=== PATIENT | male | born 1950 | race Caucasian/White ===

== ENCOUNTER → 2022-01-04 11:15 | Outpatient (BNVA) | payer MEDICARE, MEDICAID, SELFPAY | PROVIDERS: Visit Provider Specialist | DX: S82.831A Other fracture of upper and lower end of right fibula, initial encounter for closed fracture (principal); W01.0XXA Fall on same level from slipping, tripping and stumbling without subsequent striking against object, initial encounter | CPT/HCPCS: 27786; 73610; 99204 ==

== ENCOUNTER 2022-01-04 15:13 | Outpatient (CLI) | payer MEDICARE, MEDICAID, SELFPAY | END 2022-01-04 15:14 | disposition home or self-care (01) | LOC: SPT 15:15 | PROVIDERS: Visit Provider Specialist | DX: Z46.89 Encounter for fitting and adjustment of other specified devices (principal); S82.831D Other fracture of upper and lower end of right fibula, subsequent encounter for closed fracture with routine healing; X58.XXXD Exposure to other specified factors, subsequent encounter | CPT/HCPCS: 27786; 97760; 99204; L1902; L4361 ==

== ENCOUNTER → 2022-01-18 14:28 | Outpatient (BNVA) | payer MEDICARE, MEDICAID, SELFPAY | PROVIDERS: Visit Provider Nurse Practitioner Family | DX: S82.831D Other fracture of upper and lower end of right fibula, subsequent encounter for closed fracture with routine healing (principal); X58.XXXD Exposure to other specified factors, subsequent encounter | CPT/HCPCS: 73610; 99024; 99214 ==

== ENCOUNTER → 2022-02-23 14:10 | Outpatient (BNVA) | payer MEDICARE, MEDICAID, SELFPAY | PROVIDERS: Visit Provider Nurse Practitioner Family | DX: S82.831A Other fracture of upper and lower end of right fibula, initial encounter for closed fracture (principal) | CPT/HCPCS: 73610; 99213 ==

== ENCOUNTER 2023-09-09 21:45 | Inpatient (IN) | payer MEDICARE, MEDICAID, SELFPAY ==
[2023-09-09 21:48] VITALS: BP 150/93; PULSE 84; RESP 16; TEMP 37.2; O2SAT 92; BMI 33.3
[2023-09-09 22:00] VITALS: BP 163/105; PULSE 82; RESP 18; O2SAT 91
--- NOTE | 2023-09-09 22:07 | XRR_ITS ---
PROCEDURE INFORMATION: Exam: XR Right Tibia and Fibula Exam date and time: 09/09/2023 10:13 PM Age: 73 years old Clinical indication: Injury or trauma; Fall; Other: Pain; Additional info: Fall and L leg pain TECHNIQUE: Imaging protocol: Radiologic exam of the right tibia and fibula. Views: 2 views. COMPARISON: CR XR ankle RT min 3V* [id number] 02/23/2022 2:18 PM FINDINGS: Bones/joints: Osseous demineralization. Cpuj-hx-guvlqkuvzt displaced proximal right fibular fracture. Tqjr-fv-dqzvwjngnk displaced spiral fracture of the distal tibia without definitive intra-articular extension. Status post medial knee joint replacement. Soft tissues: Mild diffuse soft tissue swelling. Vasculature: Peripheral atherosclerotic calcifications. XR/XR tibia fibula RT 2V [id number] IMPRESSION: 1. Rkqy-et-rubnrapbnv displaced proximal right fibular fracture. 2. Iddg-ug-rkqephlcze displaced spiral fracture of the distal tibia without definitive intra-articular extension. .
[2023-09-09 22:30] VITALS: BP 153/97; PULSE 84; RESP 16; O2SAT 93
[2023-09-09 23:00] VITALS: BP 128/74; PULSE 92; O2SAT 93
--- NOTE | 2023-09-09 23:03 | W.ED.FALL ---
HPI - Fall General: Chief Complaint: Fall Stated Complaint: Fall/ Tib/Fib fx Time Seen by Provider: 09/09/23 22:00 History of Present Illness: The patient presents to the ER with a chief complaint of right leg pain after a fall at home. He reports getting tangled up in his walker and linens, leading to a fall. The patient experiences significant pain in the right leg, particularly from an inch or two below the knee down to the ankle. He denies any pain in the hip or foot. The patient has a history of scoliosis and underwent surgery three years ago, after which he was unconscious for approximately a week to ten days. He has been living in a correction since then. His currently resides with their daughter in [place], [place]. During the examination, the patient briefly experienced an episode of discomfort, but denied feeling nauseous. He has already received pain medication and reports that his pain is currently tolerable. Review of Systems General: Reports: 10 or more systems reviewed and unremarkable except in HPI and below PFSH ED PFSH: Social History Smoking and tobacco/nicotine status: never used tobacco/nicotine Physical Exam Const: COMMON NORMALS: no acute distress, patient oriented x3, healthy appearing, alert and well nourished HENMT: COMMON NORMALS: normocephalic HEAD & SCALP: normocephalic Eye: COMMON NORMALS: EOMs intact bilaterally Neck/C-Spine: COMMON NORMALS: full ROM and supple Resp: COMMON NORMALS: normal respiratory effort, No retractions and clear to auscultation bilaterally AUSCULTATION: clear to auscultation bilaterally Cardio: COMMON NORMALS: regular rate, regular rhythm, No gallops present (Cardio) and No murmurs present (Cardio) RATE: regular rate RHYTHM: regular rhythm GI: COMMON NORMALS: Soft to palpation and non-tender PALPATION: Yes Soft to palpation Extremity: GENERAL: Yes normal exam except as noted RIGHT LOWER EXTREMITY: Yes lower leg Right lower leg: Yes inspection (No significant ecchymosis or swelling), Yes palpation (Tender to palpation over the tibia) and Yes neurovascular exam (Normal dorsalis pedis and posterior tibial pulses, normal cap refill) Neuro: COMMON NORMALS: patient oriented x3 SENSORIUM/ORIENTATION: Yes alert Skin: COMMON NORMALS: no rashes or lesions noted GENERAL SKIN EXAM: no rashes or lesions noted Course Vital Signs: Vital signs: Vital Signs Temperature 98.9 F 09/09/23 21:48 Pulse Rate 84 09/09/23 21:48 Respiratory Rate 16 09/09/23 21:48 Blood Pressure 150/93 09/09/23 21:48 Pulse Oximetry 92 09/09/23 21:48 Oxygen Delivery Me thod Room Air 09/09/23 21:48 MDM - Fall Medical Decision Making 73-year-old male presents to the ER from his correction for evaluation of right leg pain. Patient has a proximal fibula distal tibia closed fracture to the right leg. He has normal pulses and sensation is intact. There is no evidence at this time that he is developing compartment syndrome. There is no significant swelling or ecchymosis in the leg. Case discussed with Dr. Encarnacion the orthopedic surgeon who recommended a CT scan, n.p.o. after midnight, and admission for discussion about surgical options in the morning. Case was then discussed with Dr. Slade who agreed to admit the patient. All radiology interpretation(s) finalized by discharge Discharge Plan Discharge Patient Disposition: Placed in Observation Clinical Impression: Closed fracture of tibia and fibula Qualifiers: Encounter type: initial encounter Laterality: right Qualified Code(s): S82.201A - Unspecified fracture of shaft of right tibia, initial encounter for closed fracture Coding Level of Care Code ED It [employer] for [employer]
--- NOTE | 2023-09-09 23:20 | CTR_ITS ---
PROCEDURE INFORMATION: Exam: CT Right Lower Extremity Without Contrast; Lower Leg Exam date and time: 09/09/2023 11:32 PM Age: 73 years old Clinical indication: Injury or trauma; Fall; Blunt trauma; Right; Prior surgery; Surgery date: 6+ months; Surgery type: Partial knee arhtroplasty; Patient HX: Patient fell at home while using walker. C/O severe RT lower leg pain. ; Additional info: Fracture by XR CT to evaluate for communication to ankle TECHNIQUE: Imaging protocol: CT of the right lower extremity without contrast was performed. Exam focused on the lower leg. Radiation optimization: All CT scans at this facility use at least one of these dose optimization techniques: automated exposure control; mA and/or kV adjustment per patient size (includes targeted exams where dose is matched to clinical indication); or iterative reconstruction. COMPARISON: CR (LOW EXM, ) 09/09/2023 10:13 PM RADIATION DOSE METRICS: Total DLP (mGy-cm): 1346.61 FINDINGS: Bones/joints: Mildly displaced proximal fibular fracture. Xide-az-vfbcfhatvq displaced spiral fracture of the distal tibia. No evidence of intra-articular extension of either fracture. Mild degenerative changes of the ankle joint. Status post medial right knee arthroplasty, partially visualized. Thickening of the tibiotalar and tibiocalcaneal ligaments with calcification consistent with sequela of prior trauma. Similar appearance of the fibula calcaneal and fibulotalar ligaments. Soft tissues: Mild diffuse soft tissue swelling and subcutaneous edema. Vasculature: Peripheral atherosclerotic calcifications. CT/CT lower leg RT wo con* [id number] IMPRESSION: 1. Mildly displaced proximal fibular fracture. 2. Weal-rj-ercvsvmsyh displaced spiral fracture of the distal tibia.
[2023-09-09 23:30] VITALS: BP 153/109; PULSE 84; O2SAT 91
--- NOTE | 2023-09-09 23:48 | P.HP_ITS ---
Providers/Chief Complaint 2 Chief Complaint: Fall/ Tib/Fib fx History of Present Illness Tom Espinosa is a 73 year old man who presents for further evaluation of right leg pain after a fall at home. He reports getting tangled up in his walker and beddings, leading to a fall. He started to have right leg pain after the fall. He denies hitting his head, loss of consciousness, seizure like movements, cough,shortness of breath, nausea, vomiting or abdominal pain. Imaging in the ER showed mildly displaced proximal fibular fracture , mild to moderate displaced spiral fracture of the distal tibia. Review of Systems 2 General: Reports: 10 or more systems reviewed and unremarkable except in HPI and below Const: Denies: fever(s) or chills Eyes: Denies: change in vision or blurry vision ENMT: Denies: throat pain or uvular edema Card: Denies: chest pain, palpitations or dyspnea on exertion Resp: Denies: dyspnea or productive cough GI: Denies: abdominal pain, nausea or vomiting : Denies: flank pain or difficulty urinating Neuro: Denies: headache(s) or numbness in extremities Endo: Denies: polyuria or polydipsia Medications/Allergies Home Medications Medication Instructions Recorded Confirmed Last Taken Type acetaminophen 325 mg capsule 325 mg PO QID PRN 01/04/22 02/23/22 Unknown History albuterol sulfate 90 mcg/actuation 2 puff inhalation Q6H PRN 01/04/22 02/23/22 Unknown History aerosol inhaler aspirin 81 mg tablet,delayed 81 mg PO DAILY 01/04/22 02/23/22 Unknown History release (Adult Low Dose Aspirin) bisacodyl 10 mg/30 mL enema 10 mg [place] DAILY PRN 01/04/22 02/23/22 Unknown History calcium carbonate (Antacid 200 mg PO BID 01/04/22 02/23/22 Unknown History (calcium carbonate)) cam walking boot #1 ea 01/04/22 02/23/22 Unknown Rx donepezil 5 mg tablet 5 mg PO DAILY 01/04/22 02/23/22 Unknown History ibuprofen 400 mg tablet 400 mg PO Q8H 01/04/22 02/23/22 Unknown History lace up ankle brace #1 ea 01/04/22 02/23/22 Unknown Rx magnesium hydroxide 400 mg/5 mL 30 ml PO BID PRN constipation 01/04/22 02/23/22 Unknown History oral suspension (Milk of Magnesia) menthol 2.7 mg lozenges (Cough 5.4 mg mucous membrane Q4H PRN 01/04/22 02/23/22 Unknown History Drops) menthol 4 % topical gel (Biofreeze 1 applic topical TID PRN 01/04/22 02/23/22 Unknown History (menthol)) mirabegron 50 mg tablet,extended 50 mg PO DAILY 01/04/22 02/23/22 Unknown History release 24 hr (Myrbetriq) omeprazole 20 mg tablet,delayed 20 mg PO DAILY 01/04/22 02/23/22 Unknown History release polyethylene glycol ea miscellaneous 01/04/22 02/23/22 Unknown History tamsulosin 0.4 mg capsule 0.4 mg PO DAILY 01/04/22 02/23/22 Unknown History tramadol 50 mg tablet 50 mg PO Q6H PRN pain #30 tabs 01/18/22 02/23/22 Unknown Rx Allergies Allergy/AdvReac Type Severity Reaction Status Date / Time No Known Allergies Allergy Verified 02/23/22 14:26 PFSH Acute 2 PFSH: Medical History (Updated 09/10/23 @ 06:30 by Lam Slade MD) BPH (benign prostatic hyperplasia) Surgical History (Updated 09/10/23 @ 06:30 by Lam Slade MD) Previous back surgery Social History Smoking and tobacco/nicotine status: never used tobacco/nicotine Vitals/I&O/Wt Last Vital Signs Temp 98.9 F 09/09/23 21:48 Pulse 84 09/09/23 21:48 Resp 16 09/09/23 21:48 BP 150/93 09/09/23 21:48 Pulse Ox 92 09/09/23 21:48 O2 Del Method Room Air 09/09/23 21:48 Weight last 48 hrs Weight 111.584 kg Physical Exam 2 Const: COMMON NORMALS: no acute distress, patient oriented x3 and alert HENMT: COMMON NORMALS: normocephalic, atraumatic, external ears normal, Normal external nose present, moist oral mucous membranes and oropharynx normal HEAD & SCALP: normocephalic and atraumatic NOSE: Normal external nose present E XTERNAL EAR: Yes external ears normal Eye: COMMON NORMALS: Equal, round and reactive pupils present, EOMs intact bilaterally, conjunctivae normal and no scleral icterus CONJUNCTIVA: Yes conjunctivae normal PUPIL: Yes Equal, round and reactive pupils present Neck/C-Spine: COMMON NORMALS: full ROM, no lymphadenopathy and no JVD Chest: COMMONS NORMALS: normal inspection of the chest Resp: COMMON NORMALS: normal respiratory effort and clear to auscultation bilaterally AUSCULTATION: clear to auscultation bilaterally OTHER: No wheezes or crcakles Cardio: COMMON NORMALS: no JVD, regular rate, regular rhythm, S1 normal heart sound present and S2 normal heart sound present RATE: regular rate RHYTHM: regular rhythm HEART SOUNDS: S1 normal heart sound present and S2 normal heart sound present GI: COMMON NORMALS: Normal to inspection, nondistended, normoactive bowel sounds present, Soft to palpation and non-tender PALPATION: Yes Soft to palpation Extremity: NARRATIVE EXTREMITY EXAM: Right LE wrapped Neuro: COMMON NORMALS: patient oriented x3 SENSORIUM/ORIENTATION: Yes alert OTHER: No gross focal deficits Data 09/10/23 01:55 09/10/23 01:[address]: Radiologist's impression: mildly displaced proximal fibular fracture , mild to moderate displaced spiral fracture of the distal tibi A&P Assessment and plan (1) Closed fracture of tibia and fibula: Qualifiers: Encounter type: initial encounter Laterality: right Qualified Code(s): S82.201A - Unspecified fracture of shaft of right tibia, initial encounter for closed fracture; S82.401A - Unspecified fracture of shaft of right fibula, initial encounter for closed fracture (2) Fracture of fibula, distal, right, closed: Qualifiers: Encounter type: subsequent encounter Fracture morphology: other fracture Plan #Mechanical Fall #Mildly displaced Right proximal fibular fracture , mild to moderate displaced spiral fracture of the right distal tibia. -Patient sustained the above after a fall -Orthopedic surgery consulted in the ER, patient will have surgical evaluation tomorrow -NPO from midnight -Check UA #Thrombocytopenia -Unclear etiology, unclear if chronic -Check peripheral smear -Hold heparin -Hematology consult as appropriate #BPH -Ct tamsulosin Attestations 2 Medical Necessity Statement*: Patient's care will cross 2 midnights Coding Level of Care Code Acute Code for [facility] Diagnoses Closed fracture of tibia and fibula S82.201A; S82.401A Encounter type: initial encounter Laterality: right Fracture of fibula, distal, right, closed S82.831A Encounter type: subsequent encounter Fracture morphology: other fracture
[2023-09-10] VITALS (15 sets, daily range): BP systolic 117–159; BP diastolic 58–119; PULSE 59–100; RESP 12–20; TEMP 36.4–37.2; O2SAT 90–94; BMI 38.1
[2023-09-10] MEDS: TRAMadol 50 mg Tablet PO ×3 (01:56→20:20)
[2023-09-10 02:14] LABS: Basophils % 0.5 %; Eosinophils # 0.1 10^3/uL (0.0-0.8); Hematocrit 41.8 % (37-53); Lymphocytes # 1.2 10^3/uL (0.8-4.8); Lymphocytes % 13.9 %; Mean Corpuscular HGB Conc 31.3 g/dL (30-55); Mean Corpuscular Hemoglobin 29.8 pg (27-33); Mean Platelet Volume 14.1 fL (7.4-10.4); Monocytes # 0.6 10^3/uL (0.2-0.9); Monocytes % 7.1 %; Neutrophils # 6.45 10^3/uL (1.8-7.7); Neutrophils % 77.1 %; Nucleated Red Blood Cells % 0 %; Platelet Count 45 10^3/cmm (157-399); Red Cell Distribution Width 14.1 % (12.1-15.1); White Blood Count 8.35 10^3/uL (3.29-11.43)
[2023-09-10 02:27] LABS: Alanine Aminotransferase 18 U/L (0-41); Albumin Level 3.6 g/dL (3.5-5.2); Alkaline Phosphatase 107 U/L (40-130); Anion Gap 15.2 (5-19); Aspartate Amino Transferase 18 U/L (0-40); Blood Urea Nitrogen 18 mg/dL (8-23); Calcium 8.8 mg/dL (8.5-10.5); Carbon Dioxide 24 mmol/L (22-29); Chloride 103 mmol/L (98-107); Creatinine Clr Calc Pharmacy 113.7367; Glucose 172 mg/dL (65-115); Osmolality Calculated 292 mOsm/kg (285-295); Potassium 4.2 mmol/L (3.5-5.1); Sodium 138 mmol/L (136-145); Total Bilirubin 0.6 mg/dL (0.15-1.2); Total Protein 6.6 g/dL (6.6-8.7)
[2023-09-10] MEDS: morphine 4 mg/mL SDV 1 mL 2 MG IVP ×4 (04:28→22:18)
--- NOTE | 2023-09-10 07:38 | P.CONIM_ITS ---
Providers/Reason For Consult 2 Consulting Physician/Specialty*: Miguel Encarnacion DO/orthopedic surgery Reason for Consult*: Right lower leg distal tibia fracture with associated proximal fibula fracture Requesting Physician: Dr. Tavarez-emergency department Attending Physician: Lam Slade MD History of Present Illness History of Present Illness HPI obtained from patient as well as medical record of hospitalist: Tom Espinosa is a 73 year old man who presents for further evaluation of right leg pain after a fall at home. He reports getting tangled up in his walker and beddings, leading to a fall. He started to have right leg pain after the fall. He denies hitting his head, loss of consciousness, seizure like movements, cough,shortness of breath, nausea, vomiting or abdominal pain. Imaging in the ER showed mildly displaced proximal fibular fracture , mild to moderate displaced spiral fracture of the distal tibia.Patient's is POA and lives in [place] he currently is at a [facility] facility.Discussed case with over the phone today.. Patient's platelets are 45 today. Review of Systems 2 General: Reports: 10 or more systems reviewed and unremarkable except in HPI and below Medications/Allergies Home Medications Medication Instructions Recorded Confirmed Last Taken Type acetaminophen 325 mg capsule 325 mg PO QID PRN 01/04/22 02/23/22 Unknown History albuterol sulfate 90 mcg/actuation 2 puff inhalation Q6H PRN 01/04/22 02/23/22 Unknown History aerosol inhaler aspirin 81 mg tablet,delayed 81 mg PO DAILY 01/04/22 02/23/22 Unknown History release (Adult Low Dose Aspirin) bisacodyl 10 mg/30 mL enema 10 mg [place] DAILY PRN 01/04/22 02/23/22 Unknown History calcium carbonate (Antacid 200 mg PO BID 01/04/22 02/23/22 Unknown History (calcium carbonate)) cam walking boot #1 ea 01/04/22 02/23/22 Unknown Rx donepezil 5 mg tablet 5 mg PO DAILY 01/04/22 02/23/22 Unknown History ibuprofen 400 mg tablet 400 mg PO Q8H 01/04/22 02/23/22 Unknown History lace up ankle brace #1 ea 01/04/22 02/23/22 Unknown Rx magnesium hydroxide 400 mg/5 mL 30 ml PO BID PRN constipation 01/04/22 02/23/22 Unknown History oral suspension (Milk of Magnesia) menthol 2.7 mg lozenges (Cough 5.4 mg mucous membrane Q4H PRN 01/04/22 02/23/22 Unknown History Drops) menthol 4 % topical gel (Biofreeze 1 applic topical TID PRN 01/04/22 02/23/22 Unknown History (menthol)) mirabegron 50 mg tablet,extended 50 mg PO DAILY 01/04/22 02/23/22 Unknown History release 24 hr (Myrbetriq) omeprazole 20 mg tablet,delayed 20 mg PO DAILY 01/04/22 02/23/22 Unknown History release polyethylene glycol ea miscellaneous 01/04/22 02/23/22 Unknown History tamsulosin 0.4 mg capsule 0.4 mg PO DAILY 01/04/22 02/23/22 Unknown History tramadol 50 mg tablet 50 mg PO Q6H PRN pain #30 tabs 01/18/22 02/23/22 Unknown Rx Allergies Allergy/AdvReac Type Severity Reaction Status Date / Time No Known Allergies Allergy Verified 02/23/22 14:26 Current Medications Generic Name Dose Route Start Last Admin Trade Name Freq PRN Reason Stop Dose Admin Morphine Sulfate 2 mg 09/10/23 01:38 09/10/23 04:28 Morphine 4 Mg/Ml Sdv 1 Ml IVP 2 mg Q4H PRN Administration SEVERE PAIN Tramadol HCl 50 mg 09/10/23 01:38 09/10/23 01:56 Tramadol 50 Mg Tablet PO 50 mg Q6H PRN Administration pain PFSH Acute 2 PFSH: Medical History (Updated 09/10/23 @ 06:30 by Lam Slade MD) BPH (benign prostatic hyperplasia) Surgical History (Updated 09/10/23 @ 06:30 by Lam Slade MD) Previous back surgery Social History Smoking and tobacco/nicotine status: never used tobacco/nicotine Vitals/I&O/Wt Last Vital Signs Temp 97.5 F L 09/10/23 04:00 Pulse 66 09/10/23 04:00 Resp 18 09/10/23 04:28 BP 145/88 09/10/23 04:00 Pulse Ox 93 09/10/23 04:00 O2 Del Method Room Air 09/10/23 04:00 Weight last 48 hrs Weight 281 lb 7 oz Weight 282 lb 4.8 oz Weight 246 lb Physical Exam 2 Narrative: Orthopedic examination: Examination of the patient's right lower extremity demonstrates splint sewn in place is subsequently left in place not taken down he has tenderness palpation at the fracture site at the distal tibia as well as at the proximal fibula. He is able to wiggle toes as well as great toe extension is appreciated does endorse sensations intact light touch to the toes. Toes are warm well-perfused with brisk capillary refill less than 2 seconds unable to palpate pulse secondary to splint. Patient has negative logroll to the left or right hip. Compartments are soft and compressible the right lower extremity. Secondary survey examination is unremarkable for any tenderness to palpation of the bilateral upper extremity joints with normal use of use and motion of the joints as well as no tenderness palpation of the lower extremity joints on the left side. Data 09/10/23 08:10 09/10/23 01:55 Xray Ortho: Radiologist's impression: Ordering Provider/Ordering MD: Rigoberto Tavarez DO Date of Service: 09/09/23 Procedure(s): XR tibia fibula RT 2V [id number] Accession Number(s): [id number] Report Number: [id number] PROCEDURE INFORMATION: Exam: XR Right Tibia and Fibula Exam date and time: 09/09/2023 10:13 PM Age: 73 years old Clinical indication: Injury or trauma; Fall; Other: Pain; Additional info: Fall and L leg pain TECHNIQUE: Imaging protocol: Radiologic exam of the right tibia and fibula. Views: 2 views. COMPARISON: CR XR ankle RT min 3V* [id number] 02/23/2022 2:18 PM FINDINGS: Bones/joints: Osseous demineralization. Iwre-pj-wricpiwftu displaced proximal right fibular fracture. Mawf-md-elmuvdotvq displaced spiral fracture of the distal tibia without definitive intra-articular extension. Status post medial knee joint replacement. Soft tissues: Mild diffuse soft tissue swelling. Vasculature: Peripheral atherosclerotic calcifications. XR/XR tibia fibula RT 2V [id number] IMPRESSION: 1. Ioyd-cz-dfkavxkzvy displaced proximal right fibular fracture. 2. Gyuu-ex-qmqycbkgby displaced spiral fracture of the distal tibia without definitive intra-articular extension. Ordering Provider/Ordering MD: Rigoberto Tavarez DO Date of Service: 09/09/23 Procedure(s): CT lower leg RT wo con* [id number] Accession Number(s): [id number] Report Number: [id number] PROCEDURE INFORMATION: Exam: CT Right Lower Extremity Without Contrast; Lower Leg Exam date and time: 09/09/2023 11:32 PM Age: 73 years old Clinical indication: Injury or trauma; Fall; Blunt trauma; Right; Prior surgery; Surgery date: 6+ months; Surgery type: Partial knee arhtroplasty; Patient HX: Patient fell at home while using walker. C/O severe RT lower leg pain. ; Additional info: Fracture by XR CT to evaluate for communication to ankle TECHNIQUE: Imaging protocol: CT of the right lower extremity without contrast was performed. Exam focused on the lower leg. Radiation optimization: All CT scans at this facility use at least one of these dose optimization techniques: automated exposure control; mA and/or kV adjustment per patient size (includes targeted exams where dose is matched to clinical indication); or iterative reconstruction. COMPARISON: CR (LOW EXM, ) 09/09/2023 10:13 PM RADIATION DOSE METRICS: Total DLP (mGy-cm): 1346.61 FINDINGS: Bones/joints: Mildly displaced proximal fibular fracture. Hrlx-yx-dgvgxpabvx displaced spiral fracture of the distal tibia. No evidence of intra-articular extension of either fracture. Mild degenerative changes of the ankle joint. Status post medial right knee arthroplasty, partially visualized. Thickening of the tibiotalar and tibiocalcaneal ligaments with calcification consistent with sequela of prior trauma. Similar appearance of the fibula calcaneal and fibulotalar ligaments. Soft tissues: Mild diffuse soft tissue swelling and subcutaneous edema. Vasculature: Peripheral atherosclerotic calcifications. CT/CT lower leg RT wo con* [id number] IMPRESSION: 1. Mildly displaced proximal fibular fracture. 2. Tyzv-zo-ktqvckqnpa displaced spiral fracture of the distal tibia. A&P Assessment and plan (1) Closed fracture of tibia and fibula: Qualifiers: Encounter type: initial encounter Laterality: right Qualified Code(s): S82.201A - Unspecified fracture of shaft of right tibia, initial encounter for closed fracture; S82.401A - Unspecified fracture of shaft of right fibula, initial encounter for closed fracture (2) Fracture of fibula, distal, right, closed: Qualifiers: Encounter type: subsequent encounter Fracture morphology: other fracture Plan #Mechanical Fall #Mildly displaced Right proximal fibular fracture , mild to moderate displaced spiral fracture of the right Nonweightbearing right lower extremity CT scan reviewed no intra-articular involvement enough distal footprint for nail fixation Discussed case with Pain control Patient has low platelets and currently has order for 2 units with 2 units on hold today. Given his platelets is 45 we will try and get him above 50 prior to surgical intervention Patient may have diet today with plan for n.p.o. at midnight tonight we will get appropriately worked up and medically optimized today spoke with Dr. Rodriguez Plan for surgery tomorrow for right tibia intramedullary nail through infrapatellar approach as patient does have a medial partial knee replacement Patient is a 73-year-old male who has some baseline dementia according to patient's POA who I talked with on the phone. Patient is aware and able to answer all questions today. We talked about his treatment options as far as nonoperative and operative invention I discussed this with the as well. Talked about the risk benefits complication alternatives with the each. Given its along his alignment I feel this could be treated nonoperatively but this would require long-leg cast nonoperative treatment for roughly 6 to 8 weeks prior to putting any weightbearing on versus surgical intervention which my hands would be nonweightbearing with a splint on and encourage knee range of motion right away for 2 weeks subsequently followed by goals of progressing weightbearing after 2 weeks and incisions of healed. Through shared decision making patient and elect to proceed with surgical intervention of the right tibial nail he does have a partial knee replacement on the medial side of the right knee and at this point time would recommend an infrapatellar approach. Plan will be to get his body optimized with receiving units of platelets today and then plan for surgical intervention tomorrow morning. He can have a diet with n.p.o. at midnight tonight. Patient and understand agree with current plan. Questions answered. Consult Attestations 2 Medical Necessity Statement: Ongoing care Patient sustained right proximal fibula fracture with associated spiral distal tibia fracture Coding Level of Care Code Acute Code for [facility] Fwd Diagnoses Closed fracture of tibia and fibula S82.201A; S82.401A Encounter type: initial encounter Laterality: right Fracture of fibula, distal, right, closed S82.831A Encounter type: subsequent encounter Fracture morphology: other fracture Time Spent (min) 45
[2023-09-10 09:01] LABS: Hematocrit 41.2 % (37-53); Mean Corpuscular Hemoglobin 30.5 pg (27-33); Mean Corpuscular Volume 92.4 fl (82-101); Mean Platelet Volume 14.3 fL (7.4-10.4); Platelet Count 42 10^3/cmm (157-399); Red Blood Count 4.46 10^6/uL (3.85-5.65); Red Cell Distribution Width 14.1 % (12.1-15.1); White Blood Count 7.42 10^3/uL (3.29-11.43)
[2023-09-10 09:04] LABS: Absolute Eosinophils 0.1 10^3/cmm (0.0-0.7); Absolute Segmented Neutrophil 5.9 10/cmm (1.6-7.1); Eosinophils 1 %; Lymphocytes 17 %; Lymphocytes Absolute 1.3 10^3/cmm (1.2-3.4); Monocytes Absolute 0.2 10^3/cmm (0.1-0.6); Platelet Estimate Decreased (Normal); Segmented Neutrophils 79 %; Total Cells Counted 100 (0-100)
[2023-09-10 09:08] LABS: Absolute Neutrophil 5.9 10^3/cmm (1.4-6.5); LAB Peripheral Smear Sent for Review
[2023-09-10] MEDS: donepezil 5 MG Tablet PO (10:00)
[2023-09-10] MEDS: tamsulosin 0.4 mg Capsule 0.400000000000000022 MG PO (10:00)
[2023-09-10] MEDS: pantoprazole DR 40 mg Tablet PO (10:00)
[2023-09-10 12:36] LABS: Platelet Count 42 10^3/cmm (157-399)
--- NOTE | 2023-09-10 14:44 | P.PN_ITS ---
Vitals/I&O/Wt Last Vital Signs Temp 99.0 F 09/10/23 14:34 Pulse 76 09/10/23 14:34 Resp 16 09/10/23 14:34 BP 128/80 09/10/23 14:34 Pulse Ox 92 09/10/23 14:34 O2 Del Method Room Air 09/10/23 04:00 09/09/23 09/10/23 09/10/23 22:59 06:59 14:59 Intake Total 240 / 240 Balance 240 / 240 Weight last 48 hrs Weight 127.658 kg Weight 128.049 kg Weight 111.584 kg Physical Exam 2 Const: COMMON NORMALS: no acute distress, patient oriented x3 and alert HENMT: COMMON NORMALS: normocephalic, atraumatic, external ears normal, Normal external nose present, moist oral mucous membranes and oropharynx normal HEAD & SCALP: normocephalic and atraumatic NOSE: Normal external nose present E XTERNAL EAR: Yes external ears normal Eye: COMMON NORMALS: Equal, round and reactive pupils present, EOMs intact bilaterally, conjunctivae normal and no scleral icterus CONJUNCTIVA: Yes conjunctivae normal PUPIL: Yes Equal, round and reactive pupils present Neck/C-Spine: COMMON NORMALS: full ROM, no lymphadenopathy and no JVD Chest: COMMONS NORMALS: normal inspection of the chest Resp: COMMON NORMALS: normal respiratory effort and clear to auscultation bilaterally AUSCULTATION: clear to auscultation bilaterally OTHER: No wheezes or crcakles Cardio: COMMON NORMALS: no JVD, regular rate, regular rhythm, S1 normal heart sound present and S2 normal heart sound present RATE: regular rate RHYTHM: regular rhythm HEART SOUNDS: S1 normal heart sound present and S2 normal heart sound present GI: COMMON NORMALS: Normal to inspection, nondistended, normoactive bowel sounds present, Soft to palpation and non-tender PALPATION: Yes Soft to palpation Extremity: NARRATIVE EXTREMITY EXAM: Right LE wrapped Neuro: COMMON NORMALS: patient oriented x3 SENSORIUM/ORIENTATION: Yes alert OTHER: No gross focal deficits Urinary Catheter Management: Lopez: Cath Placed During This Visit: yes Urinary Catheter Date of Insertion: 09/10/23 Urinary Catheter Time of Insertion: 12:00 Data 09/10/23 12:28 09/10/23 01:55 A&P Assessment and plan (1) Closed fracture of tibia and fibula: Qualifiers: Encounter type: initial encounter Laterality: right Qualified Code(s): S82.201A - Unspecified fracture of shaft of right tibia, initial encounter for closed fracture; S82.401A - Unspecified fracture of shaft of right fibula, initial encounter for closed fracture (2) Fracture of fibula, distal, right, closed: Qualifiers: Encounter type: subsequent encounter Fracture morphology: other fracture Plan #Mechanical Fall #Mildly displaced Right proximal fibular fracture , mild to moderate displaced spiral fracture of the right distal tibia. -Patient sustained the above after a fall -Orthopedic surgery consulted in the ER, patient will have surgical evaluation tomorrow -NPO from midnight -Check UA #Thrombocytopenia -Unclear etiology, unclear if chronic -Check peripheral smear? -Hold heparin -Hematology consult as appropriate -platelet 45 on admission differentials include ITP, vs infection? pt denies alcohol use, liver disease, cancers in the family no recent hospital stay, low suspicion of HIT. liver enzymes are normal hold aspirin. this could be isolated drug induced thrombocytopenia low probability but check for HIV and Hepatitis Check PT/INR CHeck TSH #BPH -Ct tamsulosin Attestations 2 Medical Necessity Statement*: Patient's care will cross 2 midnights Diagnoses Closed fracture of tibia and fibula S82.201A; S82.401A Encounter type: initial encounter Laterality: right Fracture of fibula, distal, right, closed S82.831A Encounter type: subsequent encounter Fracture morphology: other fracture
[2023-09-10] MEDS: sodium chloride 0.9% (100 ml) 100 ML 999 ML (15:13)
[2023-09-10 16:05] LABS: Lactate Dehydrogenase 148 U/L (135-225); Thyroid Stimulating Hormone 1.92 uIU/mL (0.27-4.20)
[2023-09-10] MEDS: dexamethasone 10 mg/mL INJ 40 MG IVP (17:04)
[2023-09-10 19:01] LABS: Basophils % 0.3 %; Eosinophils # 0.1 10^3/uL (0.0-0.8); Eosinophils % 1.4 %; Hematocrit 40.8 % (37-53); Lymphocytes # 0.7 10^3/uL (0.8-4.8); Lymphocytes % 10.2 %; Mean Corpuscular HGB Conc 32.1 g/dL (30-55); Mean Corpuscular Hemoglobin 30.3 pg (27-33); Mean Corpuscular Volume 94.2 fl (82-101); Mean Platelet Volume 12.6 fL (7.4-10.4); Monocytes # 0.3 10^3/uL (0.2-0.9); Neutrophils # 5.45 10^3/uL (1.8-7.7); Nucleated Red Blood Cells % 0 %; Platelet Count 62 10^3/cmm (157-399); Red Blood Count 4.33 10^6/uL (3.85-5.65); Red Cell Distribution Width 14.2 % (12.1-15.1); White Blood Count 6.56 10^3/uL (3.29-11.43)
[2023-09-10 19:13] LABS: INR 1.07 (0.8-1.2)
[2023-09-10 19:28] LABS: HIV 1 & 2 Antibody Non-Reactive (Non-Reactiv); HIV 1 & 2 Antigen Non-Reactive (Non-Reactiv)
[2023-09-10 21:52] LABS: Hepatitis A Antibody IgM Non-Reactive (Nonreactive); Hepatitis B Core AB, Total Non-Reactive (Nonreactive); Hepatitis B Surface AB 11.6 (11.5-1000); Hepatitis B Surface Antigen Non-Reactive (Nonreactive); Hepatitis C Virus Antibody Non-Reactive (Nonreactive)
[2023-09-11] VITALS (23 sets, daily range): BP systolic 122–173; BP diastolic 73–99; PULSE 62–82; RESP 12–20; TEMP 36.4–37; O2SAT 90–98
[2023-09-11 06:04] LABS: Basophils % 0.2 %; Lymphocytes # 0.5 10^3/uL (0.8-4.8); Mean Corpuscular HGB Conc 31.8 g/dL (30-55); Mean Corpuscular Hemoglobin 29.4 pg (27-33); Mean Corpuscular Volume 92.4 fl (82-101); Mean Platelet Volume 13.2 fL (7.4-10.4); Monocytes # 0.1 10^3/uL (0.2-0.9); Neutrophils # 4.35 10^3/uL (1.8-7.7); Neutrophils % 86.6 %; Nucleated Red Blood Cells % 0 %; Platelet Count 74 10^3/cmm (157-399); Red Blood Count 4.76 10^6/uL (3.85-5.65); Red Cell Distribution Width 13.6 % (12.1-15.1); White Blood Count 5.02 10^3/uL (3.29-11.43)
[2023-09-11 06:11] LABS: Add Urine Microscopic? YES; Bilirubin Urine Neg (Negative); Blood Urine 2+ (Negative); Glucose Urine UA 1+ (Normal); Ketones Urine 2+ (Negative); Leukocyte Esterase Urine 2+ (Negative); Nitrate Urine Positive (Negative); Protein Urine Trace (Negative); Urine Appearance Cloudy (CLEAR); Urine Color Yellow (Yellow); Urobilinogen Urine 4 mg/dL (Negative); pH Urine 5 (5-7)
[2023-09-11 06:12] LABS: Add Urine Culture? Yes; Amorphous Sediment Urine TRACE /hpf; Bacteria Urine 4+ /hpf; Mucus Urine TRACE /hpf; Squamous Epithelial Cell Urine 0-4 /hpf (0-5); WBC Urine 25-40 /hpf (0-5)
[2023-09-11 06:22] LABS: Anion Gap 16.4 (5-19); Blood Urea Nitrogen 16 mg/dL (8-23); Carbon Dioxide 26 mmol/L (22-29); Chloride 102 mmol/L (98-107); Creatinine Clr Calc Pharmacy 112.1962; Glucose 236 mg/dL (65-115); Magnesium 1.8 mg/dL (1.7-2.3); Osmolality Calculated 299 mOsm/kg (285-295); Potassium 4.4 mmol/L (3.5-5.1); Sodium 140 mmol/L (136-145)
--- NOTE | 2023-09-11 06:58 | ANES.PREANE2 ---
Pre-Anesthetic Assessment Height/Weight: Height 1.83 m Weight 124.738 kg Temp Pulse Resp BP Pulse Ox O2 Del Method O2 Flow Rate 98.2 F 62 19 H 148/80 93 Room Air 2 09/11/23 04:00 09/11/23 04:00 09/11/23 04:00 09/11/23 04:00 09/11/23 04:00 09/11/23 04:00 09/10/23 19:10 Was Beta Julio taken within 24 hours: N/A Was Clonidine taken within 24 hours: N/A Last intake: Intake Last Liquid Date 09/11/23 Last Liquid Time 23:59 Last Solid Date 09/10/23 Last Solid Time 12:00 Social No alcohol and No tobacco Exam alert, oriented x 3, clear to auscultation bilaterally and regular rate & rhythm Airway Submandibular: within normal limits Cervical ROM: within normal limits Mallampati: Class II History/ROS No significant history except as noted Metabolic Thrombocytopenia Musc/skel Lower Back Pain s/p lumbar procedure Anesthetic Plan ASA status: 3 Anesthesia: General Medications/Allergies Home Medications Medication Instructions Recorded Confirmed Last Taken Type acetaminophen 325 mg capsule 325 mg PO QID PRN 01/04/22 02/23/22 Unknown History albuterol sulfate 90 mcg/actuation 2 puff inhalation Q6H PRN 01/04/22 02/23/22 Unknown History aerosol inhaler aspirin 81 mg tablet,delayed 81 mg PO DAILY 01/04/22 02/23/22 Unknown History release (Adult Low Dose Aspirin) bisacodyl 10 mg/30 mL enema 10 mg [place] DAILY PRN 01/04/22 02/23/22 Unknown History calcium carbonate (Antacid 200 mg PO BID 01/04/22 02/23/22 Unknown History (calcium carbonate)) cam walking boot #1 ea 01/04/22 02/23/22 Unknown Rx donepezil 5 mg tablet 5 mg PO DAILY 01/04/22 02/23/22 Unknown History ibuprofen 400 mg tablet 400 mg PO Q8H 01/04/22 02/23/22 Unknown History lace up ankle brace #1 ea 01/04/22 02/23/22 Unknown Rx magnesium hydroxide 400 mg/5 mL 30 ml PO BID PRN constipation 01/04/22 02/23/22 Unknown History oral suspension (Milk of Magnesia) menthol 2.7 mg lozenges (Cough 5.4 mg mucous membrane Q4H PRN 01/04/22 02/23/22 Unknown History Drops) menthol 4 % topical gel (Biofreeze 1 applic topical TID PRN 01/04/22 02/23/22 Unknown History (menthol)) mirabegron 50 mg tablet,extended 50 mg PO DAILY 01/04/22 02/23/22 Unknown History release 24 hr (Myrbetriq) omeprazole 20 mg tablet,delayed 20 mg PO DAILY 01/04/22 02/23/22 Unknown History release polyethylene glycol ea miscellaneous 01/04/22 02/23/22 Unknown History tamsulosin 0.4 mg capsule 0.4 mg PO DAILY 01/04/22 02/23/22 Unknown History tramadol 50 mg tablet 50 mg PO Q6H PRN pain #30 tabs 01/18/22 02/23/22 Unknown Rx Allergies Allergy/AdvReac Type Severity Reaction Status Date / Time No Known Allergies Allergy Verified 02/23/22 14:26 Current Medications Generic Name Dose Route Start Last Admin Trade Name Freq PRN Reason Stop Dose Admin Donepezil HCl 5 mg 09/10/23 09:00 09/10/23 10:00 Donepezil 5 Mg Tablet PO 5 mg DAILY STONE Administration Morphine Sulfate 2 mg 09/10/23 01:38 09/10/23 22:18 Morphine 4 Mg/Ml Sdv 1 Ml IVP 2 mg Q4H PRN Administration SEVERE PAIN Pantoprazole Sodium 40 mg 09/10/23 09:00 09/10/23 10:[address] 40 Mg Tablet PO 40 mg DAILY STONE Administration Tamsulosin HCl 0.4 mg 09/10/23 09:00 09/10/23 10:00 Tamsulosin 0.4 Mg Capsule PO 0.4 mg DAILY STONE Administration Tramadol HCl 50 mg 09/10/23 01:38 09/10/23 20:20 Tramadol 50 Mg Tablet PO 50 mg Q6H PRN Administration pain PFSH Anesthesia Medical History (Updated 09/10/23 @ 06:30 by Lam Slade MD) BPH (benign prostatic hyperplasia) Surgical History (Updated 09/10/23 @ 06:30 by Lam Slade MD) Previous back surgery Social History Smoking and tobacco/nicotine status: never used tobacco/nicotine Data Anesthesia 09/11/23 05:43 09/11/23 05:43 Short CBC 09/10/23 09/10/23 09/10/23 Range/Units 01:55 08:10 08:10 WBC 8.35 7.42 Cancelled (3.29-11.43) 10^3/uL Hgb 13.10 13.60 (11.27-16.99) g/dL Hct 41.8 (37-53) % MCV 95.0 (82-101) fl Plt Count 45 L (157-399) 10^3/cmm Neut % (Auto) 77.1 % Neut # (Auto) 6.45 (1.8-7.7) 10^3/uL 09/10/23 09/10/23 09/10/23 Range/Units 08:10 08:10 08:10 WBC (3.29-11.43) 10^3/uL Hgb Cancelled (11.27-16.99) g/dL Hct 41.2 Cancelled (37-53) % MCV 92.4 Cancelled (82-101) fl Plt Count 42 L (157-399) 10^3/cmm Neut % (Auto) % Neut # (Auto) (1.8-7.7) 10^3/uL 09/10/23 09/10/23 09/10/23 Range/Units 08:10 12:28 18:41 WBC 6.56 (3.29-11.43) 10^3/uL Hgb 13.10 (11.27-16.99) g/dL Hct 40.8 (37-53) % MCV 94.2 (82-101) fl Plt Count Cancelled 42 L 62 L D (157-399) 10^3/cmm Neut % (Auto) Cancelled 83.0 % Neut # (Auto) Cancelled 5.45 (1.8-7.7) 10^3/uL 09/11/23 Range/Units 05:43 WBC 5.02 (3.29-11.43) 10^3/uL Hgb 14.00 (11.27-16.99) g/dL Hct 44.0 (37-53) % MCV 92.4 (82-101) fl Plt Count 74 L (157-399) 10^3/cmm Neut % (Auto) 86.6 % Neut # (Auto) 4.35 (1.8-7.7) 10^3/uL BMP 09/10/23 09/11/23 01:55 05:43 Sodium 138 140 Potassium 4.2 4.4 Chloride 103 102 Carbon Dioxide 24 26 BUN 18 16 Creatinine 0.7 0.7 Glucose 172 H 236 H Calcium 8.8 9.0 Liver Function 09/10/23 Range/Units 01:55 Total Bilirubin 0.6 (0.15-1.2) mg/dL AST 18 (0-40) U/L ALT 18 (0-41) U/L Alkaline Phosphatase 107 (40-130) U/L Albumin 3.6 (3.5-5.2) g/dL Urine 09/11/23 Range/Units 05:18 Urine Color Yellow (Yellow) Urine Appearance Cloudy A (CLEAR) Urine pH 5 (5-7) Ur Specific [place] 1.020 (1.005-1.030) Urine Protein Trace (Negative) Urine Glucose (UA) 1+ H (Normal) Urine Ketones 2+ H (Negative) Urine Nitrate Positive H (Negative) Urine Bilirubin Neg (Negative) Ur Leukocyte Esterase 2+ H (Negative) Urine RBC 5-10 H (0-2) /hpf Urine WBC 25-40 H (0-5) /hpf Blood Bank 09/10/23 12:28 Blood Type A Positive Rho(D) Type Rh positive Coags 09/10/23 18:41 PT 14.20 INR 1.07 Cardiac Studies: No Data to Display
[2023-09-11] MEDS: ondansetron 2 mg/ML SDV 2 mL 4 MG IVP (07:48)
[2023-09-11] MEDS: sodium chloride 0.9% 1,000 ML 30 ML IV (07:48)
--- NOTE | 2023-09-11 07:52 | ECG_ITS ---
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 Measurements Intervals [place] Rate: 81 P: 15 [place]: 213 QRS: 61 QRSD: 89 T: 18 QT: 387 QTc: 452 Interpretive Statements SINUS RHYTHM WITH FIRST DEGREE AV BLOCK WITH FREQUENT SUPRAVENTRICULAR PREMATURE COMPLEXES NONSPECIFIC ST & T-WAVE ABNORMALITY No previous ECG available for comparison Electronically Signed On 09-11-2023 10:01:30 CDT by Glenn Winters M.D. [email or web address]
--- NOTE | 2023-09-11 07:52 | W.PM.OPSUD ---
Surgery/Procedure H&P Update DATE OF PROCEDURE: September 11, 2023 DATE H&P PERFORMED: 09/10/23 H&P UPDATE INFORMATION: I have reviewed H&P completed within last 30 days, I have examined patient prior to procedure and No changes to prior documentation CHANGES TO PREVIOUS DOCUMENTATION: Patient has been worked up by internal medicine received couple units of platelets he is up to 74 platelets today. At this point in time talked about with hospitalist. Patient's been medically optimized at this point in time and ultimately through shared decision-making discussion with patient elects proceed with surgical intervention of a right tibia intramedullary nail. He understands the ins and outs procedure risk benefits complication alternatives of surgery and through shared decision make elects proceed with surgical intervention. All questions answered at this time. PREOP DIAGNOSIS: Right distal tibia fracture, right proximal fibula fracture PRIMARY INDICATION FOR PROCEDURE: Right distal tibia fracture, right proximal fibula fracture PLANNED PROCEDURE: Operation Date: 09/11/23 08:20 Proposed Procedures p IM Tibial Nail Insertion(Right) - Miguel Encarnacion DO
--- NOTE | 2023-09-11 08:00 | XR_ITS ---
WS: [id number] Exam: XR tibia fibula RT 2V [id number] Date/Time of Exam: 09/11/2023 8:00 AM Reason For Exam: RT TIBIAL NAILING; OR PICS Intraoperative C-arm images of the RIGHT tibia are submitted. An intramedullary henry has been placed e xtending through the long axis of the tibia and bridging a comminuted spiral fracture of the lower ti ameya. Alignment appears satisfactory. Again noted is a spiral fracture of the upper fibula appearing t o be in satisfactory alignment. Hemijoint replacement of the medial compartment of the knee noted.
[2023-09-11] MEDS: ceFAZolin 2,000 MG in sodium chloride 0.9% (plus) 50 ML 100 MG IV (08:08)
[2023-09-11] MEDS: tranexamic acid 1,000 mg/10mL SDV 1000 MG IV (08:43)
[2023-09-11] MEDS: ceFAZolin 1,000 mg SDV 1000 MG IVP (08:44)
--- NOTE | 2023-09-11 10:02 | P.BOP_ITS ---
Date of Procedure: [09/11/2023] Surgeon: Miguel Encarnacion DO [employer]her And Crusher Tender(s): Barrie Encarnacion PA-C Procedure(s) performed: Right tibia intramedullary nail Closed treatment right proximal fibula fracture with splint application Findings of the procedure(s): Patient was found to have a right distal third tibial shaft fracture as well as associated proximal fibula fracture underwent procedure as planned without issues or complications ankle joint was stable. Estimated blood loss: [50 mL] Specimen(s) removed: None Post-operative diagnosis: Right distal third tibia shaft fracture, right proximal fibula fracture
--- NOTE | 2023-09-11 10:07 | XRR_ITS ---
PROCEDURE INFORMATION: Exam: XR Right Tibia and Fibula Exam date and time: 09/11/2023 3:23 PM Age: 73 years old Clinical indication: Screening exam; Patient HX: Post op RT tibial nailing TECHNIQUE: Imaging protocol: Radiologic exam of the right tibia and fibula. Views: 2 views. COMPARISON: OT XR tibia fibula RT 2V [id number] 09/11/2023 8:39 AM FINDINGS: Tubes, catheters and devices: Hardware appears intact. Alignment is anatomic. Proximal fibular fracture again noted. Bones/joints: Status post open reduction and internal fixation of tibial fracture. Soft tissues: Postoperative changes including soft tissue swelling, subcutaneous gas, and skin shana. XR/XR tibia fibula RT 2V [id number] IMPRESSION: Status post open reduction and internal fixation of tibial fracture. Grossly anatomic alignment.
--- NOTE | 2023-09-11 10:20 | PM.OP ---
Operative Report Date of procedure: September 11, 2023 Surgeon: Miguel Encarnacion DO Remotely Piloted Vehicle Controller: Barrie Encarnacion PA-C: PA was necessary for assistance in this case with leg positioning retraction and protection of neurovascular structures assistance with reduction and maintaining reduction during implantation/fixation wound closure and dressing application. Procedure: Pre-op diagnosis: Right distal third tibia shaft fracture Right proximal fibula fracture Post-op diagnosis: Same Procedure done: Right tibia infrapatellar intramedullary nail Closed treatment right proximal fibula fracture with splint application Implants: 11 mm x 330 mm tibial T2 alpha nail [place] Jose 5 mm advanced locking screws 35mm,50mm,42.5mm Jose 5 mm standard locking screws 40 mm , 45 mm Jose +15 mm tibia end cap Surgeon: Miguel Encarnacion DO Remotely Piloted Vehicle Controller: Barrie Encarnacion PA-C PA-C was necessary for assistance in this case with leg positioning retraction and protection of neurovascular structures as well as assistance in holding reduction as well as assist with implant/fixation wound closure and dressing application. Anesthesia: General Estimated blood loss (mL): 50mL Tourniquet: None IV fluids: 1000 mL Complications: None Findings: See operative report narrative Condition: stable Disposition: floor Brief History: Patient seen and fall and found to have a right distal third tibia fracture with a concomitant proximal fibula fracture. Patient was seen and evaluated was admitted by hospitalist medically optimized. He had low platelets and these were subsequently transfused yesterday and medically optimized with increasing to 74 today. We talked about his treatment options as far as nonoperative and operative invention. Ultimately overall feel as though his alignment is in good position we talked about just leaving this alone and treating nonoperatively think the benefit from surgery would be his pain control as well as equate to earlier mobilization which 1 week discussed this versus nonoperative treatment and elected to proceed nonoperative treatment I did discuss this with general his and POA and she understands and agrees with this as well. All questions answered. We reviewed his radiographic findings and at this point time he has a distal third tibia fracture and a proximal fibula fracture he has previous hardware at the knee of the medial partial knee replacement which appears to be stable and could be amenable to a infrapatellar tibial nail and his distal fibula CT scan preoperatively demonstrates he has no posterior malleolus involvement or intra-articular extension.. At this point time would be amenable for a right tibia infrapatellar intramedullary nail we talked about treatment options in detail and through shared decision-making elects proceed with surgical intervention. He understands his risks with surgery and elects proceed all questions answered at this time. Procedure: Patient seen eval in the preoperative holding area. Consent was reviewed and signed with patient correct extremity was then marked. Patient was then seen evaluated anesthesia once cleared by anesthesia was taken back to the operative suite. Patient was then transported on the flattop Viktor table underwent anesthesia per the anesthesia part was properly anesthetized all bony prominences well-padded patient appropriate secured to the bed a ipsilateral hip bump was placed on the right lower extremity. The right lower extremity had a nonsterile tourniquet applied to the right thigh. We then subsequently prepped and draped the right lower extremity in standard orthopedic fashion. Final timeout performed. Patient received appropriate preoperative antibiotics. No tourniquet was insufflated during this case Started off by bring in fluoroscopic imaging. Given patient had previous partial knee replacement we brought in the C arm and utilized a radiolucent triangles to obtain imaging. Utilize C arm or and subsequently evaluated the fracture pattern. At this point in time this was found to have a spiral distal third tibia fracture. This is in good alignment and reduction was maintained manually by my child welfare assistant throughout the case. Next I then subsequently used patient's previous midline incision and extended this distally over the tibial tubercle to obtain my infrapatellar starting point sharp scalpel incision through skin subcutaneous tissues dissection scissors to dissect out the peritenon and then subsequently made an arthrotomy medial to the extensor mechanism to perform an arthrotomy. I maintain exact hemostasis throughout this dissection and then subsequently I identified the step off the articular margin and utilized a guidewire and placed this in the standard starting point I used fluoroscopic imaging to make sure this was medial to the lateral tibial spine I did have to cheat the slightly a little more lateral given patient's hardware as well as a little more anteriorly to avoid any type of involvement of the partial knee replacement medially. This was in center center position on AP and lateral once satisfied with this this was advanced to appropriate depth utilize opening reamer and then subsequently placed ball-tipped guidewire down to the tibial physis. I then took appropriate measurement my fracture is maintained throughout this entire time. This was measured to be 330 mm. While maintaining reduction I then subsequently reamed starting at a 9.5 mm and reamed all the way up to a 12.5 mm which had excellent chatter with left plan for selection of a 11 mm x 330 mm tibial nail. While reading the ball-tipped guidewire was staying slightly anterior with subtle translation at the fracture site anteriorly at this point time I elected for a polar blocking screw technique utilizing Mohawk's 3.5 mm K wire I did place this anteriorly to translate the nail posteriorly for my final implantation as well as during my reading in order to aid in reduction. This was advanced under fluoroscopic imaging from medial to lateral placed on the anterior portion of the fracture site just distal. This was then subsequently loaded and then impacted into appropriate position. This was kept in excellent alignment and reduction was maintained. It was confirmed with fluoroscopic imaging. I then subsequently placed 2 of my proximal locking screws utilizing my targeting guide. This was then subsequently triple sleeve was then placed first in the static position sharp incision was made and blunt dissection down to bone placed guide subsequently drilled measured and placed appropriate length screw in the static locking then subsequently drilled in the dynamic position for possible later dynamization if necessary this is subsequently drilled measured appropriate length screw placed here these both had excellent fixation and appropriate length and this completed my proximal fixation Next I then utilized fluoroscopic imaging distally. Once again maintain fracture reduction I obtained perfect circles with plan to start with my medial to lateral screw fixation. Perfect circles were then subsequently obtained I used scalpel incision made through skin and blunt dissection with hemostats down to bone I utilized perfect eklutna technique drilled measured and placed appropriate length screws x 2 in the distal locking position this obtained excellent fixation of the distal fracture fragment in order to add increased fixation here given this and the smaller fracture fragment as the distal segment I subsequently did a perfect eklutna technique and placed 1 anterior to posterior screw I made a small incision once I obtained a perfect eklutna technique and then used blunt dissection to spread directly over the anterior surface of the tibia this was then drilled measured and appropriate length screw was then placed to complete 3 distal locking screws. At this point time clamps and everything was subsequently removed as well as the guides and took final x-rays this was confirmed to being in satisfactory reduction as well as fixation of the tibial nail. The proximal fibula fragment was maintained in good alignment. Ankle was stressed and there is no evidence of issues with the syndesmosis given patient's already osseous fusion. This completed the procedure. I then subsequently thoroughly irrigated all incision sites. We then did place a +15 mm endcap proximally. This was confirmed on x-ray to have excellent fixation as well as seated flush proximally. Thorough irrigation was then subsequently performed of all the incision sites. Closed the medial retinaculum and medial arthrotomy to the patellar tendon to close this area. Once again exact hemostasis was maintained throughout the case the incisions were then closed in layered fashion of 0 Vicryl 2-0 Vicryl and shana and 2 -0 and shana for all small stab incisions. Incisions were then covered with Xeroform 4 x 4's ABD Curlex soft roll and a standard AO splint was then subsequently applied. Patient tolerated procedure without issues or complications. Patient then subsequently awake from anesthesia and taken to PACU in stable condition Disposition: Patient taken back in stable condition will return to floor postoperatively we will keep nonweightbearing maintain splint to Right lower extremity. Patient will received appropriate discharge instructions well as pain medication DVT prophylaxis.
--- NOTE | 2023-09-11 10:26 | PM.PACU ---
PACU note Narrative: Patient is a 73-year-old male just underwent a right tibia fracture with ORIF tib nail. Pt transferred to PACU in stable condition. Dressing is dry. pt is awake and alert. Distal pulses are palpable toes are warm and well-perfused. Cap refill is normal and under 2 seconds. Unable to perform any further assessment of motor function or extremity due to residual anesthetic. sensation to foot is intact. Pain is controlled. Exam: somnolent, arousable Disposition: back to floor
[2023-09-11] MEDS: fentaNYL 50 mcg/mL INJ 2mL IVP ×2 (10:38→10:43)
[2023-09-11] MEDS: HYDROmorphone 1 mg/mL INJ 1 mL 0.5 MG IVP (10:49)
--- NOTE | 2023-09-11 11:37 | ANE.PACU2 ---
Inpatient post-anesthesia follow up: Airway intact: Yes Vital signs: Temperature 98.0 F Pulse Rate 65 Respiratory Rate 12 Blood Pressure 141/81 Pulse Oximetry 96 Oxygen Delivery Me thod Nasal Cannula Oxygen Flow Rate 3 Fraction of Inspir ed Oxygen Hydration adequate: Yes Nausea and vomiting: No Pain level: 3 Mental status: Baseline
[2023-09-11] MEDS: acetaminophen 500 mg Tablet 1000 MG PO ×2 (11:39→19:46)
[2023-09-11] MEDS: chlorhexidine gluconate 0.12% Btl 473 mL 30 ML MUCOUS MEM ×2 (11:39→16:43)
[2023-09-11] MEDS: morphine 4 mg/mL SDV 1 mL 2 MG IVP (11:40)
[2023-09-11] MEDS: lactated ringers 1,000 ML 75 ML IV ×2 (11:40→23:58)
--- NOTE | 2023-09-11 12:09 | P.PN_ITS ---
Subjective 2 Subjective: seen this morning platelet count 74K this am no evidence of bleeding underwent surgery this am seen in PACU says he feels ok and will get through this . Vitals/I&O/Wt Last Vital Signs Temp 98.0 F 09/11/23 11:00 Pulse 65 09/11/23 11:00 Resp 12 09/11/23 11:40 BP 141/81 09/11/23 11:00 Pulse Ox 96 09/11/23 11:40 O2 Del Method Nasal Cannula 09/11/23 11:00 O2 Flow Rate 3 09/11/23 11:00 09/10/23 09/11/23 09/11/23 22:59 06:59 14:59 Intake Total 958 / 1682 2049 / 2049 Output Total 600 / 600 400 / 1000 350 / 350 Balance 358 / 1082 -400 / 682 1700 / 1700 Weight last 48 hrs Weight 124.738 kg Weight 127.658 kg Weight 128.049 kg Weight 111.584 kg Physical Exam 2 Const: COMMON NORMALS: no acute distress, patient oriented x3 and alert HENMT: COMMON NORMALS: normocephalic, atraumatic, moist oral mucous membranes and oropharynx normal HEAD & SCALP: normocephalic and atraumatic Eye: COMMON NORMALS: Equal, round and reactive pupils present, EOMs intact bilaterally, conjunctivae normal and no scleral icterus CONJUNCTIVA: Yes conjunctivae normal PUPIL: Yes Equal, round and reactive pupils present Chest: COMMONS NORMALS: normal inspection of the chest Resp: COMMON NORMALS: normal respiratory effort and clear to auscultation bilaterally AUSCULTATION: clear to auscultation bilaterally OTHER: No wheezes or crcakles Cardio: COMMON NORMALS: regular rate, regular rhythm, S1 normal heart sound present and S2 normal heart sound present RATE: regular rate RHYTHM: r egular rhythm HEART SOUNDS: S1 normal heart sound present and S2 normal heart sound present GI: COMMON NORMALS: Soft to palpation and non-tender PALPATION: Yes Soft to palpation Extremity: NARRATIVE EXTREMITY EXAM: Right LE wrapped Neuro: COMMON NORMALS: patient oriented x3 SENSORIUM/ORIENTATION: Yes alert OTHER: No gross focal deficits Urinary Catheter Management: Lopez: Cath Placed During This Visit: yes Reason for Continuing Indwelling Catheter: Perioperative Use in Selected Surgeries Urinary Catheter Date of Insertion: 09/10/23 Urinary Catheter Time of Insertion: 12:00 Data 09/11/23 05:43 09/11/23 05:43 A&P Assessment and plan (1) Closed fracture of tibia and fibula: Qualifiers: Encounter type: initial encounter Laterality: right Qualified Code(s): S82.201A - Unspecified fracture of shaft of right tibia, initial encounter for closed fracture; S82.401A - Unspecified fracture of shaft of right fibula, initial encounter for closed fracture (2) Fracture of fibula, distal, right, closed: Qualifiers: Encounter type: subsequent encounter Fracture morphology: other fracture Plan #Mechanical Fall #Mildly displaced Right proximal fibular fracture , mild to moderate displaced spiral fracture of the right distal tibia. -Patient sustained the above after a fall -Orthopedic surgery consulted in the ER, patient will have surgical evaluation tomorrow -Underwent tibia nail this AM -UA abnormal UTI - place on ceftraxone 1 g daily #ITP -Check peripheral smear? probable ITP. Talked with Dr. Kamara -Hold heparin hold aspirin. this could be isolated drug induced thrombocytopenia low probability but check for HIV and Hepatitis - negative Dexamethasone 40 IV daily x 3 days. last dose 09/11 - if active bleed, give IVIG - No need to transfuse platelets #BPH -Ct tamsulosin Disposition: Back to NH once clear by gen surgery. Non weightbearing x2 weeks. Attestations 2 Medical Necessity Statement*: Patient's care will cross 2 midnights Diagnoses Closed fracture of tibia and fibula S82.201A; S82.401A Encounter type: initial encounter Laterality: right Fracture of fibula, distal, right, closed S82.831A Encounter type: subsequent encounter Fracture morphology: other fracture
[2023-09-11] MEDS: oxyCODONE 5 mg IR Tab/Cap PO ×2 (13:13→21:12)
[2023-09-11] MEDS: ketorolac 30 mg/mL INJ 15 MG IVP (13:14)
[2023-09-11] MEDS: dexamethasone 10 mg/mL INJ 40 MG IVP (15:17)
[2023-09-11] MEDS: ceFAZolin 3,000 MG in sodium chloride 0.9% (plus) 50 ML 100 MG IV ×2 (15:18→23:58)
[2023-09-11] MEDS: HYDROmorphone 1 mg/mL INJ 1 mL IVP (15:18)
[2023-09-11] MEDS: calcium carb-vit d 600mg/400unit 1 Tablet 1 EACH PO (16:42)
[2023-09-11] MEDS: docusate sodium 100 mg Capsule PO (16:42)
[2023-09-11] MEDS: iron polysaccharide complex 150 mg Capsule PO (16:42)
[2023-09-11] MEDS: TRAMadol 50 mg Tablet PO (16:42)
[2023-09-11] MEDS: tranexamic acid 1,000 MG/100 ML PREMIX 600 MG IV (16:43)
[2023-09-11] MEDS: enoxaparin 30 mg/0.3 mL Syringe SUBCUT (21:15)
[2023-09-12] VITALS (9 sets, daily range): BP systolic 122–183; BP diastolic 68–96; PULSE 57–98; RESP 16–18; TEMP 36.2–37; O2SAT 92–95
[2023-09-12] MEDS: acetaminophen 500 mg Tablet 1000 MG PO ×3 (03:14→20:50)
[2023-09-12 07:09] LABS: Basophils % 0.1 %; Lymphocytes # 0.8 10^3/uL (0.8-4.8); Mean Corpuscular HGB Conc 32.8 g/dL (30-55); Mean Corpuscular Hemoglobin 30.3 pg (27-33); Mean Corpuscular Volume 92.2 fl (82-101); Mean Platelet Volume 13.4 fL (7.4-10.4); Monocytes # 0.6 10^3/uL (0.2-0.9); Neutrophils # 8.98 10^3/uL (1.8-7.7); Neutrophils % 85.1 %; Nucleated Red Blood Cells % 0 %; Platelet Count 74 10^3/cmm (157-399); Red Blood Count 4.23 10^6/uL (3.85-5.65); Red Cell Distribution Width 13.6 % (12.1-15.1); White Blood Count 10.54 10^3/uL (3.29-11.43)
[2023-09-12 07:25] LABS: Anion Gap 16.5 (5-19); Blood Urea Nitrogen 25 mg/dL (8-23); Calcium 8.6 mg/dL (8.5-10.5); Carbon Dioxide 24 mmol/L (22-29); Chloride 101 mmol/L (98-107); Creatinine Clr Calc Pharmacy 102.2271; Glucose 222 mg/dL (65-115); Osmolality Calculated 295 mOsm/kg (285-295); Potassium 4.5 mmol/L (3.5-5.1); Sodium 137 mmol/L (136-145)
--- NOTE | 2023-09-12 08:47 | ECG_ITS ---
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 Measurements Intervals [place] Rate: 95 P: 48 CO: 217 QRS: -8 QRSD: 89 T: 77 QT: 331 QTc: 418 Interpretive Statements POSSIBLE ANTERIOR MYOCARDIAL INFARCTION , PROBABLY OLD [30 ms Q WAVE IN V3/V4, OR R < 0.2 mV IN V4] Sinus rhythm with first-degree AV block ST DEPRESSION, CONSIDER SUBENDOCARDIAL INJURY [0.1+ mV ST DEPRESSION] INTERPRETATION BASED ON A DEFAULT AGE OF 40 YEARS Compared to ECG 09/11/2023 07:52:08 Myocardial infarct finding now present ST (T wave) deviation now present Electronically Signed On 09-12-2023 14:48:03 CDT by Glenn Winters M.D. [id number]
[2023-09-12] MEDS: tamsulosin 0.4 mg Capsule 0.400000000000000022 MG PO (08:51)
[2023-09-12] MEDS: pantoprazole DR 40 mg Tablet PO (08:51)
[2023-09-12] MEDS: iron polysaccharide complex 150 mg Capsule PO ×2 (08:51→17:54)
[2023-09-12] MEDS: multivitamin therapeutic Tablet 1 TAB PO (08:51)
[2023-09-12] MEDS: docusate sodium 100 mg Capsule PO ×2 (08:51→17:54)
[2023-09-12] MEDS: calcium carb-vit d 600mg/400unit 1 Tablet 1 EACH PO ×2 (08:51→17:54)
[2023-09-12] MEDS: donepezil 5 MG Tablet PO (08:51)
[2023-09-12] MEDS: chlorhexidine gluconate 0.12% Btl 473 mL 30 ML MUCOUS MEM ×4 (08:52→20:50)
--- NOTE | 2023-09-12 09:02 | PC.SOCIAL ---
IMM Update pg 2 of IMM updated and reviewed w/ patients via phone. Copy provided and copy dated, initialed and placed in chart.
--- NOTE | 2023-09-12 09:23 | PC.CHAP ---
Pastoral Care Encounter/Spiritual Assessment Type of Contact [] Declined spring assembler visit [] Patient/Family/Request visit [] Outpatient visit [] Follow-up visit [] Physician referral [] Code/Alert [x] Routine visit [] Staff referral [] Actively dying [] Patient sleeping [] Family support [] [] Out of room [] Palliative care [] [] Receiving care in room [] Pre-surgical visit [] Trauma [] Long length of stay [] ICU visit [] Other: Relational/Emotional Strength [] Patient feels connected with others/family/visitors/staff [] Distress [] Loneliness/isolation [] Abandonment Spirituality of Patient [x] Person of Amanda [] Attends Sabianist of their Amanda [x] Believes in Prayer [] Reads Bible or Adventist materials [] There are Spiritual issues to be addressed Battery Starter Interventions [x] Prayer [x] Active listening [] Non-anxious presence [] Spiritual/emotional support [] Crisis/trauma care [] Spiritual counseling [] Bereavement support [] Provided bereavement packet [x] Provided Bible/devotional materials [] Provided toy/stuffed animal, coloring book to patient or family member [] Provided Communion [] Anointing/[place] [] Salvation [x] Completed spiritual assessment [] Other: Impact on Illness or Injury [] Angry [] Fearful [] Anxious [] Often cries [] Exhaustion [] Unable to work [] Unable to attend mormon [] Unable to walk/stand [] Unable to read [] Unable to drive [] Unable to eat/drink [] Unable to sleep [] Unable to be with family [] Patient intubated [] Other: Summary Time spent with patient 10 min
[2023-09-12] MEDS: ceFAZolin 3,000 MG in sodium chloride 0.9% (plus) 100 ML 200 MG IV (09:56)
--- NOTE | 2023-09-12 11:01 | PM.DCS ---
Discharge Providers Date of Admission: 09/10/23 06:31 Date of Discharge: September 12, 2023 Attending Provider at Admission: Lam Slade MD Attending Provider at Discharge: Syed Sarkar MD Diagnoses at Discharge Discharge Diagnosis (1) Closed fracture of tibia and fibula: Status: Acute Qualifiers: Encounter type: initial encounter Laterality: right Qualified Code(s): S82.201A - Unspecified fracture of shaft of right tibia, initial encounter for closed fracture; S82.401A - Unspecified fracture of shaft of right fibula, initial encounter for closed fracture (2) Fracture of fibula, distal, right, closed: Status: Acute Qualifiers: Encounter type: subsequent encounter Fracture morphology: other fracture Reason for Visit Reason for Visit: Fall/ Tib/Fib fx Physical Exam Urinary Catheter Management: Lopez: Cath Placed During This Visit: yes Reason for Continuing Indwelling Catheter: Other Urinary Catheter Date of Insertion: 09/10/23 Urinary Catheter Time of Insertion: 12:00 Discharge Data Studies Completed and Pending Completed Studies During Hospitalization Category Date Time Status CT lower leg RT wo con* [id number] Stat Cat Scan 09/09/23 23:20 Completed XR tibia fibula RT 2V [id number] Routine Exams 09/11/23 08:00 Completed XR tibia fibula RT 2V [id number] Routine Exams 09/11/23 10:07 Completed XR tibia fibula RT 2V [id number] Stat Exams 09/09/23 22:07 Completed Pending at discharge Category Date Time Status A1C [Hemoglobin A1C] Routine Lab 09/12/23 06:24 Received B12 [Vitamin B12] Routine Lab 09/12/23 06:24 Received Basic Metabolic Panel AM LABS Lab 09/13/23 04:00 Ordered Basic Metabolic Panel AM LABS Lab 09/14/23 04:00 Ordered Complete Blood Count w/Auto AM LABS Lab 09/13/23 04:00 Ordered Complete Blood Count w/Auto AM LABS Lab 09/14/23 04:00 Ordered Comprehensive Metabolic Panel AM LABS Lab 09/13/23 04:00 Ordered Folate Level AM LABS Lab 09/13/23 04:00 Ordered Lipid Profile w/VLDL Routine Lab 09/12/23 06:24 Received TIBC [Total Iron Binding Capacity] Routine Lab 09/12/23 06:24 Received Troponin(5th) 2 Hour. Timed Lab 09/12/23 12:30 Ordered Troponin(5th) 6 hour. Timed Lab 09/12/23 16:30 Ordered Troponin(5th) Baseline Stat Lab 09/12/23 10:30 Received Urine Culture Routine Lab 09/11/23 05:18 Results Radiology Impressions Lower Extremity CT 09/09/23 23:20 IMPRESSION: 1. Mildly displaced proximal fibular fracture. 2. [id number]-ysqrdlfrcc displaced spiral fracture of the distal tibia. Tibia/Fibula X-Ray 09/11/23 10:07 IMPRESSION: Status post open reduction and internal fixation of tibial fracture. Grossly anatomic alignment. Laboratory Results WBC 10.54 10^3/uL (3.29-11.43) 09/12/23 06:54 Corrected WBC Cancelled 09/10/23 08:10 RBC 4.23 10^6/uL (3.85-5.65) 09/12/23 06:54 Hgb 12.80 g/dL (11.27-16.99) 09/12/23 06:54 Hct 39.0 % (37-53) 09/12/23 06:54 MCV 92.2 fl (82-101) 09/12/23 06:54 MCH 30.3 pg (27-33) 09/12/23 06:54 MCHC 32.8 g/dL (30-55) 09/12/23 06:54 RDW 13.6 % (12.1-15.1) 09/12/23 06:54 Plt Count 74 10^3/cmm (157-399) L 09/12/23 06:54 MPV 13.4 fL (7.4-10.4) H 09/12/23 06:54 Gran % Cancelled 09/10/23 08:10 Neut % (Auto) 85.1 % 09/12/23 06:54 Lymph % (Auto) 8.0 % 09/12/23 06:54 Will % (Auto) 6.0 % 09/12/23 06:54 Eos % (Auto) 0.0 % 09/12/23 06:54 Baso % (Auto) 0.1 % 09/12/23 06:54 Neut # (Auto) 8.98 10^3/uL (1.8-7.7) H 09/12/23 06:54 Lymph # (Auto) 0.8 10^3/uL (0.8-4.8) 09/12/23 06:54 Will # (Auto) 0.6 10^3/uL (0.2-0.9) 09/12/23 06:54 Eos # (Auto) 0.0 10^3/uL (0.0-0.8) 09/12/23 06:54 Baso # (Auto) 0.0 10^3/uL (0.0-0.1) 09/12/23 06:54 Absolute Gran (auto) Cancelled 09/10/23 08:10 Nucleated RBC % (auto) 0 % 09/12/23 06:54 Total Counted 100 (0-100) 09/10/23 08:10 Atypical Lymphs % 0.0 % (0-5) 09/10/23 08:10 Absolute Neutrophils 5.9 10^3/cmm (1.4-6.5) 09/10/23 08:10 Segmented Neutrophils 79 % 09/10/23 08:10 Abs Segm Neuts (Man) 5.9 10/cmm (1.6-7.1) 09/10/23 08:10 Band Neutrophils 0.0 % 09/10/23 08:10 Abs Band Neuts (Man) 0.0 10^3/cmm (0.0-1.2) 09/10/23 08:10 Absolute Lymphocytes 1.3 10^3/cmm (1.2-3.4) 09/10/23 08:10 Lymphocytes (Manual) 17 % 09/10/23 08:10 Monocytes (Manual) 3.0 % 09/10/23 08:10 Absolute Monocytes 0.2 10^3/cmm (0.1-0.6) 09/10/23 08:10 Eosinophils (Manual) 1 % 09/10/23 08:10 Absolute Eosinophils 0.1 10^3/cmm (0.0-0.7) 09/10/23 08:10 Basophils (Manual) 0.0 % 09/10/23 08:10 Absolute Basophils 0.0 10^3/cmm (0.0-0.2) 09/10/23 08:10 Nucleated RBCs # 0.0 /100WBC 09/12/23 06:54 Platelet Estimate Decreased (Normal) 09/10/23 08:10 Peripher Smr Path Cons Sent for review 09/10/23 08:10 PT 14.20 SECONDS (12.1-14.9) 09/10/23 18:41 INR 1.07 (0.8-1.2) 09/10/23 18:41 Sodium 137 mmol/L (136-145) 09/12/23 06:54 Potassium 4.5 mmol/L (3.5-5.1) 09/12/23 06:54 Chloride 101 mmol/L (98-107) 09/12/23 06:54 Carbon Dioxide 24 mmol/L (22-29) 09/12/23 06:54 Anion Gap 16.5 (5-19) 09/12/23 06:54 BUN 25 mg/dL (8-23) H 09/12/23 06:54 Creatinine 0.9 mg/dL (0.7-1.2) 09/12/23 06:54 GFR Calculation Not Reportable 09/12/23 06:54 Glucose 222 mg/dL (65-115) H 09/12/23 06:54 Calculated Osmolality 295 mOsm/kg (285-295) 09/12/23 06:54 Calcium 8.6 mg/dL (8.5-10.5) 09/12/23 06:54 Magnesium 1.8 mg/dL (1.7-2.3) 09/11/23 05:43 Total Bilirubin 0.6 mg/dL (0.15-1.2) 09/10/23 01:55 AST 18 U/L (0-40) 09/10/23 01:55 ALT 18 U/L (0-41) 09/10/23 01:55 Alkaline Phosphatase 107 U/L (40-130) 09/10/23 01:55 Lactate Dehydrogenase 148 U/L (135-225) 09/10/23 01:55 Total Protein 6.6 g/dL (6.6-8.7) 09/10/23 01:55 Albumin 3.6 g/dL (3.5-5.2) 09/10/23 01:55 Globulin 3.0 g/dL (1.3-4.6) 09/10/23 01:55 TSH 1.92 uIU/mL (0.27-4.20) 09/10/23 01:55 Urine Color Yellow (Yellow) 09/11/23 05:18 Urine Appearance Cloudy (CLEAR) A 09/11/23 05:18 Urine pH 5 (5-7) 09/11/23 05:18 Ur Specific [place] 1.020 (1.005-1.030) 09/11/23 05:18 Urine Protein Trace (Negative) 09/11/23 05:18 Urine Glucose (UA) 1+ (Normal) H 09/11/23 05:18 Urine Ketones 2+ (Negative) H 09/11/23 05:18 Urine Blood 2+ (Negative) H 09/11/23 05:18 Urine Nitrate Positive (Negative) H 09/11/23 05:18 Urine Bilirubin Neg (Negative) 09/11/23 05:18 Urine Urobilinogen 4 mg/dL (Negative) H 09/11/23 05:18 Ur Leukocyte Esterase 2+ (Negative) H 09/11/23 05:18 Urine RBC 5-10 /hpf (0-2) H 09/11/23 05:18 Urine WBC 25-40 /hpf (0-5) H 09/11/23 05:18 Ur Squamous Epith Cells 0-4 /hpf (0-5) H 09/11/23 05:18 Amorphous Sediment Trace /hpf 09/11/23 05:18 Urine Bacteria 4+ /hpf (NONE) H 09/11/23 05:18 Urine Mucus Trace /hpf 09/11/23 05:18 Hepatitis A IgM Ab Non-reactive (Nonreactive) 09/10/23 18:41 Hep Bs Antigen Non-reactive (Nonreactive) 09/10/23 18:41 Hep Bs Antibody 11.6 (11.5-1000) 09/10/23 18:41 Hep B Core Total Ab Non-reactive (Nonreactive) 09/10/23 18:41 Hepatitis C Antibody Non-reactive (Nonreactive) 09/10/23 18:41 HIV 1&2 Ab & HIV 1 Ag Non-reactive (Non-Reactiv) 09/10/23 18:41 HIV 1&2 Antibody Non-reactive (Non-Reactiv) 09/10/23 18:41 Blood Type A Positive 09/10/23 12:28 Rho(D) Type Rh positive 09/10/23 12:28 Vitals Last Vital Signs Temp 97.5 F L 09/12/23 08:00 Pulse 59 L 09/12/23 08:00 Resp 18 09/12/23 08:00 BP 154/87 09/12/23 08:00 Pulse Ox 94 09/12/23 08:00 O2 Del Method Room Air 09/11/23 17:56 O2 Flow Rate 1 09/11/23 17:00 Discharge Plan Discharge Patient Disposition: Xfer SNF Condition: Stable Prescriptions: New tamsulosin 0.4 mg Capsule 0.4 mg PO DAILY Qty: 30 0RF calcium carbonate-vitamin D3 600 mg-10 mcg (400 unit) Tablet 1 tab PO BID Qty: 30 0RF enoxaparin 30 mg/0.3 mL syringe 30 mg SUBCUT DAILY 30 Days Qty: 9 0RF ondansetron 4 mg tablet,disintegrating 4 mg PO Q8H PRN (Reason: nausea and vomiting) 3 Days Qty: 9 0RF Continued Myrbetriq 50 mg tablet extended release 24 hr 50 mg PO DAILY omeprazole 20 mg tablet,delayed release (DR/EC) 20 mg PO 0600 Cough Drops 2.7 mg lozenge 5.4 mg mucous membrane Q4H PRN (Reason: Cough) acetaminophen 325 mg capsule 325 mg PO QID PRN (Reason: pain or fever ) albuterol sulfate 90 mcg/actuation HFA aerosol inhaler 2 puff inhalation Q6H PRN (Reason: wheezing/ shortness of breath) calcium carbonate [Antacid (calcium carbonate)] 200 mg calcium (500 mg) tablet,chewable 200 mg PO TID PRN (Reason: Heartburn) aspirin [Adult Low Dose Aspirin] 81 mg tablet,delayed release (DR/EC) 81 mg PO DAILY bisacodyl 10 mg/30 mL enema 10 mg OR DAILY PRN (Reason: Constipation) donepezil 5 mg tablet 10 mg PO BEDTIME (DME) cam walking boot See Rx Instructions .Route .MEDSUPPLY Qty: 1 0RF Rx Instructions: As directed (DME) lace up ankle brace See Rx Instructions .Route .MEDSUPPLY Qty: 1 0RF Rx Instructions: As directed tramadol 50 mg tablet 50 mg PO Q6H PRN (Reason: pain) Qty: 30 0RF albuterol sulfate 0.63 mg/3 mL Solution For Nebulization 0.63 mg INHALATION QID PRN (Reason: Cough) polyethylene glycol 3350 17 gram Powder In Packet 17 g PO DAILY PRN (Reason: Constipation) cetirizine 5 mg Tablet 5 mg PO DAILY PRN (Reason: seasonal allergies) citalopram 10 mg tablet 10 mg PO DAILY meloxicam 7.5 mg tablet 7.5 mg PO DAILY Milk of Magnesia 400 mg/5 mL Suspension 400 mg PO DAILY PRN (Reason: Constipation) Tessalon Perles 100 mg Capsule 100 mg PO TID PRN (Reason: Cough) bisacodyl 10 mg Suppository 10 mg OR DAILY PRN (Reason: Constipation) finasteride 5 mg tablet 5 mg PO BEDTIME Clear Eyes Natural Tears 0.5-0.6 % Drops 1 drp OPHTHALMIC (EYE) TID PRN (Reason: Dry Eye(S)) Discharge Orders: Discharge Order (Routine); Ordered 09/12/23 Ordered By: Syed Sarkar Referrals: [facility] [Outside] Adelfo Kamara MD [Hospitalist] - (Thrombocytopenia, Concern for ITP) Discharge Diet: Advance as tolerated Discharge Activity: Limit activity as instructed and Use walker/crutches as instructed Patient Instructions: Acute Wound Care (DC), Opioid Safety, Post Anesthesia Care Activity Restrictions/Additional Instructions: Repeat CBC in 1 week. Follow-up with a primary care provider within next 1 week. He should also follow-up with hematology as an outpatient within next 2 weeks for concern for ITP. Orthopedic discharge instructions: Keep dressing clean dry and intact Leave splint on and in place until follow-up visit Do not get splint wet, if it does contact the office for a office visit to have it changed No baths or soaks Nonweightbearing to operative extremity Utilize crutches/walker/knee scooter as tolerated to continue with ambulation while maintaining restrictions Encourage knee range of motion as tolerated Ice and elevate as needed for pain and swelling Take pain medication as prescribed Take antinausea medication as needed Take Lovenox as prescribed Supplement with Citracal/vitamin D for bone health and healing Take wmhm-rru-rabaoyl Colace as needed for constipation postoperatively Follow-up with Dr. Encarnacion in the office in 2 weeks Contact the office for any questions or concerns(i.e. fevers, increased drainage or redness around the incision site etc.)? Coding Level of Care Code Acute Code for [facility] Fwd Diagnoses Closed fracture of tibia and fibula S82.201A; S82.401A Encounter type: initial encounter Laterality: right Fracture of fibula, distal, right, closed S82.831A Encounter type: subsequent encounter Fracture morphology: other fracture
[2023-09-12 11:09] LABS: Chol HDL Ratio 4.36 mg/dL (1.0-5.00); Cholesterol 157 mg/dL (0-200); HDL Cholesterol 36 mg/dL (60-100); Iron 57 ug/dL (59-158); LDL Cholesterol Calculated 101 mg/dL (50-129); Percent Saturation 20.9 % (20-50); Total Iron Binding Capacity 272 mcg/dl; Triglycerides 99 mg/dL (0-150); Unsaturated Iron Binding 215 ug/dL (112-347); VLDL Cholestrol Calculation 20 mg/dL (0-30); Vitamin B12 517 pg/mL (232-1245)
[2023-09-12 11:16] LABS: Troponin(5th) Baseline 35 ng/L (0-15)
[2023-09-12 11:19] LABS: Estmated Average Glucose 160; Hemoglobin A1C 7.2 % (4.0-6.0)
--- NOTE | 2023-09-12 11:35 | ECG_ITS ---
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 Measurements Intervals [place] Rate: 69 P: 41 MD: 200 QRS: -6 QRSD: 92 T: 29 QT: 370 QTc: 398 Interpretive Statements SINUS RHYTHM WITH OCCASIONAL SUPRAVENTRICULAR PREMATURE COMPLEXES NONSPECIFIC T-WAVE ABNORMALITY Compared to ECG 09/12/2023 08:47:21 T-wave abnormality now present Myocardial infarct finding no longer present ST (T wave) deviation no longer present Electronically Signed On 09-12-2023 14:50:59 CDT by Glenn Winters M.D. [id number]
[2023-09-12 13:55] LABS: Troponin 5 2HR 39.83 ng/L (0-15); Troponin 5 2HR Delta 4.83 ABS# (0-10)
--- NOTE | 2023-09-12 14:17 | P.PN_ITS ---
Vitals/I&O/Wt Last Vital Signs Temp 97.2 F L 09/12/23 11:54 Pulse 68 09/12/23 11:54 Resp 18 09/12/23 11:54 BP 138/68 09/12/23 11:54 Pulse Ox 95 09/12/23 11:54 O2 Del Method Room Air 09/12/23 11:54 O2 Flow Rate 1 09/11/23 17:00 09/11/23 09/12/23 09/12/23 22:59 06:59 14:59 Intake Total 1110 / 3160 1452.5 / 4612.5 360 / 360 Output Total 200 / 550 600 / 1150 Balance 910 / 2610 852.5 / 3462.5 360 / 360 Weight last 48 hrs Weight 288 lb 5 oz Weight 275 lb Physical Exam 2 Urinary Catheter Management: Lopez: Cath Placed During This Visit: yes Reason for Continuing Indwelling Catheter: Other Urinary Catheter Date of Insertion: 09/10/23 Urinary Catheter Time of Insertion: 12:00 Data 09/12/23 06:54 09/12/23 06:54 Micro: Microbiology 09/11/23 05:18 Urine Culture - Preliminary Urine,Clean Catch Gram Negative Rods Coding Level of Care Code Acute Code for Chg Fwd
--- NOTE | 2023-09-12 14:47 | P.PN_ITS ---
Subjective 2 Subjective: Hospital course, labs appreciated. Patient laying comfortably in bed. Denies any nausea, vomiting, headache. Did have episode of retrosternal heaviness and pain today after having his meals associated with nausea. Symptoms are alleviated for now. States feeling a lot better. Vitals/I&O/Wt Last Vital Signs Temp 97.2 F L 09/12/23 11:54 Pulse 68 09/12/23 11:54 Resp 18 09/12/23 11:54 BP 138/68 09/12/23 11:54 Pulse Ox 95 09/12/23 11:54 O2 Del Method Room Air 09/12/23 11:54 O2 Flow Rate 1 09/11/23 17:00 09/11/23 09/12/23 09/12/23 22:59 06:59 14:59 Intake Total 1110 / 3160 1452.5 / 4612.5 360 / 360 Output Total 200 / 550 600 / 1150 Balance 910 / 2610 852.5 / 3462.5 360 / 360 Weight last 48 hrs Weight 130.776 kg Weight 124.738 kg Physical Exam 2 Const: COMMON NORMALS: no acute distress, patient oriented x3 and alert HENMT: COMMON NORMALS: normocephalic, atraumatic, external ears normal, Normal external nose present, moist oral mucous membranes and oropharynx normal HEAD & SCALP: normocephalic and atraumatic NOSE: Normal external nose present E XTERNAL EAR: Yes external ears normal THROAT: no uvular edema Eye: COMMON NORMALS: Equal, round and reactive pupils present, EOMs intact bilaterally, conjunctivae normal and no scleral icterus CONJUNCTIVA: Yes conjunctivae normal PUPIL: Yes Equal, round and reactive pupils present Neck/C-Spine: COMMON NORMALS: full ROM, no lymphadenopathy and no JVD Chest: COMMONS NORMALS: normal inspection of the chest Resp: COMMON NORMALS: normal respiratory effort and clear to auscultation bilaterally AUSCULTATION: clear to auscultation bilaterally OTHER: No wheezes or crcakles Cardio: COMMON NORMALS: no JVD, regular rate, regular rhythm, S1 normal heart sound present and S2 normal heart sound present RATE: regular rate RHYTHM: regular rhythm HEART SOUNDS: S1 normal heart sound present and S2 normal heart sound present GI: COMMON NORMALS: Normal to inspection, nondistended, normoactive bowel sounds present, Soft to palpation and non-tender PALPATION: Yes Soft to palpation Extremity: COMMON NORMALS: normal to inspection and no pedal edema N ARRATIVE EXTREMITY EXAM: Right LE wrapped Neuro: COMMON NORMALS: patient oriented x3 SENSORIUM/ORIENTATION: Yes alert OTHER: No gross focal deficits Urinary Catheter Management: Lopez: Cath Placed During This Visit: yes Reason for Continuing Indwelling Catheter: Other Urinary Catheter Date of Insertion: 09/10/23 Urinary Catheter Time of Insertion: 12:00 Data 09/12/23 06:54 09/12/23 06:54 Micro: Microbiology 09/11/23 05:18 Urine Culture - Preliminary Urine,Clean Catch Gram Negative Rods A&P Assessment and plan (1) Closed fracture of tibia and fibula: Qualifiers: Encounter type: initial encounter Laterality: right Qualified Code(s): S82.201A - Unspecified fracture of shaft of right tibia, initial encounter for closed fracture; S82.401A - Unspecified fracture of shaft of right fibula, initial encounter for closed fracture (2) Fracture of fibula, distal, right, closed: Qualifiers: Encounter type: subsequent encounter Fracture morphology: other fracture (3) Thrombocytopenia: (4) UTI (urinary tract infection): Plan #Mechanical Fall #Mildly displaced Right proximal fibular fracture , mild to moderate displaced spiral fracture of the right distal tibia. Post ORIF. Hemoglobin has remained stable. Continue with Lovenox 30 mg subcu daily. Hemoglobin has remained stable. Continue with physical therapy. Pain well-controlled for now. UTI: Urine culture growing gram-negative rods. Sensitivities pending. For now continue with IV ceftriaxone 1 g daily. Lopez catheter has been removed. Thrombocytopenia: Concerns for possible ITP. Platelets stable for now. Around 74,000. Patient is on pulse dexamethasone currently. Day 3 of 4 today. HIV, hepatitis panel negative. Liver function stable. INR normal. Continue to monitor. Peripheral smear sent and pending. Chest heaviness: It seems patient does have history of CAD in the past. EKG done shows ST depression in 1 aVL V4 to V6. Check A1c, lipid panel. Cycle troponins. Check echocardiogram. Restart home dose of aspirin 81 mg daily. Discharge planning: Back to [place] once deemed medically stable. Full code Lovenox 30 mg subcu daily. Cardiac diet. Protonix for PUD prophylaxis. Attestations 2 Medical Necessity Statement*: Requires further hospitalization in a patient who was admitted post mechanical fall leading to right proximal fibular fracture requiring ORIF, thrombocytopenia, UTI while safe discharge planning is sought. Diagnoses Closed fracture of tibia and fibula S82.201A; S82.401A Encounter type: initial encounter Laterality: right Fracture of fibula, distal, right, closed S82.831A Encounter type: subsequent encounter Fracture morphology: other fracture Thrombocytopenia D69.6 UTI (urinary tract infection) N39.0
--- NOTE | 2023-09-12 14:55 | USCV_ITS ---
Tom Espinosa Age: 73 Gender: M : 1950 Exam Date: 09/12/2023 16:39 Ordering Phys: Syed Sarkar MD Technologist: CT Exam Location: [facility] – [place] Indication: cad BP: 140 / 80 HR: 63 Rhythm: Sinus Technical Quality: Adequate MEASUREMENTS (Male / Female) Normal Values 2D ECHO LVOT Diameter 2.3 cm LV Ejection Fraction MOD 2C 57.3 % LV Ejection Fraction 2C AL 57.7 % LA Diameter 4.8 cm RA Systolic Volume 4C AL 62.3 ml RA Systolic Volume 4C MOD 61.1 ml LA Sys Volume AL 67.8 cm cubed LA Sys Volume Index AL 25.7 cm cubed/m squared Aorta at Sinotubular Diameter 3.1 cm M-MODE LA Ao Ratio MM 1.3 AV Cusp Separation MM 2.5 cm DOPPLER AV Peak Velocity 155.7 cm/s LVOT Peak Velocity 125.0 cm/s AV Area Cont Eq vti 3.4 cm squared AV Area Cont Eq pk 3.5 cm squared MV Peak Velocity 101.0 cm/s MV Area PHT 4.1 cm squared Mitral E to A Ratio 1.5 TV Peak E Velocity 63.0 cm/s Right Atrial Pressure 3.0 mmHg PV Peak Velocity 96.5 cm/s FINDINGS Left Ventricle Normal left ventricular size and systolic function, EF 58%.no regional wall motion abnormalities. Grade I/IV diastolic dysfunction (abnormal relaxation filling pattern), normal to mildly elevated filling pressures. Right Ventricle The right ventricle is normal in size and function. Right Atrium The right atrium is normal in size. Left Atrium The left atrium is normal in size. Mitral Valve Mild mitral annular calcification. Aortic Valve Trace aortic valve regurgitation. Tricuspid Valve Structurally normal tricuspid valve. Pulmonic Valve Pulmonic valve not well visualized. Pericardium No pericardial effusion. Aorta Normal aortic annulus size. IVC Inferior vena cava not visualized. CONCLUSIONS Normal left ventricular size and systolic function, EF 58%.no regional wall motion abnormalities. Grade I/IV diastolic dysfunction (abnormal relaxation filling pattern), normal to mildly elevated filling pressures. Mild mitral annular calcification. Trace aortic valve regurgitation. There is no pericardial effusion. There are no intracardiac masses. No similar previous studies are available for comparison Dr Rylie Melchor MD [facility] (Electronically Signed) Final Date: 12 September 2023 23:00 S
--- NOTE | 2023-09-12 15:38 | ECG_ITS ---
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 Measurements Intervals [place] Rate: 58 P: 42 IN: 213 QRS: -9 QRSD: 94 T: 30 QT: 408 QTc: 401 Interpretive Statements SINUS BRADYCARDIA WITH FIRST DEGREE AV BLOCK INFERIOR MYOCARDIAL INFARCTION , PROBABLY OLD [40+ ms Q WAVE AND/OR ST/T ABNORMALITY IN II/aVF] Compared to ECG 09/12/2023 11:35:48 First degree AV block now present Myocardial infarct finding now present Sinus rhythm no longer present T-wave abnormality no longer present Electronically Signed On 09-13-2023 23:50:44 CDT by Rylie Melchor M.D. [id number]
[2023-09-12] MEDS: lactated ringers 1,000 ML 75 ML IV (15:59)
[2023-09-12] MEDS: oxyCODONE 5 mg IR Tab/Cap PO ×2 (16:01→23:59)
[2023-09-12] MEDS: dexamethasone 10 mg/mL INJ 40 MG IVP (16:01)
[2023-09-12 17:13] LABS: Troponin 5 6HR 39.27 ng/L (0-15); Troponin 5 6HR Delta 4.27 ng/L (0-12)
[2023-09-12] MEDS: finasteride 5 mg Tablet PO (20:50)
--- NOTE | 2023-09-12 21:55 | PC.NURSE ---
Pt's evening dose of Lovenox was not given per Doctor's order. Pt platelet count reading 74 as of labs this morning.
[2023-09-13] VITALS: BP 145/69; PULSE 52; RESP 16; TEMP 36.3; O2SAT 95
[2023-09-13] MEDS: acetaminophen 500 mg Tablet 1000 MG PO ×2 (03:46→11:39)
[2023-09-13] MEDS: lactated ringers 1,000 ML 75 ML IV (03:49)
[2023-09-13 05:14] VITALS: BP 122/71; PULSE 50; RESP 16; TEMP 36.4; O2SAT 96
[2023-09-13 06:21] LABS: Hematocrit 37.3 % (37-53); Lymphocytes # 1.1 10^3/uL (0.8-4.8); Lymphocytes % 19.8 %; Mean Corpuscular HGB Conc 32.7 g/dL (30-55); Mean Corpuscular Hemoglobin 30.3 pg (27-33); Mean Corpuscular Volume 92.8 fl (82-101); Mean Platelet Volume 13.6 fL (7.4-10.4); Monocytes # 0.5 10^3/uL (0.2-0.9); Monocytes % 9.9 %; Neutrophils # 3.73 10^3/uL (1.8-7.7); Neutrophils % 69.6 %; Nucleated Red Blood Cells % 0 %; Platelet Count 50 10^3/cmm (157-399); Red Blood Count 4.02 10^6/uL (3.85-5.65); White Blood Count 5.36 10^3/uL (3.29-11.43)
[2023-09-13 06:41] LABS: Alanine Aminotransferase 8 U/L (0-41); Albumin Level 3.4 g/dL (3.5-5.2); Alkaline Phosphatase 81 U/L (40-130); Anion Gap 12.1 (5-19); Aspartate Amino Transferase 14 U/L (0-40); Blood Urea Nitrogen 22 mg/dL (8-23); Calcium 8.2 mg/dL (8.5-10.5); Carbon Dioxide 26 mmol/L (22-29); Chloride 102 mmol/L (98-107); Creatinine Clr Calc Pharmacy 115.3619; Globulin 2.8 g/dL (1.3-4.6); Glucose 125 mg/dL (65-115); Osmolality Calculated 287 mOsm/kg (285-295); Potassium 4.1 mmol/L (3.5-5.1); Sodium 136 mmol/L (136-145); Total Bilirubin 0.5 mg/dL (0.15-1.2); Total Protein 6.2 g/dL (6.6-8.7)
[2023-09-13 07:00] LABS: Folate Level 6.9 ng/mL (4.5-32.2)
[2023-09-13] MEDS: tamsulosin 0.4 mg Capsule 0.400000000000000022 MG PO (09:01)
[2023-09-13] MEDS: aspirin 81 mg EC Tablet PO (09:01)
[2023-09-13] MEDS: multivitamin therapeutic Tablet 1 TAB PO (09:01)
[2023-09-13] MEDS: pantoprazole DR 40 mg Tablet PO (09:01)
[2023-09-13] MEDS: citalopram 20 mg Tablet 10 MG PO (09:01)
[2023-09-13] MEDS: donepezil 5 MG Tablet PO (09:01)
[2023-09-13] MEDS: calcium carb-vit d 600mg/400unit 1 Tablet 1 EACH PO (09:01)
[2023-09-13] MEDS: docusate sodium 100 mg Capsule PO (09:02)
[2023-09-13] MEDS: chlorhexidine gluconate 0.12% Btl 473 mL 30 ML MUCOUS MEM (09:02)
[2023-09-13] MEDS: iron polysaccharide complex 150 mg Capsule PO (09:02)
[2023-09-13 09:27] VITALS: BP 154/77; PULSE 66; RESP 19; TEMP 36.1; O2SAT 96
[2023-09-13 11:34] LABS: SARS Covid-2 Antigen negative (Negative)
[2023-09-13] MEDS: dexamethasone 10 mg/mL INJ 40 MG IVP (11:39)
[2023-09-13 11:43] VITALS: BP 154/91; PULSE 53; RESP 19; TEMP 36.3; O2SAT 96
--- NOTE | 2023-09-13 11:43 | P.DS_ITS ---
Discharge Providers Date of Admission: 09/10/23 06:31 Date of Discharge: September 13, 2023 Attending Provider at Admission: Lam Slade MD Attending Provider at Discharge: Syed Sarkar MD Consults: Ortho: Dr. Encarnacion Diagnoses at Discharge Discharge Diagnosis (1) Closed fracture of tibia and fibula: Status: Acute Qualifiers: Encounter type: initial encounter Laterality: right Qualified Code(s): S82.201A - Unspecified fracture of shaft of right tibia, initial encounter for closed fracture; S82.401A - Unspecified fracture of shaft of right fibula, initial encounter for closed fracture (2) Fracture of fibula, distal, right, closed: Status: Acute Qualifiers: Encounter type: subsequent encounter Fracture morphology: other fracture (3) Thrombocytopenia: Status: Acute (4) UTI (urinary tract infection): Status: Acute Reason for Visit Reason for Visit: Fall/ Tib/Fib fx Brief History: History as per HPI: Tom Espinosa is a 73 year old man who presents for further evaluation of right leg pain after a fall at home. He reports getting tangled up in his walker and beddings, leading to a fall. He started to have right leg pain after the fall. He denies hitting his head, loss of consciousness, seizure like movements, cough,shortness of breath, nausea, vomiting or abdominal pain. Imaging in the ER showed mildly displaced proximal fibular fracture , mild to moderate displaced spiral fracture of the distal tibia. Hospital Course Hospital Course Patient was admitted to the hospital further evaluation and management of close fracture of right tibia and fibula in setting of mechanical fall. Orthopedic surgery was consulted. During hospitalization he was found to have worsening thrombocytopenia. P.o. discussed monitoring with hematology on-call. 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 Patient underwent ORIF on 09/10. His hospitalization and procedure was otherwise unremarkable. His platelet count remained stable while being on IV steroids. During hospitalization he was also found to have UTI. Blood culture remain negative and urine culture came back positive for E. coli. [facility] been [facility] therapy with advised to follow-up with hematology within next 2 weeks as an outpatient for further evaluation and management of thrombocytopenia. He is to have a repeat CBC drawn in 1 week. Physical Exam Const: COMMON NORMALS: no acute distress, patient oriented x3 and alert HENMT: COMMON NORMALS: normocephalic, atraumatic, external ears normal, Normal external nose present, moist oral mucous membranes and oropharynx normal HEAD & SCALP: normocephalic and atraumatic NOSE: Normal external nose present EXTERNAL EAR: Yes external ears normal THROAT: no uvular edema Eye: COMMON NORMALS: Equal, round and reactive pupils present, EOMs intact bilaterally, conjunctivae normal and no scleral icterus CONJUNCTIVA: Yes conjunctivae normal PUPIL: Yes Equal, round and reactive pupils present Neck/C-Spine: COMMON NORMALS: full ROM, no lymphadenopathy and no JVD Chest: COMMONS NORMALS: normal inspection of the chest Resp: COMMON NORMALS: normal respiratory effort and clear to auscultation bilaterally AUSCULTATION: clear to auscultation bilaterally OTHER: No wheezes or crcakles Cardio: COMMON NORMALS: no JVD, regular rate, regular rhythm, S1 normal heart sound present and S2 normal heart sound present RATE: regular rate RHYTHM: regular rhythm HEART SOUNDS: S1 normal heart sound present and S2 normal heart sound present GI: COMMON NORMALS: Normal to inspection, nondistended, normoactive bowel sounds present, Soft to palpation and non-tender PALPATION: Yes Soft to palpation Extremity: COMMON NORMALS: normal to inspection and no pedal edema NARRATIVE EXTREMITY EXAM: Right LE wrapped Neuro: COMMON NORMALS: patient oriented x3 SENSORIUM/ORIENTATION: Yes alert OTHER: No gross focal deficits Urinary Catheter Management: Lopez: Cath Placed During This Visit: yes Reason for Continuing Indwelling Catheter: Other Urinary Catheter Date of Insertion: 09/10/23 Urinary Catheter Time of Insertion: 12:00 Discharge Data Studies Completed and Pending Completed Studies During Hospitalization Category Date Time Status CT lower leg RT wo con* [id number] Stat Cat Scan 09/09/23 23:20 Completed XR tibia fibula RT 2V [id number] Routine Exams 09/11/23 08:00 Completed XR tibia fibula RT 2V [id number] Routine Exams 09/11/23 10:07 Completed XR tibia fibula RT 2V [id number] Stat Exams 09/09/23 22:07 Completed CV. echo complete* [id number] Routine Ultrasound 09/12/23 14:55 Completed Pending at discharge Category Date Time Status Basic Metabolic Panel AM LABS Lab 09/14/23 04:00 Ordered Complete Blood Count w/Auto AM LABS Lab 09/14/23 04:00 Ordered Urine Culture Routine Lab 09/11/23 05:18 Results Radiology Impressions Lower Extremity CT 09/09/23 23:20 IMPRESSION: 1. Mildly displaced proximal fibular fracture. 2. [id number] displaced spiral fracture of the distal tibia. Tibia/Fibula X-Ray 09/11/23 10:07 IMPRESSION: Status post open reduction and internal fixation of tibial fracture. Grossly anatomic alignment. Echocardiogram: CONCLUSIONS Normal left ventricular size and systolic function, EF 58%.no regional wall motion abnormalities. Grade I/IV diastolic dysfunction (abnormal relaxation filling pattern), normal to mildly elevated filling pressures. Mild mitral annular calcification. Trace aortic valve regurgitation. There is no pericardial effusion. There are no intracardiac masses. No similar previous studies are available for comparison Dr Rylie Melchor MD [facility] (Electronically Signed) Final Date: 12 September 2023 Microbiology 09/11/23 05:18 Urine,Clean Catch Urine Culture - Final Escherichia coli Laboratory Results WBC 5.36 10^3/uL (3.29-11.43) 09/13/23 05:58 Corrected WBC Cancelled 09/10/23 08:10 RBC 4.02 10^6/uL (3.85-5.65) 09/13/23 05:58 Hgb 12.20 g/dL (11.27-16.99) 09/13/23 05:58 Hct 37.3 % (37-53) 09/13/23 05:58 MCV 92.8 fl (82-101) 09/13/23 05:58 MCH 30.3 pg (27-33) 09/13/23 05:58 MCHC 32.7 g/dL (30-55) 09/13/23 05:58 RDW 14.0 % (12.1-15.1) 09/13/23 05:58 Plt Count 50 10^3/cmm (157-399) L D 09/13/23 05:58 MPV 13.6 fL (7.4-10.4) H 09/13/23 05:58 Gran % Cancelled 09/10/23 08:10 Neut % (Auto) 69.6 % 09/13/23 05:58 Lymph % (Auto) 19.8 % 09/13/23 05:58 [place] % (Auto) 9.9 % 09/13/23 05:58 Eos % (Auto) 0.0 % 09/13/23 05:58 Baso % (Auto) 0.0 % 09/13/23 05:58 Neut # (Auto) 3.73 10^3/uL (1.8-7.7) 09/13/23 05:58 Lymph # (Auto) 1.1 10^3/uL (0.8-4.8) 09/13/23 05:58 [place] # (Auto) 0.5 10^3/uL (0.2-0.9) 09/13/23 05:58 Eos # (Auto) 0.0 10^3/uL (0.0-0.8) 09/13/23 05:58 Baso # (Auto) 0.0 10^3/uL (0.0-0.1) 09/13/23 05:58 Absolute Gran (auto) Cancelled 09/10/23 08:10 Nucleated RBC % (auto) 0 % 09/13/23 05:58 Total Counted 100 (0-100) 09/10/23 08:10 Atypical Lymphs % 0.0 % (0-5) 09/10/23 08:10 Absolute Neutrophils 5.9 10^3/cmm (1.4-6.5) 09/10/23 08:10 Segmented Neutrophils 79 % 09/10/23 08:10 Abs Segm Neuts (Man) 5.9 10/cmm (1.6-7.1) 09/10/23 08:10 Band Neutrophils 0.0 % 09/10/23 08:10 Abs Band Neuts (Man) 0.0 10^3/cmm (0.0-1.2) 09/10/23 08:10 Absolute Lymphocytes 1.3 10^3/cmm (1.2-3.4) 09/10/23 08:10 Lymphocytes (Manual) 17 % 09/10/23 08:10 Monocytes (Manual) 3.0 % 09/10/23 08:10 Absolute Monocytes 0.2 10^3/cmm (0.1-0.6) 09/10/23 08:10 Eosinophils (Manual) 1 % 09/10/23 08:10 Absolute Eosinophils 0.1 10^3/cmm (0.0-0.7) 09/10/23 08:10 Basophils (Manual) 0.0 % 09/10/23 08:10 Absolute Basophils 0.0 10^3/cmm (0.0-0.2) 09/10/23 08:10 Nucleated RBCs # 0.0 /100WBC 09/13/23 05:58 Platelet Estimate Decreased (Normal) 09/10/23 08:10 Peripher Smr Path Cons Sent for review 09/10/23 08:10 PT 14.20 SECONDS (12.1-14.9) 09/10/23 18:41 INR 1.07 (0.8-1.2) 09/10/23 18:41 Sodium 136 mmol/L (136-145) 09/13/23 05:58 Potassium 4.1 mmol/L (3.5-5.1) 09/13/23 05:58 Chloride 102 mmol/L (98-107) 09/13/23 05:58 Carbon Dioxide 26 mmol/L (22-29) 09/13/23 05:58 Anion Gap 12.1 (5-19) 09/13/23 05:58 BUN 22 mg/dL (8-23) 09/13/23 05:58 Creatinine 0.7 mg/dL (0.7-1.2) 09/13/23 05:58 GFR Calculation Not Reportable 09/13/23 05:58 Glucose 125 mg/dL (65-115) H 09/13/23 05:58 Estimat Average Glucose 160 09/12/23 06:24 Hemoglobin A1c 7.2 % (4.0-6.0) H 09/12/23 06:24 Calculated Osmolality 287 mOsm/kg (285-295) 09/13/23 05:58 Calcium 8.2 mg/dL (8.5-10.5) L 09/13/23 05:58 Magnesium 1.8 mg/dL (1.7-2.3) 09/11/23 05:43 Iron 57 ug/dL (59-158) L 09/12/23 06:24 TIBC 272 mcg/dl 09/12/23 06:24 % Saturation 20.9 % (20-50) 09/12/23 06:24 Unsat Iron Binding 215 ug/dL (112-347) 09/12/23 06:24 Total Bilirubin 0.5 mg/dL (0.15-1.2) 09/13/23 05:58 AST 14 U/L (0-40) 09/13/23 05:58 ALT 8 U/L (0-41) 09/13/23 05:58 Alkaline Phosphatase 81 U/L (40-130) 09/13/23 05:58 Lactate Dehydrogenase 148 U/L (135-225) 09/10/23 01:55 Troponin T Baseline 35 ng/L (0-15) H 09/12/23 10:30 Troponin T 120 Minute 39.83 ng/L (0-15) H 09/12/23 13:28 Delta Troponin T 4.83 ABS# (0-10) 09/12/23 13:28 Troponin T Hi Sens 6Hr 39.27 ng/L (0-15) H 09/12/23 16:30 Troponin T Hi Sens 6Hr Delta 4.27 ng/L (0-12) 09/12/23 16:30 Total Protein 6.2 g/dL (6.6-8.7) L 09/13/23 05:58 Albumin 3.4 g/dL (3.5-5.2) L 09/13/23 05:58 Globulin 2.8 g/dL (1.3-4.6) 09/13/23 05:58 Triglycerides 99 mg/dL (0-150) 09/12/23 06:24 Cholesterol 157 mg/dL (0-200) 09/12/23 06:24 LDL Cholesterol, Calc 101 mg/dL (50-129) 09/12/23 06:24 Total VLDL Cholesterol 20 mg/dL (0-30) 09/12/23 06:24 HDL Cholesterol 36 mg/dL (60-100) L 09/12/23 06:24 Cholesterol/HDL Ratio 4.36 mg/dL (1.0-5.00) 09/12/23 06:24 Vitamin B12 517 pg/mL (232-1245) 09/12/23 06:24 Folate 6.9 ng/mL (4.5-32.2) 09/13/23 05:58 TSH 1.92 uIU/mL (0.27-4.20) 09/10/23 01:55 Urine Color Yellow (Yellow) 09/11/23 05:18 Urine Appearance Cloudy (CLEAR) A 09/11/23 05:18 Urine pH 5 (5-7) 09/11/23 05:18 Ur Specific [place] 1.020 (1.005-1.030) 09/11/23 05:18 Urine Protein Trace (Negative) 09/11/23 05:18 Urine Glucose (UA) 1+ (Normal) H 09/11/23 05:18 Urine Ketones 2+ (Negative) H 09/11/23 05:18 Urine Blood 2+ (Negative) H 09/11/23 05:18 Urine Nitrate Positive (Negative) H 09/11/23 05:18 Urine Bilirubin Neg (Negative) 09/11/23 05:18 Urine Urobilinogen 4 mg/dL (Negative) H 09/11/23 05:18 Ur Leukocyte Esterase 2+ (Negative) H 09/11/23 05:18 Urine RBC 5-10 /hpf (0-2) H 09/11/23 05:18 Urine WBC 25-40 /hpf (0-5) H 09/11/23 05:18 Ur Squamous Epith Cells 0-4 /hpf (0-5) H 09/11/23 05:18 Amorphous Sediment Trace /hpf 09/11/23 05:18 Urine Bacteria 4+ /hpf (NONE) H 09/11/23 05:18 Urine Mucus Trace /hpf 09/11/23 05:18 Hepatitis A IgM Ab Non-reactive (Nonreactive) 09/10/23 18:41 Hep Bs Antigen Non-reactive (Nonreactive) 09/10/23 18:41 Hep Bs Antibody 11.6 (11.5-1000) 09/10/23 18:41 Hep B Core Total Ab Non-reactive (Nonreactive) 09/10/23 18:41 Hepatitis C Antibody Non-reactive (Nonreactive) 09/10/23 18:41 HIV 1&2 Ab & HIV 1 Ag Non-reactive (Non-Reactiv) 09/10/23 18:41 HIV 1&2 Antibody Non-reactive (Non-Reactiv) 09/10/23 18:41 SARS-CoV-2 Ag (Rapid) negative (Negative) 09/13/23 10:51 Blood Type A Positive 09/10/23 12:28 Rho(D) Type Rh positive 09/10/23 12:28 Vitals Last Vital Signs Temp 97.0 F L 09/13/23 09:27 Pulse 66 09/13/23 09:27 Resp 19 H 09/13/23 09:27 BP 154/77 09/13/23 09:27 Pulse Ox 96 09/13/23 09:27 O2 Del Method Room Air 09/13/23 09:27 O2 Flow Rate 1 09/11/23 17:00 Discharge Plan Discharge Patient Disposition: Xfer SNF Condition: Stable Prescriptions: New enoxaparin 30 mg/0.3 mL syringe 30 mg SUBCUT DAILY 30 Days Qty: 9 0RF ondansetron 4 mg tablet,disintegrating 4 mg PO Q8H PRN (Reason: nausea and vomiting) 3 Days Qty: 9 0RF tamsulosin 0.4 mg Capsule 0.4 mg PO DAILY Qty: 30 0RF calcium carbonate-vitamin D3 600 mg-10 mcg (400 unit) Tablet 1 tab PO BID Qty: 30 0RF oxycodone 5 mg tablet 5 mg PO Q6H PRN (Reason: pain postop) 7 Days Qty: 28 0RF Continued Myrbetriq 50 mg tablet extended release 24 hr 50 mg PO DAILY omeprazole 20 mg tablet,delayed release (DR/EC) 20 mg PO 0600 Cough Drops 2.7 mg lozenge 5.4 mg mucous membrane Q4H PRN (Reason: Cough) acetaminophen 325 mg capsule 325 mg PO QID PRN (Reason: pain or fever ) albuterol sulfate 90 mcg/actuation HFA aerosol inhaler 2 puff inhalation Q6H PRN (Reason: wheezing/ shortness of breath) calcium carbonate [Antacid (calcium carbonate)] 200 mg calcium (500 mg) tablet,chewable 200 mg PO TID PRN (Reason: Heartburn) aspirin [Adult Low Dose Aspirin] 81 mg tablet,delayed release (DR/EC) 81 mg PO DAILY bisacodyl 10 mg/30 mL enema 10 mg TN DAILY PRN (Reason: Constipation) donepezil 5 mg tablet 10 mg PO BEDTIME (DME) cam walking boot See Rx Instructions .Route .MEDSUPPLY Qty: 1 0RF Rx Instructions: As directed (DME) lace up ankle brace See Rx Instructions .Route .MEDSUPPLY Qty: 1 0RF Rx Instructions: As directed tramadol 50 mg tablet 50 mg PO Q6H PRN (Reason: pain) Qty: 30 0RF albuterol sulfate 0.63 mg/3 mL Solution For Nebulization 0.63 mg INHALATION QID PRN (Reason: Cough) polyethylene glycol 3350 17 gram Powder In Packet 17 g PO DAILY PRN (Reason: Constipation) cetirizine 5 mg Tablet 5 mg PO DAILY PRN (Reason: seasonal allergies) citalopram 10 mg tablet 10 mg PO DAILY meloxicam 7.5 mg tablet 7.5 mg PO DAILY Milk of Magnesia 400 mg/5 mL Suspension 400 mg PO DAILY PRN (Reason: Constipation) benzonatate 100 mg Capsule 100 mg PO TID PRN (Reason: Cough) bisacodyl 10 mg Suppository 10 mg TN DAILY PRN (Reason: Constipation) finasteride 5 mg tablet 5 mg PO BEDTIME Clear Eyes Natural Tears 0.5-0.6 % Drops 1 drp OPHTHALMIC (EYE) TID PRN (Reason: Dry Eye(S)) Discharge Orders: Discharge Order (Routine); Ordered 09/13/23 Ordered By: Syed Sarkar Referrals: [facility] [Outside] Adelfo Whitehead MD [Hospitalist] - 2 weeks (We have notified your physician's clinic of the need for a follow-up appointment to be scheduled. If you have not heard from them within the next 2 business days, please call them directly.office will call for with appointment needs appointment in one week with dr whitehead) Miguel Encarnacion DO [Physician] - 09/27/23 2:30 pm Discharge Diet: Advance as tolerated Discharge Activity: Limit activity as instructed and Use walker/crutches as instructed Patient Instructions: Ondansetron (By mouth), Enoxaparin (By injection), Tamsulosin (By mouth), Acute Wound Care (DC), Opioid Safety, Post Anesthesia Care Activity Restrictions/Additional Instructions: Repeat CBC in 1 week. Follow-up with a primary care provider within next 1 week. He should also follow-up with hematology as an outpatient within next 2 weeks for concern for ITP. Orthopedic discharge instructions: Keep dressing clean dry and intact Leave splint on and in place until follow-up visit Do not get splint wet, if it does contact the office for a office visit to have it changed No baths or soaks Nonweightbearing to operative extremity Utilize crutches/walker/knee scooter as tolerated to continue with ambulation while maintaining restrictions Encourage knee range of motion as tolerated Ice and elevate as needed for pain and swelling Take pain medication as prescribed Take antinausea medication as needed Take Lovenox as prescribed Supplement with Citracal/vitamin D for bone health and healing Take [id number] Colace as needed for constipation postoperatively Follow-up with Dr. Encarnacion in the office in 2 weeks Contact the office for any questions or concerns(i.e. fevers, increased drainage or redness around the incision site etc.)? Discharge Attestations Time Spent in Discharge Care*: greater than 30 min Quality Metrics Clinical Quality Measures [ No reported AMI, CVA or VTE this stay] Coding Level of Care Code 59936 Total time (in minutes) for Discharge: 60 Diagnoses Closed fracture of tibia and fibula S82.201A; S82.401A Encounter type: initial encounter Laterality: right Fracture of fibula, distal, right, closed S82.831A Encounter type: subsequent encounter Fracture morphology: other fracture Thrombocytopenia D69.6 UTI (urinary tract infection) N39.0
[2023-09-13 12:26] VITALS: BP 154/91; PULSE 53; RESP 19; TEMP 36.4; O2SAT 96
== END 2023-09-13 12:45 | disposition skilled nursing facility (03) | DRG 493 ==
LOC: ER 23:47 → MEDSURG 09-10 00:18
PROVIDERS: Internal Medicine; Student in an Organized Health Care Education/Training Program; Admitting Provider Student in an Organized Health Care Education/Training Program; Emergency Provider General Practice; Visit Provider Student in an Organized Health Care Education/Training Program
DX: S82.301A Unspecified fracture of lower end of right tibia, initial encounter for closed fracture (principal); D69.3 Immune thrombocytopenic purpura; N39.0 Urinary tract infection, site not specified; S82.831A Other fracture of upper and lower end of right fibula, initial encounter for closed fracture; W01.0XXA Fall on same level from slipping, tripping and stumbling without subsequent striking against object, initial encounter; B96.20 Unspecified Escherichia coli [E. coli] as the cause of diseases classified elsewhere; N40.0 Benign prostatic hyperplasia without lower urinary tract symptoms
CPT/HCPCS: 12345; 36415; 36430; 51702; 73590; 73700; 76000; 80048; 80053; 80061; 80503; 81001; 82607; 82746; 83036; 83540; 83550; 83615; 83735; 84443; 84484; 85007; 85025; 85027; 85049; 85610; 86705; 86706; 86709; 86803; 86900; 87077; 87086; 87186; 87340; 87426; 87806; 93005; 93306; 96372; 96374; 97162; 97167; 97530; 99285; C1713; G0378; J0690; J1100; J1170; J1650; J1885; J2001; J2270; J2371; J2405; J2704; J3010; J7030; J7120; P9016; P9035

== ENCOUNTER → 2023-10-04 11:01 | Outpatient (BNVA) | payer MEDICARE, MEDICAID, SELFPAY | PROVIDERS: Visit Provider Physician Assistant | DX: S82.201D Unspecified fracture of shaft of right tibia, subsequent encounter for closed fracture with routine healing; S82.401D Unspecified fracture of shaft of right fibula, subsequent encounter for closed fracture with routine healing; S82.831D Other fracture of upper and lower end of right fibula, subsequent encounter for closed fracture with routine healing; X58.XXXD Exposure to other specified factors, subsequent encounter | CPT/HCPCS: 73590 ==

== ENCOUNTER 2023-10-04 14:37 | Outpatient (CLI) | payer MEDICARE, MEDICAID, SELFPAY | END 2023-10-04 14:38 | disposition home or self-care (01) | LOC: SPT 14:38 | PROVIDERS: Visit Provider Physician Assistant | DX: Z47.89 Encounter for other orthopedic aftercare (principal); S82.392D Other fracture of lower end of left tibia, subsequent encounter for closed fracture with routine healing; X58.XXXD Exposure to other specified factors, subsequent encounter | CPT/HCPCS: 97760; 99024; L4361 ==

== ENCOUNTER 2023-10-07 09:19 | Oncology outpatient (recurring) (ONCR) | payer MEDICARE, MEDICAID, SELFPAY ==
[2023-10-07 10:15] LABS: Basophils % 0.6 %; Eosinophils # 0.1 10^3/uL (0.0-0.8); Eosinophils % 2.1 %; Lymphocytes # 0.9 10^3/uL (0.8-4.8); Lymphocytes % 17.9 %; Mean Corpuscular HGB Conc 32.4 g/dL (30-55); Mean Corpuscular Hemoglobin 29.8 pg (27-33); Mean Corpuscular Volume 92.1 fl (82-101); Monocytes # 0.4 10^3/uL (0.2-0.9); Monocytes % 8.2 %; Neutrophils # 3.45 10^3/uL (1.8-7.7); Neutrophils % 70.8 %; Nucleated Red Blood Cells % 0 %; Platelet Count 71 10^3/cmm (157-399); Red Blood Count 4.56 10^6/uL (3.85-5.65); Red Cell Distribution Width 14.2 % (12.1-15.1); White Blood Count 4.87 10^3/uL (3.29-11.43)
[2023-10-07 10:25] LABS: Erythrocyte Sedimentation Rate 19 mm/hr (0-10)
[2023-10-07 10:45] LABS: Alanine Aminotransferase 22 U/L (0-41); Albumin Level 3.8 g/dL (3.5-5.2); Alkaline Phosphatase 157 U/L (40-130); Anion Gap 18.3 (5-19); Aspartate Amino Transferase 22 U/L (0-40); Blood Urea Nitrogen 17 mg/dL (8-23); C Reactive Protein 5.7 mg/L (0.0-4.9); Calcium 8.8 mg/dL (8.5-10.5); Carbon Dioxide 23 mmol/L (22-29); Chloride 100 mmol/L (98-107); Creatinine Clr Calc Pharmacy 110.0857; Globulin 3.1 g/dL (1.3-4.6); Glucose 259 mg/dL (65-115); Lactate Dehydrogenase 153 U/L (135-225); Osmolality Calculated 294 mOsm/kg (285-295); Potassium 4.3 mmol/L (3.5-5.1); Sodium 137 mmol/L (136-145); Thyroid Stimulating Hormone 1.42 uIU/mL (0.27-4.20); Total Bilirubin 0.5 mg/dL (0.15-1.2); Total Protein 6.9 g/dL (6.6-8.7)
[2023-10-07 11:19] LABS: LAB Peripheral Smear Sent for Review
[2023-10-07 11:54] LABS: Vitamin B12 592 pg/mL (232-1245)
[2023-10-11 08:19] LABS: Anti-Nuclear Antibody Pattern Nuclear, Speckled; Anti-Nuclear Antibody Screen POSITIVE (NEGATIVE)
--- NOTE | 2023-10-18 13:00 | CTR_ITS ---
PROCEDURE INFORMATION: Exam: CT Chest With Contrast; Diagnostic Exam date and time: 10/18/2023 3:16 PM Age: 73 years old Clinical indication: Condition or disease; Other: Thrombocytopenia; Prior surgery; Surgery date: 6+ months; Surgery type: Heart TECHNIQUE: Imaging protocol: Diagnostic computed tomography of the chest with contrast. Radiation optimization: All CT scans at this facility use at least one of these dose optimization techniques: automated exposure control; mA and/or kV adjustment per patient size (includes targeted exams where dose is matched to clinical indication); or iterative reconstruction. Contrast material: OMNI 350; Contrast volume: 100 ml; Contrast route: INTRAVENOUS (IV); COMPARISON: No relevant prior studies available. RADIATION DOSE METRICS: Total DLP (mGy-cm): 1510.96 FINDINGS: Lungs: Unremarkable. No consolidation. No masses. Pleural spaces: Unremarkable. No pneumothorax. No pleural effusion. Heart: Unremarkable. No cardiomegaly. No pericardial effusion. Coronary arteries: Coronary artery calcification. Lymph nodes: Unremarkable. No enlarged lymph nodes. Vasculature: Unremarkable. No aortic aneurysm. Bones/joints: Posterior fusion thoracolumbar spine. Soft tissues: Unremarkable. PROCEDURE INFORMATION: Exam: CT Abdomen And Pelvis With Contrast Exam date and time: 10/18/2023 3:16 PM Age: 73 years old Clinical indication: Condition or disease; Other: Thrombocytopenia; Prior surgery; Surgery date: 6+ months; Surgery type: Heart TECHNIQUE: Imaging protocol: Computed tomography of the abdomen and pelvis with contrast. Radiation optimization: All CT scans at this facility use at least one of these dose optimization techniques: automated exposure control; mA and/or kV adjustment per patient size (includes targeted exams where dose is matched to clinical indication); or iterative reconstruction. Contrast material: OMNI 350; Contrast volume: 100 ml; Contrast route: INTRAVENOUS (IV); COMPARISON: No relevant prior studies available. RADIATION DOSE METRICS: Total DLP (mGy-cm): 1510.96 FINDINGS: Liver: Normal. No mass. Gallbladder and biliary ducts: Cholelithiasis. Pancreas: Normal. No ductal dilation. Spleen: 15 cm splenomegaly. Adrenal glands: Normal. No mass. Kidneys and ureters: Bilateral renal cysts. Stomach and bowel: Diverticulosis without evidence of diverticulitis. Appendix: No evidence of appendicitis. Intraperitoneal space: Unremarkable. No free air. No significant fluid collection. Vasculature: Unremarkable. No abdominal aortic aneurysm. Lymph nodes: Unremarkable. No enlarged lymph nodes. Urinary bladder: Unremarkable as visualized. Reproductive: Unremarkable as visualized. Bones/joints: Anterior and posterior fusion of the lumbar spine. Soft tissues: Unremarkable. CT/CT chest abdpel w/*[id number] IMPRESSION: No acute findings. IMPRESSION: No acute findings. COMMENTS: Consistent with the [employer]'s Incidental Findings Committee white paper (J Am Devin Radiol 2018): Any incidental renal lesion less than 1 cm or classified as too small to characterize, or any incidental cystic renal lesion characterized as simple-appearing, is likely benign. No follow-up imaging is recommended for these lesions per consensus recommendations based on imaging criteria.
[2023-10-18] MEDS: iohexol 350 mg/mL 500 mL Btl (per mL) PO (13:53)
[2023-10-18] MEDS: iohexol 350 mg/mL 500 mL Btl (per mL) IV (15:48)
== END 2023-10-19 23:59 | disposition home or self-care (01) ==
LOC: RAD 10-18 12:47 → ONCMED 10-18 12:47
PROVIDERS: Visit Provider Internal Medicine Medical Oncology
DX: D69.6 Thrombocytopenia, unspecified (principal); I25.10 Atherosclerotic heart disease of native coronary artery without angina pectoris; K80.20 Calculus of gallbladder without cholecystitis without obstruction; R16.1 Splenomegaly, not elsewhere classified; Q61.02 Congenital multiple renal cysts; K57.90 Diverticulosis of intestine, part unspecified, without perforation or abscess without bleeding
CPT/HCPCS: 36415; 71260; 74177; 80053; 82607; 83615; 84443; 85025; 85651; 86038; 86140; 99205; Q9967

== ENCOUNTER → 2023-10-27 08:57 | Outpatient (BNVA) | payer MEDICARE, MEDICAID, SELFPAY | PROVIDERS: Visit Provider Physician Assistant | DX: S82.831A Other fracture of upper and lower end of right fibula, initial encounter for closed fracture (principal); S82.201A Unspecified fracture of shaft of right tibia, initial encounter for closed fracture; S82.401A Unspecified fracture of shaft of right fibula, initial encounter for closed fracture; X58.XXXA Exposure to other specified factors, initial encounter | CPT/HCPCS: 73590; 99024 ==

== ENCOUNTER 2023-10-31 16:24 | Oncology outpatient (recurring) (ONCR) | payer MEDICARE, MEDICAID, SELFPAY | END 2023-11-19 23:55 | disposition home or self-care (01) | PROVIDERS: Visit Provider Internal Medicine Medical Oncology | DX: D69.6 Thrombocytopenia, unspecified (principal); R16.1 Splenomegaly, not elsewhere classified | CPT/HCPCS: 99214 ==

== ENCOUNTER → 2023-11-24 09:02 | Outpatient (BNVA) | payer MEDICARE, MEDICAID, SELFPAY | PROVIDERS: Visit Provider Physician Assistant | DX: S82.201D Unspecified fracture of shaft of right tibia, subsequent encounter for closed fracture with routine healing; S82.401D Unspecified fracture of shaft of right fibula, subsequent encounter for closed fracture with routine healing; S82.831D Other fracture of upper and lower end of right fibula, subsequent encounter for closed fracture with routine healing; X58.XXXD Exposure to other specified factors, subsequent encounter | CPT/HCPCS: 73590; 99024 ==

== ENCOUNTER 2023-12-12 18:08 | Inpatient (IN) | payer MEDICARE, MEDICAID, SELFPAY ==
[2023-12-12] VITALS (7 sets, daily range): BP systolic 112–127; BP diastolic 53–64; PULSE 55–78; RESP 14–20; TEMP 36.5; O2SAT 91–94; BMI 33.3; BMI 37.8
--- NOTE | 2023-12-12 18:16 | XRR_ITS ---
PROCEDURE INFORMATION: Exam: XR Chest Exam date and time: 12/12/2023 7:11 PM Age: 73 years old Clinical indication: Pain; Chest pressure; Prior surgery; Surgery date: 6+ months; Surgery type: Heart spine; Patient HX: PT over 300 pounds would not move got best i could; Additional info: Chest pain TECHNIQUE: Imaging protocol: Radiologic exam of the chest. Views: 1 view. COMPARISON: CT chest abdpel w/*[id number] 10/18/2023 3:16 PM FINDINGS: Lungs: No focal consolidation. Pleural spaces: No evidence of pneumothorax. No evidence of pleural effusion. Heart/Mediastinum: Cardiomediastinal silhouette is within normal limits. Bones/joints: No evidence of acute osseous abnormality. Thoracolumbar fusion hardware partially visualized. XR/XR chest 1V portable [id number] IMPRESSION: 1. No acute cardiopulmonary abnormality.
--- NOTE | 2023-12-12 18:17 | ECG_ITS ---
[facility] Test Date: 2023-12-12 Pat Name: Tom Espinosa Department: Room: Gender: Male Care Coordination Manager: : 1950 Requested By: Liss Escobar Order Number: [id number] Alberto Rodrigez MD: Rylie Melchor M.D. Measurements Intervals [place] Rate: 58 P: 79 MD: 218 QRS: -25 QRSD: 88 T: 111 QT: 435 QTc: 431 Interpretive Statements SINUS BRADYCARDIA WITH FIRST DEGREE AV BLOCK WITH OCCASIONAL SUPRAVENTRICULAR PREMATURE COMPLEXES LOW QRS VOLTAGE IN PRECORDIAL LEADS [QRS DEFLECTION < 1.0 mV IN CHEST LEADS] ANTEROSEPTAL MYOCARDIAL INFARCTION , OF INDETERMINATE AGE [40+ ms Q WAVE IN V1-V4] Compared to ECG 09/12/2023 15:59:33 Low QRS voltage now present Myocardial infarct finding still present Electronically Signed On 12-12-2023 23:18:55 CDT by Rylie Melchor M.D. [id number]
--- NOTE | 2023-12-12 19:13 | ED_ITS ---
HPI - Chest Pain 2 General: Chief Complaint: Chest Pain Stated Complaint: cp Time Seen by Provider: 12/12/23 18:09 History of Present Illness: 73-year-old man with a history of obesit y, coronary artery disease, obstructive sleep apnea, depression, type 2 diabetes, hypertension and hyperlipidemia and some dementia who presents the emergency room with chest pain. This started about 6 hours ago. Is improved now. He symptoms of pain in his central chest. An ache. No cough. No altered mental status. He has had some diaphoresis he says. No new lower extremity swelling. Related Data Home Medications Medication Instructions Recorded Confirmed acetaminophen 325 mg capsule 650 mg PO QID PRN pain or fever 01/04/22 12/13/23 albuterol sulfate 90 mcg/actuation 2 puff inhalation Q6H PRN 01/04/22 12/13/23 aerosol inhaler wheezing/ shortness of breath aspirin 81 mg tablet,delayed 81 mg PO DAILY 01/04/22 12/13/23 release (Adult Low Dose Aspirin) calcium carbonate (Antacid 1,000 mg PO Q8H PRN Heartburn or 01/04/22 12/13/23 (calcium carbonate)) indigestion donepezil 5 mg tablet 10 mg PO BEDTIME 01/04/22 12/13/23 menthol 2.7 mg lozenges (Cough 5.4 mg mucous membrane PRN PRN 01/04/22 12/13/23 Drops) Cough mirabegron 50 mg tablet,extended 50 mg PO DAILY 01/04/22 12/13/23 release 24 hr (Myrbetriq) omeprazole 20 mg tablet,delayed 20 mg PO DAILY 01/04/22 12/13/23 release albuterol sulfate 0.63 mg/3 mL 0.63 mg inhalation Q6H PRN Cough 09/11/23 12/13/23 solution for nebulization benzonatate 100 mg capsule 100 mg PO Q8H PRN Cough 09/11/23 12/13/23 bisacodyl 10 mg rectal suppository 10 mg SC DAILY PRN Constipation 09/11/23 12/13/23 cetirizine 5 mg tablet 5 mg PO DAILY PRN seasonal 09/11/23 12/13/23 allergies citalopram 10 mg tablet 10 mg PO DAILY 09/11/23 12/13/23 finasteride 5 mg tablet 5 mg PO BEDTIME 09/11/23 12/13/23 magnesium hydroxide 400 mg/5 mL 2,400 mg PO DAILY PRN Constipation 09/11/23 12/13/23 oral suspension (Milk of Magnesia) meloxicam 7.5 mg tablet 7.5 mg PO DAILY 09/11/23 12/13/23 polyethylene glycol 3350 17 gram 17 g PO DAILY PRN Constipation 09/11/23 12/13/23 oral powder packet polyvinyl alcohol-povidone 0.5 1 drp ophthalmic (eye) TID PRN Dry 09/11/23 12/13/23 %-0.6 % eye drops (Clear Eyes Eye(S) Natural Tears) menthol 4 % topical gel (Biofreeze 1 applic topical Q6H PRN Pain 12/13/23 12/13/23 (menthol)) nystatin 100,000 unit/gram topical 1 applic topical Q8H PRN Rash 12/13/23 12/13/23 powder sodium phosphates 19 gram-7 118 ml SC DAILY PRN Constipation 12/13/23 12/13/23 gram/118 mL enema (Fleet Enema) Previous Rx's Medication Instructions Recorded cam walking boot #1 ea 01/04/22 lace up ankle brace #1 ea 01/04/22 tramadol 50 mg tablet 50 mg PO Q6H PRN pain #30 tabs 01/18/22 calcium carbonate 600 mg-vitamin 1 tab PO BID #30 tabs 09/12/23 D3 10 mcg (400 unit) tablet tamsulosin 0.4 mg capsule 0.4 mg PO DAILY #30 caps 09/12/23 cam boot #1 ea 10/04/23 Allergies Allergy/AdvReac Type Severity Reaction Status Date / Time No Known Allergies Allergy Verified 11/24/23 09:09 Review of Systems 2 Narrative: Constitutional symptoms: Negative except as documented in HPI. Skin symptoms: Negative except as documented in HPI. Eye symptoms: Negative except as documented in HPI. ENMT symptoms: Negative except as documented in HPI. Respiratory symptoms: Negative except as documented in HPI. Cardiovascular symptoms: Negative except as documented in HPI. Gastrointestinal symptoms: Negative except as documented in HPI. Genitourinary symptoms: Negative except as documented in HPI. Musculoskeletal symptoms: Negative except as documented in HPI. Neurologic symptoms: Negative except as documented in HPI. Psychiatric symptoms: Negative except as documented in HPI. Endocrine symptoms: Negative except as documented in HPI. PFSH ED 2 PFSH: Medical History Anxiety and depression Elevated liver enzymes Obstructive sleep apnea GERD (gastroesophageal reflux disease) Dementia Hyperlipidemia Hypertension Type 2 diabetes mellitus Past heart attack BPH (benign prostatic hyperplasia) Surgical History S/P ORIF (open reduction internal fixation) fracture (09/11/23) right tibia infrapatellar intramedullary nail History of coronary angioplasty H/O total knee replacement Previous back surgery (2020) for scoliosis Social History Smoking and tobacco/nicotine status: never used tobacco/nicotine Physical Exam 2 Narrative: EXAM NARRATIVE: General: Alert, no acute distress. Skin: Warm, dry. Head: Normocephalic, atraumatic. Neck: Supple, trachea midline. Eye: Extraocular movements are intact. Ears, nose, mouth and throat: mucosa moist. Cardiovascular: Regular, Normal peripheral perfusion. Respiratory: Lungs are clear to auscultation, respirations are non-labored, breath sounds are equal, Symmetrical chest wall expansion. Gastrointestinal: Soft, Nontender, Non distended Musculoskeletal: Normal ROM, no deformity. Neurological: Alert and oriented, No focal neurological deficit observed. Psychiatric: Cooperative, appropriate mood & affect. Course 2 Vital Signs: Vital signs: Vital Signs Temperature 100.8 F H 12/13/23 19:00 Pulse Rate 91 12/13/23 16:00 Respiratory Rate 18 12/13/23 16:00 Blood Pressure 139/78 12/13/23 16:00 Pulse Oximetry 92 12/13/23 16:00 Oxygen Delivery Me thod Nasal Cannula 12/13/23 16:00 Oxygen Flow Rate 2 12/13/23 16:00 MDM - Chest Pain Medical Decision Making Differential diagnosis for patient with chest pain includes but is not limited to and based on the above HPI, review of systems and physical exam: Pneumonia. unstable angina. angina. Acute coronary syndrome / OK. Pulmonary embolism. Costochondritis / musculoskeletal. Pleurisy. Pericarditis. Esophageal spasm. Pancreatis. Cholecystitis. Orders placed to evaluate differential diagnosis based on the above differential, HPI and physical exam EKG: Time 1818. Rate 58. Sinus bradycardia, No ST-T changes, no ectopy, first- degree AV block, This was reviewed and interpreted by myself the ER physician at 1821. Repeat EKG: Time 2030. Rate 64. Normal sinus rhythm, No ST-T changes, This was reviewed and interpreted by myself the ER physician at 2034. Rate has increased by about 6 bpm. Otherwise relatively unchanged. Still with a first-degree AV block. Chest x-ray: No acute process. No infiltrate. No pneumothorax. This was reviewed and interpreted by myself the ER physician. Lab Review: Laboratory results were reviewed and interpreted by myself the emergency room physician. Lab work is fairly unremarkable. White count of 10,000. Hemoglobin is 13. Platelets are low but stable at 55. BUN and creatinine are normal at 15 and 0.8. Glucose is elevated at 247. Initial troponin is very mildly elevated at 28. I reviewed the patient's medical record. Reexamination: Patient remained stable. No increased work of breathing. No altered mental status. No focal motor deficits. Patient says chest pain has improved. Consultation: I spoke with Dr. Lucio who is on-call for the hospitalist service. He agrees to admission. To observation. Assessment and plan: Chest pain Coronary artery disease Thrombocytopenia -I discussed the patient with the hospitalist on-call who is admitting the patient. - Discussed findings and plan with patient. Answered any questions. - All laboratory values were reviewed and interpreted personally by myself, the ER physician - All imaging was reviewed and interpreted personally by myself, the ER physician. - Evaluation and treatment of this problem were appropriate in the emergency setting Lab Data 12/13/23 01:30 12/13/23 01:30 Radiology Impressions Chest X-Ray 12/12/23 18:16 IMPRESSION: 1. No acute cardiopulmonary abnormality. Chest CTA 12/13/23 08:07 IMPRESSION: 1. No evidence of pulmonary embolus. 2. Slight bibasilar atelectasis. 3. Hepatomegaly and splenomegaly. 4. Cholelithiasis. Mild gallbladder wall thickening may be on the basis of hepatic congestion. This could be further evaluated with ultrasound. Laboratory Results WBC 10.23 10^3/uL (3.29-11.43) 12/12/23 19:36 RBC 4.52 10^6/uL (3.85-5.65) 12/12/23 19:36 Hgb 13.40 g/dL (11.27-16.99) 12/12/23 19:36 Hct 41.6 % (37-53) 12/12/23 19:36 MCV 92.0 fl (82-101) 12/12/23 19:36 MCH 29.6 pg (27-33) 12/12/23 19:36 MCHC 32.2 g/dL (30-55) 12/12/23 19:36 RDW 14.2 % (12.1-15.1) 12/12/23 19:36 Plt Count 55 10^3/cmm (157-399) L 12/12/23 19:36 MPV 13.0 fL (7.4-10.4) H 12/12/23 19:36 Neut % (Auto) 88.7 % 12/12/23 19:36 Lymph % (Auto) 5.5 % 12/12/23 19:36 [place] % (Auto) 4.6 % 12/12/23 19:36 Eos % (Auto) 0.2 % 12/12/23 19:36 Baso % (Auto) 0.4 % 12/12/23 19:36 Neut # (Auto) 9.08 10^3/uL (1.8-7.7) H 12/12/23 19:36 Lymph # (Auto) 0.6 10^3/uL (0.8-4.8) L 12/12/23 19:36 [place] # (Auto) 0.5 10^3/uL (0.2-0.9) 12/12/23 19:36 Eos # (Auto) 0.0 10^3/uL (0.0-0.8) 12/12/23 19:36 Baso # (Auto) 0.0 10^3/uL (0.0-0.1) 12/12/23 19:36 Nucleated RBC % (auto) 0 % 12/12/23 19:36 Nucleated RBCs # 0.0 /100WBC 12/12/23 19:36 Sodium 137 mmol/L (136-145) 12/12/23 19:36 Potassium 4.1 mmol/L (3.5-5.1) 12/12/23 19:36 Chloride 99 mmol/L (98-107) 12/12/23 19:36 Carbon Dioxide 26 mmol/L (22-29) 12/12/23 19:36 Anion Gap 16.1 (5-19) 12/12/23 19:36 BUN 15 mg/dL (8-23) 12/12/23 19:36 Creatinine 0.8 mg/dL (0.7-1.2) 12/12/23 19:36 GFR Calculation Not Reportable 12/12/23 19:36 Glucose 247 mg/dL (65-115) H 12/12/23 19:36 Calculated Osmolality 293 mOsm/kg (285-295) 12/12/23 19:36 Lactic Acid 3.1 mmol/L (0.5-2.2) H 12/12/23 19:36 Calcium 8.7 mg/dL (8.5-10.5) 12/12/23 19:36 Total Bilirubin 0.7 mg/dL (0.15-1.2) 12/12/23 19:36 AST 20 U/L (0-40) 12/12/23 19:36 ALT 19 U/L (0-41) 12/12/23 19:36 Alkaline Phosphatase 125 U/L (40-130) 12/12/23 19:36 Troponin T Baseline 28 ng/L (0-15) H 12/12/23 19:36 Troponin T 120 Minute 23.90 ng/L (0-15) H 12/12/23 21:44 Delta Troponin T -4.10 ABS# (0-10) L 12/12/23 21:44 C-Reactive Protein 7.5 mg/L (0.0-4.9) H 12/12/23 19:36 Total Protein 6.8 g/dL (6.6-8.7) 12/12/23 19:36 Albumin 4.1 g/dL (3.5-5.2) 12/12/23 19:36 Globulin 2.7 g/dL (1.3-4.6) 12/12/23 19:36 Lipase 25 U/L (13-60) 12/12/23 19:36 All radiology interpretation(s) finalized by discharge Discharge Plan Discharge Patient Disposition: Placed in Observation Admit Provider: Halytskyy,Robin Clinical Impression: Chest pain, Thrombocytopenia, Coronary artery disease Coding Level of Care Code ED 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
[2023-12-12 19:43] LABS: Basophils % 0.4 %; Eosinophils % 0.2 %; Hematocrit 41.6 % (37-53); Lymphocytes # 0.6 10^3/uL (0.8-4.8); Lymphocytes % 5.5 %; Mean Corpuscular HGB Conc 32.2 g/dL (30-55); Mean Corpuscular Hemoglobin 29.6 pg (27-33); Monocytes # 0.5 10^3/uL (0.2-0.9); Monocytes % 4.6 %; Neutrophils # 9.08 10^3/uL (1.8-7.7); Neutrophils % 88.7 %; Nucleated Red Blood Cells % 0 %; Platelet Count 55 10^3/cmm (157-399); Red Blood Count 4.52 10^6/uL (3.85-5.65); Red Cell Distribution Width 14.2 % (12.1-15.1); White Blood Count 10.23 10^3/uL (3.29-11.43)
[2023-12-12 20:04] LABS: Lactic Sepsis W/Reflex 3.1 mmol/L (0.5-2.2); Troponin(5th) Baseline 28 ng/L (0-15)
[2023-12-12 20:05] LABS: Alanine Aminotransferase 19 U/L (0-41); Albumin Level 4.1 g/dL (3.5-5.2); Alkaline Phosphatase 125 U/L (40-130); Anion Gap 16.1 (5-19); Aspartate Amino Transferase 20 U/L (0-40); Blood Urea Nitrogen 15 mg/dL (8-23); C Reactive Protein 7.5 mg/L (0.0-4.9); Calcium 8.7 mg/dL (8.5-10.5); Carbon Dioxide 26 mmol/L (22-29); Chloride 99 mmol/L (98-107); Creatinine Clr Calc Pharmacy 106.0759; Globulin 2.7 g/dL (1.3-4.6); Glucose 247 mg/dL (65-115); Lipase 25 U/L (13-60); Osmolality Calculated 293 mOsm/kg (285-295); Potassium 4.1 mmol/L (3.5-5.1); Sodium 137 mmol/L (136-145); Total Bilirubin 0.7 mg/dL (0.15-1.2); Total Protein 6.8 g/dL (6.6-8.7)
[2023-12-12] MEDS: morphine 4 mg/mL SDV 1 mL IVP (20:05)
[2023-12-12] MEDS: ondansetron 2 mg/ML SDV 2 mL 4 MG IVP (20:05)
--- NOTE | 2023-12-12 20:31 | ECG_ITS ---
"[facility] Test Date: 2023-12-12 Pat Name: Tom Espinosa Department: Room: Gender: Male Landing Man: : 1950 Requested By: Liss Escobar Order Number: [id number] MD: Rylie Melchor M.D. Measurements Intervals [place] Rate: 64 P: 49 MO: 226 QRS: -12 QRSD: 92 T: 105 QT: 433 QTc: 447 Interpretive Statements SINUS RHYTHM WITH FIRST DEGREE AV BLOCK WITH OCCASIONAL SUPRAVENTRICULAR PREMATURE COMPLEXES LOW QRS VOLTAGE IN PRECORDIAL LEADS [QRS DEFLECTION < 1.0 mV IN CHEST LEADS] SEPTAL MYOCARDIAL INFARCTION , OF INDETERMINATE AGE [40+ ms Q WAVE IN V1/V2] Compared to ECG 12/12/2023 18:19:49 Possible left atrial engagement Sinus bradycardia no longer present Myocardial infarct finding still present Electronically Signed On 12-12-2023 23:31:03 CDT by Rylie Melchor M.D. [id number]"
[2023-12-12 21:26] LABS: Reflex Lactate Order REFLEX LACTIC ORDERD
--- NOTE | 2023-12-12 22:00 | ECG_ITS ---
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 Measurements Intervals [place] Rate: 71 P: 49 MD: 221 QRS: -7 QRSD: 90 T: 72 QT: 382 QTc: 417 Interpretive Statements SINUS RHYTHM WITH FIRST DEGREE AV BLOCK WITH FREQUENT SUPRAVENTRICULAR PREMATURE COMPLEXES SEPTAL MYOCARDIAL INFARCTION , PROBABLY OLD [40+ ms Q WAVE IN V1/V2] Compared to ECG 12/12/2023 20:31:39 No significant changes Electronically Signed On 12-13-2023 16:57:04 CDT by Rock Dee M.D. [id number]
[2023-12-12 22:12] LABS: Lactic Acid level (Lactate) 3.7 mmol/L (0.5-2.2)
--- NOTE | 2023-12-12 23:50 | P.HP_ITS ---
Providers/Chief Complaint 2 Admitting Physician: Robin Lucio Chief Complaint: cp History of Present Illness 73-year-old gentleman group home resident with history of obesity, CAD, prior stenting in 1980s, LUZ, depression, DM2, HTN, HLD, came to ER for evaluation due to chest pain starting around noon and lasting up until his visit in ER, relieved with nitroglycerin. He described it as pressure, central, without radiation. Without specific trigger. He denies cough, shortness of breath. In ER he is afebrile without tachycardia, no leukocytosis. Chronic thrombocytopenia noted. He reports he takes aspirin. Baseline troponin 28, 2- hour troponin 23.9. EKG without ST elevation. Currently symptoms are better. Chest x-ray without acute abnormality. Review of Systems 2 Const: Denies: fever(s), chills, body aches or malaise ENMT: Denies: throat pain, oral sores or ear or mastoid pain Card: Reports: chest pain; Denies: edema, pre-syncope or dyspnea on exertion Resp: Denies: dyspnea, productive cough, change in phlegm color or hemoptysis GI: Denies: abdominal pain, nausea, vomiting, diarrhea, constipation, hematochezia or melena : Denies: flank pain, difficulty urinating, urinary frequency or hematuria Musc: Denies: back pain, joint swelling or joint redness Skin/Breast: Denies: rash or new lesions Neuro: Denies: headache(s) or confusion Medications/Allergies Home Medications Medication Instructions Recorded Confirmed Last Taken Type acetaminophen 325 mg capsule 325 mg PO QID PRN pain or fever 01/04/22 11/24/23 Unknown History albuterol sulfate 90 mcg/actuation 2 puff inhalation Q6H PRN 01/04/22 11/24/23 Unknown History aerosol inhaler wheezing/ shortness of breath aspirin 81 mg tablet,delayed 81 mg PO DAILY 01/04/22 11/24/23 09/09/23 History release (Adult Low Dose Aspirin) bisacodyl 10 mg/30 mL enema 10 mg MA DAILY PRN Constipation 01/04/22 11/24/23 Unknown History calcium carbonate (Antacid 200 mg PO TID PRN Heartburn 01/04/22 11/24/23 Unknown History (calcium carbonate)) cam walking boot #1 ea 01/04/22 11/24/23 Unknown Rx donepezil 5 mg tablet 10 mg PO BEDTIME 01/04/22 11/24/23 09/09/23 History lace up ankle brace #1 ea 01/04/22 11/24/23 Unknown Rx menthol 2.7 mg lozenges (Cough 5.4 mg mucous membrane Q4H PRN 01/04/22 11/24/23 Unknown History Drops) Cough mirabegron 50 mg tablet,extended 50 mg PO DAILY 01/04/22 11/24/23 09/09/23 History release 24 hr (Myrbetriq) omeprazole 20 mg tablet,delayed 20 mg PO 0600 01/04/22 11/24/23 09/09/23 History release tramadol 50 mg tablet 50 mg PO Q6H PRN pain #30 tabs 01/18/22 11/24/23 09/09/23 19:41 Rx albuterol sulfate 0.63 mg/3 mL 0.63 mg inhalation QID PRN Cough 09/11/23 11/24/23 Unknown History solution for nebulization benzonatate 100 mg capsule 100 mg PO TID PRN Cough 09/11/23 11/24/23 Unknown History bisacodyl 10 mg rectal suppository 10 mg MA DAILY PRN Constipation 09/11/23 11/24/23 Unknown History cetirizine 5 mg tablet 5 mg PO DAILY PRN seasonal 09/11/23 11/24/23 Unknown History allergies citalopram 10 mg tablet 10 mg PO DAILY 09/11/23 11/24/23 09/09/23 History finasteride 5 mg tablet 5 mg PO BEDTIME 09/11/23 11/24/23 09/09/23 History magnesium hydroxide 400 mg/5 mL 400 mg PO DAILY PRN Constipation 09/11/23 11/24/23 Unknown History oral suspension (Milk of Magnesia) meloxicam 7.5 mg tablet 7.5 mg PO DAILY 09/11/23 11/24/23 09/09/23 History polyethylene glycol 3350 17 gram 17 g PO DAILY PRN Constipation 09/11/23 11/24/23 Unknown History oral powder packet polyvinyl alcohol-povidone 0.5 1 drp ophthalmic (eye) TID PRN Dry 09/11/23 11/24/23 Unknown History %-0.6 % eye drops (Clear Eyes Eye(S) Natural Tears) calcium carbonate 600 mg-vitamin 1 tab PO BID #30 tabs 09/12/23 11/24/23 Unknown Rx D3 10 mcg (400 unit) tablet tamsulosin 0.4 mg capsule 0.4 mg PO DAILY #30 caps 09/12/23 11/24/23 Unknown Rx cam boot #1 ea 10/04/23 11/24/23 Unknown Rx Allergies Allergy/AdvReac Type Severity Reaction Status Date / Time No Known Allergies Allergy Verified 11/24/23 09:09 PFSH Acute 2 PFSH: Medical History Anxiety and depression Elevated liver enzymes Obstructive sleep apnea GERD (gastroesophageal reflux disease) Dementia Hyperlipidemia Hypertension Type 2 diabetes mellitus Past heart attack BPH (benign prostatic hyperplasia) Surgical History S/P ORIF (open reduction internal fixation) fracture (09/11/23) right tibia infrapatellar intramedullary nail History of coronary angioplasty H/O total knee replacement Previous back surgery (2020) for scoliosis Social History Smoking and tobacco/nicotine status: never used tobacco/nicotine Vitals/I&O/Wt Last Vital Signs Temp 97.7 F 12/12/23 18:13 Pulse 68 12/12/23 23:35 Resp 14 12/12/23 22:00 BP 127/63 12/12/23 23:35 Pulse Ox 93 12/12/23 23:35 O2 Del Method Room Air 12/12/23 23:27 Weight last 48 hrs Weight 126.6 kg Weight 111.584 kg Physical Exam 2 Const: COMMON NORMALS: patient oriented x3 and alert GENERAL APPEARANCE: c ooperative NUTRITIONAL APPEARANCE: obese ORIENTATION/CONSCIOUSNESS: Yes awake HENMT: COMMON NORMALS: oropharynx normal Neck/C-Spine: COMMON NORMALS: no JVD Resp: COMMON NORMALS: normal respiratory effort and clear to auscultation bilaterally AUSCULTATION: clear to auscultation bilaterally Cardio: COMMON NORMALS: no JVD, regular rhythm, S1 normal heart sound present, S2 normal heart sound present and No murmurs present (Cardio) RHYTHM: regular rhythm HEART SOUNDS: S1 normal heart sound present and S2 normal heart sound present GI: COMMON NORMALS: Normal to inspection, nondistended, normoactive bowel sounds present, Soft to palpation and non-tender PALPATION: Yes Soft to palpation Extremity: COMMON NORMALS: no joint enlargement and no pedal edema Neuro: COMMON NORMALS: patient oriented x3 and moves all extremities S ENSORIUM/ORIENTATION: Yes alert Skin: COMMON NORMALS: no rashes or lesions noted GENERAL SKIN EXAM: no rashes or lesions noted Data 12/12/23 19:36 12/12/23 19:36 Micro: Microbiology 12/12/23 20:09 Blood Culture - Preliminary Blood SPECIMEN COLLECTED 12/12/23 19:36 Blood Culture - Preliminary Blood SPECIMEN COLLECTED A&P Assessment and plan (1) Chest pain: (2) Coronary artery disease: Reviewed vitals, CBC, CMP, troponin, EKG, with low voltage in precordial leads, T wave inversion in aVL, laterally on my interpretation, pending official read. Reviewed chest x-ray. ER note, discussed with ER provider. Assess for possible unstable angina, so far with improvement in pain after about 6 hours after nitroglycerin. Complete troponin EKG series. Monitor on telemetry with risk of arrhythmia. Obtain TTE. He received aspirin en route to the hospital, continue aspirin 325 mg daily. No beta-fletcher at current time due to bradycardia, heart rates 50s-60s. Statin. Would also avoid and discontinue meloxicam if he is still taking it. Discussed with him additional assessment with stress testing in the morning unless develops further pain, rising troponin, in which case will need cardiology assessment, consideration of coronary angiography. N.p.o. for stress test. Plan Obesity, follow-up with primary care provider regarding weight loss options CAD, prior stenting in , continue aspirin, statin. No beta-fletcher due to bradycardia. LUZ, does not appear to be using CPAP, will confirm Depression, resume home medication once available DM2, monitor blood glucose, mild sliding scale insulin. HTN, blood pressures currently within normal range. Monitor blood pressures. HLD statin Requested to confirm home medications, please review and resume as appropriate. Attestations 2 Medical Necessity Statement*: Place in observation for additional assessment management of chest pain, assess for possible unstable angina, indeterminate with underlying CAD, prior stenting, CAD risks with additional comorbidities as above. and High MDM includes amount and/or complexity of data reviewed/ordered [ previous or external records, resulted lab(s)/test(s), ordered lab(s)/test(s), independent test interpretation and other healthcare professional discussion] as documented Diagnoses Chest pain R07.9 Coronary artery disease I25.10
--- NOTE | 2023-12-12 23:50 | ECG_ITS ---
[facility] Test Date: 2023-12-13 Pat Name: Tom Espinosa Department: Room: 106 Gender: Male Dobie Man: : 1950 Requested By: Robin Lucio Order Number: [id number] MD: Rylie Melchor M.D. Interpretive Statements Lexiscan/sestamibi/sestamibi stress test PROCEDURE: At the baseline, the EKG revealed normal sinus rhythm with poor R wave progression. Possible old anteroseptal FL. Some nonspecific T wave changes. Minimal left axis deviation.. The baseline heart was 73 bpm with a blood pressue of 104/71 mm of Hg Lexiscan was infused over a period of 20 seconds. A total of 0.4 milligrams of Lexiscan was infused. The stress phase was continued for a total of 5 minutes. Heart rate at the end of the stress phase was 93 bpm with a blood pressure 137/81 mm of Hg. The EKG at the peak infusion revealed no significant changes. Sestamibi was injected 20 seconds after the Lexiscan infusion. Lung unchanged pre/post procedure; Intra procedure shortness of breath; Symptoms resoled by discharge Heart rate at the end of the recovery phase was 88 bpm with a blood pressure of 159/97 mm of Hg. CONCLUSION: 1. No significant EKG changes with the LexiScan infusion 2. No LexiScan induced chest pain or cardiac arrhythmia 3. Normal blood pressure and heart rate response 4. Sestamibi/sestamibi perfusion scan pending; see separate report. Electronically Signed On 12-18-2023 21:13:18 CDT by Rylie Melchor M.D. [id number]
[2023-12-13] VITALS (11 sets, daily range): BP systolic 101–145; BP diastolic 64–86; PULSE 60–102; RESP 16–28; TEMP 37–38.2; O2SAT 92–95
--- NOTE | 2023-12-13 00:17 | ECG_ITS ---
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 Measurements Intervals [place] Rate: 58 P: 43 ND: 205 QRS: -20 QRSD: 94 T: 109 QT: 421 QTc: 417 Interpretive Statements SINUS BRADYCARDIA LOW QRS VOLTAGE IN PRECORDIAL LEADS [QRS DEFLECTION < 1.0 mV IN CHEST LEADS] MINIMAL VOLTAGE CRITERIA FOR LVH, CONSIDER NORMAL VARIANT [MEETS CRITERIA IN ONE OF: R(aVL), S(V1), R(V5), R(V5/V6)+S(V1)] ANTEROSEPTAL MYOCARDIAL INFARCTION , PROBABLY OLD [40+ ms Q WAVE IN V1-V4] Compared to ECG 12/12/2023 20:31:39 Sinus rhythm no longer present First degree AV block no longer present Myocardial infarct finding still present Electronically Signed On 12-13-2023 16:56:59 CDT by Rock Dee M.D. [id number]
[2023-12-13] MEDS: enoxaparin 30 mg/0.3 mL Syringe SUBCUT (00:53)
[2023-12-13 01:13] LABS: Glucose Point of Care 145 mg/dL (70-110)
[2023-12-13 02:07] LABS: Basophils % 0.4 %; Eosinophils % 0.4 %; Hematocrit 42.9 % (37-53); Lymphocytes # 0.7 10^3/uL (0.8-4.8); Lymphocytes % 6.8 %; Mean Corpuscular HGB Conc 31.2 g/dL (30-55); Mean Corpuscular Hemoglobin 29.6 pg (27-33); Mean Corpuscular Volume 94.7 fl (82-101); Mean Platelet Volume 14.1 fL (7.4-10.4); Monocytes % 9.3 %; Neutrophils # 8.82 10^3/uL (1.8-7.7); Neutrophils % 82.6 %; Nucleated Red Blood Cells % 0 %; Platelet Count 55 10^3/cmm (157-399); Red Blood Count 4.53 10^6/uL (3.85-5.65); Red Cell Distribution Width 14.1 % (12.1-15.1); White Blood Count 10.67 10^3/uL (3.29-11.43)
[2023-12-13 02:30] LABS: D Dimer 1.07 ug/mLFEU (0-0.59); Troponin 5 6HR 30.89 ng/L (0-15); Troponin 5 6HR Delta 2.89 ng/L (0-12)
[2023-12-13 02:48] LABS: Alanine Aminotransferase 19 U/L (0-41); Alkaline Phosphatase 118 U/L (40-130); Anion Gap 19.5 (5-19); Aspartate Amino Transferase 21 U/L (0-40); Blood Urea Nitrogen 16 mg/dL (8-23); Calcium 8.9 mg/dL (8.5-10.5); Carbon Dioxide 23 mmol/L (22-29); Chloride 98 mmol/L (98-107); Creatinine Clr Calc Pharmacy 113.0625; Globulin 3.1 g/dL (1.3-4.6); Glucose 167 mg/dL (65-115); Osmolality Calculated 287 mOsm/kg (285-295); Potassium 4.5 mmol/L (3.5-5.1); Sodium 136 mmol/L (136-145); Total Bilirubin 0.8 mg/dL (0.15-1.2); Total Protein 7.1 g/dL (6.6-8.7)
[2023-12-13] MEDS: perflutren protein-a microsphr 0.22 mg/mL SDV 3 mL IV (06:39)
[2023-12-13] MEDS: regadenoson 0.4 Mg/5 ml Syringe IVP (07:42)
[2023-12-13] MEDS: aminophylline 25 mg/mL SDV 10 mL IVP (07:57)
[2023-12-13] MEDS: ondansetron 2 mg/ML SDV 2 mL 4 MG IVP ×2 (08:00→09:19)
--- NOTE | 2023-12-13 08:07 | CT_ITS ---
WS: [id number] CTA OF THE CHEST WITH PULMONARY EMBOLISM PROTOCOL TECHNIQUE: High-resolution contrast enhanced CTA of the chest with coronal and sagittal reformatted i mages with pulmonary embolism protocol. MIP images are also reviewed. CLINICAL INFORMATION: chest pain and elevated d dimer COMPARISON: None. DLP: 485.[address] scans at [facility] use at least one of these dose optimization techniques: automated e xposure control; mA and/or kV adjustment per patient size (includes targeted exams where dose is matc hed to clinical indication); or iterative reconstruction. FINDINGS: Proximal main pulmonary arteries are patent. Normal segmental and subsegmental pulmonary arteries. No rmal caliber thoracic aorta. Coronary calcification. Lungs are well aerated. Slight bibasilar atelectasis. Partially visualized hepatomegaly and splenomeg minor. Small esophageal hernia. Fatty atrophy of the pancreas. Small esophageal hiatal hernia. Moderate thoracic kyphosis. Chronic anterior wedging in the midthoracic spine. Cholelithiasis. CT/CT angio chest PE protcl [id number] IMPRESSION: 1. No evidence of pulmonary embolus. 2. Slight bibasilar atelectasis. 3. Hepatomegaly and splenomegaly. 4. Cholelithiasis. Mild gallbladder wall thickening may be on the basis of hep atic congestion. This could be further evaluated with ultrasound.
[2023-12-13 08:46] LABS: Glucose Point of Care 181 mg/dL (70-110)
--- NOTE | 2023-12-13 08:53 | PC.NURSE ---
return from nuc.med.via bed.tolerated procedure well.to ct scan via bed.
[2023-12-13] MEDS: iohexol 350 mg/mL 500 mL Btl (per mL) IV (09:17)
[2023-12-13] MEDS: insulin lispro 100 unit/1 mL SUBCUT ×3 (09:19→22:25)
--- NOTE | 2023-12-13 09:21 | PC.CHAP ---
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 glass installer visit [] Patient/Family/Request visit [] Outpatient visit [] Follow-up visit [] Physician referral [] Code/Alert [] Routine visit [] Staff referral [] Actively dying [] Patient sleeping [] Family support [] [x] Out of room [] Palliative care [] [] Receiving care in room [] Pre-surgical visit [] Trauma [] Long length of stay [] ICU visit [] Other: Relational/Emotional Strength [] Patient feels connected with others/family/visitors/staff [] Distress [] Loneliness/isolation [] Abandonment Spirituality of Patient [] Person of Amanda [] Attends Evangelical of their Amanda [] Believes in Prayer [] Reads Bible or Judaism materials [] There are Spiritual issues to be addressed Screen Tender Interventions [] Prayer [] Active listening [] Non-anxious presence [] Spiritual/emotional support [] Crisis/trauma care [] Spiritual counseling [] Bereavement support [] Provided bereavement packet [] Provided Bible/devotional materials [] Provided toy/stuffed animal, coloring book to patient or family member [] Provided Communion [] Anointing/[place] [] Salvation [] Completed spiritual assessment [] Other: Impact on Illness or Injury [] Angry [] Fearful [] Anxious [] Often cries [] Exhaustion [] Unable to work [] Unable to attend church [] Unable to walk/stand [] Unable to read [] Unable to drive [] Unable to eat/drink [] Unable to sleep [] Unable to be with family [] Patient intubated [] Other: Summary Time spent with patient
[2023-12-13] MEDS: aspirin 325 mg Tablet PO (10:01)
[2023-12-13] MEDS: acetaminophen 325 mg Tablet 650 MG PO (11:05)
[2023-12-13 11:48] LABS: Glucose Point of Care 129 mg/dL (70-110)
--- NOTE | 2023-12-13 12:11 | P.PN_ITS ---
Subjective 2 Subjective: No acute overnight events noted. Seen him at bedside this morning, denies any complaint of chest pain or shortness of breath. Medications: Reviewed: Yes Vitals/I&O/Wt Last Vital Signs Temp 98.7 F 12/13/23 11:28 Pulse 81 12/13/23 11:28 Resp 25 H 12/13/23 11:28 BP 110/64 12/13/23 11:28 Pulse Ox 95 12/13/23 11:28 O2 Del Method Nasal Cannula 12/13/23 11:28 12/12/23 12/13/23 12/13/23 22:59 06:59 14:59 Intake Total 980 / 980 120 / 120 Balance 980 / 980 120 / 120 Weight last 48 hrs Weight 126.9 kg Weight 126.6 kg Weight 111.584 kg Physical Exam 2 Narrative: He is alert awake oriented x 3 Chest clear to auscultation bilaterally Cardiovascular normal heart sounds Abdomen soft nontender nondistended normal bowel sounds Extremities no edema noted bilateral lower extremity Data 12/13/23 01:30 12/13/23 01:30 Micro: Microbiology 12/12/23 20:09 Blood Culture - Preliminary Blood SPECIMEN COLLECTED 12/12/23 19:36 Blood Culture - Preliminary Blood SPECIMEN COLLECTED A&P Assessment and plan (1) Chest pain: (2) Coronary artery disease: Plan Status poststress test this morning. Will follow-up official results. 2D echo normal In view of chest pain and elevated D-dimer, CT chest angio PE protocol negative for PE. Will continue to monitor Obesity, follow-up with primary care provider regarding weight loss options CAD, prior stenting in 1980s, continue aspirin, statin. No beta-fletcher due to bradycardia. LUZ, does not appear to be using CPAP, will confirm Depression, resume home medication once available DM2, monitor blood glucose, mild sliding scale insulin. HTN, blood pressures currently within normal range. Monitor blood pressures. HLD statin Attestations 2 Medical Necessity Statement*: He needs continued hospitalization from further workup for chest pain. Awaiting official results for stress test . Anticipating discharge in a.m. Time Spent in Patient Care: 20 minutes Coding Level of Care Code Acute Code for Chg Fwd Diagnoses Chest pain R07.9 Coronary artery disease I25.10 Time Spent (min) 20
[2023-12-13 17:22] LABS: Glucose Point of Care 167 mg/dL (70-110)
[2023-12-13 21:07] LABS: Covid PCR NEGATIVE (Negative); Influenza A NEGATIVE (Negative); Influenza B NEGATIVE (Negative); Respiratory Syncytial Virus Ce NEGATIVE (Negative)
[2023-12-13 21:31] LABS: Glucose Point of Care 163 mg/dL (70-110)
[2023-12-13] MEDS: atorvastatin 40 mg Tablet PO (22:25)
[2023-12-13 23:10] LABS: Bacteria Urine 3+ /hpf; Bilirubin Urine 1+ (Negative); Blood Urine Trace (Negative); Glucose Urine UA Negative (Normal); Hyaline Casts Urine 0.81 /lpf; Ketones Urine Negative (Negative); Leukocyte Esterase Urine 1+ (Negative); Nitrate Urine Positive (Negative); Protein Urine 1+ (Negative); Specific Gravity, Urine 1.038 (1.005-1.030); Squamous Epithelial Cell Urine 0-5 /hpf (0-5); Urine Appearance Cloudy (CLEAR); WBC Urine 51-100 /hpf (0-5)
[2023-12-13 23:11] LABS: Add Urine Culture? Yes; Urine Color Dark Yellow (Yellow)
--- NOTE | 2023-12-13 23:50 | USCV_ITS ---
Tom Espinosa Age: 73 Gender: M : 1950 Exam Date: 12/13/2023 01:21 Ordering Phys: Robin Lucio MD Technologist: UZAIR [place] [facility] [place]: chest pain, CAD, obesity, LUZ, DM2, HTN, HL BP: 127 / 63 HR: 66 Rhythm: Sinus Technical Quality: Adequate with [employer] MEASUREMENTS (Male / Female) Normal Values 2D ECHO LV Diastolic Diameter PLAX 5.1 cm 4.2 - 5.9 / 3.9 - 5.3 cm IVS Diastolic Thickness 1.3 cm 0.6 - 1.0 / 0.6 - 0.9 cm IVS Systolic Thickness 2.2 cm LVPW Diastolic Thickness 1.7 cm 0.6 - 1.0 / 0.6 - 0.9 cm LVPW Systolic Thickness 2.4 cm LVOT Diameter 2.2 cm LV Ejection Fraction 2D Teich 60.3 % LV Ejection Fraction MOD 4C 48.1 % LV Ejection Fraction MOD 2C 62.6 % LV Ejection Fraction 2C AL 62.7 % LA Diameter 3.2 cm Aorta at Sinotubular Diameter 3.6 cm IVC Diameter 2.4 cm M-MODE LA Ao Ratio MM 1.0 AV Cusp Separation MM 1.8 cm DOPPLER AV Peak Velocity 193.0 cm/s LVOT Peak Velocity 100.0 cm/s AV Area Cont Eq vti 2.7 cm squared AV Area Cont Eq pk 2.0 cm squared MV Peak Velocity 100.0 cm/s MV Area PHT 2.7 cm squared Mitral E to A Ratio 0.9 TR Peak Velocity 217.0 cm/s TR Peak Gradient 18.8 mmHg Right Atrial Pressure 3.0 mmHg Pulmonary Artery Systolic Pressu 21.8 mmHg PV Peak Velocity 92.0 cm/s FINDINGS Left Ventricle Left ventricle is normal size. LV systolic function is normal with EF of 55 to 60%. No regional wall motion abnormalities are seen. Right Ventricle Normal in size and function Right Atrium Normal in size Left Atrium Normal in size Mitral Valve Structurally normal mitral valve. Trace mitral regurgitation. Aortic Valve Aortic valve is thickened. Mild aortic regurgitation. Tricuspid Valve Inadequate TR jet to calculate RVSP Pulmonic Valve Not well visualized Pericardium Normal Aorta Normal in size IVC Not well visualized CONCLUSIONS LV systolic function is normal with EF of 55-60% Trace mitral regurgitation Mild aortic regurgitation. Compared to prior echocardiogram from 09/12/2023, no significant changes are seen. Rock Dee MD (Electronically Signed) Final Date: 13 December 2023 11:49 S
--- NOTE | 2023-12-13 23:51 | NMCV_ITS ---
NM hoa perf SPECT r/s* [id number] Tom Espinosa Age: 73 Gender: M : 1950 Exam Date: 12/13/2023 06:38 Ordering Phys: Robin Lucio MD Technologist: SAVANAH Cowart Exam Location: [facility] Indications: CP. SOB STRESS TEST Please see separate stress test report in [facility] for full findings IMAGE PROTOCOL Rest/Stress 1 Lexiscan Day Radiopharmaceutical Dose (mCi) Administration Site Administered by Rest: Tc-99m 10.9 IV SAVANAH Cowart Sestamibi Stress:Tc-99m 32.3 IV SAVANAH Sloan Sestamibi Rest: 13-Dec-2023 60 Discovery 630 Stress: 13-Dec-2023 30 Discovery 630 0.4mg Lexiscan. Supine position only as patient was unable to lay prone. Rest image partially blocked by arm. Pt refused to rescan SPECT RESULTS Technical Quality: Poor Raw Data Analysis: Adequate Image Corrections: No attenuation or motion correction applied Summed Stress Score: 12 Summed Rest Score: 1 Summed Difference Score: 11 PERFUSION FINDINGS Moderate area of moderately decreased tracer uptake involving the basal, mid and apical inferior, basal and mid inferolateral and apical lateral segments. Significant reversibility was noted in these regions. Small area of slightly decreased tracer uptake also was noted in the basal anteroseptal region, with some reversibility. FUNCTIONAL RESULTS (calculated via Gated SPECT) Stress Image LV EF (%): 67 Stress EDV (mL):131 TID: 1.26 Stress ESV (mL):43 FUNCTIONAL FINDINGS: Segmental wall motion analysis revealing no gross wall motion abnormalities IMPRESSIONS 1. Myocardial perfusion imaging revealing a moderate area of reversible defect involving the inferior, inferolateral and apical lateral regions suggesting myocardial ischemia in the distribution of the right coronary artery/circumflex artery. A small area of slight reversibility was noted in the basal anteroseptal region, may suggest ischemia in the distribution of the left anterior descending artery. 2. Normal LV ejection fraction of 67%. 3. LV wall motion analysis revealing no gross wall motion abnormalities. 4. Near normal LV volume. 5. Elevated transient ischemic dilatation ratio 1.26 may also suggest endocardial ischemia. No similar previous studies are available for comparison Dr Rylie Melchor MD FACC (Electronically Signed) Final Date: 13 December 2023 13:17 S
[2023-12-14] VITALS (9 sets, daily range): BP systolic 114–151; BP diastolic 58–93; PULSE 75–99; RESP 14–22; TEMP 36.5–37; O2SAT 89–97
[2023-12-14] MEDS: cefTRIAXone 1,000 mg SDV 1000 MG IVP (01:13)
[2023-12-14] MEDS: enoxaparin 30 mg/0.3 mL Syringe SUBCUT (01:14)
--- NOTE | 2023-12-14 02:16 | PC.NURSE ---
pt continuously removes his oxygen after replacement by nurse. pt educated on use of oxygen. pt agrees and leaves it alone. later to be discovered he has removed it again
[2023-12-14 04:18] LABS: Basophils # 0.1 10^3/uL (0.0-0.1); Basophils % 0.4 %; Eosinophils % 0.2 %; Hematocrit 41.5 % (37-53); Lymphocytes # 0.7 10^3/uL (0.8-4.8); Lymphocytes % 5.5 %; Mean Corpuscular HGB Conc 31.6 g/dL (30-55); Mean Corpuscular Hemoglobin 29.7 pg (27-33); Mean Corpuscular Volume 94.1 fl (82-101); Mean Platelet Volume 12.9 fL (7.4-10.4); Monocytes % 7.6 %; Neutrophils # 11.11 10^3/uL (1.8-7.7); Neutrophils % 85.5 %; Nucleated Red Blood Cells % 0 %; Platelet Count 55 10^3/cmm (157-399); Red Blood Count 4.41 10^6/uL (3.85-5.65); Red Cell Distribution Width 14.7 % (12.1-15.1); White Blood Count 12.97 10^3/uL (3.29-11.43)
[2023-12-14 04:36] LABS: Alanine Aminotransferase 23 U/L (0-41); Albumin Level 3.5 g/dL (3.5-5.2); Alkaline Phosphatase 116 U/L (40-130); Anion Gap 15.1 (5-19); Aspartate Amino Transferase 25 U/L (0-40); Blood Urea Nitrogen 13 mg/dL (8-23); Calcium 8.6 mg/dL (8.5-10.5); Carbon Dioxide 27 mmol/L (22-29); Chloride 103 mmol/L (98-107); Creatinine Clr Calc Pharmacy 90.5617; Globulin 3.1 g/dL (1.3-4.6); Glucose 154 mg/dL (65-115); Osmolality Calculated 295 mOsm/kg (285-295); Potassium 4.1 mmol/L (3.5-5.1); Sodium 141 mmol/L (136-145); Total Bilirubin 1.9 mg/dL (0.15-1.2); Total Protein 6.6 g/dL (6.6-8.7)
[2023-12-14 06:54] LABS: Glucose Point of Care 147 mg/dL (70-110)
[2023-12-14] MEDS: aspirin 325 mg Tablet PO (08:37)
[2023-12-14] MEDS: insulin lispro 100 unit/1 mL SUBCUT ×3 (08:37→18:17)
--- NOTE | 2023-12-14 09:20 | P.CONIM_ITS ---
Providers/Reason For Consult 2 Consulting Physician/Specialty*: Rock Dee MD/ Cardiology Reason for Consult*: Chest pain/abnormal stress test Requesting Physician: Dr Alejandro Attending Physician: Renetta Alejandro MD History of Present Illness History of Present Illness Tom Espinosa is a 73 year old male with past medical history of hypertension, diabetes, CAD with prior ballooning several years ago to unknown vessel came to hospital with substernal chest pain. [place] like pressure. Lasted for several hours. Mild increase in troponin. He is also found to have a UTI. EKG showing sinus bradycardia with PACs. He had a stress test that is abnormal showing ischemia in left circumflex artery/RCA territory with elevated TID ratio. ECHO showed normal LV systolic function Review of Systems 2 Const: Denies: fever(s), chills, body aches or malaise ENMT: Denies: throat pain, oral sores or ear or mastoid pain Card: Reports: chest pain; Denies: edema, pre-syncope or dyspnea on exertion Resp: Denies: dyspnea, productive cough, change in phlegm color or hemoptysis GI: Denies: abdominal pain, nausea, vomiting, diarrhea, constipation, hematochezia or melena : Denies: flank pain, difficulty urinating, urinary frequency or hematuria Musc: Denies: back pain, joint swelling or joint redness Skin/Breast: Denies: rash or new lesions Neuro: Denies: headache(s) or confusion Medications/Allergies Home Medications Medication Instructions Recorded Confirmed Last Taken Type acetaminophen 325 mg capsule 650 mg PO QID PRN pain or fever 01/04/22 12/13/23 Unknown History albuterol sulfate 90 mcg/actuation 2 puff inhalation Q6H PRN 01/04/22 12/13/23 Unknown History aerosol inhaler wheezing/ shortness of breath aspirin 81 mg tablet,delayed 81 mg PO DAILY 01/04/22 12/13/23 09/09/23 History release (Adult Low Dose Aspirin) calcium carbonate (Antacid 1,000 mg PO Q8H PRN Heartburn or 01/04/22 12/13/23 Unknown History (calcium carbonate)) indigestion cam walking boot #1 ea 01/04/22 12/13/23 Unknown Rx donepezil 5 mg tablet 10 mg PO BEDTIME 01/04/22 12/13/23 09/09/23 History lace up ankle brace #1 ea 01/04/22 12/13/23 Unknown Rx menthol 2.7 mg lozenges (Cough 5.4 mg mucous membrane PRN PRN 01/04/22 12/13/23 Unknown History Drops) Cough mirabegron 50 mg tablet,extended 50 mg PO DAILY 01/04/22 12/13/23 09/09/23 History release 24 hr (Myrbetriq) omeprazole 20 mg tablet,delayed 20 mg PO DAILY 01/04/22 12/13/23 09/09/23 History release tramadol 50 mg tablet 50 mg PO Q6H PRN pain #30 tabs 01/18/22 12/13/23 09/09/23 19:41 Rx albuterol sulfate 0.63 mg/3 mL 0.63 mg inhalation Q6H PRN Cough 09/11/23 12/13/23 Unknown History solution for nebulization benzonatate 100 mg capsule 100 mg PO Q8H PRN Cough 09/11/23 12/13/23 Unknown History bisacodyl 10 mg rectal suppository 10 mg SC DAILY PRN Constipation 09/11/23 12/13/23 Unknown History cetirizine 5 mg tablet 5 mg PO DAILY PRN seasonal 09/11/23 12/13/23 Unknown History allergies citalopram 10 mg tablet 10 mg PO DAILY 09/11/23 12/13/23 09/09/23 History finasteride 5 mg tablet 5 mg PO BEDTIME 09/11/23 12/13/23 09/09/23 History magnesium hydroxide 400 mg/5 mL 2,400 mg PO DAILY PRN Constipation 09/11/23 12/13/23 Unknown History oral suspension (Milk of Magnesia) meloxicam 7.5 mg tablet 7.5 mg PO DAILY 09/11/23 12/13/23 09/09/23 History polyethylene glycol 3350 17 gram 17 g PO DAILY PRN Constipation 09/11/23 12/13/23 Unknown History oral powder packet polyvinyl alcohol-povidone 0.5 1 drp ophthalmic (eye) TID PRN Dry 09/11/23 12/13/23 Unknown History %-0.6 % eye drops (Clear Eyes Eye(S) Natural Tears) calcium carbonate 600 mg-vitamin 1 tab PO BID #30 tabs 09/12/23 12/13/23 Unknown Rx D3 10 mcg (400 unit) tablet tamsulosin 0.4 mg capsule 0.4 mg PO DAILY #30 caps 09/12/23 12/13/23 Unknown Rx cam boot #1 ea 10/04/23 12/13/23 Unknown Rx menthol 4 % topical gel (Biofreeze 1 applic topical Q6H PRN Pain 12/13/23 12/13/23 Unknown History (menthol)) nystatin 100,000 unit/gram topical 1 applic topical Q8H PRN Rash 12/13/23 12/13/23 Unknown History powder sodium phosphates 19 gram-7 118 ml SC DAILY PRN Constipation 12/13/23 12/13/23 Unknown History gram/118 mL enema (Fleet Enema) Allergies Allergy/AdvReac Type Severity Reaction Status Date / Time No Known Allergies Allergy Verified 11/24/23 09:09 Current Medications Generic Name Dose Route Start Last Admin Trade Name Freq PRN Reason Stop Dose Admin Acetaminophen 650 mg 12/12/23 23:54 12/13/23 11:05 Acetaminophen 325 Mg Tablet PO 650 mg Q6H PRN Administration Mild/Mod Pain Or Temp >/= 101 Aspirin 325 mg 12/13/23 09:00 12/14/23 08:37 Aspirin 325 Mg Tablet PO 325 mg DAILY STONE Administration Atorvastatin Calcium 40 mg 12/13/23 21:00 12/13/23 22:25 Atorvastatin 40 Mg Tablet PO 40 mg BEDTIME STONE Administration Ceftriaxone Sodium 1,000 mg 12/14/23 01:00 12/14/23 01:13 Ceftriaxone 1,000 Mg Sdv IVP 1,000 mg Q24H STONE Administration Protocol Enoxaparin Sodium 30 mg 12/13/23 00:45 12/14/23 01:14 Enoxaparin 30 Mg/0.3 Ml Syringe SUBCUT 30 mg Q24H STONE Administration Insulin Human Lispro 0 unit 12/13/23 08:00 12/14/23 08:37 Insulin Lispro 100 Unit/1 Ml SUBCUT 2 unit WM&BEDTIME STONE Administration Protocol Ondansetron HCl 4 mg 12/12/23 23:54 12/13/23 09:19 Ondansetron 2 Mg/Ml Sdv 2 Ml IVP 4 mg Q8H PRN Administration vomiting, or N/V if npo PFSH Acute 2 PFSH: Medical History Anxiety and depression Elevated liver enzymes Obstructive sleep apnea GERD (gastroesophageal reflux disease) Dementia Hyperlipidemia Hypertension Type 2 diabetes mellitus Past heart attack BPH (benign prostatic hyperplasia) Surgical History S/P ORIF (open reduction internal fixation) fracture (09/11/23) right tibia infrapatellar intramedullary nail History of coronary angioplasty H/O total knee replacement Previous back surgery (2020) for scoliosis Social History Smoking and tobacco/nicotine status: never used tobacco/nicotine Vitals/I&O/Wt Last Vital Signs Temp 98.2 F 12/14/23 07:33 Pulse 92 12/14/23 07:33 Resp 20 H 12/14/23 07:33 BP 120/69 12/14/23 07:33 Pulse Ox 92 12/14/23 07:33 O2 Del Method Nasal Cannula 12/14/23 07:33 O2 Flow Rate 2 12/14/23 07:33 Weight last 48 hrs Weight 278 lb 14.156 oz Weight 279 lb 12.266 oz Weight 279 lb 1.683 oz Weight 246 lb Physical Exam 2 Narrative: GENERAL: Patient is alert NECK: No jugular vein distension. [] HEENT: No cyanosis. No icterus. No pallor. [] HEART: Regular S1 and S2. No murmur, rub or gallop. [] LUNGS: Clear to auscultate bilaterally. [] CENTRAL NERVOUS SYSTEM: Grossly nonfocal. [] EXTREMITIES: Lower extremities with 1+ edema bilaterally. Data 12/15/23 04:32 12/15/23 04:32 Micro: Microbiology 12/12/23 20:09 Blood Culture - Preliminary Blood NEGATIVE TO DATE 12/12/23 19:36 Blood Culture - Preliminary Blood NEGATIVE TO DATE A&P Assessment and plan (1) Chest pain: (2) Coronary artery disease: (3) Thrombocytopenia: Plan Patient has presented with typical chest pain symptoms. Has prior CAD history. Multiple risk factors for CAD. He had a stress test that is abnormal. We will proceed with coronary angiogram with possible PCI. Patient does have thrombocytopenia which is chronic. Aspirin and plavix given NPO past midnight UTI treatment per primary team. Thank you for involving us with care of this patient. We will continue to follow. Please call with questions Consult Attestations 2 Medical Necessity Statement: Care expected to cross 2 midnights. Coding Level of Care Code Acute Code for [facility] Fwd Diagnoses Chest pain R07.9 Coronary artery disease I25.10 Thrombocytopenia D69.6
[2023-12-14] MEDS: clopidogrel 300 mg Tablet 600 MG PO (11:28)
[2023-12-14 11:47] LABS: Glucose Point of Care 164 mg/dL (70-110)
--- NOTE | 2023-12-14 12:38 | P.PN_ITS ---
Subjective 2 Subjective: Overnight he was found to be urinary incontinent. UA sent which was positive for UTI and he was started on IV ceftriaxone overnight. He denies any complaint of chest pain, nausea, vomiting, abdominal pain, or urinary complaints. Medications: Reviewed: Yes Vitals/I&O/Wt Last Vital Signs Temp 98.0 F 12/14/23 11:56 Pulse 75 12/14/23 11:56 Resp 20 H 12/14/23 11:56 BP 151/84 12/14/23 11:56 Pulse Ox 97 12/14/23 11:56 O2 Del Method Nasal Cannula 12/14/23 11:56 O2 Flow Rate 2 12/14/23 11:56 12/13/23 12/14/23 12/14/23 22:59 06:59 14:59 Intake Total 240 / 240 Balance 240 / 240 Weight last 48 hrs Weight 126.5 kg Weight 126.9 kg Weight 126.6 kg Weight 111.584 kg Physical Exam 2 Narrative: He is alert awake oriented x 3 Chest clear to auscultation bilaterally Cardiovascular normal heart sounds Abdomen soft nontender nondistended normal bowel sounds Extremities no edema noted bilateral lower extremity Data 12/14/23 03:35 12/14/23 03:35 Micro: Microbiology 12/12/23 20:09 Blood Culture - Preliminary Blood NEGATIVE TO DATE 12/12/23 19:36 Blood Culture - Preliminary Blood NEGATIVE TO DATE A&P Assessment and plan (1) Chest pain: (2) Coronary artery disease: (3) UTI (urinary tract infection): (4) Thrombocytopenia: Plan He is found to have positive stress test, cardiology consulted. P.o. Plavix 600 mg once followed by p.o. Plavix 75 mg daily 2D echo normal CTA PE protocol was negative for acute PE Chest pain resolved. UTI-will continue IV ceftriaxone daily Follow-up urine culture Was febrile overnight, once afebrile might possibly need intervention with cardiac cath. Will follow-up cardiology for further recommendations. Obesity, follow-up with primary care provider regarding weight loss options CAD, prior stenting in 1980s, continue aspirin, statin. No beta-fletcher due to bradycardia. LUZ, does not appear to be using CPAP, will confirm Depression, resume home medication once available DM2, monitor blood glucose, mild sliding scale insulin. HTN, blood pressures currently within normal range. Monitor blood pressures. HLD statin Attestations 2 Medical Necessity Statement*: He needs continued hospitalization for management of UTI with IV antibiotics and fluids and further intervention with cardiac cath in view of positive stress test and chest pain on admission Time Spent in Patient Care: 20-minute Coding Level of Care Code Acute Code for [facility] Fwd Diagnoses Chest pain R07.9 Coronary artery disease I25.10 UTI (urinary tract infection) N39.0 Thrombocytopenia D69.6 Time Spent (min) 20
[2023-12-14] MEDS: acetaminophen 325 mg Tablet 650 MG PO (14:10)
[2023-12-14] MEDS: atorvastatin 40 mg Tablet PO (21:23)
[2023-12-15] VITALS (11 sets, daily range): BP systolic 91–146; BP diastolic 50–89; PULSE 65–108; RESP 14–24; TEMP 36.8; O2SAT 91–95
[2023-12-15] MEDS: cefTRIAXone 1,000 mg SDV 1000 MG IVP
[2023-12-15] MEDS: enoxaparin 30 mg/0.3 mL Syringe SUBCUT (00:01)
[2023-12-15 05:04] LABS: Basophils % 0.2 %; Eosinophils % 0.1 %; Hematocrit 40.7 % (37-53); Lymphocytes # 0.8 10^3/uL (0.8-4.8); Lymphocytes % 7.8 %; Mean Corpuscular HGB Conc 32.2 g/dL (30-55); Mean Corpuscular Hemoglobin 29.7 pg (27-33); Mean Corpuscular Volume 92.3 fl (82-101); Monocytes # 0.9 10^3/uL (0.2-0.9); Monocytes % 8.8 %; Neutrophils # 8.43 10^3/uL (1.8-7.7); Neutrophils % 82.2 %; Nucleated Red Blood Cells % 0 %; Platelet Count 66 10^3/cmm (157-399); Red Blood Count 4.41 10^6/uL (3.85-5.65); Red Cell Distribution Width 14.6 % (12.1-15.1); White Blood Count 10.25 10^3/uL (3.29-11.43)
[2023-12-15 05:38] LABS: Alanine Aminotransferase 22 U/L (0-41); Albumin Level 3.4 g/dL (3.5-5.2); Alkaline Phosphatase 128 U/L (40-130); Anion Gap 14.6 (5-19); Aspartate Amino Transferase 26 U/L (0-40); Blood Urea Nitrogen 16 mg/dL (8-23); Calcium 8.4 mg/dL (8.5-10.5); Carbon Dioxide 26 mmol/L (22-29); Chloride 102 mmol/L (98-107); Creatinine Clr Calc Pharmacy 113.2021; Globulin 2.5 g/dL (1.3-4.6); Glucose 160 mg/dL (65-115); Osmolality Calculated 293 mOsm/kg (285-295); Potassium 3.6 mmol/L (3.5-5.1); Sodium 139 mmol/L (136-145); Total Bilirubin 1.2 mg/dL (0.15-1.2); Total Protein 5.9 g/dL (6.6-8.7)
[2023-12-15] MEDS: aspirin 325 mg Tablet PO (05:58)
[2023-12-15] MEDS: diphenhydrAMINE 50 mg Capsule PO (05:58)
[2023-12-15] MEDS: sodium chloride 0.9% 1,000 ML 50 ML IV (05:59)
--- NOTE | 2023-12-15 07:00 | XACV_ITS ---
Exam Room: [facility] Ht: 183 cm Wt: 126 kg BSA: 2.58 m2 Gender: Male : 1950 Any Known Allergies: No known allergies Exam Priority: Routine Procedure(s): Procedure Description: Diagnostic procedure Procedure Description: Coronary Angiography Diagnostic Cath Status: Urgent Diagnostic Findings * INDICATION: Chest pain/abnormal stress test. * Left Main has no significant disease. * Circumflex has severe distal diffuse disease. OM branch is medium sized and has severe diffuse disease. * Right Coronary Artery is small, non-dominant vessel. Has severe diffuse disease. In the proximal part, gives rise to a large collateral supplying LAD/ left system. * Proximal Left Anterior Descending: subtotal occlusion, JUAN PABLO: 1 flow. Diffuse disease. Collateral blood supply from RCA. * Coronary angiography shows left dominance. Conclusions 1. Severe, diffuse, multivessel coronary artery disease not amenable to intervention. Recommendations * Aggressive medical therapy for coronary artery disease. * Will start Imdur for symptom control. * Outpatient cardiology follow up in 2 weeks. Interventional RX Recommendation: medical therapy and/or counseling Diagnostic RX Recommendation: medical therapy and/or counseling Anticoagulation: Heparin Pressures Phase:Rest AO : 114 / 61 ( 78 ) @ 8:41:00 AM 135 / 87 ( 104 ) @ 8:49:00 AM 158 / 96 ( 117 ) @ 9:03:00 AM Clinical Evaluation EBL: 5mL-10mL Procedural Details Pre-Procedure Time Out. Identified patient by full name and date of as verbalized by the patient/guarantor. Does the consent match the physician's order: Yes. Accurate & Complete Informed Consent: Yes. Inpatient/Outpatient History & Physical on Chart: Yes. If H&P is completed, is and addenduem needed: No; If yes, is the addendum complete: N/A. Visualize and Verify Site with Patient/Guarantor: N/A. Relevant Radiology Images available: Yes. Pre-op teaching completed and patient verbalized understanding. The risks, benefits, and alternatives of sedation and/or procedure were discussed by physician. The patient agrees to continue. Procedure started. Current Diagnosis : Chest Pain. [facility] Clinical Fraility Score: 5: Mildly Frail. Certified Surgical Technologist Indications: Worsening Angina. Chest Pain Symptom Assessment: Typical Angina Symptoms. Correct patient, site and procedure confirmed by cath team. Current diagnosis: Chest Pain. PERRLA. Strong, equal hand content designer bilaterally. Lungs clear x 5 lobes. IV Site on Arrival: 20 gauge in the right anticubital. IV Fluids: 0.9% NaCl at KVO. 50 mL infused prior to supervisor labor gang. Pre Procedural Pulses: bilateral radial was 3+. Oxygen started at 2liters/min via nasal canula. right radial was prepped with chloroprep then draped in the usual sterile fashion. right groin was prepped with chloroprep then draped in the usual sterile fashion. Physician notified. Baseline sample Acquired. HR: 62 BPM. Physician arrived. Admit Source: In Patient. Physician scrubbed in. Immediate Pre-Procedure Time Out. Correct Patient: Yes; Correct Procedure: Yes; Correct Site: Yes; Correct Patient Position: Yes; Correct Supplies: No; Dried Flammable Prep: No; Blood Products Available: N/A;. Lidocaine 1% infiltrated to the right radial. Arterial access obtained. A 5 bolivian TIG catheter in over wire. Multiple views taken of right coronary artery. Catheter removed over the exchange wire. A 5 bolivian JL3.5 catheter in over wire. Wire out. Multiple views taken of left coronary artery. Catheter removed over the exchange wire. 6 bolivian XB 3.5 guide catheter was inserted over the wire. Multiple views taken of left coronary artery. Add inventory: Co-towboat pilot , endoflator. Guide catheter removed over the exchange wire. 6 bolivian JR 4 SH guide catheter was inserted over the wire. Runthrough guidewire was advanced through the guide catheter to lesion in the prox RCA. Runthrough wire out. Guide catheter out over wire. A TR Band was successful obtaining hemostatsis at the Right Radial artery insertion site. PERRLA. Strong, equal hand content designer bilaterally. No VTE prophylaxis required. Medication's Wasted: Lidocaine 1% = 18 mL. Medication's Wasted: Nitro = 49.6 mg. Medication's Wasted: Heparin = 1000 units. Medication's Wasted: Other = Fetanyl 50mcg. Total IV fluids: 60 mL. Post-op diagnosis: Severe multi-vessel CAD, medical management. Complications: None. Estimated blood loss: 5mL-10mL. Responsiveness - Normal response to verbal stimuli; alert and oriented, PERRLA. Airway - Unaffected, no intervention required; spontaneous ventilation. Circulation: W/N/L, pulses unchanged. Nausea/Vomiting: No. ACT drawn. Results 272 seconds. Therapeutic limits - pre-heparin administration 90-150 seconds and monitoring heparin during a vascular procedure >250 seconds. Procedure completed. Patient transferred by bed to CPRU. Vital chart was stopped. Access Site Site: Right Radial artery Sheath Size: 6 Fr Hemostasis Method: TR Band Hemostasis Success: Successful Procedure Medications Start: 7:28 AM Stop: 7:28 AM Medication: Versed Amount: 1 mg Route: I.V. Start: 7:28 AM Stop: 7:28 AM Medication: Fentanyl Amount: 50 mcg Route: I.V. Start: 7:37 AM Stop: 7:37 AM Medication: Versed Amount: 1 mg Route: I.V. Start: 7:38 AM Stop: 7:38 AM Medication: Nitrogylcerin Amount: 200 mcg Route: I.A. Start: 7:41 AM Stop: 7:41 AM Medication: Heparin Amount: 5000 units Route: I.V. Start: 8:02 AM Stop: 8:02 AM Medication: Heparin Amount: 6000 units Route: I.V. Start: 8:04 AM Stop: 8:04 AM Medication: Nitrogylcerin Amount: 200 mcg Route: I.C. I, the attending physician, have reviewed and verified all procedure medications. Yes, all medications given per verbal order History/Risk Factors Hypertension: Yes Dyslipidemia: Yes Peripheral Arterial Disease (PAD): No Myocardial Infarction (NC): Yes Obesity: Yes Renal Disease: No Tobacco Use: Never Prior Interventions PCI: Yes CABG: No Valve Surgery: No Report Signatures Finalized by Rock Dee MD on 12/23/2023 01:08 PM
--- NOTE | 2023-12-15 07:21 | PC.NURSE ---
[facility]
--- NOTE | 2023-12-15 07:32 | W.PM.OPSUD ---
Surgery/Procedure H&P Update DATE OF PROCEDURE: December 15, 2023 DATE H&P PERFORMED: 12/14/23 H&P UPDATE INFORMATION: I have reviewed H&P completed within last 30 days, I have examined patient prior to procedure and No changes to prior documentation PREOP DIAGNOSIS: Chest pain/abnormal stress test PRIMARY INDICATION FOR PROCEDURE: Chest pain/abnormal stress test PLANNED PROCEDURE: Operation Date: 12/15/23 07:00 Proposed Procedures p Cardiac Catheterization(Left) - Rock Dee M.D Possible percutaneous coronary intervention PATIENT REASSESSED PRIOR TO SEDATION, WITH NO CHANGE NOTED: Yes PHYSICAL EXAM: alert, clear to auscultation bilaterally and regular rate & rhythm AIRWAY EVAL/ANESTHESIA PLAN: normal airway, ASA III, Local Anesthesia, Risks, benefits & alternatives of sedation and/or procedure discussed and Patient agrees to continue as planned ADDITIONAL INFORMATION: Moderate sedation
[2023-12-15 07:47] LABS: Glucose Point of Care 161 mg/dL (70-110)
[2023-12-15 07:47] LABS: Glucose Point of Care 137 mg/dL (70-110)
[2023-12-15 07:47] LABS: Glucose Point of Care 152 mg/dL (70-110)
--- NOTE | 2023-12-15 08:15 | PM.PN ---
Subjective Subjective: Patient had coronary angiogram done that shows severe multvessel CAD. Has MATCHER LEATHER PARTS of LAD with collaterals from proximal RCA, Left circumflex artery has severe diffuse disease in distal vessel and an OM. RCA is a nondominant small sized vessel with severe diffuse disease. Anatomy not amenable to intervention. Vitals/I&O/Wt Last Vital Signs Temp 98.3 F 12/15/23 03:29 Pulse 99 12/15/23 05:43 Resp 19 H 12/15/23 03:29 BP 137/81 12/15/23 03:29 Pulse Ox 92 12/15/23 03:29 O2 Del Method Nasal Cannula 12/15/23 03:29 O2 Flow Rate 2 12/14/23 19:54 12/14/23 12/15/23 12/15/23 22:59 06:59 14:59 Intake Total 360 / 840 Balance 360 / 840 Weight last 48 hrs Weight 279 lb 12.266 oz Weight 278 lb 14.156 oz Physical Exam Narrative: GENERAL: Patient is alert NECK: No jugular vein distension. [] HEENT: No cyanosis. No icterus. No pallor. [] HEART: Regular S1 and S2. No murmur, rub or gallop. [] LUNGS: Clear to auscultate bilaterally. [] CENTRAL NERVOUS SYSTEM: Grossly nonfocal. [] EXTREMITIES: Lower extremities with 1+ edema bilaterally. Data 12/15/23 04:32 12/15/23 04:32 A&P Assessment and plan (1) Chest pain: (2) Coronary artery disease: (3) Thrombocytopenia: Plan Patient has above-mentioned coronary artery anatomy with triple-vessel CAD not amenable to intervention. His EF is normal. We can uptitrate medical therapy at this time. Will start Imdur 30mg bid. If has more episodes of chest pain can consider adding ranexa. Continue aspirin. Will stop plavix as has thrombocytopenia. UTI treatment per primary team. Thank you for involving us with care of this patient. Please call with questions Attestations Medical Necessity Statement*: Care expected to cross 2 midnights. Coding Level of Care Code Acute Code for [facility] Diagnoses Chest pain R07.9 Coronary artery disease I25.10 Thrombocytopenia D69.6
--- NOTE | 2023-12-15 09:14 | PC.PHAR ---
Patient returned from clinical lab scientist with a right radial TR-band.
[2023-12-15] MEDS: clopidogrel 75 mg Tablet PO (09:19)
--- NOTE | 2023-12-15 11:19 | PM.PN ---
Subjective Subjective: No acute overnight events noted. Patient seen at [facility] this morning was drowsy post coronary angiogram but was able to tell has little soreness from cardiac cath. Medications: Reviewed: Yes Vitals/I&O/Wt Last Vital Signs Temp 98.3 F 12/15/23 03:29 Pulse 65 12/15/23 09:18 Resp 22 H 12/15/23 09:18 BP 121/89 12/15/23 09:18 Pulse Ox 94 12/15/23 09:18 O2 Del Method Room Air 12/15/23 09:18 O2 Flow Rate 2 12/15/23 08:00 12/14/23 12/15/23 12/15/23 22:59 06:59 14:59 Intake Total 360 / 840 Balance 360 / 840 Weight last 48 hrs Weight 126.9 kg Weight 126.5 kg Physical Exam Narrative: He is alert awake oriented x 3 Chest clear to auscultation bilaterally Cardiovascular normal heart sounds Abdomen soft nontender nondistended normal bowel sounds Extremities no edema noted bilateral lower extremity Data 12/15/23 04:32 12/15/23 04:32 Micro: Microbiology 12/13/23 22:55 Urine Culture - Preliminary Urine,Clean Catch Gram Negative Rods A&P Assessment and plan (1) Chest pain: (2) Coronary artery disease: (3) UTI (urinary tract infection): (4) Thrombocytopenia: Plan 12/12- Stress done which was positive. ECHO was normal. 12/13 He is found to have positive stress test, cardiology consulted. P.o. Plavix 600 mg once followed by p.o. Plavix 75 mg daily 2D echo normal CTA PE protocol was negative for acute PE Chest pain resolved. UTI-will continue IV ceftriaxone daily Follow-up urine culture Was febrile overnight, once afebrile might possibly need intervention with cardiac cath. Will follow-up cardiology for further recommendations. 12/14-S/p cath which shows severe multvessel CAD. Has METAL ORGAN PIPE MAKER of LAD with collaterals from proximal RCA, Left circumflex artery has severe diffuse disease in distal vessel and an OM. RCA is a nondominant small sized vessel with severe diffuse disease. Anatomy not amenable to intervention. As per cardiology recommendations, Will start Imdur 30mg bid. If has more episodes of chest pain can consider adding ranexa. Continue aspirin. Will stop plavix as has thrombocytopenia. Continue IV ceftriaxone since urine culture positive for E Coli. Obesity, follow-up with primary care provider regarding weight loss options CAD, prior stenting in , continue aspirin, statin. No beta-fletcher due to bradycardia. LUZ, does not appear to be using CPAP, will confirm Depression, resume home medication once available DM2, monitor blood glucose, mild sliding scale insulin. HTN, blood pressures currently within normal range. Monitor blood pressures. HLD statin Attestations Medical Necessity Statement*: He needs continued hospitalization for management of UTI with IV antibiotics and fluids and s/p angiogram for monitoring of chest pain since has diffuse disease. Anticipating Discharge in am. Time Spent in Patient Care: 20-minute Coding Level of Care Code Acute Code for [facility] Fwd Diagnoses Chest pain R07.9 Coronary artery disease I25.10 UTI (urinary tract infection) N39.0 Thrombocytopenia D69.6 Time Spent (min) 20
[2023-12-15 11:58] LABS: Glucose Point of Care 112 mg/dL (70-110)
[2023-12-15] MEDS: isosorbide mononitrate ER 30 mg Tablet PO ×2 (12:01→17:09)
--- NOTE | 2023-12-15 15:47 | PC.NURSE ---
Patient's right radial TR-band is removed at 1548. Air is removed 2 ml's at a time slowly. Patient had to be reminded not to use his right hand multiple times. He did develop a bruise around the site, the area is soft to the touch. A dressing is applied of 2x2 and tegaderm. Patient tolerated well. Patient is reminded again that he needs to not use his right hand/arm for the next 24 hours.
[2023-12-15 16:25] LABS: Glucose Point of Care 166 mg/dL (70-110)
[2023-12-15] MEDS: insulin lispro 100 unit/1 mL SUBCUT ×2 (17:09→21:02)
[2023-12-15] MEDS: ondansetron 2 mg/ML SDV 2 mL 4 MG IVP (18:02)
[2023-12-15 20:52] LABS: Glucose Point of Care 156 mg/dL (70-110)
[2023-12-15] MEDS: atorvastatin 40 mg Tablet PO (21:15)
[2023-12-15] MEDS: TRAMadol 50 mg Tablet PO (21:17)
[2023-12-16] VITALS (7 sets, daily range): BP systolic 107–139; BP diastolic 66–85; PULSE 71–90; RESP 19–25; TEMP 36.7–37; O2SAT 90–95
[2023-12-16] MEDS: enoxaparin 30 mg/0.3 mL Syringe SUBCUT (01:23)
[2023-12-16] MEDS: cefTRIAXone 1,000 mg SDV 1000 MG IVP (01:23)
[2023-12-16] MEDS: TRAMadol 50 mg Tablet PO ×2 (03:15→10:09)
[2023-12-16 06:25] LABS: Glucose Point of Care 160 mg/dL (70-110)
--- NOTE | 2023-12-16 08:15 | PM.PN ---
Subjective Subjective: Patient is chest pain free. Vitals/I&O/Wt Last Vital Signs Temp 98.3 F 12/16/23 08:00 Pulse 75 12/16/23 08:00 Resp 19 H 12/16/23 08:00 BP 118/66 12/16/23 08:00 Pulse Ox 95 12/16/23 08:00 O2 Del Method Room Air 12/16/23 08:00 O2 Flow Rate 2 12/15/23 08:00 12/15/23 12/16/23 12/16/23 22:59 06:59 14:59 Intake Total 120 / 360 1532.5 / 1892.5 Output Total 0 / 0 Balance 120 / 360 1532.5 / 1892.5 Weight last 48 hrs Weight 280 lb 6.848 oz Weight 279 lb 12.266 oz Physical Exam Narrative: GENERAL: Patient is alert NECK: No jugular vein distension. [] HEENT: No cyanosis. No icterus. No pallor. [] HEART: Regular S1 and S2. No murmur, rub or gallop. [] LUNGS: Clear to auscultate bilaterally. [] CENTRAL NERVOUS SYSTEM: Grossly nonfocal. [] EXTREMITIES: Lower extremities with 1+ edema bilaterally. Data 12/15/23 04:32 12/15/23 04:32 Micro: Microbiology 12/13/23 22:55 Urine Culture - Preliminary Urine,Clean Catch Gram Negative Rods A&P Assessment and plan (1) Chest pain: (2) Coronary artery disease: (3) Thrombocytopenia: Plan Patient has above-mentioned coronary artery anatomy with triple-vessel CAD not amenable to intervention. His EF is normal. We can uptitrate medical therapy at this time. Started on Imdur. Thank you for involving us with care of this patient. Patient is stable to be discharged from cardiology standpoint. Please call with questions Attestations Medical Necessity Statement*: Care expected to cross 2 midnights. Coding Level of Care Code Acute Code for [facility] [employer] [facility] Diagnoses Chest pain R07.9 Coronary artery disease I25.10 Thrombocytopenia D69.6
[2023-12-16] MEDS: aspirin 325 mg Tablet PO (08:50)
[2023-12-16] MEDS: isosorbide mononitrate ER 30 mg Tablet PO (08:50)
[2023-12-16] MEDS: insulin lispro 100 unit/1 mL SUBCUT ×2 (08:51→12:38)
--- NOTE | 2023-12-16 10:37 | PM.DCS ---
Discharge Providers Date of Admission: 12/13/23 12:07 Date of Discharge: December 16, 2023 Attending Provider at Admission: Robin Lucio Attending Provider at Discharge: Renetta Alejandro MD Diagnoses at Discharge Discharge Diagnosis (1) Chest pain: Status: Acute (2) Coronary artery disease: Status: Acute (3) UTI (urinary tract infection): Status: Acute (4) Thrombocytopenia: Status: Acute Reason for Visit Reason for Visit: cp Brief History: 73-year-old gentleman long-term resident with history of obesity, CAD, prior stenting in 1980s, LUZ, depression, DM2, HTN, HLD, came to ER for evaluation due to chest pain starting around noon and lasting up until his visit in ER, relieved with nitroglycerin. He described it as pressure, central, without radiation. Without specific trigger. He denies cough, shortness of breath. In ER he is afebrile without tachycardia, no leukocytosis. Chronic thrombocytopenia noted. He reports he takes aspirin. Baseline troponin 28, 2-hour troponin 23.9. EKG without ST elevation. Currently symptoms are better. Chest x-ray without acute abnormality. Hospital Course Hospital Course 12/11--(1) Chest pain: (2) Coronary artery disease: Reviewed vitals, CBC, CMP, troponin, EKG, with low voltage in precordial leads, T wave inversion in aVL, laterally on my interpretation, pending official read. Reviewed chest x-ray. ER note, discussed with ER provider. Assess for possible unstable angina, so far with improvement in pain after about 6 hours after nitroglycerin. Complete troponin EKG series. Monitor on telemetry with risk of arrhythmia. Obtain TTE. He received aspirin en route to the hospital, continue aspirin 325 mg daily. No beta-fletcher at current time due to bradycardia, heart rates 50s-60s. Statin. Would also avoid and discontinue meloxicam if he is still taking it. Discussed with him additional assessment with stress testing in the morning unless develops further pain, rising troponin, in which case will need cardiology assessment, consideration of coronary angiography. N.p.o. for stress test. He stress test was positive and hence he underwent a cardiac cath which shows severe multvessel CAD. Has DOCTOR OF OSTEOPATHY of LAD with collaterals from proximal RCA, Left circumflex artery has severe diffuse disease in distal vessel and an OM. RCA is a nondominant small sized vessel with severe diffuse disease. Anatomy not amenable to intervention. As per cardiology recommendations, Will start Imdur 30mg bid. If has more episodes of chest pain can consider adding ranexa. Continue aspirin. Will stop plavix as has thrombocytopenia. He was also found to have UTI and was started on IV ceftriaxone 1 g daily. He is feeling better, doing well, chest pain-free, denies any new complaints hence will discharge him to [place] with p.o. levofloxacin 750 mg for 7 days. Physical Exam Narrative: He is alert awake oriented x 3 Chest clear to auscultation bilaterally Cardiovascular normal heart sounds Abdomen soft nontender nondistended normal bowel sounds Extremities no edema noted bilateral lower extremity Discharge Data Studies Completed and Pending Completed Studies During Hospitalization Category Date Time Status CT angio chest PE protcl [id number] Routine Cat Scan 12/13/23 08:07 Completed Sestamibi Stress Test Request Routine Exams 12/12/23 23:50 Draft XR chest 1V portable [id number] Stat Exams 12/12/23 18:16 Completed NM hoa perf SPECT r/s* [id number] Routine Nuc Med 12/13/23 23:51 Completed CV. echo wo/w contrast [id number] Routine Ultrasound 12/13/23 23:50 Completed Pending at discharge Category Date Time Status ELECT[employer] REPA[employer]ER request for service Routine Exams 12/15/23 07:00 Taken Blood Culture Stat Lab 12/12/23 20:09 Results Radiology Impressions Chest X-Ray 12/12/23 18:16 IMPRESSION: 1. No acute cardiopulmonary abnormality. Chest CTA 12/13/23 08:07 IMPRESSION: 1. No evidence of pulmonary embolus. 2. Slight bibasilar atelectasis. 3. Hepatomegaly and splenomegaly. 4. Cholelithiasis. Mild gallbladder wall thickening may be on the basis of hepatic congestion. This could be further evaluated with ultrasound. Laboratory Results WBC 10.25 10^3/uL (3.29-11.43) 12/15/23 04:32 RBC 4.41 10^6/uL (3.85-5.65) 12/15/23 04:32 Hgb 13.10 g/dL (11.27-16.99) 12/15/23 04:32 Hct 40.7 % (37-53) 12/15/23 04:32 MCV 92.3 fl (82-101) 12/15/23 04:32 MCH 29.7 pg (27-33) 12/15/23 04:32 MCHC 32.2 g/dL (30-55) 12/15/23 04:32 RDW 14.6 % (12.1-15.1) 12/15/23 04:32 Plt Count 66 10^3/cmm (157-399) L 12/15/23 04:32 MPV 14.0 fL (7.4-10.4) H 12/15/23 04:32 Neut % (Auto) 82.2 % 12/15/23 04:32 Lymph % (Auto) 7.8 % 12/15/23 04:32 [place] % (Auto) 8.8 % 12/15/23 04:32 Eos % (Auto) 0.1 % 12/15/23 04:32 Baso % (Auto) 0.2 % 12/15/23 04:32 Neut # (Auto) 8.43 10^3/uL (1.8-7.7) H 12/15/23 04:32 Lymph # (Auto) 0.8 10^3/uL (0.8-4.8) 12/15/23 04:32 [place] # (Auto) 0.9 10^3/uL (0.2-0.9) 12/15/23 04:32 Eos # (Auto) 0.0 10^3/uL (0.0-0.8) 12/15/23 04:32 Baso # (Auto) 0.0 10^3/uL (0.0-0.1) 12/15/23 04:32 Nucleated RBC % (auto) 0 % 12/15/23 04:32 Nucleated RBCs # 0.0 /100WBC 12/15/23 04:32 D-Dimer 1.07 ug/mLFEU (0-0.59) H 12/13/23 01:30 Sodium 139 mmol/L (136-145) 12/15/23 04:32 Potassium 3.6 mmol/L (3.5-5.1) 12/15/23 04:32 Chloride 102 mmol/L (98-107) 12/15/23 04:32 Carbon Dioxide 26 mmol/L (22-29) 12/15/23 04:32 Anion Gap 14.6 (5-19) 12/15/23 04:32 BUN 16 mg/dL (8-23) 12/15/23 04:32 Creatinine 0.8 mg/dL (0.7-1.2) 12/15/23 04:32 GFR Calculation Not Reportable 12/15/23 04:32 Glucose 160 mg/dL (65-115) H 12/15/23 04:32 POC Glucose 160 mg/dL (70-110) H 12/16/23 06:22 Calculated Osmolality 293 mOsm/kg (285-295) 12/15/23 04:32 Lactic Acid 3.1 mmol/L (0.5-2.2) H 12/12/23 19:36 Lactic Acid (Sepsis) 3.7 mmol/L (0.5-2.2) H 12/12/23 21:49 Calcium 8.4 mg/dL (8.5-10.5) L 12/15/23 04:32 Total Bilirubin 1.2 mg/dL (0.15-1.2) 12/15/23 04:32 AST 26 U/L (0-40) 12/15/23 04:32 ALT 22 U/L (0-41) 12/15/23 04:32 Alkaline Phosphatase 128 U/L (40-130) 12/15/23 04:32 Troponin T Baseline 28 ng/L (0-15) H 12/12/23 19:36 Troponin T 120 Minute 23.90 ng/L (0-15) H 12/12/23 21:44 Delta Troponin T -4.10 ABS# (0-10) L 12/12/23 21:44 Troponin T Hi Sens 6Hr 30.89 ng/L (0-15) H 12/13/23 01:30 Troponin T Hi Sens 6Hr Delta 2.89 ng/L (0-12) 12/13/23 01:30 C-Reactive Protein 7.5 mg/L (0.0-4.9) H 12/12/23 19:36 Total Protein 5.9 g/dL (6.6-8.7) L 12/15/23 04:32 Albumin 3.4 g/dL (3.5-5.2) L 12/15/23 04:32 Globulin 2.5 g/dL (1.3-4.6) 12/15/23 04:32 Lipase 25 U/L (13-60) 12/12/23 19:36 Urine Color Dark yellow (Yellow) A 12/13/23 22:55 Urine Appearance Cloudy (CLEAR) A 12/13/23 22:55 Urine pH 5.0 (5-7) 12/13/23 22:55 Ur Specific [place] 1.038 (1.005-1.030) H 12/13/23 22:55 Urine Protein 1+ (Negative) A 12/13/23 22:55 Urine Glucose (UA) Negative (Normal) 12/13/23 22: Urine Ketones Negative (Negative) 12/13/23 22: Urine Blood Trace (Negative) A 12/13/23 22: Urine Nitrate Positive (Negative) A 12/13/23 22: Urine Bilirubin 1+ (Negative) H 12/13/23 22:55 Urine Urobilinogen 1.0 mg/dL (Negative) 12/13/23 22:55 Ur Leukocyte Esterase 1+ (Negative) A 12/13/23 22:55 Urine RBC 11-20 /hpf (0-2) H 12/13/23 22:55 Urine WBC 51-100 /hpf (0-5) H 12/13/23 22:55 Ur Squamous Epith Cells 0-5 /hpf (0-5) 12/13/23 22:55 Amorphous Sediment Not Reportable 12/13/23 22:55 Urine Bacteria 3+ /hpf (NONE) H 12/13/23 22:55 Hyaline Casts 0.81 /lpf 12/13/23 22:55 Coronavirus (PCR) Negative (Negative) 12/13/23 19:50 Influenza A (PCR) Negative (Negative) 12/13/23 19:50 Influenza Type B (PCR) Negative (Negative) 12/13/23 19:50 RSV (PCR) Negative (Negative) 12/13/23 19:50 Vitals Last Vital Signs Temp 98.3 F 12/16/23 08:00 Pulse 75 12/16/23 08:00 Resp 19 H 12/16/23 08:00 BP 118/66 12/16/23 08:00 Pulse Ox 95 12/16/23 08:00 O2 Del Method Room Air 12/16/23 08:00 O2 Flow Rate 2 12/15/23 08:00 Discharge Plan Discharge Patient Disposition: Xfer [facility] Condition: Stable Prescriptions: New isosorbide mononitrate 30 mg Tablet Extended Release 24 Hr 30 mg PO BID 30 Days Qty: 60 0RF levofloxacin 750 mg tablet 750 mg PO DAILY 7 Days Qty: 7 0RF Continued Myrbetriq 50 mg tablet extended release 24 hr 50 mg PO DAILY omeprazole 20 mg tablet,delayed release (DR/EC) 20 mg PO DAILY acetaminophen 325 mg capsule 650 mg PO QID PRN (Reason: pain or fever ) albuterol sulfate 90 mcg/actuation HFA aerosol inhaler 2 puff inhalation Q6H PRN (Reason: wheezing/ shortness of breath) calcium carbonate [Antacid (calcium carbonate)] 200 mg calcium (500 mg) tablet,chewable 1,000 mg PO Q8H PRN (Reason: Heartburn or indigestion) aspirin [Adult Low Dose Aspirin] 81 mg tablet,delayed release (DR/EC) 81 mg PO DAILY donepezil 5 mg tablet 10 mg PO BEDTIME albuterol sulfate 0.63 mg/3 mL Solution For Nebulization 0.63 mg INHALATION Q6H PRN (Reason: Cough) polyethylene glycol 3350 17 gram Powder In Packet 17 g PO DAILY PRN (Reason: Constipation) cetirizine 5 mg Tablet 5 mg PO DAILY PRN (Reason: seasonal allergies) citalopram 10 mg tablet 10 mg PO DAILY meloxicam 7.5 mg tablet 7.5 mg PO DAILY magnesium hydroxide [Milk of Magnesia] 400 mg/5 mL Suspension 2,400 mg PO DAILY PRN (Reason: Constipation) benzonatate 100 mg Capsule 100 mg PO Q8H PRN (Reason: Cough) bisacodyl 10 mg Suppository 10 mg [place] DAILY PRN (Reason: Constipation) finasteride 5 mg tablet 5 mg PO BEDTIME Clear Eyes Natural Tears 0.5-0.6 % Drops 1 drp OPHTHALMIC (EYE) TID PRN (Reason: Dry Eye(S)) tamsulosin 0.4 mg Capsule 0.4 mg PO DAILY Qty: 30 0RF calcium carbonate-vitamin D3 600 mg-10 mcg (400 unit) Tablet 1 tab PO BID Qty: 30 0RF Fleet Enema 19-7 gram/118 mL Enema 118 ml [place] DAILY PRN (Reason: Constipation) nystatin 100,000 unit/gram Powder 1 applic TOPICAL Q8H PRN (Reason: Rash) Biofreeze (menthol) 4 % Gel 1 applic TOPICAL Q6H PRN (Reason: Pain) Discontinued Cough Drops 2.7 mg lozenge 5.4 mg mucous membrane PRN PRN (Reason: Cough) tramadol 50 mg tablet 50 mg PO Q6H PRN (Reason: pain) Qty: 30 0RF No Action (DME) cam walking boot See Rx Instructions .Route .MEDSUPPLY Qty: 1 0RF Rx Instructions: As directed (DME) lace up ankle brace See Rx Instructions .Route .MEDSUPPLY Qty: 1 0RF Rx Instructions: As directed (DME) cam boot See Rx Instructions .Route .MEDSUPPLY Qty: 1 0RF Rx Instructions: As directed Discharge Orders: Discharge Order (Routine); Ordered 12/16/23 Ordered By: Renetta Alejandro Discharge Diet: Cardiac Discharge Activity: Increase activity as tolerated Patient Instructions: Aspirin (By mouth), Isosorbide Mononitrate (By mouth) (Imdur, Imdur ER, Ismo), Ranolazine (By mouth) (Ranexa, Aspruzyo), Coronary Artery Disease (GEN), Chest Pain (GEN), Urinary Tract Infection in Men (GEN), Thrombocytopenia (GEN), Opioid Safety Discharge Attestations Time Spent in Discharge Care*: less than 30 min Quality Metrics Clinical Quality Measures [ No reported AMI, CVA or VTE this stay] Coding Level of Care Code Acute Code for [facility] Diagnoses Chest pain R07.9 Coronary artery disease I25.10 UTI (urinary tract infection) N39.0 Thrombocytopenia D69.6 Time Spent (min) 20
--- NOTE | 2023-12-16 11:17 | PC.SOCIAL ---
IMM Updated IMM dated and initialed, copy placed in chart and given to patient.
[2023-12-16 11:25] LABS: Glucose Point of Care 191 mg/dL (70-110)
--- NOTE | 2023-12-16 11:56 | PC.NURSE ---
Report is called to [facility] to CARLOS Gil.
== END 2023-12-16 16:20 | disposition skilled nursing facility (03) | DRG 287 ==
LOC: ER 21:49 → CSU 22:03
PROVIDERS: Internal Medicine; Admitting Provider Internal Medicine; Emergency Provider Emergency Medicine; Visit Provider Internal Medicine
PROC: B2111ZZ Fluoroscopy of Multiple Coronary Arteries using Low Osmolar Contrast (ICD-10-PCS; principal; 2023-12-15 07:00)
DX: I25.10 Atherosclerotic heart disease of native coronary artery without angina pectoris (principal); N39.0 Urinary tract infection, site not specified; E11.9 Type 2 diabetes mellitus without complications; I10 Essential (primary) hypertension; E78.5 Hyperlipidemia, unspecified; E66.9 Obesity, unspecified; Z68.38 Body mass index [BMI] 38.0-38.9, adult; G47.33 Obstructive sleep apnea (adult) (pediatric); D69.6 Thrombocytopenia, unspecified; Z79.899 Other long term (current) drug therapy; Z79.82 Long term (current) use of aspirin; F03.90 Unspecified dementia, unspecified severity, without behavioral disturbance, psychotic disturbance, mood disturbance, and anxiety; I25.2 Old myocardial infarction; Z95.5 Presence of coronary angioplasty implant and graft; F32.A Depression, unspecified; F41.9 Anxiety disorder, unspecified; R00.1 Bradycardia, unspecified; I25.9 Chronic ischemic heart disease, unspecified; B96.20 Unspecified Escherichia coli [E. coli] as the cause of diseases classified elsewhere
CPT/HCPCS: 0241U; 36415; 36416; 51702; 71045; 71275; 78452; 80053; 81001; 82962; 83605; 83690; 84484; 85025; 85347; 85378; 86140; 87040; 87077; 87086; 87186; 93005; 93017; 93306; 93454; 96372; 96374; 96375; 96376; 99152; 99153; 99285; A9270; A9500; C1769; C1887; C1894; C8929; G0378; J0280; J0696; J1644; J1650; J1815; J2250; J2270; J2405; J2785; J3010; J3490; J7030; Q0163; Q9967

== ENCOUNTER 2024-01-05 11:35 | Inpatient (IN) | payer MEDICARE, MEDICAID, SELFPAY ==
[2024-01-05] VITALS (13 sets, daily range): BP systolic 77–190; BP diastolic 53–113; PULSE 89–132; RESP 18–22; TEMP 36.8–39.9; O2SAT 89–95
--- NOTE | 2024-01-05 11:58 | ECG_ITS ---
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: : [id number] Requested By: Keith Monroy Order Number: [id number] Rain MD: ALEX NGUYEN Measurements Intervals [place] Rate: 115 P: 41 DE: 208 QRS: 7 QRSD: 92 T: 40 QT: 334 QTc: 462 Interpretive Statements SINUS TACHYCARDIA WITH FREQUENT SUPRAVENTRICULAR PREMATURE COMPLEXES LOW QRS VOLTAGE IN PRECORDIAL LEADS [QRS DEFLECTION < 1.0 mV IN CHEST LEADS] MODERATE ST DEPRESSION [0.05+ mV ST DEPRESSION] Compared to ECG 12/13/2023 00:27:12 ST (T wave) deviation now present Sinus bradycardia no longer present Myocardial infarct finding no longer present Electronically Signed On 01-07-2024 18:21:08 CDT by ALEX NGUYEN [email or web address]
--- NOTE | 2024-01-05 11:58 | XR_ITS ---
WS: [id number] Portable AP semiupright chest, 01/05/2024 Clinical Data: cough Comparison: Portable chest, 12/12/2023 Findings: No nodules, masses or effusions are seen. The heart is normal. The pulmonary vascularity is not increased. No pneumonia or pneumothorax is seen. The patient is rotated to the right. The aortic arch and descending thoracic aorta show tortuosity. There is a thoracolumbar posterior fusion. Monit or leads are on the chest wall. XR/XR chest 1V portable [id number] Impression: Atherosclerosis.
--- NOTE | 2024-01-05 11:59 | ED_ITS ---
HPI - General Adult 2 General: Chief complaint: Abdominal Pain Stated complaint: abd pain Time Seen by Provider: 01/05/24 11:37 Source: patient History of Present Illness: This patient was transported from long-term care [facility] by EMS. There was some question whether he was having abdominal pains but when when I interviewed the patient on his intake he stated he was having all over pains and bodyaches. He also answered affirmative to having chills. He is also states he has been having a recent cough. Again his symptoms seem to be global in nature with pain everywhere nonspecific pain. He states he has had a history of heart attack in the past. He states he has not eaten his breakfast today but is still producing urine. He denies any nausea vomiting or diarrhea. No other significant history at this time. Associated symptoms: Deny dyspnea, headache(s), nausea, rash, palpitations, syncope or vomiting Related Data Home Medications Medication Instructions Recorded Confirmed acetaminophen 325 mg capsule 650 mg PO QID PRN pain or fever 01/04/22 01/05/24 albuterol sulfate 90 mcg/actuation 2 puff inhalation Q6H PRN 01/04/22 01/05/24 aerosol inhaler wheezing/ shortness of breath aspirin 81 mg tablet,delayed 81 mg PO DAILY 01/04/22 01/05/24 release (Adult Low Dose Aspirin) donepezil 5 mg tablet 10 mg PO BEDTIME 01/04/22 01/05/24 mirabegron 50 mg tablet,extended 50 mg PO DAILY 01/04/22 01/05/24 release 24 hr (Myrbetriq) omeprazole 20 mg tablet,delayed 20 mg PO DAILY 01/04/22 01/05/24 release albuterol sulfate 0.63 mg/3 mL 0.63 mg inhalation Q6H PRN Cough 09/11/23 01/05/24 solution for nebulization bisacodyl 10 mg rectal suppository 10 mg MN DAILY PRN Constipation 09/11/23 01/05/24 cetirizine 5 mg tablet 5 mg PO DAILY PRN seasonal 09/11/23 01/05/24 allergies citalopram 10 mg tablet 10 mg PO DAILY 09/11/23 01/05/24 finasteride 5 mg tablet 5 mg PO BEDTIME 09/11/23 01/05/24 magnesium hydroxide 400 mg/5 mL 2,400 mg PO DAILY PRN Constipation 09/11/23 01/05/24 oral suspension (Milk of Magnesia) meloxicam 7.5 mg tablet 7.5 mg PO DAILY 09/11/23 01/05/24 polyethylene glycol 3350 17 gram 17 g PO DAILY PRN Constipation 09/11/23 01/05/24 oral powder packet polyvinyl alcohol-povidone 0.5 1 drp ophthalmic (eye) TID PRN Dry 09/11/23 01/05/24 %-0.6 % eye drops (Clear Eyes Eye(S) Natural Tears) menthol 4 % topical gel (Biofreeze 1 applic topical Q6H PRN Pain 12/13/23 01/05/24 (menthol)) nystatin 100,000 unit/gram topical 1 applic topical Q8H PRN Rash 12/13/23 01/05/24 powder sodium phosphates 19 gram-7 118 ml MN DAILY PRN Constipation 12/13/23 01/05/24 gram/118 mL enema (Fleet Enema) Previous Rx's Medication Instructions Recorded cam walking boot #1 ea 01/04/22 lace up ankle brace #1 ea 01/04/22 calcium 600 mg (as 1 tab PO BID #30 tabs 09/12/23 carbonate)-vitamin D3 10 mcg (400 unit) tablet tamsulosin 0.4 mg capsule 0.4 mg PO DAILY #30 caps 09/12/23 cam boot #1 ea 10/04/23 isosorbide mononitrate 30 mg 30 mg PO BID 30 days #60 tabs 12/16/23 tablet,extended release 24 hr Allergies Allergy/AdvReac Type Severity Reaction Status Date / Time No Known Allergies Allergy Verified 11/24/23 09:09 Review of Systems 2 Const: Reports: fever(s), chills and body aches Eyes: Denies: change in vision ENMT: Denies: throat pain, odynophagia, nasal discharge or nasal congestion Card: Denies: palpitations, irregular heart rhythm, syncope or pre-syncope Resp: Reports: non-productive cough; Denies: dyspnea, productive cough or wheezing GI: Denies: abdominal pain, nausea, vomiting or diarrhea : Denies: flank pain or difficulty urinating Musc: Denies: neck pain, back pain or extremity pain Skin/Breast: Denies: rash or pruritus Neuro: Denies: headache(s), numbness in extremities or weakness in extremities PFSH ED 2 PFSH: Medical History Thrombocytopenia Anxiety and depression Elevated liver enzymes Obstructive sleep apnea GERD (gastroesophageal reflux disease) Dementia Hyperlipidemia Hypertension Type 2 diabetes mellitus Past heart attack BPH (benign prostatic hyperplasia) Surgical History S/P ORIF (open reduction internal fixation) fracture (09/11/23) right tibia infrapatellar intramedullary nail History of coronary angioplasty H/O total knee replacement Previous back surgery (2020) for scoliosis Social History Smoking and tobacco/nicotine status: never used tobacco/nicotine Physical Exam 2 Narrative: EXAM NARRATIVE: Obese individual lying in bed on his right side. He answers questions in a very short and declarative way. Not much elaboration in his discussion. He appears to be comfortable and in no acute distress. Const: COMMON NORMALS: patient oriented x3 and alert NUTRITIONAL APPEARANCE: obese ORIENTATION/CONSCIOUSNESS: Yes awake, Yes oriented to person and Yes oriented to place HENMT: COMMON NORMALS: normocephalic, Normal nasal mucous membranes and turbinates present, moist oral mucous membranes and oropharynx normal HEAD & SCALP: normocephalic NOSE: Normal nasal mucous membranes and turbinates present Eye: COMMON NORMALS: Equal, round and reactive pupils present and conjunctivae normal CONJUNCTIVA: Yes conjunctivae normal PUPIL: Yes Equal, round and reactive pupils present Neck/C-Spine: COMMON NORMALS: full ROM, no lymphadenopathy and Thyroid normal THYROID: Thyroid normal Chest: COMMONS NORMALS: normal inspection of the chest OTHER: Tenderness to palpation anterior chest. No ecchymosis subcutaneous emphysema or crepitance noted. Resp: COMMON NORMALS: normal respiratory effort and No retractions A USCULTATION: crackles (At bases bilaterally) Cardio: COMMON NORMALS: regular rate, No murmurs present (Cardio) and Peripheral pulses 2+ throughout RATE: regular rate PERIPHERAL PULSES: P eripheral pulses 2+ throughout GI: COMMON NORMALS: Normal to inspection, nondistended, normoactive bowel sounds present, Soft to palpation and non-tender INSPECTION: Yes central obesity PALPATION: Yes Soft to palpation Back/Pelvis: COMMON NORMALS: thoracic and lumbar spine normal to inspection and no thoracic nor lumbar tenderness Extremity: COMMON NORMALS: normal to inspection, full ROM, no calf tenderness and no pedal edema Neuro: COMMON NORMALS: patient oriented x3, moves all extremities and no focal motor deficits SENSORIUM/ORIENTATION: Yes alert, Yes oriented to person and Yes oriented to place CRANIAL NERVES: Yes CN normal except as noted Skin: COMMON NORMALS: no rashes or lesions noted, no wounds and turgor normal GENERAL SKIN EXAM: no rashes or lesions noted and turgor normal Course 2 Reevaluation(s): Reevaluation #1: Thus far ancillary studies have been unrevealing as to potential etiology of his symptoms and he has minimal communication and exam is nonspecific and makes it difficult get a gestalt for his baseline. He has had increased tachycardia and is diaphoretic but has no acute EKG changes to suggest ischemia my concern is possible occult infection and possible intra-abdominal process but we will go ahead and include a CT of his chest abdomen and pelvis. Time: 14:56 Reevaluation #2: Patient is returned from CT still remains tachycardic. Will go and empirically give him a loading dose of broad-spectrum antibiotics get cultures and a lactic acid level pending CT scan Was able to contact his spouse in [place] and she provided additional illuminating information regarding his recent past history. She states that he was having some mild dementia symptoms but then had spinal surgery in 2020 for scoliosis according to her or possibles spinal stenosis and had a downward course since that time. He had apparently a concomitant spinal cord infarct and had some difficulty with ambulation post surgically and has had long-term care placement since that time. She states she has had a recent urinary tract infection as well as a couple of falls with ankle fractures. I explained discussed with her his current status and that we are very appreciative of her input that was greatly helpful for his treatment. Time: 15:34 Reevaluation #3: Hospitalist team requested a central line. At after informed consent and ultrasound visualization of his right internal jugular several attempts were made to cannulate the internal jugular without success. The patient's awake status made the procedure somewhat difficult as he was was not able to lay still despite sufficient local anesthesia. Because of his hypotension very reluctant to give me any kind of sedation at this time. Another attempt was made in the subclavian with limited ultrasound visualization which was unsuccessful as well. I stopped my attempts given the the fact that he had tries at both sites without success and I felt he was in the patient's best interest to have another physician attempt his central line. I placed a call to ICU where the anesthesiologist was placing another central line and requested that he come down and evaluate the patient for central line. Also discussed this with Dr. Yap who was seeing the patient in the emergency department. Time: 23:22 Consultations: Consultation #1: Discussed with Dr. Morley who requested biliary tract ultrasound to establish CBD diameter Time: 16:42 Consultation #2: Discussed with attending hospitalist regarding admission and he agreed to do all medical management this patient but requested the patient be admitted to Dr. Morley as the attending physician because of his cholecystitis. Time: 21:40 Vital Signs: Vital signs: Vital Signs Temperature 101.2 F H 01/05/24 20:47 Pulse Rate 93 01/05/24 21:30 Respiratory Rate 22 H 01/05/24 21:30 Blood Pressure 110/71 01/05/24 21:30 Pulse Oximetry 94 01/05/24 21:30 Oxygen Delivery Me thod Room Air 01/05/24 21:04 Oxygen Flow Rate 2 01/05/24 20:47 MDM - General Adult Medical Decision Making This patient was transferred to the emergency department from long-term care facility. The history was rather difficult to obtain but on presentation the patient stated he had all over body aches and pain with no specific complaints of abdominal pain chest pain or other symptoms. Given his presentation and unremarkable clinical examination the differential is broad and therefore workup was initiated to evaluate for possible source of what appeared to be a possible systemic illness. Blood work was obtained as well as COVID testing chest x-ray and other usual ancillary studies. The patient's clinical picture continue to suggest the patient was ill however initial studies failed to reveal any obvious etiology so therefore additional imaging was obtained which included CT scan of abdomen and pelvis. Also at the same time additional information was obtained from his spouse who lives in [place] who related his history of recent UTIs as well as his past history which led him to be in a long-term care facility. Ultimately CT scan imaging did reveal evidence of cholecystitis at that point additional studies were obtained and to include lactate, blood cultures and fluid infusion. He was also given empiric antibiotics. General surgery was consulted who requested an ultrasound to evaluate his biliary tract. Ultrasound was reassuring and that there was no evidence of CBD or gallstones or other potential pathology. His troponin was noted to be elevated but this is likely a manifestation of his current illness with myocardial stress and not ACS at this time. The patient's continue to manifest findings of acute serious illness with an elevated lactate and blood pressures that trended and the lower systolic range. 3 L of fluids had already been infused and therefore at that time peripheral pressors consisting of norepinephrine were instituted. The patient has signs of sepsis with shock and is will be admitted to the intensive care unit for further care. Lab Data I reviewed the patient's lab results. 01/05/24 12:30 01/05/24 12:30 Radiology Impressions Chest X-Ray 01/05/24 11:58 Impression: Atherosclerosis. Chest/Abdomen/Pelvis CT 01/05/24 14:54 IMPRESSION: 1. Tracheobronchomalacia. 2. Opacities in the lung bases most likely represents subsegmental atelectasis. IMPRESSION: 1. Severe acute cholecystitis. Gangrenous cholecystitis is a possibility, although there is no gas in the wall to confirm the diagnosis. No sign of perforation or abscess. 2. Mild simple lower abdominal ascites with small volume perisplenic fluid. Density of the perisplenic fluid cannot be accurately assessed due to beam hardening artifact. Perisplenic hematoma cannot be unequivocally excluded. No visible splenic injury. Stable moderate splenic enlargement. 3. Incidental findings above. COMMENTS: Consistent with the [employer]'s Incidental Findings Committee white paper (J Am Devin Radiol 2018): Any incidental renal lesion less than 1 cm or classified as too small to characterize, or any incidental cystic renal lesion characterized as simple-appearing, is likely benign. No follow-up imaging is recommended for these lesions per consensus recommendations based on imaging criteria. ADDENDUM: 01/05/24 5275 THIS REPORT CONTAINS FINDINGS THAT MAY BE CRITICAL TO PATIENT CARE. The findings and recommendations were personally verbally communicated via telephone conference with KEITH MONROY at 4:33 PM CDT on 01/05/2024. The findings were acknowledged and understood. Gallbladder Ultrasound 01/05/24 16:42 IMPRESSION: 1. Severe acute cholecystitis. 2. 7 mm common bile duct is within the expected size range for age. 3. Pulsatile portal venous flow may be physiologic or due to heart disease or cirrhosis. Patent portal, splenic and superior mesenteric veins are visible by CT. 4. Heterogeneous liver parenchymal echotexture. Steatosis versus cirrhosis. No definite liver surface nodularity. Laboratory Results WBC 5.80 10^3/uL (3.29-11.43) 01/05/24 12:30 RBC 5.58 10^6/uL (3.85-5.65) 01/05/24 12:30 Hgb 16.10 g/dL (11.27-16.99) 01/05/24 12:30 Hct 52.8 % (37-53) 01/05/24 12:30 MCV 94.6 fl (82-101) 01/05/24 12:30 MCH 28.9 pg (27-33) 01/05/24 12:30 MCHC 30.5 g/dL (30-55) 01/05/24 12:30 RDW 14.9 % (12.1-15.1) 01/05/24 12:30 Plt Count 112 10^3/cmm (157-399) L 01/05/24 12:30 MPV 13.3 fL (7.4-10.4) H 01/05/24 12:30 Neut % (Auto) 80.2 % 01/05/24 12:30 Lymph % (Auto) 9.1 % 01/05/24 12:30 Vilas % (Auto) 9.5 % 01/05/24 12:30 Eos % (Auto) 0.2 % 01/05/24 12:30 Baso % (Auto) 0.5 % 01/05/24 12:30 Neut # (Auto) 4.65 10^3/uL (1.8-7.7) 01/05/24 12:30 Lymph # (Auto) 0.5 10^3/uL (0.8-4.8) L 01/05/24 12:30 Vilas # (Auto) 0.6 10^3/uL (0.2-0.9) 01/05/24 12:30 Eos # (Auto) 0.0 10^3/uL (0.0-0.8) 01/05/24 12:30 Baso # (Auto) 0.0 10^3/uL (0.0-0.1) 01/05/24 12:30 Nucleated RBC % (auto) 0 % 01/05/24 12:30 Nucleated RBCs # 0.0 /100WBC 01/05/24 12:30 Sodium 137 mmol/L (136-145) 01/05/24 12:30 Potassium 4.3 mmol/L (3.5-5.1) 01/05/24 12:30 Chloride 94 mmol/L (98-107) L 01/05/24 12:30 Carbon Dioxide 23 mmol/L (22-29) 01/05/24 12:30 Anion Gap 24.3 (5-19) H 01/05/24 12:30 BUN 14 mg/dL (8-23) 01/05/24 12:30 Creatinine 0.8 mg/dL (0.7-1.2) 01/05/24 12:30 GFR Calculation Not Reportable 01/05/24 12:30 Glucose 219 mg/dL (65-115) H 01/05/24 12:30 POC Glucose 186 mg/dL (70-110) H 01/05/24 14:53 Calculated Osmolality 291 mOsm/kg (285-295) 01/05/24 12:30 Lactic Acid 4.9 mmol/L (0.5-2.2) H* 01/05/24 16:03 Lactic Acid (Sepsis) 8.3 mmol/L (0.5-2.2) H* 01/05/24 20:27 Calcium 8.9 mg/dL (8.5-10.5) 01/05/24 12:30 Total Bilirubin 2.0 mg/dL (0.15-1.2) H 01/05/24 12:30 AST 29 U/L (0-40) 01/05/24 12:30 ALT 21 U/L (0-41) 01/05/24 12:30 Alkaline Phosphatase 162 U/L (40-130) H 01/05/24 12:30 Troponin T Baseline 31 ng/L (0-15) H 01/05/24 12:42 Troponin T 120 Minute 36.92 ng/L (0-15) H 01/05/24 14:43 Delta Troponin T 5.92 ABS# (0-10) 01/05/24 14:43 Troponin T Hi Sens 6Hr 64.28 ng/L (0-15) H 01/05/24 20:27 Troponin T Hi Sens 6Hr Delta 33.28 ng/L (0-12) H* 01/05/24 20:27 Total Protein 8.0 g/dL (6.6-8.7) 01/05/24 12:30 Albumin 3.8 g/dL (3.5-5.2) 01/05/24 12:30 Globulin 4.2 g/dL (1.3-4.6) 01/05/24 12:30 Lipase 13 U/L (13-60) 01/05/24 12:30 Urine Color Dark yellow (Yellow) A 01/05/24 15:49 Urine Appearance Clear (CLEAR) 01/05/24 15:49 Urine pH 5.5 (5-7) 01/05/24 15:49 Ur Specific Allison 1.043 (1.005-1.030) H 01/05/24 15:49 Urine Protein 2+ (Negative) A 01/05/24 15:49 Urine Glucose (UA) Negative (Normal) 01/05/24 15:49 Urine Ketones 2+ (Negative) H 01/05/24 15:49 Urine Blood 1+ (Negative) A 01/05/24 15:49 Urine Nitrate Negative (Negative) 01/05/24 15:49 Urine Bilirubin 1+ (Negative) H 01/05/24 15:49 Urine Urobilinogen 4.0 mg/dL (Negative) H 01/05/24 15:49 Ur Leukocyte Esterase Trace (Negative) A 01/05/24 15:49 Urine RBC 0-2 /hpf (0-2) 01/05/24 15:49 Urine WBC 0-5 /hpf (0-5) 01/05/24 15:49 Ur Squamous Epith Cells 0-5 /hpf (0-5) 01/05/24 15:49 Amorphous Sediment Not Reportable 01/05/24 15:49 Urine Bacteria None seen /hpf (NONE) 01/05/24 15:49 Hyaline Casts 8.26 /lpf 01/05/24 15:49 Coarse Granular Casts 0-4 /lpf H 01/05/24 15:49 SARS-CoV-2 Ag (Rapid) negative (Negative) 01/05/24 12:31 All radiology interpretation(s) finalized by discharge EKG Data EKG 1: I personally reviewed and interpreted this EKG as follows: Interpretation: Initial EKG reveals ventricular rate of 115 beats beats per minute. Borderline MN interval prolongation, QRS duration normal, corrected QT interval normal. Normal axis. Other than sinus tachycardia no acute ST-T wave changes noted. Computer generated interpretation: Chest X-Ray 01/05/24 11:58 Impression: Atherosclerosis. Chest/Abdomen/Pelvis CT 01/05/24 14:54 IMPRESSION: 1. Tracheobronchomalacia. 2. Opacities in the lung bases most likely represents subsegmental atelectasis. IMPRESSION: 1. Severe acute cholecystitis. Gangrenous cholecystitis is a possibility, although there is no gas in the wall to confirm the diagnosis. No sign of perforation or abscess. 2. Mild simple lower abdominal ascites with small volume perisplenic fluid. Density of the perisplenic fluid cannot be accurately assessed due to beam hardening artifact. Perisplenic hematoma cannot be unequivocally excluded. No visible splenic injury. Stable moderate splenic enlargement. 3. Incidental findings above. COMMENTS: Consistent with the [employer]'s Incidental Findings Committee white paper (J Am Devin Radiol 2018): Any incidental renal lesion less than 1 cm or classified as too small to characterize, or any incidental cystic renal lesion characterized as simple-appearing, is likely benign. No follow-up imaging is recommended for these lesions per consensus recommendations based on imaging criteria. ADDENDUM: 01/05/24 1390 THIS REPORT CONTAINS FINDINGS THAT MAY BE CRITICAL TO PATIENT CARE. The findings and recommendations were personally verbally communicated via telephone conference with KEITH MONROY at 4:33 PM CDT on 01/05/2024. The findings were acknowledged and understood. Gallbladder Ultrasound 01/05/24 16:42 IMPRESSION: 1. Severe acute cholecystitis. 2. 7 mm common bile duct is within the expected size range for age. 3. Pulsatile portal venous flow may be physiologic or due to heart disease or cirrhosis. Patent portal, splenic and superior mesenteric veins are visible by CT. 4. Heterogeneous liver parenchymal echotexture. Steatosis versus cirrhosis. No definite liver surface nodularity. EKG 2: I personally reviewed and interpreted this EKG as follows: Interpretation: Contemporaneous review of second EKG this visit reveals a ventricular rate of 135 bpm consistent with sinus tachycardia. Nonspecific ST-T wave changes which are likely rate related but no evidence of acute ischemia at this time. Since earlier EKG his tachycardia has worsened. Computer generated interpretation: Chest X-Ray 01/05/24 11:58 Impression: Atherosclerosis. Chest/Abdomen/Pelvis CT 01/05/24 14:54 IMPRESSION: 1. Tracheobronchomalacia. 2. Opacities in the lung bases most likely represents subsegmental atelectasis. IMPRESSION: 1. Severe acute cholecystitis. Gangrenous cholecystitis is a possibility, although there is no gas in the wall to confirm the diagnosis. No sign of perforation or abscess. 2. Mild simple lower abdominal ascites with small volume perisplenic fluid. Density of the perisplenic fluid cannot be accurately assessed due to beam hardening artifact. Perisplenic hematoma cannot be unequivocally excluded. No visible splenic injury. Stable moderate splenic enlargement. 3. Incidental findings above. COMMENTS: Consistent with the [employer]'s Incidental Findings Committee white paper (J Am Devin Radiol 2018): Any incidental renal lesion less than 1 cm or classified as too small to characterize, or any incidental cystic renal lesion characterized as simple-appearing, is likely benign. No follow-up imaging is recommended for these lesions per consensus recommendations based on imaging criteria. ADDENDUM: 01/05/24 7615 THIS REPORT CONTAINS FINDINGS THAT MAY BE CRITICAL TO PATIENT CARE. The findings and recommendations were personally verbally communicated via telephone conference with KEITH MONROY at 4:33 PM CDT on 01/05/2024. The findings were acknowledged and understood. Gallbladder Ultrasound 01/05/24 16:42 IMPRESSION: 1. Severe acute cholecystitis. 2. 7 mm common bile duct is within the expected size range for age. 3. Pulsatile portal venous flow may be physiologic or due to heart disease or cirrhosis. Patent portal, splenic and superior mesenteric veins are visible by CT. 4. Heterogeneous liver parenchymal echotexture. Steatosis versus cirrhosis. No definite liver surface nodularity. EKG 3: I personally reviewed and interpreted this EKG as follows: Interpretation: 30 EKG this visit reveals a ventricular rate of 87 bpm. Consistent with normal sinus rhythm. Normal MN interval, QRS duration, corrected QT interval. No acute ST-T wave changes noted at this time. Computer generated interpretation: Chest X-Ray 01/05/24 11:58 Impression: Atherosclerosis. Chest/Abdomen/Pelvis CT 01/05/24 14:54 IMPRESSION: 1. Tracheobronchomalacia. 2. Opacities in the lung bases most likely represents subsegmental atelectasis. IMPRESSION: 1. Severe acute cholecystitis. Gangrenous cholecystitis is a possibility, although there is no gas in the wall to confirm the diagnosis. No sign of perforation or abscess. 2. Mild simple lower abdominal ascites with small volume perisplenic fluid. Density of the perisplenic fluid cannot be accurately assessed due to beam hardening artifact. Perisplenic hematoma cannot be unequivocally excluded. No visible splenic injury. Stable moderate splenic enlargement. 3. Incidental findings above. COMMENTS: Consistent with the [employer]'s Incidental Findings Committee white paper (J Am Devin Radiol 2018): Any incidental renal lesion less than 1 cm or classified as too small to characterize, or any incidental cystic renal lesion characterized as simple-appearing, is likely benign. No follow-up imaging is recommended for these lesions per consensus recommendations based on imaging criteria. ADDENDUM: 01/05/24 1635 THIS REPORT CONTAINS FINDINGS THAT MAY BE CRITICAL TO PATIENT CARE. The findings and recommendations were personally verbally communicated via telephone conference with KEITH MONROY at 4:33 PM CDT on 01/05/2024. The findings were acknowledged and understood. Gallbladder Ultrasound 01/05/24 16:42 IMPRESSION: 1. Severe acute cholecystitis. 2. 7 mm common bile duct is within the expected size range for age. 3. Pulsatile portal venous flow may be physiologic or due to heart disease or cirrhosis. Patent portal, splenic and superior mesenteric veins are visible by CT. 4. Heterogeneous liver parenchymal echotexture. Steatosis versus cirrhosis. No definite liver surface nodularity. Critical Care Time 2 Critical Care Time: Critical Care Time: Yes Total Critical Care Time: 40 Attestation: Physical care included being with family members, interpreting blood test, reviewing imaging studies, discussing with consultants, managing pressors, antibiotics and complicated medical decisions Discharge Plan Discharge Patient Disposition: Admitted As Inpatient Admit Provider: Derrick Morley Clinical Impression: Acute acalculous cholecystitis, Sepsis Condition: Stable Coding Level of Care Code ED Cat Scan Technologist for Moses Miller
[2024-01-05 12:20] LABS: Glucose Point of Care 166 mg/dL (70-110)
[2024-01-05] MEDS: lactated ringers 1,000 ML 999 ML IV ×3 (12:42→20:50)
--- NOTE | 2024-01-05 12:56 | PC.PHAR ---
waiting for [facility] to fax me the med list
[2024-01-05 12:59] LABS: Basophils % 0.5 %; Eosinophils % 0.2 %; Hematocrit 52.8 % (37-53); Lymphocytes # 0.5 10^3/uL (0.8-4.8); Lymphocytes % 9.1 %; Mean Corpuscular HGB Conc 30.5 g/dL (30-55); Mean Corpuscular Hemoglobin 28.9 pg (27-33); Mean Corpuscular Volume 94.6 fl (82-101); Mean Platelet Volume 13.3 fL (7.4-10.4); Monocytes # 0.6 10^3/uL (0.2-0.9); Monocytes % 9.5 %; Neutrophils # 4.65 10^3/uL (1.8-7.7); Neutrophils % 80.2 %; Nucleated Red Blood Cells % 0 %; Platelet Count 112 10^3/cmm (157-399); Red Blood Count 5.58 10^6/uL (3.85-5.65); Red Cell Distribution Width 14.9 % (12.1-15.1)
[2024-01-05 13:22] LABS: Albumin Level 3.8 g/dL (3.5-5.2); Alkaline Phosphatase 162 U/L (40-130); Blood Urea Nitrogen 14 mg/dL (8-23); Calcium 8.9 mg/dL (8.5-10.5); Carbon Dioxide 23 mmol/L (22-29); Chloride 94 mmol/L (98-107); Creatinine Clr Calc Pharmacy 106.0759; Globulin 4.2 g/dL (1.3-4.6); Glucose 219 mg/dL (65-115); Lipase 13 U/L (13-60); Osmolality Calculated 291 mOsm/kg (285-295); Sodium 137 mmol/L (136-145)
[2024-01-05 13:24] LABS: Troponin(5th) Baseline 31 ng/L (0-15)
[2024-01-05 13:25] LABS: Alanine Aminotransferase 21 U/L (0-41); Anion Gap 24.3 (5-19); Aspartate Amino Transferase 29 U/L (0-40); Potassium 4.3 mmol/L (3.5-5.1)
[2024-01-05 13:42] LABS: SARS Covid-2 Antigen negative (Negative)
--- NOTE | 2024-01-05 14:34 | ECG_ITS ---
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
--- NOTE | 2024-01-05 14:54 | CTR_ITS ---
PROCEDURE INFORMATION: Exam: CT Chest With Contrast; Diagnostic Exam date and time: 01/05/2024 3:02 PM Age: 73 years old Clinical indication: Other: Occult illness work up, has upper abd tendeness but non-specific and is ill TECHNIQUE: Imaging protocol: Diagnostic computed tomography of the chest with contrast. Radiation optimization: All CT scans at this facility use at least one of these dose optimization techniques: automated exposure control; mA and/or kV adjustment per patient size (includes targeted exams where dose is matched to clinical indication); or iterative reconstruction. Contrast material: OMNI 350; Contrast volume: 100 ml; Contrast route: INTRAVENOUS (IV); COMPARISON: CT angio chest PE protcl [id number] 12/13/2023 8:57 AM RADIATION DOSE METRICS: Total DLP (mGy-cm): 600 FINDINGS: Lungs: There is decreased AP diameter of the distal trachea and central bronchi consistent with tracheobronchomalacia. There is mild volume loss and coarse reticular opacity in the right lung base. There is minimal coarse reticular opacity in the left lung base. Pleural spaces: There is no pleural effusion or pneumothorax. Heart: Heart size is normal. There is no pericardial effusion. Lymph nodes: There is no mediastinal or hilar lymphadenopathy. Vasculature: There is mild aortic atherosclerotic disease. Central pulmonary arteries are unremarkable. Peripheral pulmonary arteries are obscured. Bones/joints: Intact posterolateral fusion hardware in the lower thoracic spine. No acute osseous findings. Mild T6 superior endplate compression fracture is stable since 12/13/2023. Soft tissues: The extrathoracic soft tissues are unremarkable. PROCEDURE INFORMATION: Exam: CT Abdomen And Pelvis With Contrast Exam date and time: 01/05/2024 3:02 PM Age: 73 years old Clinical indication: Other: Occult illness work up, has upper abd tendeness but non-specific and is ill TECHNIQUE: Imaging protocol: Computed tomography of the abdomen and pelvis with contrast. Radiation optimization: All CT scans at this facility use at least one of these dose optimization techniques: automated exposure control; mA and/or kV adjustment per patient size (includes targeted exams where dose is matched to clinical indication); or iterative reconstruction. Contrast material: OMNI 350; Contrast volume: 100 ml; Contrast route: INTRAVENOUS (IV); COMPARISON: CT abdomen pelvis w con* [id number] 01/05/2024 3:02 PM RADIATION DOSE METRICS: Total DLP (mGy-cm): 1065 FINDINGS: Diaphragm: There is a small sliding-type hiatal hernia. Liver: There is mild relative hyperemia in the liver parenchyma adjacent to the gallbladder fossa. No liver mass. Gallbladder and biliary ducts: The gallbladder is markedly dilated measuring up to 7 cm diameter. There is marked diffuse gallbladder wall thickening and heterogeneous enhancement. No gas in the gallbladder wall. Partially calcified stones are seen in the gallbladder lumen. There is no intrahepatic or extrahepatic bile duct dilation. There is extensive pericholecystic edema. No pericholecystic fluid or fluid collection. Pancreas: There is moderate atrophy of the pancreas. Spleen: The spleen is moderately enlarged. Adrenal glands: The adrenal glands are unremarkable. Kidneys and ureters: There are simple cysts in the left kidney measuring up to 9.8 cm diameter. There is no hydronephrosis or stones on the left. Left kidney is low lying. There is a 2 mm nonobstructive stone in the right kidney. There is no hydronephrosis or ureteral dilation on the right. There is a 5.2 cm cyst exophytic from the upper pole of the right kidney. Accurate density measurement is not possible due to beam hardening artifact. The lesion measured water density and with similar in size on 10/18/2023. Probable simple cyst. Stomach and bowel: The stomach is nondistended. There is mucosal thickening and perigastric edema at the antrum and proximal descending duodenum which lie immediately adjacent to the inflamed gallbladder. Edema is likely reactive. The small bowel is nondilated. Moderate pancolonic diverticulosis. There is no sign of diverticulitis. Appendix: The appendix is normal. Intraperitoneal space: No intraperitoneal free air. There is a small volume of perisplenic fluid of unknown density (density measurements are affected by beam hardening artifact). There is a small volume of simple intraperitoneal free fluid in the right lower quadrant and in the deep pelvis. Vasculature: There is mild aortic atherosclerotic disease. The portal, splenic and superior mesenteric veins are patent. Lymph nodes: There is no lymphadenopathy in the retroperitoneum, mesentery, pelvis or inguinal regions. Urinary bladder: There is a 4 mm stone in the bladder lumen near the left ureterovesical junction. Reproductive: The prostate and seminal vesicles are unremarkable. Bones/joints: Diffuse lumbar posterolateral fusion producing significant beam hardening artifact partially obscuring the spine and abdominal structures. Mild L3 posterior wedge compression deformity is stable since 10/18/2023. There is mild degenerative disease of both hips. The bony pelvis is intact. Soft tissues: The abdominal wall is intact. CT/CT chest abdpel w/*[id number] IMPRESSION: 1. Tracheobronchomalacia. 2. Opacities in the lung bases most likely represents subsegmental atelectasis. IMPRESSION: 1. Severe acute cholecystitis. Gangrenous cholecystitis is a possibility, although there is no gas in the wall to confirm the diagnosis. No sign of perforation or abscess. 2. Mild simple lower abdominal ascites with small volume perisplenic fluid. Density of the perisplenic fluid cannot be accurately assessed due to beam hardening artifact. Perisplenic hematoma cannot be unequivocally excluded. No visible splenic injury. Stable moderate splenic enlargement. 3. Incidental findings above. COMMENTS: Consistent with the [employer]'s Incidental Findings Committee white paper (J Am Devin Radiol 2018): Any incidental renal lesion less than 1 cm or classified as too small to characterize, or any incidental cystic renal lesion characterized as simple-appearing, is likely benign. No follow-up imaging is recommended for these lesions per consensus recommendations based on imaging criteria.
[2024-01-05 14:57] LABS: Glucose Point of Care 186 mg/dL (70-110)
[2024-01-05] MEDS: iohexol 350 mg/mL 500 mL Btl (per mL) IV (15:06)
[2024-01-05 15:13] LABS: Troponin 5 2HR 36.92 ng/L (0-15); Troponin 5 2HR Delta 5.92 ABS# (0-10)
[2024-01-05 15:59] LABS: Bilirubin Urine 1+ (Negative); Blood Urine 1+ (Negative); Glucose Urine UA Negative (Normal); Ketones Urine 2+ (Negative); Leukocyte Esterase Urine Trace (Negative); Nitrate Urine Negative (Negative); Protein Urine 2+ (Negative); Urine Appearance Clear (CLEAR); Urine Color Dark Yellow (Yellow); pH Urine 5.5 (5-7)
[2024-01-05 16:05] LABS: Add Urine Microscopic? YES; Bacteria Urine None Seen /hpf; Hyaline Casts Urine 8.26 /lpf; RBC Urine 0-2 /hpf (0-2); Squamous Epithelial Cell Urine 0-5 /hpf (0-5); WBC Urine 0-5 /hpf (0-5)
[2024-01-05] MEDS: acetaminophen 650 mg Supp PR (16:14)
[2024-01-05] MEDS: piperacillin-tazobactam 3.375 GM in sodium chloride 0.9% (plus) 50 ML IV (16:15)
[2024-01-05 16:23] LABS: Specific Gravity, Urine 1.043 (1.005-1.030)
[2024-01-05 16:24] LABS: Add Urine Culture? No; Coarse Granular Casts Urine 0-4 /lpf; UA Slide Review UA Slide Review Perf
--- NOTE | 2024-01-05 16:42 | USR_ITS ---
PROCEDURE INFORMATION: Exam: US Abdomen, Limited; Right Upper Quadrant Exam date and time: 01/05/2024 6:24 PM Age: 73 years old Clinical indication: Abdominal pain; Epigastric; Patient HX: F/u CT; Additional info: Elvaluate biliary tract-has cholecystitis, PT refused to roll from right side. TECHNIQUE: Imaging protocol: Real time ultrasound of the abdomen with image documentation. Limited exam focused on the right upper quadrant. COMPARISON: CT abdomen pelvis w con* [id number] 01/05/2024 3:02 PM FINDINGS: Liver: Liver parenchyma is heterogeneously echogenic suggesting fat infiltration. Gallbladder: The gallbladder is dilated. There are multiple stones and hypoechoic debris filling the gallbladder lumen. There is marked irregular gallbladder wall thickening. Sonographic Villalta sign is positive. Biliary ducts: Common bile duct measures 6-7 mm. Pancreas: The pancreas is obscured by overlying bowel gas. Right kidney: Right kidney measures 11.1 cm in length. Cortical thickness is normal. Multiple right renal cysts are visible. The largest measures 4.6 cm diameter. Left kidney: A large left renal cyst is partially visualized. Aorta: The abdominal aorta is unremarkable. Portal venous: There is pulsatile flow in the main portal vein which is nonspecific and may be physiologic or due to heart disease or cirrhosis. Intraperitoneal space: There is trace ascites adjacent to the liver. US/US gall bladder [id number] IMPRESSION: 1. Severe acute cholecystitis. 2. 7 mm common bile duct is within the expected size range for age. 3. Pulsatile portal venous flow may be physiologic or due to heart disease or cirrhosis. Patent portal, splenic and superior mesenteric veins are visible by CT. 4. Heterogeneous liver parenchymal echotexture. Steatosis versus cirrhosis. No definite liver surface nodularity.
[2024-01-05 17:04] LABS: Lactic Sepsis W/Reflex 4.9 mmol/L (0.5-2.2)
[2024-01-05 18:12] LABS: Reflex Lactate Order REFLEX LACTIC ORDERD
--- NOTE | 2024-01-05 18:33 | ECG_ITS ---
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1950 Requested By: Keith Monroy Order Number: [id number] Rain MD: ALEX NGUYEN Measurements Intervals [place] Rate: 87 P: 33 [place]: 138 QRS: -5 QRSD: 89 T: 54 QT: 371 QTc: 446 Interpretive Statements SINUS RHYTHM WITH OCCASIONAL SUPRAVENTRICULAR PREMATURE COMPLEXES LOW QRS VOLTAGE IN PRECORDIAL LEADS [QRS DEFLECTION < 1.0 mV IN CHEST LEADS] NONSPECIFIC T-WAVE ABNORMALITY Compared to ECG 01/05/2024 14:34:08 Low QRS voltage now present Sinus tachycardia no longer present T-wave abnormality still present Electronically Signed On 01-07-2024 18:19:27 CDT by ALEX NGUYEN [id number]
--- NOTE | 2024-01-05 20:36 | PC.NURSE ---
PER VERBAL ORDER FROM DR. JAIME, START LEVOPHED AT 4 MCG. VERIFIED HE WANTED TO START LOWER THAN PROTOCOL AND DR. JAIME CONFIRMED TO START LOWER.
[2024-01-05] MEDS: norepinephrine 4 MG/250 ML BAG 15 MG IV ×2 (20:44→20:46)
--- NOTE | 2024-01-05 20:52 | PC.NURSE ---
PER VERBAL ORDER FROM DR. JAIME, INCREASE LEVOPHED TO 8MCG.
[2024-01-05 21:11] LABS: Troponin 5 6HR 64.28 ng/L (0-15)
[2024-01-05 21:12] LABS: Lactic Acid level (Lactate) 8.3 mmol/L (0.5-2.2)
[2024-01-05 21:14] LABS: Troponin 5 6HR Delta 33.28 ng/L (0-12)
--- NOTE | 2024-01-05 22:11 | P.HP_ITS ---
Providers/Chief Complaint 2 Admitting Physician: Derrick Morley DO Primary Care Provider: Adelfo Stuart DO Chief Complaint: abd pain History of Present Illness Tom Espinosa is a 73 year old male Medications/Allergies Home Medications Medication Instructions Recorded Confirmed Last Taken Type acetaminophen 325 mg capsule 650 mg PO QID PRN pain or fever 01/04/22 01/05/24 Unknown History albuterol sulfate 90 mcg/actuation 2 puff inhalation Q6H PRN 01/04/22 01/05/24 Unknown History aerosol inhaler wheezing/ shortness of breath aspirin 81 mg tablet,delayed 81 mg PO DAILY 01/04/22 01/05/24 09/09/23 History release (Adult Low Dose Aspirin) cam walking boot #1 ea 01/04/22 01/05/24 Unknown Rx donepezil 5 mg tablet 10 mg PO BEDTIME 01/04/22 01/05/24 09/09/23 History lace up ankle brace #1 ea 01/04/22 01/05/24 Unknown Rx mirabegron 50 mg tablet,extended 50 mg PO DAILY 01/04/22 01/05/24 09/09/23 History release 24 hr (Myrbetriq) omeprazole 20 mg tablet,delayed 20 mg PO DAILY 01/04/22 01/05/24 09/09/23 History release albuterol sulfate 0.63 mg/3 mL 0.63 mg inhalation Q6H PRN Cough 09/11/23 01/05/24 Unknown History solution for nebulization bisacodyl 10 mg rectal suppository 10 mg OK DAILY PRN Constipation 09/11/23 01/05/24 Unknown History cetirizine 5 mg tablet 5 mg PO DAILY PRN seasonal 09/11/23 01/05/24 Unknown History allergies citalopram 10 mg tablet 10 mg PO DAILY 09/11/23 01/05/24 09/09/23 History finasteride 5 mg tablet 5 mg PO BEDTIME 09/11/23 01/05/24 09/09/23 History magnesium hydroxide 400 mg/5 mL 2,400 mg PO DAILY PRN Constipation 09/11/23 01/05/24 Unknown History oral suspension (Milk of Magnesia) meloxicam 7.5 mg tablet 7.5 mg PO DAILY 09/11/23 01/05/24 09/09/23 History polyethylene glycol 3350 17 gram 17 g PO DAILY PRN Constipation 09/11/23 01/05/24 Unknown History oral powder packet polyvinyl alcohol-povidone 0.5 1 drp ophthalmic (eye) TID PRN Dry 09/11/23 01/05/24 Unknown History %-0.6 % eye drops (Clear Eyes Eye(S) Natural Tears) calcium 600 mg (as 1 tab PO BID #30 tabs 09/12/23 01/05/24 Unknown Rx carbonate)-vitamin D3 10 mcg (400 unit) tablet tamsulosin 0.4 mg capsule 0.4 mg PO DAILY #30 caps 09/12/23 01/05/24 Unknown Rx cam boot #1 ea 10/04/23 01/05/24 Unknown Rx menthol 4 % topical gel (Biofreeze 1 applic topical Q6H PRN Pain 12/13/23 01/05/24 Unknown History (menthol)) nystatin 100,000 unit/gram topical 1 applic topical Q8H PRN Rash 12/13/23 01/05/24 Unknown History powder sodium phosphates 19 gram-7 118 ml OK DAILY PRN Constipation 12/13/23 01/05/24 Unknown History gram/118 mL enema (Fleet Enema) isosorbide mononitrate 30 mg 30 mg PO BID 30 days #60 tabs 12/16/23 01/05/24 Unknown Rx tablet,extended release 24 hr Allergies Allergy/AdvReac Type Severity Reaction Status Date / Time No Known Allergies Allergy Verified 11/24/23 09:09 PFSH Acute 2 PFSH: Medical History Thrombocytopenia Anxiety and depression Elevated liver enzymes Obstructive sleep apnea GERD (gastroesophageal reflux disease) Dementia Hyperlipidemia Hypertension Type 2 diabetes mellitus Past heart attack BPH (benign prostatic hyperplasia) Surgical History S/P ORIF (open reduction internal fixation) fracture (09/11/23) right tibia infrapatellar intramedullary nail History of coronary angioplasty H/O total knee replacement Previous back surgery (2020) for scoliosis Social History Smoking and tobacco/nicotine status: never used tobacco/nicotine Vitals/I&O/Wt Last Vital Signs Temp 101.2 F H 10/17/24 20:47 Pulse 93 01/05/24 21:30 Resp 22 H 01/05/24 21:30 BP 110/71 01/05/24 21:30 Pulse Ox 94 01/05/24 21:30 O2 Del Method Room Air 01/05/24 21:04 O2 Flow Rate 2 01/05/24 20:47 01/05/24 01/05/24 01/05/24 06:59 14:59 22:59 Intake Total 1000 / 1000 2052.0 / 3052.0 Balance 1000 / 1000 2052.0 / 3052.0 Weight last 48 hrs Weight 111.584 kg Physical Exam 2 Urinary Catheter Management: Lopez: Cath Placed During This Visit: yes Reason for Continuing Indwelling Catheter: Acute Urinary Retention or Obstruction Urinary Catheter Date of Insertion: 01/05/24 Urinary Catheter Time of Insertion: 15:48 Data 01/05/24 12:30 01/05/24 12:30 Micro: Microbiology 01/05/24 16:00 Blood Culture - Preliminary Blood SPECIMEN COLLECTED 01/05/24 15:57 Blood Culture - Preliminary Blood SPECIMEN COLLECTED Coding Level of Care Code Acute Code for Chg [place]
--- NOTE | 2024-01-05 23:32 | P.CONIM_ITS ---
Providers/Reason For Consult 2 Consulting Physician/Specialty*: Mayelin Yap MD/ Hospitalist Reason for Consult*: medical comorbidity management Requesting Physician: Keith Monroy MD/ ER Attending Physician: Derrick Morley DO Primary Care Provider: Adelfo Stuart DO History of Present Illness History of Present Illness Tom Espinosa is a 73 year old male with history of obesity, CAD, prior stenting in , LUZ, depression, DM2, HTN, HLD, recently admitted in Nov 2023 for chest pain, found to have abnormal stress test followed by an angiogram showing multivessel coronary artery disease Not amenable to intervention with recommendations to continue medical therapy Patient has longstanding thrombocytopenia for which she follows with oncology, cause is unclear but thought to be either autoimmune versus myelodysplastic syndrome. He presented to the emergency room today with 1 week of feeling unwell. He states he has had no appetite has been nauseous but without vomiting. He has had awake abdominal discomfort, today he is noted to be in pain when attempting to turn his sides. Denies any fever. Denies any change in bowel habits. On evaluation he was found to be in septic shock, likely related to acute cholecystitisAs seen on imaging and compatible with clinical symptoms of abdominal pain nausea vomiting. Patient is overall ill-appearing, has cool clammy extremities, currently on Levophed infusion, has received 3 L IV fluid resuscitation in the emergency room, significantly elevated lactate which continues to trend up and troponin leak. Review of Systems 2 General: Reports: 10 or more systems reviewed and unremarkable except in HPI and below Const: Denies: fever(s), chills or body aches Eyes: Denies: change in vision, blurry vision or photophobia ENMT: Reports: hoarseness; Denies: throat pain, enlarged tonsils, odynophagia or nasal congestion Card: Denies: chest pain, palpitations, irregular heart rhythm, edema, swelling of feet/ankles, lightheadedness, pre-syncope, dyspnea on exertion or orthopnea Resp: Denies: dyspnea, productive cough, non-productive cough, wheezing, stridor, pain on inspiration, change in phlegm color, hemoptysis or chest congestion GI: Denies: abdominal pain, nausea, vomiting, hematemesis, coffee ground emesis, dysphagia, heartburn, diarrhea, constipation, GI cramping, change in stool character, hematochezia or melena : Denies: flank pain, dysuria, urinary frequency, urinary urgency, urinary hesitancy or hematuria Musc: Denies: neck pain, back pain, extremity pain, joint swelling, joint warmth or deformity Neuro: Denies: headache(s), numbness in extremities, weakness in extremities, sensory changes, difficulty walking, frequent falls, dizziness, vertigo, behavioral changes, Slurred speech present or seizure-like activity Psych: Denies: anxiety, depression, suicidal ideation or homicidal ideation Endo: Denies: polyuria, polydipsia, tired all the time, cold intolerance or hot flashes Connor/Lymph: Denies: easy bruising or easy bleeding Medications/Allergies Home Medications Medication Instructions Recorded Confirmed Last Taken Type acetaminophen 325 mg capsule 650 mg PO QID PRN pain or fever 01/04/22 01/05/24 Unknown History albuterol sulfate 90 mcg/actuation 2 puff inhalation Q6H PRN 01/04/22 01/05/24 Unknown History aerosol inhaler wheezing/ shortness of breath aspirin 81 mg tablet,delayed 81 mg PO DAILY 01/04/22 01/05/24 09/09/23 History release (Adult Low Dose Aspirin) cam walking boot #1 ea 01/04/22 01/05/24 Unknown Rx donepezil 5 mg tablet 10 mg PO BEDTIME 01/04/22 01/05/24 09/09/23 History lace up ankle brace #1 ea 01/04/22 01/05/24 Unknown Rx mirabegron 50 mg tablet,extended 50 mg PO DAILY 01/04/22 01/05/24 09/09/23 History release 24 hr (Myrbetriq) omeprazole 20 mg tablet,delayed 20 mg PO DAILY 01/04/22 01/05/24 09/09/23 History release albuterol sulfate 0.63 mg/3 mL 0.63 mg inhalation Q6H PRN Cough 09/11/23 01/05/24 Unknown History solution for nebulization bisacodyl 10 mg rectal suppository 10 mg NV DAILY PRN Constipation 09/11/23 01/05/24 Unknown History cetirizine 5 mg tablet 5 mg PO DAILY PRN seasonal 09/11/23 01/05/24 Unknown History allergies citalopram 10 mg tablet 10 mg PO DAILY 0601/05/24 09/09/23 History finasteride 5 mg tablet 5 mg PO BEDTIME 09/11/23 01/05/24 09/09/23 History magnesium hydroxide 400 mg/5 mL 2,400 mg PO DAILY PRN Constipation 09/11/23 01/05/24 Unknown History oral suspension (Milk of Magnesia) meloxicam 7.5 mg tablet 7.5 mg PO DAILY 09/11/23 01/05/24 09/09/23 History polyethylene glycol 3350 17 gram 17 g PO DAILY PRN Constipation 09/11/23 01/05/24 Unknown History oral powder packet polyvinyl alcohol-povidone 0.5 1 drp ophthalmic (eye) TID PRN Dry 09/11/23 01/05/24 Unknown History %-0.6 % eye drops (Clear Eyes Eye(S) Natural Tears) calcium 600 mg (as 1 tab PO BID #30 tabs 09/12/23 01/05/24 Unknown Rx carbonate)-vitamin D3 10 mcg (400 unit) tablet tamsulosin 0.4 mg capsule 0.4 mg PO DAILY #30 caps 09/12/23 01/05/24 Unknown Rx cam boot #1 ea 10/04/23 01/05/24 Unknown Rx menthol 4 % topical gel (Biofreeze 1 applic topical Q6H PRN Pain 12/13/23 01/05/24 Unknown History (menthol)) nystatin 100,000 unit/gram topical 1 applic topical Q8H PRN Rash 12/13/23 01/05/24 Unknown History powder sodium phosphates 19 gram-7 118 ml NV DAILY PRN Constipation 12/13/23 01/05/24 Unknown History gram/118 mL enema (Fleet Enema) isosorbide mononitrate 30 mg 30 mg PO BID 30 days #60 tabs 12/16/23 01/05/24 Unknown Rx tablet,extended release 24 hr Allergies Allergy/AdvReac Type Severity Reaction Status Date / Time No Known Allergies Allergy Verified 11/24/23 09:09 Current Medications Generic Name Dose Route Start Last Admin Trade Name Freq PRN Reason Stop Dose Admin Norepinephrine Bitartrate 4 mg in 250 mls @ 0 mls/hr 01/05/24 20:30 01/05/24 20:52 Levophed IV 8 mcg/min .Q0M STONE 30 mls/hr Titration Protocol Per Protocol PFSH Acute 2 PFSH: Medical History (Updated 01/06/24 @ 00:06 by Corey Rivera MD) Ischemic heart disease Thrombocytopenia Anxiety and depression Elevated liver enzymes Obstructive sleep apnea GERD (gastroesophageal reflux disease) Dementia Hyperlipidemia Hypertension Type 2 diabetes mellitus Past heart attack BPH (benign prostatic hyperplasia) Surgical History S/P ORIF (open reduction internal fixation) fracture (09/11/23) right tibia infrapatellar intramedullary nail History of coronary angioplasty H/O total knee replacement Previous back surgery (2020) for scoliosis Social History Smoking and tobacco/nicotine status: never used tobacco/nicotine Vitals/I&O/Wt Last Vital Signs Temp 101.2 F H 01/05/24 20:47 Pulse 93 01/05/24 23:19 Resp 22 H 01/05/24 23:19 BP 109/62 01/05/24 23:19 Pulse Ox 95 01/05/24 23:19 O2 Del Method Nasal Cannula 01/05/24 23:19 O2 Flow Rate 2 01/05/24 23:19 01/05/24 01/05/24 01/06/24 14:59 22:59 06:59 Intake Total 1000 / 1000 2052.0 / 3052.0 Balance 1000 / 1000 2052.0 / 3052.0 Weight last 48 hrs Weight 111.584 kg Physical Exam 2 Narrative: General: Acutely ill-appearing male, cold clammy extremities HEENT: PERRLA, pupils bilaterally equal and reactive, pallors not present Chest: Normal vesicular breath sounds, no added sounds, equal good air entry bilaterally CVS: S1-S2 regular, no murmurs, no tachycardia, no gallops, no rubs Abdomen: Soft, obese, in discomfort on palpation though difficult to localize site of discomfort. Neuro: No focal deficits, no facial deformity, AO x3, power 5/5 in all limbs Urinary Catheter Management: Lopez: Cath Placed During This Visit: yes Reason for Continuing Indwelling Catheter: Acute Urinary Retention or Obstruction Urinary Catheter Date of Insertion: 01/05/24 Urinary Catheter Time of Insertion: 15:48 Data 01/05/24 23:55 01/06/24 01:33 Micro: Microbiology 01/05/24 16:00 Blood Culture - Preliminary Blood SPECIMEN COLLECTED 01/05/24 15:57 Blood Culture - Preliminary Blood SPECIMEN COLLECTED Other data: Radiology Impressions Chest X-Ray 01/05/24 11:58 Impression: Atherosclerosis. Chest/Abdomen/Pelvis CT 01/05/24 14:54 IMPRESSION: 1. Tracheobronchomalacia. 2. Opacities in the lung bases most likely represents subsegmental atelectasis. IMPRESSION: 1. Severe acute cholecystitis. Gangrenous cholecystitis is a possibility, although there is no gas in the wall to confirm the diagnosis. No sign of perforation or abscess. 2. Mild simple lower abdominal ascites with small volume perisplenic fluid. Density of the perisplenic fluid cannot be accurately assessed due to beam hardening artifact. Perisplenic hematoma cannot be unequivocally excluded. No visible splenic injury. Stable moderate splenic enlargement. 3. Incidental findings above. COMMENTS: Consistent with the [employer]'s Incidental Findings Committee white paper (J Am Devin Radiol 2018): Any incidental renal lesion less than 1 cm or classified as too small to characterize, or any incidental cystic renal lesion characterized as simple-appearing, is likely benign. No follow-up imaging is recommended for these lesions per consensus recommendations based on imaging criteria. ADDENDUM: 01/05/24 1925 THIS REPORT CONTAINS FINDINGS THAT MAY BE CRITICAL TO PATIENT CARE. The findings and recommendations were personally verbally communicated via telephone conference with KEITH MONROY at 4:33 PM CDT on 01/05/2024. The findings were acknowledged and understood. Gallbladder Ultrasound 01/05/24 16:42 IMPRESSION: 1. Severe acute cholecystitis. 2. 7 mm common bile duct is within the expected size range for age. 3. Pulsatile portal venous flow may be physiologic or due to heart disease or cirrhosis. Patent portal, splenic and superior mesenteric veins are visible by CT. 4. Heterogeneous liver parenchymal echotexture. Steatosis versus cirrhosis. No definite liver surface nodularity. Laboratory Results WBC 5.80 10^3/uL (3.29-11.43) 01/05/24 12:30 RBC 5.58 10^6/uL (3.85-5.65) 01/05/24 12:30 Hgb 16.10 g/dL (11.27-16.99) 01/05/24 12:30 Hct 52.8 % (37-53) 01/05/24 12:30 MCV 94.6 fl (82-101) 01/05/24 12:30 MCH 28.9 pg (27-33) 01/05/24 12:30 MCHC 30.5 g/dL (30-55) 01/05/24 12:30 RDW 14.9 % (12.1-15.1) 01/05/24 12:30 Plt Count 112 10^3/cmm (157-399) L 01/05/24 12:30 MPV 13.3 fL (7.4-10.4) H 01/05/24 12:30 Neut % (Auto) 80.2 % 01/05/24 12:30 Lymph % (Auto) 9.1 % 01/05/24 12:30 [place] % (Auto) 9.5 % 01/05/24 12:30 Eos % (Auto) 0.2 % 01/05/24 12:30 Baso % (Auto) 0.5 % 01/05/24 12:30 Neut # (Auto) 4.65 10^3/uL (1.8-7.7) 01/05/24 12:30 Lymph # (Auto) 0.5 10^3/uL (0.8-4.8) L 01/05/24 12:30 [place] # (Auto) 0.6 10^3/uL (0.2-0.9) 01/05/24 12:30 Eos # (Auto) 0.0 10^3/uL (0.0-0.8) 01/05/24 12:30 Baso # (Auto) 0.0 10^3/uL (0.0-0.1) 01/05/24 12:30 Nucleated RBC % (auto) 0 % 01/05/24 12:30 Nucleated RBCs # 0.0 /100WBC 01/05/24 12:30 Sodium 137 mmol/L (136-145) 01/05/24 12:30 Potassium 4.3 mmol/L (3.5-5.1) 01/05/24 12:30 Chloride 94 mmol/L (98-107) L 01/05/24 12:30 Carbon Dioxide 23 mmol/L (22-29) 01/05/24 12:30 Anion Gap 24.3 (5-19) H 01/05/24 12:30 BUN 14 mg/dL (8-23) 01/05/24 12:30 Creatinine 0.8 mg/dL (0.7-1.2) 01/05/24 12:30 GFR Calculation Not Reportable 01/05/24 12:30 Glucose 219 mg/dL (65-115) H 01/05/24 12:30 POC Glucose 186 mg/dL (70-110) H 01/05/24 14:53 Calculated Osmolality 291 mOsm/kg (285-295) 01/05/24 12:30 Lactic Acid 4.9 mmol/L (0.5-2.2) H* 01/05/24 16:03 Lactic Acid (Sepsis) 8.3 mmol/L (0.5-2.2) H* 01/05/24 20:27 Calcium 8.9 mg/dL (8.5-10.5) 01/05/24 12:30 Total Bilirubin 2.0 mg/dL (0.15-1.2) H 01/05/24 12:30 AST 29 U/L (0-40) 01/05/24 12:30 ALT 21 U/L (0-41) 01/05/24 12:30 Alkaline Phosphatase 162 U/L (40-130) H 01/05/24 12:30 Troponin T Baseline 31 ng/L (0-15) H 01/05/24 12:42 Troponin T 120 Minute 36.92 ng/L (0-15) H 01/05/24 14:43 Delta Troponin T 5.92 ABS# (0-10) 01/05/24 14:43 Troponin T Hi Sens 6Hr 64.28 ng/L (0-15) H 01/05/24 20:27 Troponin T Hi Sens 6Hr Delta 33.28 ng/L (0-12) H* 01/05/24 20:27 Total Protein 8.0 g/dL (6.6-8.7) 01/05/24 12:30 Albumin 3.8 g/dL (3.5-5.2) 01/05/24 12:30 Globulin 4.2 g/dL (1.3-4.6) 01/05/24 12:30 Lipase 13 U/L (13-60) 01/05/24 12:30 Urine Color Dark yellow (Yellow) A 01/05/24 15:49 Urine Appearance Clear (CLEAR) 01/05/24 15:49 Urine pH 5.5 (5-7) 01/05/24 15:49 Ur Specific [place] 1.043 (1.005-1.030) H 01/05/24 15:49 Urine Protein 2+ (Negative) A 01/05/24 15:49 Urine Glucose (UA) Negative (Normal) 01/05/24 15:49 Urine Ketones 2+ (Negative) H 01/05/24 15:49 Urine Blood 1+ (Negative) A 01/05/24 15:49 Urine Nitrate Negative (Negative) 01/05/24 15:49 Urine Bilirubin 1+ (Negative) H 01/05/24 15:49 Urine Urobilinogen 4.0 mg/dL (Negative) H 01/05/24 15:49 Ur Leukocyte Esterase Trace (Negative) A 01/05/24 15:49 Urine RBC 0-2 /hpf (0-2) 01/05/24 15:49 Urine WBC 0-5 /hpf (0-5) 01/05/24 15:49 Ur Squamous Epith Cells 0-5 /hpf (0-5) 01/05/24 15:49 Amorphous Sediment Not Reportable 01/05/24 15:49 Urine Bacteria None seen /hpf (NONE) 01/05/24 15:49 Hyaline Casts 8.26 /lpf 01/05/24 15:49 Coarse Granular Casts 0-4 /lpf H 01/05/24 15:49 SARS-CoV-2 Ag (Rapid) negative (Negative) 01/05/24 12:31 A&P Assessment and plan (1) Septic shock: Sepsis, as evidenced by fever 101.2 Fahrenheit, persistent hypotension elevated lactate, cold clammy extremities, evidence of acute cholecystitis on CT imaging. Calculated SOFA score: 4 Patient has thus far received 3 L of IV fluid in the emergency room, however continued to be hypotensive which necessitated starting Levophed infusion. Currently on 8 mics at the time of writing this note. Continue maintenance fluids normal saline at 75 cc an hour, would carefully need to monitor for signs of fluid overload while on IV fluids. Patient has cold clammy extremities, poor peripheral perfusion. Start empiric antibiotic coverage with meropenem and vancomycin for acute cholecystitis. He has thus far received piperacillin/tazobactam. Given evidence of septic shock, clinically ill-appearing, patient will likely require urgent surgical intervention. N.p.o. for anticipated procedure. Case was discussed with surgeon on-call Dr. Morley, likely OR in a.m. Continue Levophed to maintain MAP greater than 65 Trend lactate Blood cultures drawn prior to starting antibiotics in the emergency room. Lopez catheter placed to enable accurate in and out (2) Acute cholecystitis: Severe acute cholecystitis as noted on CT of the abdomen and pelvis and ultrasound of the gallbladder. Gangrenous cholecystitis is a possibility. 7 mm CBD duct within expected size range for age. (3) Elevated troponin: Elevated troponins were likely related to demand ischemia in the setting of sepsis. Troponin trend with a delta of 33 at 6 hours Patient had recent coronary intervention for an abnormal stress test. Was found to have multivessel coronary disease not amenable to intervention. Cardiology clearance requested prior to surgery hold off on heparin ngtt for now continue home dose of aspirin (4) Coronary artery disease: continue ASA 81mg daily, hold imdur Plan DVT prophylaxis: Hold off for now while awaiting surgical procedure. Full code Consult Attestations 2 Medical Necessity Statement: Per admitting, greater than 2 midnight admission is anticipated for septic shock, anticipated surgery. Critical Care Time: The high probability of a clinically significant, sudden or life threatening deterioration of the patient's [gi, id,cardiac,respiratory] system(s) required my full and direct attention, intervention and personal management. The critical care time is as shown. This time is in addition to time spent performing any reported procedures but includes the following: [x] Data and vital sign review and interpretation [x] Patient assessment, examination and intervention [x] Documentation [x] Medication orders and management Critical Care Time (min): 60 Coding Level of Care Code Acute Code for Chg Fwd Diagnoses Septic shock A41.9; R65.21 Acute cholecystitis K81.0 Elevated troponin R79.89 Coronary artery disease I25.10
--- NOTE | 2024-01-05 23:58 | P.CONIM_ITS ---
Providers/Reason For Consult 2 Consulting Physician/Specialty*: Dr. Dick Reason for Consult*: Preop clearance for emergent gallbladder surgery Requesting Physician: Dr. Alvarado Attending Physician: Derrick Morley DO Primary Care Provider: Adelfo Stuart DO History of Present Illness History of Present Illness Tom Espinosa is a 73 year old male past medical history significant for coronary artery disease not amenable to intervention as per last angiogram in which patient was noted to have chronically occluded LAD with right to left collaterals and distal circumflex lesion. Echocardiogram showed normal ejection fraction. Today patient presented with sepsis and gangrenous gallbladder requiring surgery. High-sensitivity troponin was mildly elevated at 60, twelve- lead EKG was suggestive of sinus tachycardia normal axis otherwise no significant ST's ST changes. Currently patient denies any chest pain. Medications/Allergies Home Medications Medication Instructions Recorded Confirmed Last Taken Type acetaminophen 325 mg capsule 650 mg PO QID PRN pain or fever 01/04/22 01/05/24 Unknown History albuterol sulfate 90 mcg/actuation 2 puff inhalation Q6H PRN 01/04/22 01/05/24 Unknown History aerosol inhaler wheezing/ shortness of breath aspirin 81 mg tablet,delayed 81 mg PO DAILY 01/04/22 01/05/24 09/09/23 History release (Adult Low Dose Aspirin) cam walking boot #1 ea 01/04/22 01/05/24 Unknown Rx donepezil 5 mg tablet 10 mg PO BEDTIME 01/04/22 01/05/24 09/09/23 History lace up ankle brace #1 ea 01/04/22 01/05/24 Unknown Rx mirabegron 50 mg tablet,extended 50 mg PO DAILY 01/04/22 01/05/24 09/09/23 History release 24 hr (Myrbetriq) omeprazole 20 mg tablet,delayed 20 mg PO DAILY 01/04/22 01/05/24 09/09/23 History release albuterol sulfate 0.63 mg/3 mL 0.63 mg inhalation Q6H PRN Cough 09/11/23 01/05/24 Unknown History solution for nebulization bisacodyl 10 mg rectal suppository 10 mg NV DAILY PRN Constipation 09/11/23 01/05/24 Unknown History cetirizine 5 mg tablet 5 mg PO DAILY PRN seasonal 09/11/23 01/05/24 Unknown History allergies citalopram 10 mg tablet 10 mg PO DAILY 09/11/23 01/05/24 09/09/23 History finasteride 5 mg tablet 5 mg PO BEDTIME 09/11/23 01/05/24 09/09/23 History magnesium hydroxide 400 mg/5 mL 2,400 mg PO DAILY PRN Constipation 09/11/23 01/05/24 Unknown History oral suspension (Milk of Magnesia) meloxicam 7.5 mg tablet 7.5 mg PO DAILY 09/11/23 01/05/24 09/09/23 History polyethylene glycol 3350 17 gram 17 g PO DAILY PRN Constipation 09/11/23 01/05/24 Unknown History oral powder packet polyvinyl alcohol-povidone 0.5 1 drp ophthalmic (eye) TID PRN Dry 09/11/23 01/05/24 Unknown History %-0.6 % eye drops (Clear Eyes Eye(S) Natural Tears) calcium 600 mg (as 1 tab PO BID #30 tabs 09/12/23 01/05/24 Unknown Rx carbonate)-vitamin D3 10 mcg (400 unit) tablet tamsulosin 0.4 mg capsule 0.4 mg PO DAILY #30 caps 09/12/23 01/05/24 Unknown Rx cam boot #1 ea 10/04/23 01/05/24 Unknown Rx menthol 4 % topical gel (Biofreeze 1 applic topical Q6H PRN Pain 12/13/23 01/05/24 Unknown History (menthol)) nystatin 100,000 unit/gram topical 1 applic topical Q8H PRN Rash 12/13/23 01/05/24 Unknown History powder sodium phosphates 19 gram-7 118 ml NV DAILY PRN Constipation 12/13/23 01/05/24 Unknown History gram/118 mL enema (Fleet Enema) isosorbide mononitrate 30 mg 30 mg PO BID 30 days #60 tabs 12/16/23 01/05/24 Unknown Rx tablet,extended release 24 hr Allergies Allergy/AdvReac Type Severity Reaction Status Date / Time No Known Allergies Allergy Verified 11/24/23 09:09 Current Medications Generic Name Dose Route Start Last Admin Trade Name Freq PRN Reason Stop Dose Admin Norepinephrine Bitartrate 4 mg in 250 mls @ 0 mls/hr 01/05/24 20:30 01/05/24 20:52 Levophed IV 8 mcg/min .Q0M STONE 30 mls/hr Titration Protocol Per Protocol PFSH Acute 2 PFSH: Medical History (Updated 01/06/24 @ 00:06 by Corey Rivera MD) Ischemic heart disease Thrombocytopenia Anxiety and depression Elevated liver enzymes Obstructive sleep apnea GERD (gastroesophageal reflux disease) Dementia Hyperlipidemia Hypertension Type 2 diabetes mellitus Past heart attack BPH (benign prostatic hyperplasia) Surgical History S/P ORIF (open reduction internal fixation) fracture (09/11/23) right tibia infrapatellar intramedullary nail History of coronary angioplasty H/O total knee replacement Previous back surgery (2020) for scoliosis Social History Smoking and tobacco/nicotine status: never used tobacco/nicotine Vitals/I&O/Wt Last Vital Signs Temp 101.2 F H 01/05/24 20:47 Pulse 93 01/05/24 23:19 Resp 22 H 01/05/24 23:19 BP 109/62 01/05/24 23:19 Pulse Ox 95 01/05/24 23:19 O2 Del Method Nasal Cannula 01/05/24 23:19 O2 Flow Rate 2 01/05/24 23:19 01/05/24 01/05/24 01/06/24 14:59 22:59 06:59 Intake Total 1000 / 1000 2052.0 / 3052.0 Balance 1000 / 1000 2052.0 / 3052.0 Weight last 48 hrs Weight 246 lb Physical Exam 2 Const: OTHER: GENERAL: Patient is alert, awake and oriented x3. Patient is moderately distress NECK: No jugular vein distension. HEENT: No cyanosis. No icterus. No pallor. HEART: Regular S1 and S2. No murmur, rub or gallop. LUNGS: Clear to auscultate bilaterally. ABDOMEN: Distended firm mildly tender no rebound shifting dullness positive CENTRAL NERVOUS SYSTEM: Grossly nonfocal. EXTREMITIES: Lower extremities with out edema bilaterally. Urinary Catheter Management: Lopez: Cath Placed During This Visit: yes Reason for Continuing Indwelling Catheter: Acute Urinary Retention or Obstruction Urinary Catheter Date of Insertion: 01/05/24 Urinary Catheter Time of Insertion: 15:48 Data 01/05/24 12:30 01/05/24 12:30 Micro: Microbiology 01/05/24 16:00 Blood Culture - Preliminary Blood SPECIMEN COLLECTED 01/05/24 15:57 Blood Culture - Preliminary Blood SPECIMEN COLLECTED A&P Assessment and plan (1) Elevated troponin: Secondary to demand ischemia and due to sepsis, no active acute coronary syndrome at the moment. May continue aspirin, no need of heparin at the point (2) Acute cholecystitis: Plan for surgery due to gangrenous gallbladder, (3) Sepsis: IV antibiotics and cholecystectomy as suggested by surgery Qualifiers: Sepsis acute organ dysfunction status: unspecified Sepsis type: sepsis due to unspecified organism Qualified Code(s): A41.9 - Sepsis, unspecified organism (4) Preoperative clearance: Patient is moderate risk for anesthesia and surgery however under the circumstances given sepsis gangrenous gallbladder and because of the fact patient's coronary artery disease appeared to be stable therefore patient can proceed with surgery under susceptible risk for anesthesia and surgery. During surgery in case of tachycardia and low blood pressure it can be managed with IV amiodarone in order to avoid hypotension by beta-fletcher or calcium channel fletcher. (5) Ischemic heart disease: Appear to be stable continue aspirin and perioperative. No need of heparin at the moment. Avoid beta-fletcher for risk of hypotension. Plan If required please do not hesitate to consult us. Will follow-up on the patient Coding Level of Care Code Acute Code for Chg Fwd Diagnoses Elevated troponin R79.89 Acute cholecystitis K81.0 Sepsis A41.9 Sepsis acute organ dysfunction status: unspecified Sepsis type: sepsis due to unspecified organism Preoperative clearance Z01.818 Ischemic heart disease I25.9
--- NOTE | 2024-01-05 23:58 | ANES.PROC ---
Anesthesia Procedures Procedure/Date: 01/05/24 Central Venous Insert: Time Out Performed: Yes Consent: requested by attending/covering physician, risks and benefits reviewed, patient agrees to proceed and emergency procedure Central Line: New Anesthesia monitors: pulse oximetry, EKG, BP cuff and oxygen Vein cannulated: other (L femoral vein) Ultrasound used: to identify patency to vessel and to visualize needle entry to vein Post procedure: Other Additional Comments: no chest xray required
[2024-01-06] VITALS (106 sets, daily range): BP systolic 78–161; BP diastolic 57–110; PULSE 76–108; RESP 15–41; TEMP 35.3–37.7; O2SAT 86–100
[2024-01-06 00:10] LABS: Hematocrit 49.4 % (37-53); Mean Corpuscular HGB Conc 31.4 g/dL (30-55); Mean Corpuscular Hemoglobin 29.4 pg (27-33); Mean Corpuscular Volume 93.6 fl (82-101); Platelet Count 140 10^3/cmm (157-399); Red Blood Count 5.28 10^6/uL (3.85-5.65); Red Cell Distribution Width 15.5 % (12.1-15.1); White Blood Count 18.29 10^3/uL (3.29-11.43)
[2024-01-06 00:22] LABS: Alanine Aminotransferase 19 U/L (0-41); Albumin Level 3.2 g/dL (3.5-5.2); Alkaline Phosphatase 119 U/L (40-130); Anion Gap 25.7 (5-19); Aspartate Amino Transferase 23 U/L (0-40); Blood Urea Nitrogen 22 mg/dL (8-23); Calcium 8.5 mg/dL (8.5-10.5); Carbon Dioxide 19 mmol/L (22-29); Chloride 97 mmol/L (98-107); Creatinine Clr Calc Pharmacy 49.9181; Globulin 3.4 g/dL (1.3-4.6); Glucose 180 mg/dL (65-115); Osmolality Calculated 294 mOsm/kg (285-295); Potassium 3.7 mmol/L (3.5-5.1); Sodium 138 mmol/L (136-145); Total Bilirubin 2.6 mg/dL (0.15-1.2); Total Protein 6.6 g/dL (6.6-8.7)
[2024-01-06 00:27] LABS: Estmated Average Glucose 160; Hemoglobin A1C 7.2 % (4.0-6.0)
[2024-01-06 00:30] LABS: Procalcitonin 84.07 ng/mL (0-0.5); Slide Review Slide Review Perform
[2024-01-06 00:31] LABS: Absolute Neutrophil 15.7 10^3/cmm (1.4-6.5); Absolute Segmented Neutrophil 11.3 10/cmm (1.6-7.1); Band Neutrophils Absolute 4.4 10^3/cmm (0.0-1.2); Eosinophils 0 %; Lymphocytes 4 %; Monocytes Absolute 1.5 10^3/cmm (0.1-0.6); Platelet Estimate Normal (Normal); Segmented Neutrophils 62 %; Total Cells Counted 100 (0-100)
[2024-01-06 00:37] LABS: INR 1.16 (0.8-1.2)
--- NOTE | 2024-01-06 01:17 | USCV_ITS ---
Tom Espinosa Age: 73 Gender: M : 1950 Exam Date: 01/06/2024 03:09 Ordering Phys: Mayelin Yap MD Technologist: UZAIR Exam Location: [facility] [place] Indication: pre-op clearance. NSTEMI vs demand ischemia. BP: 109 / 62 HR: 86 Rhythm: Sinus Technical Quality: Technically difficult c/o obesity, cant cooperate MEASUREMENTS (Male / Female) Normal Values 2D ECHO LV Diastolic Diameter PLAX 4.0 cm 4.2 - 5.9 / 3.9 - 5.3 cm IVS Diastolic Thickness 1.9 cm 0.6 - 1.0 / 0.6 - 0.9 cm IVS Systolic Thickness 1.8 cm LVPW Diastolic Thickness 1.6 cm 0.6 - 1.0 / 0.6 - 0.9 cm LVPW Systolic Thickness 1.7 cm LVOT Diameter 2.2 cm LV Ejection Fraction 2D Teich 48.4 % LV Ejection Fraction MOD 4C 57.1 % LV Ejection Fraction MOD 2C 50.8 % LV Ejection Fraction 2C AL 50.7 % LA Diameter 3.9 cm Aorta at Sinotubular Diameter 3.7 cm IVC Diameter 2.0 cm M-MODE LA Ao Ratio MM 0.7 AV Cusp Separation MM 1.5 cm DOPPLER AV Peak Velocity 99.0 cm/s LVOT Peak Velocity 81.0 cm/s AV Area Cont Eq vti 1.9 cm squared AV Area Cont Eq pk 3.0 cm squared MV Peak Velocity 58.0 cm/s MV Area PHT 9.9 cm squared Mitral E to A Ratio 0.9 TV Peak E Velocity 28.0 cm/s PV Peak Velocity 105.0 cm/s FINDINGS Left Ventricle Normal left ventricular cavity size. Mild left ventricular hypertrophy. Normal left ventricular systolic function. Left ventricular ejection fraction is estimated at 60 %. Diastolic function was not assessed due to technical error. Right Ventricle The right ventricle is normal in size and function. Right Atrium The right atrium is normal in size. Left Atrium The left atrium is normal in size. Mitral Valve Structurally normal mitral valve without significant stenosis or prolapse. There is trace mitral regurgitation. Aortic Valve Severe aortic valve calcification. Mild aortic valve stenosis, mean gradient 1.8 mmHg, NATALIE 1.9 cm squared. Trace aortic valve regurgitation. Tricuspid Valve Structurally normal tricuspid valve without significant stenosis and trace regurgitation. Pulmonary artery systolic pressure is normal. Pulmonic Valve Structurally normal pulmonic valve without significant stenosis. There is no pulmonic regurgitation. Pericardium Normal pericardium without effusion. Aorta Normal ascending aorta dimension. IVC The inferior vena cava appears normal. CONCLUSIONS Normal left ventricular cavity size. Mild left ventricular hypertrophy. Normal left ventricular systolic function. Left ventricular ejection fraction is estimated at 60 %. Diastolic function was not assessed due to technical error. Severe aortic valve calcification. Mild aortic valve stenosis, mean gradient 1.8 mmHg, NATALIE 1.9 cm squared. Trace aortic valve regurgitation. There is no pericardial effusion. Right atrial pressure is around 5 mm of mercury. Corey Rivera MD (Electronically Signed) Final Date: 06 January 2024 15:25 S
[2024-01-06 02:06] LABS: Alanine Aminotransferase 93 U/L (0-41); Albumin Level 3.8 g/dL (3.5-5.2); Alkaline Phosphatase 99 U/L (40-130); Anion Gap 20.7 (5-19); Aspartate Amino Transferase 368 U/L (0-40); Blood Urea Nitrogen 64 mg/dL (8-23); Carbon Dioxide 24 mmol/L (22-29); Chloride 95 mmol/L (98-107); Globulin 3.1 g/dL (1.3-4.6); Glucose 252 mg/dL (65-115); Osmolality Calculated 305 mOsm/kg (285-295); Potassium 5.7 mmol/L (3.5-5.1); Sodium 134 mmol/L (136-145); Total Bilirubin 0.6 mg/dL (0.15-1.2); Total Protein 6.9 g/dL (6.6-8.7)
--- NOTE | 2024-01-06 02:45 | PC.NURSE ---
Physician Communication Patient's temperature upon arrival to ICU was 95.5 per temporal artery scan. Additionally, patient diaphoretic, pale with cap refill >3 seconds. Yane hugger applied to patient and Dr. Yap notified of status. No additional orders received.
[2024-01-06] MEDS: pantoprazole 40 mg SDV IVP (02:52)
[2024-01-06] MEDS: vancomycin 2,000 MG/400 ML PIGGYBACK 200 MG IV (02:53)
[2024-01-06] MEDS: meropenem 1,000 mg SDV 1000 MG IVP ×3 (02:53→22:29)
[2024-01-06] MEDS: sodium chloride 0.9% 1,000 ML 75 ML IV (02:53)
--- NOTE | 2024-01-06 03:45 | PC.NURSE ---
Chest Pain Patient complaining of chest pain at a 6 on a 1-10 numerical pain scale. Denies radiating pain to jaw or shoulder, endorses nausea and shortness of breath. Spo2 maintaining about 85-86% on 3LNC. Patient remaining cool to touch and diaphoretic. EKG obtained, NC increased to 6L. Dr. Yap notified; orders placed by physician.
--- NOTE | 2024-01-06 03:58 | ECG_ITS ---
[employer] 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
[2024-01-06] MEDS: norepinephrine 4 MG/250 ML BAG 30 MG IV (04:45)
[2024-01-06 04:55] LABS: Basophils % 0.3 %; Hematocrit 46.1 % (37-53); Lymphocytes # 0.6 10^3/uL (0.8-4.8); Lymphocytes % 3.8 %; Mean Corpuscular Hemoglobin 29.6 pg (27-33); Mean Corpuscular Volume 95.4 fl (82-101); Mean Platelet Volume 12.7 fL (7.4-10.4); Monocytes # 0.7 10^3/uL (0.2-0.9); Monocytes % 4.6 %; Neutrophils # 12.82 10^3/uL (1.8-7.7); Neutrophils % 89.2 %; Nucleated Red Blood Cells % 0 %; Platelet Count 100 10^3/cmm (157-399); Red Blood Count 4.83 10^6/uL (3.85-5.65); Red Cell Distribution Width 15.3 % (12.1-15.1); White Blood Count 14.37 10^3/uL (3.29-11.43)
[2024-01-06 05:15] LABS: Troponin T (5th) Once 51 ng/L (0-15)
[2024-01-06 05:17] LABS: Alanine Aminotransferase 17 U/L (0-41); Albumin Level 2.8 g/dL (3.5-5.2); Alkaline Phosphatase 104 U/L (40-130); Anion Gap 26.7 (5-19); Aspartate Amino Transferase 23 U/L (0-40); Blood Urea Nitrogen 24 mg/dL (8-23); Calcium 8.1 mg/dL (8.5-10.5); Carbon Dioxide 18 mmol/L (22-29); Chloride 99 mmol/L (98-107); Creatinine Clr Calc Pharmacy 48.6267; Globulin 3.2 g/dL (1.3-4.6); Glucose 193 mg/dL (65-115); Osmolality Calculated 299 mOsm/kg (285-295); Potassium 3.7 mmol/L (3.5-5.1); Sodium 140 mmol/L (136-145)
[2024-01-06] MEDS: morphine 4 mg/mL SDV 1 mL 2 MG IVP (05:20)
[2024-01-06 05:22] LABS: Alanine Aminotransferase 18 U/L (0-41); Albumin Level 2.8 g/dL (3.5-5.2); Alkaline Phosphatase 123 U/L (40-130); Anion Gap 25.1 (5-19); Aspartate Amino Transferase 32 U/L (0-40); Blood Urea Nitrogen 25 mg/dL (8-23); Calcium 8.2 mg/dL (8.5-10.5); Carbon Dioxide 20 mmol/L (22-29); Chloride 99 mmol/L (98-107); Creatinine Clr Calc Pharmacy 48.6267; Globulin 3.5 g/dL (1.3-4.6); Glucose 202 mg/dL (65-115); Magnesium 1.6 mg/dL (1.7-2.3); Osmolality Calculated 300 mOsm/kg (285-295); Potassium 4.1 mmol/L (3.5-5.1); Procalcitonin 94.98 ng/mL (0-0.5); Sodium 140 mmol/L (136-145); Total Protein 6.3 g/dL (6.6-8.7)
[2024-01-06 05:33] LABS: Slide Review Slide Review Perform
[2024-01-06 05:49] LABS: Lactic Sepsis W/Reflex 9.2 mmol/L (0.5-2.2)
[2024-01-06 06:03] LABS: MRSA PCR OZH (swab) NOT DETECTED (Negative)
--- NOTE | 2024-01-06 06:17 | ANES.PREANE2 ---
Pre-Anesthetic Assessment Height/Weight: Height 6 ft Weight 261 lb 12.8 oz Temp Pulse Resp BP Pulse Ox O2 Del Method O2 Flow Rate 96.6 F L 93 30 H 109/62 94 Nasal Cannula 6 01/06/24 05:02 01/05/24 23:19 01/06/24 05:20 01/05/24 23:19 01/06/24 05:46 01/06/24 05:46 01/06/24 05:46 Operation Date: 01/06/24 07:00 Proposed Procedures p Laparoscopic Cholecystectomy(Not Applicable) - Derrick Morley, DO Was Beta Julio taken within 24 hours: N/A Was Clonidine taken within 24 hours: N/A Social No alcohol and No tobacco Exam alert, oriented x 3, clear to auscultation bilaterally and regular rate & rhythm Airway Submandibular: within normal limits Cervical ROM: within normal limits Mallampati: Class III Dentition: full and other (missing teeth, denies any loose) Anesthetic Plan ASA status: 4 Anesthesia: General Other: No prior issues with anesthesia NPO since yesterday Patient comes from a long-term care facility, presented yesterday septic with severe acute cholecystitis I personally placed a left femoral central line overnight due to being on Levophed with minimal IV access CT chest/abdomen/pelvis yesterday showing tracheobronchial [place] with opacities in the lung bases, most likely atelectasis History of LUZ Labs 01/06/2024 reviewed, leukocytosis noted. Platelets 100, chronic thrombocytopenia noted BS 202 this a.m., anion gap 25 JUSTIN with creatinine 1.8 Lactic acid 9.2 Currently on Levophed at 8 mcg/h CVC in place, no Nancy Initial troponin elevated, most likely secondary to sepsis Plan for GETA with arterial line Medications/Allergies Home Medications Medication Instructions Recorded Confirmed Last Taken Type acetaminophen 325 mg capsule 650 mg PO QID PRN pain or fever 01/04/22 01/05/24 Unknown History albuterol sulfate 90 mcg/actuation 2 puff inhalation Q6H PRN 01/04/22 01/05/24 Unknown History aerosol inhaler wheezing/ shortness of breath aspirin 81 mg tablet,delayed 81 mg PO DAILY 01/04/22 01/05/24 09/09/23 History release (Adult Low Dose Aspirin) cam walking boot #1 ea 01/04/22 01/05/24 Unknown Rx donepezil 5 mg tablet 10 mg PO BEDTIME 01/04/22 01/05/24 09/09/23 History lace up ankle brace #1 ea 01/04/22 01/05/24 Unknown Rx mirabegron 50 mg tablet,extended 50 mg PO DAILY 01/04/22 01/05/24 09/09/23 History release 24 hr (Myrbetriq) omeprazole 20 mg tablet,delayed 20 mg PO DAILY 01/04/22 01/05/24 09/09/23 History release albuterol sulfate 0.63 mg/3 mL 0.63 mg inhalation Q6H PRN Cough 09/11/23 01/05/24 Unknown History solution for nebulization bisacodyl 10 mg rectal suppository 10 mg NC DAILY PRN Constipation 09/11/23 01/05/24 Unknown History cetirizine 5 mg tablet 5 mg PO DAILY PRN seasonal 09/11/23 01/05/24 Unknown History allergies citalopram 10 mg tablet 10 mg PO DAILY 09/11/23 01/05/24 09/09/23 History finasteride 5 mg tablet 5 mg PO BEDTIME 09/11/23 01/05/24 09/09/23 History magnesium hydroxide 400 mg/5 mL 2,400 mg PO DAILY PRN Constipation 09/11/23 01/05/24 Unknown History oral suspension (Milk of Magnesia) meloxicam 7.5 mg tablet 7.5 mg PO DAILY 09/11/23 01/05/24 09/09/23 History polyethylene glycol 3350 17 gram 17 g PO DAILY PRN Constipation 09/11/23 01/05/24 Unknown History oral powder packet polyvinyl alcohol-povidone 0.5 1 drp ophthalmic (eye) TID PRN Dry 09/11/23 01/05/24 Unknown History %-0.6 % eye drops (Clear Eyes Eye(S) Natural Tears) calcium 600 mg (as 1 tab PO BID #30 tabs 09/12/23 01/05/24 Unknown Rx carbonate)-vitamin D3 10 mcg (400 unit) tablet tamsulosin 0.4 mg capsule 0.4 mg PO DAILY #30 caps 09/12/23 01/05/24 Unknown Rx cam boot #1 ea 10/04/23 01/05/24 Unknown Rx menthol 4 % topical gel (Biofreeze 1 applic topical Q6H PRN Pain 12/13/23 01/05/24 Unknown History (menthol)) nystatin 100,000 unit/gram topical 1 applic topical Q8H PRN Rash 12/13/23 01/05/24 Unknown History powder sodium phosphates 19 gram-7 118 ml NC DAILY PRN Constipation 12/13/23 01/05/24 Unknown History gram/118 mL enema (Fleet Enema) isosorbide mononitrate 30 mg 30 mg PO BID 30 days #60 tabs 12/16/23 01/05/24 Unknown Rx tablet,extended release 24 hr Allergies Allergy/AdvReac Type Severity Reaction Status Date / Time No Known Allergies Allergy Verified 11/24/23 09:09 Current Medications Generic Name Dose Route Start Last Admin Trade Name Freq PRN Reason Stop Dose Admin Norepinephrine Bitartrate 4 mg in 250 mls @ 0 mls/hr 01/05/24 20:30 01/06/24 04:45 Levophed IV 8 mcg/min .Q0M STONE 30 mls/hr Administration Protocol Per Protocol Sodium Chloride 1,000 mls @ 75 mls/hr 01/06/24 01:17 01/06/24 02:53 Sodium Chloride 0.9% IV 75 mls/hr .[id number] STONE Administration Meropenem 1,000 mg 01/06/24 01:17 01/06/24 02:53 Meropenem 1,000 Mg Sdv IVP 1,000 mg Q8H STONE Administration Protocol Morphine Sulfate 2 mg 01/06/24 01:17 01/06/24 05:20 Morphine 4 Mg/Ml Sdv 1 Ml IVP 2 mg Q4H PRN Administration SEVERE PAIN Pantoprazole Sodium 40 mg 01/06/24 01:17 01/06/24 02:52 Pantoprazole 40 Mg Sdv IVP 40 mg Q24H STONE Administration PFSH Anesthesia Medical History (Updated 01/06/24 @ 00:06 by Corey Rivera MD) Ischemic heart disease Thrombocytopenia Anxiety and depression Elevated liver enzymes Obstructive sleep apnea GERD (gastroesophageal reflux disease) Dementia Hyperlipidemia Hypertension Type 2 diabetes mellitus Past heart attack BPH (benign prostatic hyperplasia) Surgical History S/P ORIF (open reduction internal fixation) fracture (09/11/23) right tibia infrapatellar intramedullary nail History of coronary angioplasty H/O total knee replacement Previous back surgery (2020) for scoliosis Social History Smoking and tobacco/nicotine status: never used tobacco/nicotine Data Anesthesia 01/06/24 04:12 01/06/24 04:12 Short CBC 01/05/24 01/05/24 01/06/24 Range/Units 12:30 23:55 04:12 WBC 5.80 18.29 H 14.37 H (3.29-11.43) 10^3/uL Hgb 16.10 15.50 14.30 (11.27-16.99) g/dL Hct 52.8 49.4 46.1 (37-53) % MCV 94.6 93.6 95.4 (82-101) fl Plt Count 112 L 140 L 100 L (157-399) 10^3/cmm Neut % (Auto) 80.2 89.2 % Neut # (Auto) 4.65 12.82 H (1.8-7.7) 10^3/uL BMP 01/05/24 01/05/24 01/06/24 12:30 23:55 01:33 Sodium 137 138 134 L Potassium 4.3 3.7 5.7 H Chloride 94 L 97 L 95 L Carbon Dioxide 23 19 L 24 BUN 14 22 64 H Creatinine 0.8 1.7 H 3.4 H Glucose 219 H 180 H 252 H Calcium 8.9 8.5 9.0 01/06/24 01/06/24 01/06/24 04:12 04:12 04:12 Sodium 140 140 Potassium 3.7 4.1 Chloride 99 Carbon Dioxide BUN Creatinine Glucose Calcium 01/06/24 01/06/24 01/06/24 04:12 04:12 04:12 Sodium Potassium Chloride 99 Carbon Dioxide 18 L 20 L BUN 24 H 25 H Creatinine 1.8 H Glucose Calcium 01/06/24 01/06/24 01/06/24 04:12 04:12 04:12 Sodium Potassium Chloride Carbon Dioxide BUN Creatinine 1.8 H Glucose 193 H 202 H Calcium 8.1 L 8.2 L Cardiac Enzymes 01/05/24 01/05/24 01/05/24 Range/Units 12:42 14:43 20:27 Troponin T 5th Gen ng/L (0-15) ng/L Troponin T Baseline 31 H (0-15) ng/L Troponin T 120 Minute 36.92 H (0-15) ng/L Delta Troponin T 5.92 (0-10) ABS# Troponin T Hi Sens 6Hr 64.28 H (0-15) ng/L Troponin T Hi Sens 6Hr Delta 33.28 H* (0-12) ng/L 01/06/24 Range/Units 04:12 Troponin T 5th Gen ng/L 51 H (0-15) ng/L Troponin T Baseline (0-15) ng/L Troponin T 120 Minute (0-15) ng/L Delta Troponin T (0-10) ABS# Troponin T Hi Sens 6Hr (0-15) ng/L Troponin T Hi Sens 6Hr Delta (0-12) ng/L Liver Function 01/05/24 01/05/24 01/06/24 Range/Units 12:30 23:55 01:33 Total Bilirubin 2.0 H 2.6 H 0.6 (0.15-1.2) mg/dL AST 29 23 368 H (0-40) U/L ALT 21 19 93 H (0-41) U/L Alkaline Phosphatase 162 H 119 99 (40-130) U/L Albumin 3.8 3.2 L 3.8 (3.5-5.2) g/dL 01/06/24 01/06/24 01/06/24 Range/Units 04:12 04:12 04:12 Total Bilirubin 2.0 H 2.0 H (0.15-1.2) mg/dL AST 23 32 (0-40) U/L ALT 17 (0-41) U/L Alkaline Phosphatase (40-130) U/L Albumin (3.5-5.2) g/dL 01/06/24 01/06/24 01/06/24 Range/Units 04:12 04:12 04:12 Total Bilirubin (0.15-1.2) mg/dL AST (0-40) U/L ALT 18 (0-41) U/L Alkaline Phosphatase 104 123 (40-130) U/L Albumin 2.8 L 2.8 L (3.5-5.2) g/dL Urine 01/05/24 Range/Units 15:49 Urine Color Dark yellow A (Yellow) Urine Appearance Clear (CLEAR) Urine pH 5.5 (5-7) Ur Specific [place] 1.043 H (1.005-1.030) Urine Protein 2+ A (Negative) Urine Glucose (UA) Negative (Normal) Urine Ketones 2+ H (Negative) Urine Nitrate Negative (Negative) Urine Bilirubin 1+ H (Negative) Ur Leukocyte Esterase Trace A (Negative) Urine RBC 0-2 (0-2) /hpf Urine WBC 0-5 (0-5) /hpf COVID Results 01/05/24 12:31 SARS-CoV-2 Ag (Rapid) negative Coags 01/05/24 23:55 PT 15.20 H INR 1.16 Microbiology 01/05/24 16:00 Blood Culture - Preliminary Blood SPECIMEN COLLECTED 01/05/24 15:57 Blood Culture - Preliminary Blood SPECIMEN COLLECTED Cardiac Studies: Echocardiogram 12/13/23 Sestamibi Stress Test (Cardiology) 12/12/23
--- NOTE | 2024-01-06 06:23 | PHA.VACGOAL ---
Vancomycin Goal - Goal Vancomycin Goal:: 15-20 mg/L Vancomycin Indication:: Other - Therapy Current therapy:: Pip/Tazo Day of therpy:: Day []of [] . Actual body weight (kg): 261 lb 12.8 oz - Data Labs: WBC 14.37 10^3/uL (3.29-11.43) H 01/06/24 04:12 RBC 4.83 10^6/uL (3.85-5.65) 01/06/24 04:12 Hgb 14.30 g/dL (11.27-16.99) 01/06/24 04:12 Hct 46.1 % (37-53) 01/06/24 04:12 MCV 95.4 fl (82-101) 01/06/24 04:12 MCH 29.6 pg (27-33) 01/06/24 04:12 MCHC 31.0 g/dL (30-55) 01/06/24 04:12 RDW 15.3 % (12.1-15.1) H 01/06/24 04:12 Sodium 140 mmol/L (136-145) 01/06/24 04:12 Sodium 140 mmol/L (136-145) 01/06/24 04:12 Potassium 3.7 mmol/L (3.5-5.1) 01/06/24 04:12 Potassium 4.1 mmol/L (3.5-5.1) 01/06/24 04:12 Chloride 99 mmol/L (98-107) 01/06/24 04:12 Chloride 99 mmol/L (98-107) 01/06/24 04:12 Carbon Dioxide 18 mmol/L (22-29) L 01/06/24 04:12 Carbon Dioxide 20 mmol/L (22-29) L 01/06/24 04:12 Anion Gap 25.1 (5-19) H 01/06/24 04:12 Anion Gap 26.7 (5-19) H 01/06/24 04:12 BUN 24 mg/dL (8-23) H 01/06/24 04:12 BUN 25 mg/dL (8-23) H 01/06/24 04:12 Creatinine 1.8 mg/dL (0.7-1.2) H 01/06/24 04:12 Creatinine 1.8 mg/dL (0.7-1.2) H 01/06/24 04:12 GFR Calculation Not Reportable 01/06/24 04:12 GFR Calculation Not Reportable 01/06/24 04:12 Treatment plan:: new consult Regimen:: 1000 MG Q12H
[2024-01-06 06:35] LABS: Reflex Lactate Order REFLEX LACTIC ORDERD
[2024-01-06] MEDS: dextrose 10% 125 ML 750 ML IV (06:53)
[2024-01-06] MEDS: insulin regular-human 10 UNIT in SYRINGE 1 EACH IVP (06:56)
--- NOTE | 2024-01-06 06:59 | P.HP_ITS ---
Providers/Chief Complaint 2 Admitting Physician: Derrick Morley DO Primary Care Provider: Adelfo Stuart DO Chief Complaint: abd pain History of Present Illness Tom Espinosa is a 73 year old male who presents to the hospital from a nursing care facility with a 1 week history of not feeling well. He reports that he has periumbilical abdominal pain at this time and had some nausea and 1 episode of emesis. He is somewhat confused while in the hospital. HPI and review of systems are limited secondary to this. He had a recent history of chest pain for which she was hospitalized. He underwent angiogram and did not receive any stenting. A CT of the abdomen pelvis shows acute calculous cholecystitis. Review of Systems 2 General: Reports: 10 or more systems reviewed and unremarkable except in HPI and below Medications/Allergies Home Medications Medication Instructions Recorded Confirmed Last Taken Type acetaminophen 325 mg capsule 650 mg PO QID PRN pain or fever 01/04/22 01/05/24 Unknown History albuterol sulfate 90 mcg/actuation 2 puff inhalation Q6H PRN 01/04/22 01/05/24 Unknown History aerosol inhaler wheezing/ shortness of breath aspirin 81 mg tablet,delayed 81 mg PO DAILY 01/04/22 01/05/24 09/09/23 History release (Adult Low Dose Aspirin) cam walking boot #1 ea 01/04/22 01/05/24 Unknown Rx donepezil 5 mg tablet 10 mg PO BEDTIME 01/04/22 01/05/24 09/09/23 History lace up ankle brace #1 ea 01/04/22 01/05/24 Unknown Rx mirabegron 50 mg tablet,extended 50 mg PO DAILY 01/04/22 01/05/24 09/09/23 History release 24 hr (Myrbetriq) omeprazole 20 mg tablet,delayed 20 mg PO DAILY 01/04/22 01/05/24 09/09/23 History release albuterol sulfate 0.63 mg/3 mL 0.63 mg inhalation Q6H PRN Cough 09/11/23 01/05/24 Unknown History solution for nebulization bisacodyl 10 mg rectal suppository 10 mg FL DAILY PRN Constipation 09/11/23 01/05/24 Unknown History cetirizine 5 mg tablet 5 mg PO DAILY PRN seasonal 09/11/23 01/05/24 Unknown History allergies citalopram 10 mg tablet 10 mg PO DAILY 09/11/23 01/05/24 09/09/23 History finasteride 5 mg tablet 5 mg PO BEDTIME 09/11/23 01/05/24 09/09/23 History magnesium hydroxide 400 mg/5 mL 2,400 mg PO DAILY PRN Constipation 09/11/23 01/05/24 Unknown History oral suspension (Milk of Magnesia) meloxicam 7.5 mg tablet 7.5 mg PO DAILY 09/11/23 01/05/24 09/09/23 History polyethylene glycol 3350 17 gram 17 g PO DAILY PRN Constipation 09/11/23 01/05/24 Unknown History oral powder packet polyvinyl alcohol-povidone 0.5 1 drp ophthalmic (eye) TID PRN Dry 09/11/23 01/05/24 Unknown History %-0.6 % eye drops (Clear Eyes Eye(S) Natural Tears) calcium 600 mg (as 1 tab PO BID #30 tabs 09/12/23 01/05/24 Unknown Rx carbonate)-vitamin D3 10 mcg (400 unit) tablet tamsulosin 0.4 mg capsule 0.4 mg PO DAILY #30 caps 09/12/23 01/05/24 Unknown Rx cam boot #1 ea 10/04/23 01/05/24 Unknown Rx menthol 4 % topical gel (Biofreeze 1 applic topical Q6H PRN Pain 12/13/23 01/05/24 Unknown History (menthol)) nystatin 100,000 unit/gram topical 1 applic topical Q8H PRN Rash 12/13/23 01/05/24 Unknown History powder sodium phosphates 19 gram-7 118 ml [place] DAILY PRN Constipation 12/13/23 01/05/24 Unknown History gram/118 mL enema (Fleet Enema) isosorbide mononitrate 30 mg 30 mg PO BID 30 days #60 tabs 12/16/23 01/05/24 Unknown Rx tablet,extended release 24 hr Allergies Allergy/AdvReac Type Severity Reaction Status Date / Time No Known Allergies Allergy Verified 11/24/23 09:09 PFSH Acute 2 PFSH: Medical History Ischemic heart disease Thrombocytopenia Anxiety and depression Elevated liver enzymes Obstructive sleep apnea GERD (gastroesophageal reflux disease) Dementia Hyperlipidemia Hypertension Type 2 diabetes mellitus Past heart attack BPH (benign prostatic hyperplasia) Surgical History S/P ORIF (open reduction internal fixation) fracture (09/11/23) right tibia infrapatellar intramedullary nail History of coronary angioplasty H/O total knee replacement Previous back surgery (2020) for scoliosis Social History Smoking and tobacco/nicotine status: never used tobacco/nicotine Vitals/I&O/Wt Last Vital Signs Temp 96.6 F L 01/06/24 05:02 Pulse 76 01/06/24 06:22 Resp 17 01/06/24 06:22 BP 109/62 01/05/24 23:19 Pulse Ox 94 01/06/24 06:22 O2 Del Method Nasal Cannula 01/06/24 06:22 O2 Flow Rate 6 01/06/24 06:22 01/05/24 01/05/24 01/06/24 14:59 22:59 06:59 Intake Total 1000 / 1000 2052.0 / 3052.0 248.5 / 3300.5 Output Total 250 / 250 Balance 1000 / 1000 2052.0 / 3052.0 -1.5 / 3050.5 Weight last 48 hrs Weight 261 lb 12.8 oz Weight 246 lb Physical Exam 2 Narrative: General : Patient is well developed , no acute distress, oriented to person and time but not to place Head : Normal cephalic, a-traumatic. Ears : Pinnae and external canal are normal. Hearing is normal. Eyes : PERRLA, Sclera and injection are normal. No conjunctival discharge. Nose : Mucous membranes are without erythema. Throat : buccal mucosa is normal, gums are without significant recession or hypertrophy. Lungs : Equal chest rise bilaterally, no use of accessory muscles, trachea is midline. Cor : Rate and rhythm are normal. Abdomen : Soft, ND, NT, no g/r/m Extremities : No edema, no cyanosis or clubbing, dorsalis pedis pulses are present bilaterally, non-tender to palpation of calves. Upper extremities are normal bilaterally. Back : non-tender to palpation, no CVA tenderness. Neuro : CN II - XII intact, Upper and lower extremities have equal and full strength Urinary Catheter Management: Lopez: Cath Placed During This Visit: yes Reason for Continuing Indwelling Catheter: Accurate Measurement of Urinary Output in Critically Ill Patients Urinary Catheter Date of Insertion: 01/05/24 Urinary Catheter Time of Insertion: 15:48 Data 01/06/24 04:12 01/06/24 04:12 Micro: Microbiology 01/05/24 16:00 Blood Culture - Preliminary Blood SPECIMEN COLLECTED 01/05/24 15:57 Blood Culture - Preliminary Blood SPECIMEN COLLECTED A&P Assessment and plan (1) Acute calculous cholecystitis: (2) Septic shock: (3) Ischemic heart disease: (4) Coronary artery disease: Plan Laparoscopic cholecystectomy The risks and benefits of the procedure, including but not limited to, bleeding, infection, scar, numbness, pain, damage to surrounding structures, damage to common bile duct requiring additional surgery, conversion to an open procedure, were explained to the patient. He is understanding of the risks and wishes to proceed. Attestations 2 Medical Necessity Statement*: Patient will require likely multiple nights in the hospital after treatment of septic shock and acute calculus cholecystitis with laparoscopic cholecystectomy Coding Level of Care Code 69305 Diagnoses Acute calculous cholecystitis K80.00 Septic shock A41.9; R65.21 Ischemic heart disease I25.9 Coronary artery disease I25.10
[2024-01-06 07:02] LABS: Glucose Point of Care 178 mg/dL (70-110)
[2024-01-06] MEDS: lidocaine-epi 2% PF 1:200,000 20 mL SDV XX (07:49)
[2024-01-06] MEDS: tranexamic acid 1,000 mg/10mL SDV 1000 MG IV ×2 (08:05→09:32)
[2024-01-06 08:52] LABS: ABG PCO2 45.4 mmHg (35-45); Arterial Blood Gas Hematocrit 40.9 % (42-52); Base Excess ABG -13.4 mmol/L (-2.0-2.0); Blood Gas Operator Identificat CAK; Blood Gas Sample Site ALINE; Blood Gas Sample Type Arterial; HCO3 ABG 15.3 mmol/L (22-26); HGB O2 Sat 97.3 % (95-100); Ionized Calcium Level - ABG 1.3 mmol/L (1.1-1.4); Methemoglobin 1.2 % (0.4-1.5); Oxygen Device VENT; Oxygen Saturation ABG > 99.1; Potassium Level - ABG 3.5 mmol/L (3.5-5.0); Total Hemoglobin 13.4 g/dL (14-18)
[2024-01-06 08:53] LABS: ABG PH Result 7.14 (7.35-7.45)
--- NOTE | 2024-01-06 09:18 | P.OP_ITS ---
Operative Report Date of procedure: January 06, 2024 Surgeon: Derrick Morley DO Brief History: This is a pleasant 73-year-old gentleman who presented to the hospital from a nursing care facility due to illness and some abdominal pain and emesis. Imaging of the abdomen showed acute calculus cholecystitis. He was then septic shock. Laparoscopic cholecystectomy was indicated. The risks and benefits were explained to the patient and the patient's and documented. Procedure: Preoperative diagnosis: Acute calculus cholecystitis Postoperative diagnosis: Same Procedure performed: Laparoscopic cholecystectomy Surgeon: Dr. Derrick Morley DO Estimated blood loss: 20 mL Specimens: Gallbladder to pathology Complications: None apparent Description of procedure: Patient was wheeled into the operative room and placed on the OR table in a supine position. Abdomen was inspected prepped and draped in usual sterile fashion. Time-out was performed and all present were in agreement. A 15 blade scalp was used to make a stab incision in the left upper quadrant and intra- abdominal insufflation was achieved using a Veress needle. After localizing the tissue incisions were made and a 5 millimeter trocar was placed into the umbilicus as well as 2 in the right upper quadrant. A 12 millimeter trocar was placed in the epigastrium. The omentum was densely covering the liver and the gallbladder. The omentum was taken down bluntly. There was some bleeding from the omentum during this process. The gallbladder was identified and was quite inflamed. Gallbladder was grasped and elevated. During traction the gallbladder tore somewhat and leticia purulence was found inside the gallbladder and suctioned. With meticulous care the triangle of Calot was carefully dissected using blunt dissection and electrocautery until the triangle of Calot clearly identified. The cystic duct was clipped proximally and double clipped distally. The duct was then ligated proximally. The cystic artery was doubly clipped and ligated. There was an accessory artery that was doubly clipped and ligated also. The gallbladder was then removed from the liver bed using electrocautery. The gallbladder was removed from the abdomen using an Endo- Catch bag through the epigastric incision. The liver bed was inspected bleeding was controlled with electrocautery and a piece of Surgicel. The Surgicel was removed before the end of the case. Hemostasis was noted. The abdomen was irrigated and suctioned. A 19 Maced[place] Juice drain was placed along the right side of the liver and terminating in Morison's pouch. Drain was sewn in place with 2-0 silk. All ports removed. Skin was washed and dried. Incisions were closed with 4-0 Monocryl in a subcuticular interrupted fashion. Skin glue was applied. Patient was on maximum pressure support at the end of the case. This was a very difficult operation due to the amount of an admission and adhesions. He was wheeled from the operative room to the ICU.
--- NOTE | 2024-01-06 09:53 | ANE.PACU2 ---
Inpatient post-anesthesia follow up: Airway intact: Yes (ETT in place) Vital signs: Temperature 97 F Pulse Rate 97 Respiratory Rate 17 Blood Pressure 111/57 Pulse Oximetry 99 Oxygen Delivery Me thod Nasal Cannula Oxygen Flow Rate 6 Fraction of Inspir ed Oxygen 100 Hydration adequate: Yes Nausea and vomiting: No Pain level: 1 Mental status: Baseline Additional Comments: Patient remains on pressors and is dated going to the ICU. Remains intubated
[2024-01-06] MEDS: lactated ringers 1,000 ML 100 ML IV (10:02)
[2024-01-06] MEDS: norepinephrine 4 MG/250 ML BAG 75 MG IV (10:02)
[2024-01-06] MEDS: vasopressin 40 UNIT/100 ML PREMIX 4.5 UNIT IV (10:04)
[2024-01-06 10:19] LABS: ABG PCO2 40.1 mmHg (35-45); ABG PH Result 7.24 (7.35-7.45); Arterial Blood Gas Hematocrit 36.5 % (42-52); Base Excess ABG -9.9 mmol/L (-2.0-2.0); Blood Gas Operator Identificat CAK; Blood Gas Sample Site ALINE; Blood Gas Sample Type Arterial; HGB O2 Sat 97.7 % (95-100); Ionized Calcium Level - ABG 1.1 mmol/L (1.1-1.4); Oxygen Device VENT; Oxygen Saturation ABG > 99.1; PO2 FiO2 Ratio Arterial Blood 199; Potassium Level - ABG 3.1 mmol/L (3.5-5.0); Total Hemoglobin 11.9 g/dL (14-18)
[2024-01-06] MEDS: midazolam 1 mg/mL INJ 2 mL 2 MG IVP ×5 (10:43→23:16)
[2024-01-06] MEDS: sodium bicarbonate 150 MEQ in dextrose 5% 1,000 ML 100 MEQ IV (10:43)
[2024-01-06] MEDS: fentaNYL 1,000 MCG/100 ML BAG 5 MCG IV (10:43)
[2024-01-06 10:51] LABS: Basophils # 0.1 10^3/uL (0.0-0.1); Basophils % 0.7 %; Eosinophils % 0.2 %; Hematocrit 39.2 % (37-53); Lymphocytes # 0.7 10^3/uL (0.8-4.8); Lymphocytes % 3.4 %; Mean Corpuscular HGB Conc 30.9 g/dL (30-55); Mean Corpuscular Hemoglobin 29.1 pg (27-33); Mean Corpuscular Volume 94.2 fl (82-101); Mean Platelet Volume 12.9 fL (7.4-10.4); Monocytes % 5.1 %; Neutrophils % 88.2 %; Nucleated Red Blood Cells % 0 %; Platelet Count 105 10^3/cmm (157-399); Red Blood Count 4.16 10^6/uL (3.85-5.65); Red Cell Distribution Width 15.8 % (12.1-15.1); White Blood Count 19.28 10^3/uL (3.29-11.43)
[2024-01-06 11:11] LABS: Carbon Dioxide 17 mmol/L (22-29); Chloride 103 mmol/L (98-107); Potassium 3.5 mmol/L (3.5-5.1); Sodium 141 mmol/L (136-145)
[2024-01-06 11:12] LABS: Alanine Aminotransferase 19 U/L (0-41); Albumin Level 2.9 g/dL (3.5-5.2); Alkaline Phosphatase 94 U/L (40-130); Anion Gap 24.5 (5-19); Aspartate Amino Transferase 46 U/L (0-40); Blood Urea Nitrogen 27 mg/dL (8-23); Calcium 8.1 mg/dL (8.5-10.5); Globulin 2.8 g/dL (1.3-4.6); Glucose 261 mg/dL (65-115); Magnesium 1.5 mg/dL (1.7-2.3); Osmolality Calculated 306 mOsm/kg (285-295); Total Bilirubin 1.5 mg/dL (0.15-1.2); Total Protein 5.7 g/dL (6.6-8.7)
[2024-01-06 11:13] LABS: Lactate (Lactic Acid level) 8.3 mmol/L (0.5-2.2)
--- NOTE | 2024-01-06 11:24 | PC.SOCIAL ---
IMM Update Pg. 2 of IMM updated and copy left at bedside.
--- NOTE | 2024-01-06 11:30 | XR_ITS ---
WS: [id number] Portable AP supine chest, 01/06/2024 Clinical Data: post intubation Comparison: Portable chest, 01/05/2024 Findings: The endotracheal tube is above the ravi. The patchy opacities overlying the diaphragms re main the same. No nodules, masses or effusions are seen. The heart is normal. The pulmonary vasculari ty is not increased. No pneumonia or pneumothorax is seen. The aortic arch and descending thoracic ao rta show tortuosity. There are monitor leads on the chest wall. There is a thoracolumbar fusion. XR/XR chest 1V portable [id number] Impression: 1. Satisfactory placement of endotracheal tube. 2. Development of minimal patchy opacities overlying the surface of the left di aphragm. 3. Atherosclerosis.
--- NOTE | 2024-01-06 11:52 | PC.NURSE ---
Received patient from OR staff at 0952. Patient is unresponsive, occasionally will grimace. Intubated. on levophed at 20 mcg/min (updated may), vasopressin at 0.04 units/min, and epinephrine at 0.01 mcg/kg/min. BP: 97/51 (70) via arterial line, HR: 102, SPO2: 97%. Temp: 99.8. RR: 16. CBC, CMP, MAG, Lactic, and ABG labs obtained. Started on bicarb drip and LR, will titrate pressors for effect/per protocol. LAURYN drain in place, emptied 275mL of serousanguineous drainage upon arrival (mostly sanguineous).
--- NOTE | 2024-01-06 12:52 | P.PN_ITS ---
Subjective 2 Subjective: Patient was seen after return from OR this morning. Patient underwent surgery this morning with cholecystectomy laparoscopic approach. He has a drain in place. Currently sedated intubated On 3 vasopressors epinephrine, vasopressin, Levophed maxed out at 20. Right wrist art line present blood pressure being continuously monitored 130s range. I have asked nurse to attempt to wean down pressors ? Urine output minimal 50 cc since this morning. Patient received 2 A of bicarb during surgery as ABG was obtained and pH was 7.14. Operative note reviewed. Discussed with general surgeon this morning as well. Lab reported blood culture positive 1 out of 4 for possibly Staph aureus, final speciation and sensitivities will be available by tomorrow Salas and meropenem is on board Patient currently on fentanyl. Versed 4 mg given prior to arrival to ICU. Patient's will be coming in today. Vitals/I&O/Wt Last Vital Signs Temp 99.8 F H 01/06/24 10:00 Pulse 94 01/06/24 12:00 Resp 16 01/06/24 12:00 BP 127/85 01/06/24 12:00 Pulse Ox 94 01/06/24 12:00 O2 Del Method Mechanical Ventilation 01/06/24 12:00 O2 Flow Rate 6 01/06/24 06:45 FiO2 70 01/06/24 12:00 01/05/24 01/06/24 01/06/24 22:59 06:59 14:59 Intake Total 2052.0 / 3052.0 248.5 / 3300.5 1530.017 / 1530.017 Output Total 250 / 250 400 / 400 Balance 2052.0 / 3052.0 -1.5 / 3050.5 1130.017 / 1130.017 Weight last 48 hrs Weight 118.75 kg Weight 111.584 kg Physical Exam 2 Narrative: Intubated sedated laying in bed On 3 vasopressors at this time. Lopez catheter in place draining clear yellow urine, total 50 cc in bag at this time. Juice drain present draining blood, 10 cc Lungs clear to auscultation bilaterally no wheezes no rhonchi appreciated Abdomen soft, bowel sounds absent at this time No edema bilateral lower extremities. Visible skin intact. Nursing will be conducting a full skin assessment to look for sore Urinary Catheter Management: Lopez: Cath Placed During This Visit: yes Reason for Continuing Indwelling Catheter: Accurate Measurement of Urinary Output in Critically Ill Patients Urinary Catheter Date of Insertion: 01/05/24 Urinary Catheter Time of Insertion: 15:48 Data 01/06/24 10:41 01/06/24 10:41 Micro: Microbiology 01/05/24 15:57 Blood Culture - Preliminary Blood Staphylococcus sp coag neg 01/05/24 15:49 Bacterial Antigens - Final Urine Kidney 01/05/24 16:00 Blood Culture - Preliminary Blood SPECIMEN COLLECTED A&P Assessment and plan (1) Coronary artery disease: (2) Elevated troponin: (3) Ischemic heart disease: (4) Acute cholecystitis: (5) Acute calculous cholecystitis: (6) Septic shock: (7) Ventilator dependence: (8) Bacteremia: (9) Lactic acid acidosis: (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 Patient requiring 3 vasopressors at this time lactic acid 8.3. Wean down on pressors as able ? Continue to monitor blood pressure with arterial line ? Placed on bicarb drip. Patient is status post 2 A of bicarb ? Continue vancomycin, meropenem ? Check repeat blood cultures today ? 1 out of 4 bottles positive for Staph aureus as per lab. Final sensitivities, speciation is pending ? Check BNP ? Appreciate cardiology consult. ? Continue ventilatory support at this time. Continue patient on fentanyl for pain, Versed 2 mg every 2-4 hour for sedation. Hold off on propofol secondary to low blood pressures ? Echocardiogram pending at this time ? Check CBC every 12 hours, CMP, lactic acid every 8 hours ? Repeat blood gas reviewed once patient arrived to ICU. Have discussed with nursing staff to wean down FiO2. ? Hemoglobin A1c 7.2 ? Magnesium 1.5, phosphorus 5.0. ? Creatinine 1.7 on admission and currently worsening. Urine output 50 cc so far. Patient most likely has developed ATN or is progressing towards that. Will continue to monitor kidney function ? Continue on bicarbonate drip at 100 cc/h, LR at 75 cc/h. Continue to monitor urine output with Lopez catheter ? Hold home meloxicam, tamsulosin, donepezil, finasteride, Imdur, citalopram at this time ? Keep n.p.o. at this time. Secondary to vasopressor requirements will not be initiating tube feeding ? DuoNeb every 6 hours as needed ? Check sputum Gram stain culture, urine culture Full code DVT prophylaxis: Heparin subcu twice daily, SCDs GI prophylaxis: Protonix 40 IV daily Hardware: Right arterial line present, right IJ central line present, Lopez catheter present, telemetry leads present Attestations 2 Medical Necessity Statement*: Patient is critically ill in the ICU currently intubated secondary to septic shock. Critical Care Time: The high probability of a clinically significant, sudden or life threatening deterioration of the patient's [respiratory, renal, cardiovascular, gastrointestinal] system(s) required my full and direct attention, intervention and personal management. The critical care time is as shown. This time is in addition to time spent performing any reported procedures but includes the following: [x] Data and vital sign review and interpretation [x] Patient assessment, examination and intervention [x] Documentation [x] Medication orders and management Critical Care Time (min): 65 Coding Level of Care Code Acute Code for g Fwd Diagnoses Coronary artery disease I25.10 Elevated troponin R79.89 Ischemic heart disease I25.9 Acute cholecystitis K81.0 Acute calculous cholecystitis K80.00 Septic shock A41.9; R65.21 Ventilator dependence Z99.11 Bacteremia R78.81 Lactic acid acidosis E87.20 Multiple vessel coronary artery disease I25.10
[2024-01-06] MEDS: norepinephrine 4 MG/250 ML BAG 37.5 MG IV (14:40)
[2024-01-06 15:42] LABS: Basophils # 0.1 10^3/uL (0.0-0.1); Basophils % 0.5 %; Hematocrit 36.9 % (37-53); Lymphocytes # 0.8 10^3/uL (0.8-4.8); Lymphocytes % 5.8 %; Mean Corpuscular HGB Conc 30.9 g/dL (30-55); Mean Corpuscular Hemoglobin 28.9 pg (27-33); Mean Corpuscular Volume 93.7 fl (82-101); Monocytes # 0.5 10^3/uL (0.2-0.9); Neutrophils # 11.53 10^3/uL (1.8-7.7); Neutrophils % 87.6 %; Nucleated Red Blood Cells % 0 %; Platelet Count 106 10^3/cmm (157-399); Red Blood Count 3.94 10^6/uL (3.85-5.65); Red Cell Distribution Width 15.8 % (12.1-15.1); White Blood Count 13.16 10^3/uL (3.29-11.43)
[2024-01-06 15:45] LABS: Base Excess VBG -0.6 mmol/L (-3.0-3.0); Blood Gas Operator Identificat CAK; Blood Gas Sample Type Venous; HCO3 VBG 24.9 mmol/L (24-28); PCO2 VBG 43.3 mmHg (41-51); Venous Blood Gas Hematocrit 36.6 % (42-52); pH VBG 7.37 (7.32-7.42)
[2024-01-06] MEDS: vancomycin 1,000 MG in sodium chloride 0.9% 250 ML 250 MG IV (16:01)
[2024-01-06 16:03] LABS: Alanine Aminotransferase 21 U/L (0-41); Albumin Level 2.7 g/dL (3.5-5.2); Alkaline Phosphatase 86 U/L (40-130); Anion Gap 19.7 (5-19); Aspartate Amino Transferase 44 U/L (0-40); Blood Urea Nitrogen 31 mg/dL (8-23); Calcium 7.7 mg/dL (8.5-10.5); Carbon Dioxide 23 mmol/L (22-29); Chloride 100 mmol/L (98-107); Creatinine Clr Calc Pharmacy 41.7058; Globulin 2.8 g/dL (1.3-4.6); Glucose 264 mg/dL (65-115); Osmolality Calculated 304 mOsm/kg (285-295); Potassium 3.7 mmol/L (3.5-5.1); Sodium 139 mmol/L (136-145); Total Bilirubin 1.2 mg/dL (0.15-1.2); Total Protein 5.5 g/dL (6.6-8.7)
[2024-01-06 16:14] LABS: Lactate (Lactic Acid level) 5.2 mmol/L (0.5-2.2)
[2024-01-06 18:29] LABS: Oxygen Device VENT
--- NOTE | 2024-01-06 19:01 | PC.NURSE ---
SHift SUmmary: Had surgery today. Gall bladder removed. Came back form surgery on levophed, vasopressin, and epinephrine, currently only on 8mcg of levo at the time of this note. Femoral central line dressing changed. Versed pushes available q2hr prn for sedation, has worked well. At one point patient did wake up and was attempting to communicate, pointed at endotracheal tube and appeared to mouth Get it out . Kidney function has declined. Only 100mL of urine out, physician is aware.
[2024-01-06] MEDS: chlorhexidine gluconate 0.12% Btl 473 mL 15 ML MUCOUS MEM (20:11)
[2024-01-06] MEDS: fentaNYL 1,000 MCG/100 ML BAG 7.5 MCG IV (21:30)
[2024-01-06] MEDS: lactated ringers 1,000 ML 70 ML IV (23:23)
[2024-01-06 23:24] LABS: Base Excess VBG 4.2 mmol/L (-3.0-3.0); Blood Gas Sample Type Venous; PCO2 VBG 43.2 mmHg (41-51); PO2 VBG 33.5 mmHg (25-40); Venous Blood Gas Hematocrit 34.4 % (42-52); pH VBG 7.44 (7.32-7.42)
[2024-01-06 23:26] LABS: Blood Gas Operator Identificat JB; Blood Gas Sample Site Not specified; Blood Gas Tidal Volume 0.55; Oxygen Device VENT
[2024-01-06 23:43] LABS: Alanine Aminotransferase 28 U/L (0-41); Albumin Level 2.7 g/dL (3.5-5.2); Alkaline Phosphatase 95 U/L (40-130); Anion Gap 15.8 (5-19); Aspartate Amino Transferase 73 U/L (0-40); Blood Urea Nitrogen 35 mg/dL (8-23); Calcium 7.8 mg/dL (8.5-10.5); Carbon Dioxide 27 mmol/L (22-29); Chloride 100 mmol/L (98-107); Globulin 2.6 g/dL (1.3-4.6); Glucose 133 mg/dL (65-115); Lactate (Lactic Acid level) 2.6 mmol/L (0.5-2.2); Osmolality Calculated 298 mOsm/kg (285-295); Potassium 3.8 mmol/L (3.5-5.1); Sodium 139 mmol/L (136-145); Total Protein 5.3 g/dL (6.6-8.7)
[2024-01-06 23:44] LABS: Creatinine Clr Calc Pharmacy 36.7011
[2024-01-07] VITALS (87 sets, daily range): BP systolic 90–146; BP diastolic 54–79; PULSE 88–104; RESP 14–37; TEMP 36.7–37.9; O2SAT 82–99
[2024-01-07 03:34] LABS: Basophils % 0.4 %; Eosinophils % 0.1 %; Hematocrit 33.2 % (37-53); Lymphocytes # 0.7 10^3/uL (0.8-4.8); Lymphocytes % 8.6 %; Mean Corpuscular HGB Conc 31.3 g/dL (30-55); Mean Corpuscular Hemoglobin 29.1 pg (27-33); Mean Corpuscular Volume 92.7 fl (82-101); Mean Platelet Volume 13.4 fL (7.4-10.4); Monocytes # 0.5 10^3/uL (0.2-0.9); Monocytes % 6.8 %; Neutrophils % 80.8 %; Nucleated Red Blood Cells % 0 %; Platelet Count 69 10^3/cmm (157-399); Red Blood Count 3.58 10^6/uL (3.85-5.65); Red Cell Distribution Width 15.9 % (12.1-15.1); White Blood Count 7.67 10^3/uL (3.29-11.43)
[2024-01-07 03:51] LABS: Alanine Aminotransferase 28 U/L (0-41); Albumin Level 2.4 g/dL (3.5-5.2); Alkaline Phosphatase 98 U/L (40-130); Anion Gap 18.1 (5-19); Aspartate Amino Transferase 73 U/L (0-40); Blood Urea Nitrogen 38 mg/dL (8-23); Calcium 7.8 mg/dL (8.5-10.5); Carbon Dioxide 25 mmol/L (22-29); Chloride 102 mmol/L (98-107); Creatinine Clr Calc Pharmacy 33.9825; Glucose 116 mg/dL (65-115); Osmolality Calculated 302 mOsm/kg (285-295); Potassium 4.1 mmol/L (3.5-5.1); Sodium 141 mmol/L (136-145); Total Bilirubin 0.9 mg/dL (0.15-1.2); Total Protein 5.4 g/dL (6.6-8.7)
[2024-01-07 03:52] LABS: Slide Review Slide Review Perform
[2024-01-07 04:01] LABS: Procalcitonin > 100.00 ng/mL (0-0.5)
[2024-01-07] MEDS: pantoprazole 40 mg SDV IVP (04:04)
[2024-01-07] MEDS: vancomycin 1,000 MG in sodium chloride 0.9% 250 ML 250 MG IV (04:04)
[2024-01-07] MEDS: midazolam 1 mg/mL INJ 2 mL 2 MG IVP (04:24)
[2024-01-07 05:18] LABS: ABG PCO2 36.7 mmHg (35-45); ABG PH Result 7.47 (7.35-7.45); Alveolar-Arterial Oxygen Gradi 29.1 mmHg (5-10); Arterial Blood Gas Hematocrit 29.8 % (42-52); Blood Gas Operator Identificat JDB; Blood Gas Sample Site Not specified; Blood Gas Sample Type Arterial; Blood Gas Tidal Volume 0.55; Carboxyhemoglobin 1.1 %THgb (0.4-20.1); HCO3 ABG 26.7 mmol/L (22-26); HGB O2 Sat 96.1 % (95-100); Ionized Calcium Level - ABG 1.1 mmol/L (1.1-1.4); Methemoglobin 1.2 % (0.4-1.5); Oxygen Device VENT; Oxygen Saturation ABG 98.4; PO2 ABG 91.1 mmHg (80.0-100.0); PO2 FiO2 Ratio Arterial Blood 182; Potassium Level - ABG 3.5 mmol/L (3.5-5.0); Total Hemoglobin 9.7 g/dL (14-18)
[2024-01-07] MEDS: chlorhexidine gluconate 0.12% Btl 473 mL 15 ML MUCOUS MEM ×2 (10:11→17:49)
[2024-01-07] MEDS: meropenem 1,000 mg SDV 1000 MG IVP ×2 (10:21→23:10)
[2024-01-07] MEDS: fentaNYL 1,000 MCG/100 ML BAG 7.5 MCG IV (11:14)
[2024-01-07 11:50] LABS: LAB Peripheral Smear Sent for Review
[2024-01-07 11:57] LABS: ABG PCO2 36.9 mmHg (35-45); ABG PH Result 7.46 (7.35-7.45); Arterial Blood Gas Hematocrit 30.5 % (42-52); Base Excess ABG 2.4 mmol/L (-2.0-2.0); Blood Gas Operator Identificat B5OMA; Blood Gas Sample Site Not specified; Blood Gas Sample Type Arterial; Blood Gas Tidal Volume 0.55; Carboxyhemoglobin 0.7 %THgb (0.4-20.1); HCO3 ABG 26.2 mmol/L (22-26); Ionized Calcium Level - ABG 1.1 mmol/L (1.1-1.4); Oxygen Device VENT; Oxygen Saturation ABG 98.7; PO2 ABG 99.6 mmHg (80.0-100.0); PO2 FiO2 Ratio Arterial Blood 199; Potassium Level - ABG 3.5 mmol/L (3.5-5.0)
[2024-01-07] MEDS: lactated ringers 1,000 ML 70 ML IV (13:53)
[2024-01-07 14:47] LABS: Glucose Point of Care 121 mg/dL (70-110)
[2024-01-07 15:11] LABS: Base Excess VBG 3.6 mmol/L (-3.0-3.0); Blood Gas Operator Identificat CAK; Blood Gas Sample Type Venous; HCO3 VBG 27.1 mmol/L (24-28); Oxygen Device VENT; PCO2 VBG 35.8 mmHg (41-51); PO2 VBG 68.3 mmHg (25-40); Venous Blood Gas Hematocrit 32.2 % (42-52); pH VBG 7.49 (7.32-7.42)
[2024-01-07 15:27] LABS: Basophils % 0.1 %; Hematocrit 31.8 % (37-53); Lymphocytes # 0.7 10^3/uL (0.8-4.8); Lymphocytes % 7.1 %; Mean Corpuscular HGB Conc 31.8 g/dL (30-55); Mean Corpuscular Hemoglobin 28.9 pg (27-33); Mean Corpuscular Volume 91.1 fl (82-101); Monocytes # 0.5 10^3/uL (0.2-0.9); Monocytes % 4.9 %; Neutrophils # 8.02 10^3/uL (1.8-7.7); Neutrophils % 85.1 %; Nucleated Red Blood Cells % 0 %; Platelet Count 88 10^3/cmm (157-399); Red Blood Count 3.49 10^6/uL (3.85-5.65); Red Cell Distribution Width 15.9 % (12.1-15.1); White Blood Count 9.42 10^3/uL (3.29-11.43)
[2024-01-07 15:43] LABS: Lactate (Lactic Acid level) 1.8 mmol/L (0.5-2.2)
[2024-01-07 15:51] LABS: Alanine Aminotransferase 31 U/L (0-41); Albumin Level 2.6 g/dL (3.5-5.2); Alkaline Phosphatase 122 U/L (40-130); Anion Gap 15.9 (5-19); Aspartate Amino Transferase 58 U/L (0-40); Blood Urea Nitrogen 46 mg/dL (8-23); Calcium 7.8 mg/dL (8.5-10.5); Carbon Dioxide 25 mmol/L (22-29); Chloride 105 mmol/L (98-107); Creatinine Clr Calc Pharmacy 28.8035; Globulin 2.9 g/dL (1.3-4.6); Glucose 116 mg/dL (65-115); Osmolality Calculated 307 mOsm/kg (285-295); Potassium 3.9 mmol/L (3.5-5.1); Sodium 142 mmol/L (136-145); Total Bilirubin 0.8 mg/dL (0.15-1.2); Total Protein 5.5 g/dL (6.6-8.7)
--- NOTE | 2024-01-07 17:33 | PM.PN ---
Subjective Subjective: Intubated sedated, hemoglobin 11.4 this morning. Minimal output from Juice drain. White count 9.4, platelets 88. Lactic acid normalized. Patient is off pressors this morning. Blood pressures are stable. 50% FiO2, minimal vent settings otherwise. at bedside. Updated in detail. Creatinine worsening at 2.5. Urine output is low. Procalcitonin greater than 100 Nursing staff performed a full skin assessment, patient does not have any sores. Vitals/I&O/Wt Last Vital Signs Temp 100.3 F H 01/07/24 13:30 Pulse 92 01/07/24 14:30 Resp 24 H 01/07/24 13:56 BP 122/75 01/07/24 14:30 Pulse Ox 96 01/07/24 14:30 O2 Del Method Mechanical Ventilation 01/07/24 13:30 O2 Flow Rate 6 01/06/24 06:45 FiO2 30 01/07/24 13:56 01/07/24 01/07/24 01/07/24 06:59 14:59 22:59 Intake Total 1119.208 / 4002.867 1107.542 / 1107.542 Output Total 170 / 715 115 / 115 Balance 949.208 / 3287.867 992.542 / 992.542 Weight last 48 hrs Weight 131.224 kg Weight 129.5 kg Weight 130.1 kg Weight 118.75 kg Physical Exam Narrative: Intubated sedated laying in bed Lopez catheter in place draining minimal clear yellow urine. Juice drain present with minimal output. Lungs clear to auscultation bilaterally no wheezes no rhonchi appreciated Abdomen soft, bowel sounds absent at this time No edema bilateral lower extremities. Visible skin intact. Urinary Catheter Management: Lopez: Cath Placed During This Visit: yes Reason for Continuing Indwelling Catheter: Accurate Measurement of Urinary Output in Critically Ill Patients Urinary Catheter Date of Insertion: 01/05/24 Urinary Catheter Time of Insertion: 15:48 Data 01/07/24 14:58 01/07/24 14:58 Micro: Microbiology 01/06/24 15:21 Blood Culture - Preliminary Blood NEGATIVE TO DATE 01/06/24 09:55 Gram Stain - Final Sputum - Endotracheal Tube Aspirate Sputum Culture - Preliminary 01/06/24 13:27 Blood Culture - Preliminary Blood NEGATIVE TO DATE 01/06/24 11:45 Urine Culture - Preliminary Urine Catheterized 01/05/24 16:00 Blood Culture - Preliminary Blood NEGATIVE TO DATE A&P Assessment and plan (1) Coronary artery disease: (2) Elevated troponin: (3) Ischemic heart disease: (4) Acute cholecystitis: (5) Acute calculous cholecystitis: (6) Septic shock: (7) Ventilator dependence: (8) Bacteremia: (9) Lactic acid acidosis: (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 Patient requiring 3 vasopressors at this time lactic acid 8.3. Wean down on pressors as able ? Continue to monitor blood pressure with arterial line ? Placed on bicarb drip. Patient is status post 2 A of bicarb ? Continue vancomycin, meropenem ? Check repeat blood cultures today ? 1 out of 4 bottles positive for Staph aureus as per lab. Final sensitivities, speciation is pending ? Check BNP ? Appreciate cardiology consult. ? Continue ventilatory support at this time. Continue patient on fentanyl for pain, Versed 2 mg every 2-4 hour for sedation. Hold off on propofol secondary to low blood pressures ? Echocardiogram pending at this time ? Check CBC every 12 hours, CMP, lactic acid every 8 hours ? Repeat blood gas reviewed once patient arrived to ICU. Have discussed with nursing staff to wean down FiO2. ? Hemoglobin A1c 7.2 ? Magnesium 1.5, phosphorus 5.0. ? Creatinine 1.7 on admission and currently worsening. Urine output 50 cc so far. Patient most likely has developed ATN or is progressing towards that. Will continue to monitor kidney function ? Continue on bicarbonate drip at 100 cc/h, LR at 75 cc/h. Continue to monitor urine output with Lopez catheter ? Hold home meloxicam, tamsulosin, donepezil, finasteride, Imdur, citalopram at this time ? Keep n.p.o. at this time. Secondary to vasopressor requirements will not be initiating tube feeding ? DuoNeb every 6 hours as needed ? Check sputum Gram stain culture, urine culture Full code DVT prophylaxis: Heparin subcu twice daily, SCDs GI prophylaxis: Protonix 40 IV daily Hardware: Right arterial line present, right IJ central line present, Lopez catheter present, telemetry leads present 01/07/2024 ?Wean off fentanyl and avoid further doses of Versed.. ? SBT today ? Plan to extubate ? Nursing dysphagia screen after extubation ? Extubated to nasal cannula ? Consult nephrology. Patient has worsening JUSTIN/ATN ? Platelets 88 today. Will send a peripheral smear and HIT panel. Patient is not on any heparin at this time. ? Monitor for blood cultures positive for coagulase-negative staph. Procalcitonin greater than 100. Initially lab but stated that it was Staph aureus however now it is finalized as coagulase-negative staph sensitivities are pending. Blood cultures repeated. Consult ID ? Continue to check CBC CMP mag phosphorus daily -Will start patient on clear liquid diet once extubated. ? Echo negative for any vegetations. ? Continue vancomycin and meropenem at this time ? Urine culture, sputum Gram stain culture pending at this time ? updated at bedside in detail. Attestations Medical Necessity Statement*: Patient is critically ill in the ICU currently intubated secondary to septic shock. Critical Care Time: The high probability of a clinically significant, sudden or life threatening deterioration of the patient's [respiratory, renal, cardiovascular, gastrointestinal] system(s) required my full and direct attention, intervention and personal management. The critical care time is as shown. This time is in addition to time spent performing any reported procedures but includes the following: [x] Data and vital sign review and interpretation [x] Patient assessment, examination and intervention [x] Documentation [x] Medication orders and management Critical Care Time (min): 40 Coding Level of Care Code Acute Code for [facility] Fwd Diagnoses Coronary artery disease I25.10 Elevated troponin R79.89 Ischemic heart disease I25.9 Acute cholecystitis K81.0 Acute calculous cholecystitis K80.00 Septic shock A41.9; R65.21 Ventilator dependence Z99.11 Bacteremia R78.81 Lactic acid acidosis E87.20 Multiple vessel coronary artery disease I25.10
--- NOTE | 2024-01-07 17:39 | PC.NURSE ---
SHift Summary: No pressors required today. Extubated at approximately 1545 to 4L NC. Patient remains lethargic. Low grade temperature sporadically recorded throughout the day. Patient is tachypnic (30-35 breaths per minute) and breathing is slightly shallow. Does not appear to be in distress and is saturating around 95% on 4L. Nurse notified Dr phillips and received orders to do incentive spirometer and to continue to monitor. LAURYN output: 70mL serousanguineous, leaning more heavily toward serous. Urine output 230mL.
--- NOTE | 2024-01-07 18:52 | PM.PN ---
Subjective Subjective: Patient is extubated and off of all vasopressors. He is able to wake up and answer questions. Vitals/I&O/Wt Last Vital Signs Temp 100.2 F H 01/07/24 17:00 Pulse 91 01/07/24 18:00 Resp 34 H 01/07/24 18:00 BP 124/70 01/07/24 18:00 Pulse Ox 94 01/07/24 18:00 O2 Del Method Nasal Cannula 01/07/24 18:00 O2 Flow Rate 4 01/07/24 18:00 FiO2 30 01/07/24 13:56 01/07/24 01/07/24 01/07/24 06:59 14:59 22:59 Intake Total 1119.208 / 4002.867 1107.542 / 1107.542 Output Total 170 / 715 115 / 115 185 / 300 Balance 949.208 / 3287.867 992.542 / 992.542 -185 / 807.542 Weight last 48 hrs Weight 289 lb 4.8 oz Weight 285 lb 7.978 oz Weight 286 lb 13.142 oz Weight 261 lb 12.8 oz Physical Exam Narrative: General: No acute distress, somnolent Abdomen: Soft, nondistended, appropriately tender Drain: Serosanguineous Urinary Catheter Management: Lopez: Cath Placed During This Visit: yes Reason for Continuing Indwelling Catheter: Accurate Measurement of Urinary Output in Critically Ill Patients Urinary Catheter Date of Insertion: 01/05/24 Urinary Catheter Time of Insertion: 15:48 Data 01/07/24 14:58 01/07/24 14:58 Micro: Microbiology 01/06/24 15:21 Blood Culture - Preliminary Blood NEGATIVE TO DATE 01/06/24 09:55 Gram Stain - Final Sputum - Endotracheal Tube Aspirate Sputum Culture - Preliminary 01/06/24 13:27 Blood Culture - Preliminary Blood NEGATIVE TO DATE 01/06/24 11:45 Urine Culture - Preliminary Urine Catheterized 01/05/24 16:00 Blood Culture - Preliminary Blood NEGATIVE TO DATE A&P Assessment and plan (1) Acute calculous cholecystitis: Plan Postop day #1 status post laparoscopic cholecystectomy Pain control Antibiotics Regular diet Drain will be removed prior to discharge Medical management per hospitalist Attestations Medical Necessity Statement*: Per primary Coding Level of Care Code Acute Code for [facility] Fwd Diagnoses Acute calculous cholecystitis K80.00
--- NOTE | 2024-01-07 20:34 | PC.NURSE ---
Wasted 92.458 mL of fentanyl drip. Witnessed by CARLOS Ramos.
[2024-01-07 23:21] LABS: Alanine Aminotransferase 28 U/L (0-41); Albumin Level 2.5 g/dL (3.5-5.2); Alkaline Phosphatase 117 U/L (40-130); Anion Gap 16.6 (5-19); Aspartate Amino Transferase 54 U/L (0-40); Blood Urea Nitrogen 53 mg/dL (8-23); Calcium 7.7 mg/dL (8.5-10.5); Carbon Dioxide 23 mmol/L (22-29); Chloride 104 mmol/L (98-107); Glucose 135 mg/dL (65-115); Osmolality Calculated 306 mOsm/kg (285-295); Potassium 3.6 mmol/L (3.5-5.1); Sodium 140 mmol/L (136-145); Total Bilirubin 0.9 mg/dL (0.15-1.2); Total Protein 5.5 g/dL (6.6-8.7)
[2024-01-07 23:22] LABS: Lactate (Lactic Acid level) 1.5 mmol/L (0.5-2.2)
[2024-01-07 23:25] LABS: Creatinine Clr Calc Pharmacy 35.4504
--- NOTE | 2024-01-07 23:26 | P.CONIM_ITS ---
Providers/Reason For Consult 2 Consulting Physician/Specialty*: kommana/nEPHROLOGY Reason for Consult*: justin Attending Physician: Jessica Ruff MD Primary Care Provider: Adelfo Stuart DO History of Present Illness History of Present Illness Tom Espinosa is a 73 year old male Patient is a 73-year-old male who has a past medical history of hypertension, dyslipidemia did diabetes, dementia GERD obstructive sleep apnea anxiety depression was sent from the [facility] due to generalized weakness and abdominal pain associated with nausea and vomiting. Patient was found to have acute calculus cholecystitis and underwent laparoscopic cholecystectomy on 01/06/24. Cr was normal @ 0.8 on presenttion and creatinine has gotten worse up to 3.4 during the postoperative.. Patient was intubated and was on pressors briefly but currently he is extubated on 4 L O2 by nasal cannula, off pressors and urine output has picked up and most recent creatinine is 2.6. Patient still NPO and getting IV fluids LR at 100 cc an hour. Review of Systems 2 Narrative: negative Medications/Allergies Home Medications Medication Instructions Recorded Confirmed Last Taken Type acetaminophen 325 mg capsule 650 mg PO QID PRN pain or fever 01/04/22 01/05/24 Unknown History albuterol sulfate 90 mcg/actuation 2 puff inhalation Q6H PRN 01/04/22 01/05/24 Unknown History aerosol inhaler wheezing/ shortness of breath aspirin 81 mg tablet,delayed 81 mg PO DAILY 01/04/22 01/05/24 09/09/23 History release (Adult Low Dose Aspirin) cam walking boot #1 ea 01/04/22 01/05/24 Unknown Rx donepezil 5 mg tablet 10 mg PO BEDTIME 01/04/22 01/05/24 09/09/23 History lace up ankle brace #1 ea 01/04/22 01/05/24 Unknown Rx mirabegron 50 mg tablet,extended 50 mg PO DAILY 01/04/22 01/05/24 09/09/23 History release 24 hr (Myrbetriq) omeprazole 20 mg tablet,delayed 20 mg PO DAILY 01/04/22 01/05/24 09/09/23 History release albuterol sulfate 0.63 mg/3 mL 0.63 mg inhalation Q6H PRN Cough 09/11/23 01/05/24 Unknown History solution for nebulization bisacodyl 10 mg rectal suppository 10 mg [place] DAILY PRN Constipation 09/11/23 01/05/24 Unknown History cetirizine 5 mg tablet 5 mg PO DAILY PRN seasonal 09/11/23 01/05/24 Unknown History allergies citalopram 10 mg tablet 10 mg PO DAILY 09/11/23 01/05/24 09/09/23 History finasteride 5 mg tablet 5 mg PO BEDTIME 09/11/23 01/05/24 09/09/23 History magnesium hydroxide 400 mg/5 mL 2,400 mg PO DAILY PRN Constipation 09/11/23 01/05/24 Unknown History oral suspension (Milk of Magnesia) meloxicam 7.5 mg tablet 7.5 mg PO DAILY 09/11/23 01/05/24 09/09/23 History polyethylene glycol 3350 17 gram 17 g PO DAILY PRN Constipation 09/11/23 01/05/24 Unknown History oral powder packet polyvinyl alcohol-povidone 0.5 1 drp ophthalmic (eye) TID PRN Dry 09/11/23 01/05/24 Unknown History %-0.6 % eye drops (Clear Eyes Eye(S) Natural Tears) calcium 600 mg (as 1 tab PO BID #30 tabs 09/12/23 01/05/24 Unknown Rx carbonate)-vitamin D3 10 mcg (400 unit) tablet tamsulosin 0.4 mg capsule 0.4 mg PO DAILY #30 caps 09/12/23 01/05/24 Unknown Rx cam boot #1 ea 10/04/23 01/05/24 Unknown Rx menthol 4 % topical gel (Biofreeze 1 applic topical Q6H PRN Pain 12/13/23 01/05/24 Unknown History (menthol)) nystatin 100,000 unit/gram topical 1 applic topical Q8H PRN Rash 12/13/23 01/05/24 Unknown History powder sodium phosphates 19 gram-7 118 ml [place] DAILY PRN Constipation 12/13/23 01/05/24 Unknown History gram/118 mL enema (Fleet Enema) isosorbide mononitrate 30 mg 30 mg PO BID 30 days #60 tabs 12/16/23 01/05/24 Unknown Rx tablet,extended release 24 hr Allergies Allergy/AdvReac Type Severity Reaction Status Date / Time No Known Allergies Allergy Verified 11/24/23 09:09 Current Medications Generic Name Dose Route Start Last Admin Trade Name Freq PRN Reason Stop Dose Admin Chlorhexidine Gluconate 15 ml 01/06/24 18:00 01/07/24 17:49 Chlorhexidine Gluconate 0.12% Btl 473 Ml MUCOUS MEM 15 ml BID STONE Administration Dextrose 125 mls @ 750 mls/hr 01/06/24 03:52 01/06/24 09:48 D10w IV Infused PRN PRN Infusion HYPOGLYCEMIA Vancomycin HCl 1,000 mg/ 250 mls @ 250 mls/hr 01/06/24 15:00 01/07/24 15:03 Sodium Chloride IV Not Given Q12H STONE Lactated Ringer's 1,000 mls @ 70 mls/hr 01/06/24 09:45 01/07/24 13:53 Lactated Ringers IV 70 mls/hr .[id number] STONE Administration Meropenem 1,000 mg 01/06/24 23:00 01/07/24 23:10 Meropenem 1,000 Mg Sdv IVP 1,000 mg Q12H STONE Administration Protocol Morphine Sulfate 2 mg 01/06/24 01:17 01/06/24 05:20 Morphine 4 Mg/Ml Sdv 1 Ml IVP 2 mg Q4H PRN Administration SEVERE PAIN Pantoprazole Sodium 40 mg 01/06/24 01:17 01/07/24 04:04 Pantoprazole 40 Mg Sdv IVP 40 mg Q24H STONE Administration PFSH Acute 2 PFSH: Medical History Ischemic heart disease Thrombocytopenia Anxiety and depression Elevated liver enzymes Obstructive sleep apnea GERD (gastroesophageal reflux disease) Dementia Hyperlipidemia Hypertension Type 2 diabetes mellitus Past heart attack BPH (benign prostatic hyperplasia) Surgical History S/P ORIF (open reduction internal fixation) fracture (09/11/23) right tibia infrapatellar intramedullary nail History of coronary angioplasty H/O total knee replacement Previous back surgery (2020) for scoliosis Social History Smoking and tobacco/nicotine status: never used tobacco/nicotine Vitals/I&O/Wt Last Vital Signs Temp 99.3 F 01/07/24 20:00 Pulse 97 01/07/24 23:00 Resp 37 H 01/07/24 22:00 BP 131/74 01/07/24 23:00 Pulse Ox 94 01/07/24 23:00 O2 Del Method Nasal Cannula 01/07/24 22:00 O2 Flow Rate 4 01/07/24 22:00 FiO2 30 01/07/24 13:56 01/07/24 01/07/24 01/08/24 14:59 22:59 06:59 Intake Total 1107.542 / 1107.542 0 / 1107.542 Output Total 115 / 115 365 / 480 Balance 992.542 / 992.542 -365 / 627.542 Weight last 48 hrs Weight 131.224 kg Weight 129.5 kg Weight 130.1 kg Weight 118.75 kg Physical Exam 2 Narrative: Patient extubated this evening, no distress, on 4 L O2 by nasal cannula Urinary Catheter Management: Lopez: Cath Placed During This Visit: yes Reason for Continuing Indwelling Catheter: Accurate Measurement of Urinary Output in Critically Ill Patients Urinary Catheter Date of Insertion: 01/05/24 Urinary Catheter Time of Insertion: 15:48 Data 01/08/24 03:12 01/08/24 03:12 Micro: Microbiology 01/06/24 15:21 Blood Culture - Preliminary Blood NEGATIVE TO DATE 01/06/24 09:55 Gram Stain - Final Sputum - Endotracheal Tube Aspirate Sputum Culture - Preliminary 01/06/24 13:27 Blood Culture - Preliminary Blood NEGATIVE TO DATE 01/06/24 11:45 Urine Culture - Preliminary Urine Catheterized A&P Assessment and plan (1) JUSTIN (acute kidney injury): 1. JUSTIN : Baseline Cr 0.8 on presentation , developed JUSTIN with Cr 3.2 -from [facility] in the setting of sepsis , and contrast nephropathy -Cr improving and UOP picked up - off pressors - continue to monitor renal Fxn - PRN IV lasix -Patient still n.p.o. and on maintenance IV fluids. 2. S/p shock in the setting of cholecystitis, status postcholecystectomy, management per general surgery 3.HTN : meds on hold , Off pressors 4. h/o LUZ Consult Attestations 2 Medical Necessity Statement: per medicine Coding Level of Care Code Acute Code for g Fwd Diagnoses JUSTIN (acute kidney injury) N17.9
--- NOTE | 2024-01-07 23:33 | PC.NURSE ---
Dr. Ratliff called to get update on patient. I&O and current patients v/s and O2 requirements reviewed. No changes to current orders.
[2024-01-08] VITALS (30 sets, daily range): BP systolic 117–160; BP diastolic 72–98; PULSE 85–100; RESP 28–56; TEMP 36.8–38.1; O2SAT 92–96
[2024-01-08] MEDS: pantoprazole 40 mg SDV IVP (02:51)
--- NOTE | 2024-01-08 03:08 | PC.NURSE ---
Right radial Art line very dampened and unable to draw from. Removed A-line, manual pressure applied, 2x2 gauze and coban applied.
[2024-01-08 03:20] LABS: Basophils % 0.1 %; Hematocrit 31.3 % (37-53); Lymphocytes # 0.6 10^3/uL (0.8-4.8); Lymphocytes % 7.2 %; Mean Corpuscular Volume 93.7 fl (82-101); Mean Platelet Volume 12.1 fL (7.4-10.4); Monocytes # 0.4 10^3/uL (0.2-0.9); Monocytes % 4.2 %; Neutrophils # 7.29 10^3/uL (1.8-7.7); Neutrophils % 86.9 %; Nucleated Red Blood Cells % 0 %; Platelet Count 69 10^3/cmm (157-399); Red Blood Count 3.34 10^6/uL (3.85-5.65); Red Cell Distribution Width 15.9 % (12.1-15.1); White Blood Count 8.38 10^3/uL (3.29-11.43)
[2024-01-08 04:01] LABS: Alanine Aminotransferase 26 U/L (0-41); Albumin Level 2.4 g/dL (3.5-5.2); Alkaline Phosphatase 118 U/L (40-130); Anion Gap 15.5 (5-19); Aspartate Amino Transferase 49 U/L (0-40); Blood Urea Nitrogen 53 mg/dL (8-23); Calcium 7.6 mg/dL (8.5-10.5); Carbon Dioxide 24 mmol/L (22-29); Chloride 105 mmol/L (98-107); Glucose 141 mg/dL (65-115); Osmolality Calculated 309 mOsm/kg (285-295); Potassium 3.5 mmol/L (3.5-5.1); Sodium 141 mmol/L (136-145); Total Bilirubin 0.9 mg/dL (0.15-1.2); Total Protein 5.4 g/dL (6.6-8.7)
[2024-01-08 04:02] LABS: Lactate (Lactic Acid level) 1.6 mmol/L (0.5-2.2)
[2024-01-08 04:07] LABS: Creatinine Clr Calc Pharmacy 40.0744
[2024-01-08] MEDS: lactated ringers 1,000 ML 70 ML IV (04:08)
--- NOTE | 2024-01-08 06:50 | P.CONIM_ITS ---
Providers/Reason For Consult 2 Consulting Physician/Specialty*: Mayelin Yap MD / Infectious disease Reason for Consult*: Staph aureus bacteremia Requesting Physician: Jessica Ruff MD Attending Physician: Jessica Ruff MD Primary Care Provider: Adelfo Stuart DO History of Present Illness History of Present Illness Tom Espinosa is a 73 year old male with history of obesity, CAD, prior stenting in 1980s, LUZ, depression, DM2, HTN, HLD, who was admitted to the hospital on January 05, 2024 after presenting with 1 week of feeling abdominal discomfort, generalized weakness, lack of appetite and nausea. He was found to have acute cholecystitis and had presented in septic shock. He required to be started on pressor support on day of admission. Broad-spectrum antibiotics including meropenem and vancomycin were started for treatment alongside of IV fluids and usual sepsis management. He underwent laparoscopic cholecystectomy on January 06, 2020 4 in the morning. Intraoperatively the gallbladder was noted to have perforated leticia purulence was found inside. Postoperatively patient continued to be quite ill on the morning of January 05 with increased pressor support and FiO2, however by the same evening started to improve clinically. On January 07, 2024, Levophed was able to be weaned off by the evening. Fi02 requirements are improving. Infectious diseases consulted as blood culture from January 05, 2024 was reported to be positive for Staph aureus. However now it appears that the blood culture has been corrected to reflect coag negative staph instead of coag positive staph Review of Systems 2 General: Reports: ROS unobtainable due to medical condition Medications/Allergies Home Medications Medication Instructions Recorded Confirmed Last Taken Type acetaminophen 325 mg capsule 650 mg PO QID PRN pain or fever 01/04/22 01/05/24 Unknown History albuterol sulfate 90 mcg/actuation 2 puff inhalation Q6H PRN 01/04/22 01/05/24 Unknown History aerosol inhaler wheezing/ shortness of breath aspirin 81 mg tablet,delayed 81 mg PO DAILY 01/04/22 01/05/24 09/09/23 History release (Adult Low Dose Aspirin) cam walking boot #1 ea 01/04/22 01/05/24 Unknown Rx donepezil 5 mg tablet 10 mg PO BEDTIME 01/04/22 01/05/24 09/09/23 History lace up ankle brace #1 ea 01/04/22 01/05/24 Unknown Rx mirabegron 50 mg tablet,extended 50 mg PO DAILY 01/04/22 01/05/24 09/09/23 History release 24 hr (Myrbetriq) omeprazole 20 mg tablet,delayed 20 mg PO DAILY 01/04/22 01/05/24 09/09/23 History release albuterol sulfate 0.63 mg/3 mL 0.63 mg inhalation Q6H PRN Cough 09/11/23 01/05/24 Unknown History solution for nebulization bisacodyl 10 mg rectal suppository 10 mg [place] DAILY PRN Constipation 09/11/23 01/05/24 Unknown History cetirizine 5 mg tablet 5 mg PO DAILY PRN seasonal 09/11/23 01/05/24 Unknown History allergies citalopram 10 mg tablet 10 mg PO DAILY 09/11/23 01/05/24 09/09/23 History finasteride 5 mg tablet 5 mg PO BEDTIME 09/11/23 01/05/24 09/09/23 History magnesium hydroxide 400 mg/5 mL 2,400 mg PO DAILY PRN Constipation 09/11/23 01/05/24 Unknown History oral suspension (Milk of Magnesia) meloxicam 7.5 mg tablet 7.5 mg PO DAILY 09/11/23 01/05/24 09/09/23 History polyethylene glycol 3350 17 gram 17 g PO DAILY PRN Constipation 09/11/23 01/05/24 Unknown History oral powder packet polyvinyl alcohol-povidone 0.5 1 drp ophthalmic (eye) TID PRN Dry 09/11/23 01/05/24 Unknown History %-0.6 % eye drops (Clear Eyes Eye(S) Natural Tears) calcium 600 mg (as 1 tab PO BID #30 tabs 09/12/23 01/05/24 Unknown Rx carbonate)-vitamin D3 10 mcg (400 unit) tablet tamsulosin 0.4 mg capsule 0.4 mg PO DAILY #30 caps 09/12/23 01/05/24 Unknown Rx cam boot #1 ea 10/04/23 01/05/24 Unknown Rx menthol 4 % topical gel (Biofreeze 1 applic topical Q6H PRN Pain 12/13/23 01/05/24 Unknown History (menthol)) nystatin 100,000 unit/gram topical 1 applic topical Q8H PRN Rash 12/13/23 01/05/24 Unknown History powder sodium phosphates 19 gram-7 118 ml [place] DAILY PRN Constipation 12/13/23 01/05/24 Unknown History gram/118 mL enema (Fleet Enema) isosorbide mononitrate 30 mg 30 mg PO BID 30 days #60 tabs 12/16/23 01/05/24 Unknown Rx tablet,extended release 24 hr Allergies Allergy/AdvReac Type Severity Reaction Status Date / Time No Known Allergies Allergy Verified 11/24/23 09:09 Current Medications Generic Name Dose Route Start Last Admin Trade Name Freq PRN Reason Stop Dose Admin Chlorhexidine Gluconate 15 ml 01/06/24 18:00 01/07/24 17:49 Chlorhexidine Gluconate 0.12% Btl 473 Ml MUCOUS MEM 15 ml BID STONE Administration Dextrose 125 mls @ 750 mls/hr 01/06/24 03:52 01/06/24 09:48 D10w IV Infused PRN PRN Infusion HYPOGLYCEMIA Vancomycin HCl 1,000 mg/ 250 mls @ 250 mls/hr 01/06/24 15:00 01/07/24 15:03 Sodium Chloride IV Not Given Q12H STONE Lactated Ringer's 1,000 mls @ 70 mls/hr 01/06/24 09:45 01/08/24 04:08 Lactated Ringers IV 70 mls/hr .[id number] STONE Administration Meropenem 1,000 mg 01/06/24 23:00 01/07/24 23:10 Meropenem 1,000 Mg Sdv IVP 1,000 mg Q12H STONE Administration Protocol Morphine Sulfate 2 mg 01/06/24 01:17 01/06/24 05:20 Morphine 4 Mg/Ml Sdv 1 Ml IVP 2 mg Q4H PRN Administration SEVERE PAIN Pantoprazole Sodium 40 mg 01/06/24 01:17 01/08/24 02:51 Pantoprazole 40 Mg Sdv IVP 40 mg Q24H STONE Administration PFSH Acute 2 PFSH: Medical History Ischemic heart disease Thrombocytopenia Anxiety and depression Elevated liver enzymes Obstructive sleep apnea GERD (gastroesophageal reflux disease) Dementia Hyperlipidemia Hypertension Type 2 diabetes mellitus Past heart attack BPH (benign prostatic hyperplasia) Surgical History S/P ORIF (open reduction internal fixation) fracture (09/11/23) right tibia infrapatellar intramedullary nail History of coronary angioplasty H/O total knee replacement Previous back surgery (2020) for scoliosis Social History Smoking and tobacco/nicotine status: never used tobacco/nicotine Vitals/I&O/Wt Last Vital Signs Temp 98.8 F 01/08/24 04:00 Pulse 96 01/08/24 06:00 Resp 37 H 01/08/24 06:00 BP 150/91 01/08/24 06:00 Pulse Ox 94 01/08/24 06:00 O2 Del Method Nasal Cannula 01/08/24 06:00 O2 Flow Rate 4 01/08/24 06:00 FiO2 30 01/07/24 13:56 01/07/24 01/07/24 01/08/24 14:59 22:59 06:59 Intake Total 1107.542 / 1107.542 0 / 1107.542 997.5 / 2105.042 Output Total 115 / 115 365 / 480 445 / 925 Balance 992.542 / 992.542 -365 / 627.542 552.5 / 1180.042 Weight last 48 hrs Weight 124.5 kg Weight 131.224 kg Weight 129.5 kg Weight 130.1 kg Physical Exam 2 Narrative: General: Intubated sedated HEENT: PERRLA, pupils bilaterally equal and reactive, pallors not present Chest: Normal vesicular breath sounds, no added sounds, equal good air entry bilaterally CVS: S1-S2 regular, no murmurs, no tachycardia, no gallops, no rubs Abdomen: Soft, postop surgical drain in place Neuro: Intubated sedated Extremities: Good peripheral perfusion Urinary Catheter Management: Lopez: Cath Placed During This Visit: yes Reason for Continuing Indwelling Catheter: Accurate Measurement of Urinary Output in Critically Ill Patients Urinary Catheter Date of Insertion: 01/05/24 Urinary Catheter Time of Insertion: 15:48 Data 01/10/24 05:09 01/10/24 05:09 Micro: Microbiology 01/06/24 15:21 Blood Culture - Preliminary Blood NEGATIVE TO DATE 01/06/24 09:55 Gram Stain - Final Sputum - Endotracheal Tube Aspirate Sputum Culture - Preliminary 01/06/24 13:27 Blood Culture - Preliminary Blood NEGATIVE TO DATE 01/06/24 11:45 Urine Culture - Preliminary Urine Catheterized January 05, 2024 Blood culture 1 out of 4 bottles reported positive for gram-positive cocci in clusters, marked as coag negative staph species. Awaiting final identification. A&P Assessment and plan (1) Sepsis: Patient presenting with sepsis and septic shock related to acute cholecystitis now status post laparoscopic cholecystectomy on January 06 2024 with ongoing clinical improvement He is currently off pressors. Leukocytosis is improving. Plan to be extubated later today. Can continue meropenem and vancomycin for short course following cholecystectomy Qualifiers: Sepsis acute organ dysfunction status: unspecified Sepsis type: sepsis due to unspecified organism Qualified Code(s): A41.9 - Sepsis, unspecified organism (2) Septic shock: (3) Bacteremia: Infectious disease consult for Staph aureus bacteremia. It appears the culture data was recently corrected by the lab to reflect coag negative staph instead of Staph aureus. 1 out of 4 culture positive, likely to represent a contamination. No antibiotics recommended additionally over and above short course of meropenem and vancomycin for septic shock as is already being done. Plan Thank you for this consult. Please call with any further questions or concerns. Coding Level of Care Code Acute Code for [facility] Fwd Diagnoses Sepsis A41.9 Sepsis acute organ dysfunction status: unspecified Sepsis type: sepsis due to unspecified organism Septic shock A41.9; R65.21 Bacteremia R78.81
[2024-01-08 07:58] LABS: Glucose Point of Care 151 mg/dL (70-110)
[2024-01-08] MEDS: ipratropium-albuterol 3 mL Neb INHALATION (08:11)
[2024-01-08] MEDS: isosorbide mononitrate ER 30 mg Tablet PO ×2 (11:15→17:39)
[2024-01-08] MEDS: meropenem 1,000 mg SDV 1000 MG IVP ×2 (11:15→22:32)
[2024-01-08] MEDS: bisacodyl 5 mg Tablet 10 MG PO (11:18)
--- NOTE | 2024-01-08 11:24 | P.PN_ITS ---
Subjective 2 Subjective: on 4L NC Medications: Reviewed: Yes Vitals/I&O/Wt Last Vital Signs Temp 100.5 F H 01/08/24 08:00 Pulse 98 01/08/24 08:25 Resp 28 H 01/08/24 08:11 BP 152/91 01/08/24 08:00 Pulse Ox 95 01/08/24 08:11 O2 Del Method Nasal Cannula 01/08/24 08:11 O2 Flow Rate 4 01/08/24 08:11 FiO2 30 01/07/24 13:56 01/07/24 01/08/24 01/08/24 22:59 06:59 14:59 Intake Total 0 / 1107.542 997.5 / 2105.042 0 / 0 Output Total 365 / 480 505 / 985 460 / 460 Balance -365 / 627.542 492.5 / 1120.042 -460 / -460 Weight last 48 hrs Weight 124.5 kg Weight 131.224 kg Weight 129.5 kg Physical Exam 2 Narrative: Patient extubated no distress, on 4 L O2 by nasal cannula Urinary Catheter Management: Lopez: Cath Placed During This Visit: yes Reason for Continuing Indwelling Catheter: Accurate Measurement of Urinary Output in Critically Ill Patients Urinary Catheter Date of Insertion: 01/05/24 Urinary Catheter Time of Insertion: 15:48 Data 01/08/24 03:12 01/08/24 03:12 Micro: Microbiology 01/06/24 15:21 Blood Culture - Preliminary Blood NEGATIVE TO DATE 01/06/24 09:55 Gram Stain - Final Sputum - Endotracheal Tube Aspirate Sputum Culture - Preliminary 01/06/24 13:27 Blood Culture - Preliminary Blood NEGATIVE TO DATE 01/06/24 11:45 Urine Culture - Preliminary Urine Catheterized A&P Assessment and plan (1) JUSTIN (acute kidney injury): 1. JUSTIN : Baseline Cr 0.8 on presentation , developed JUSTIN with Cr 3.2 -from ATN in the setting of sepsis , and contrast nephropathy -Cr improving and UOP picked up - off pressors - continue to monitor renal Fxn - PRN IV lasix -Patient still n.p.o. and on maintenance IV fluids. 2. S/p shock in the setting of cholecystitis, status postcholecystectomy, management per general surgery 3.HTN : meds on hold , Off pressors 4. h/o LUZ Attestations 2 Medical Necessity Statement*: per medicine Coding Level of Care Code Acute Code for [facility] Fwd Diagnoses JUSTIN (acute kidney injury) N17.9
[2024-01-08] MEDS: FUROsemide 10 mg/mL SDV 4mL 40 MG IVP (11:40)
[2024-01-08] MEDS: chlorhexidine gluconate 0.12% Btl 473 mL 15 ML MUCOUS MEM ×2 (11:41→17:41)
--- NOTE | 2024-01-08 13:33 | XRR_ITS ---
PROCEDURE INFORMATION: Exam: XR Chest Exam date and time: 01/08/2024 2:28 PM Age: 73 years old Clinical indication: Tachypnea TECHNIQUE: Imaging protocol: Radiologic exam of the chest. Views: 1 view. COMPARISON: CR XR chest 1V portable [id number] 01/06/2024 11:40 AM FINDINGS: Lungs: Suboptimal inspiratory effort. Increased density at the superolateral aspect of the right lung apex appears more prominent when compared to the prior study. Pleural spaces: Blunting of the costophrenic angles is suggestive of small pleural effusions. Heart/Mediastinum: The heart borders are obscured. Bones/joints: Unremarkable. XR/XR chest 1V portable [id number] IMPRESSION: 1. Blunting of the costophrenic angles is suggestive of small pleural effusions. 2. Increased density at the superolateral aspect of the right lung apex appears more prominent when compared to the prior study. This is nonspecific and may represent pleural thickening and/or scarring. Consider CT scan of the thorax for further evaluation if clinically warranted.
[2024-01-08] MEDS: HYDROmorphone 1 mg/mL INJ 1 mL IVP (13:39)
--- NOTE | 2024-01-08 14:23 | P.PN_ITS ---
Subjective 2 Subjective: Patient seen and examined. Remains extubated but still somnolent. Vitals/I&O/Wt Last Vital Signs Temp 98.3 F 01/08/24 13:00 Pulse 95 01/08/24 13:00 Resp 33 H 01/08/24 13:39 BP 149/92 01/08/24 13:00 Pulse Ox 95 01/08/24 13:39 O2 Del Method Nasal Cannula 01/08/24 13:00 O2 Flow Rate 4 01/08/24 13:00 FiO2 30 01/07/24 13:56 01/07/24 01/08/24 01/08/24 22:59 06:59 14:59 Intake Total 0 / 1107.542 997.5 / 2105.042 0 / 0 Output Total 365 / 480 505 / 985 1959 Balance -365 / 627.542 492.5 / 1120.042 -1959 Weight last 48 hrs Weight 274 lb 7.608 oz Weight 289 lb 4.8 oz Weight 285 lb 7.978 oz Physical Exam 2 Narrative: General: No acute distress, somnolent Abdomen: Soft, nondistended, appropriately tender Drain: 155 cc serosanguineous Urinary Catheter Management: Lopez: Cath Placed During This Visit: yes Reason for Continuing Indwelling Catheter: Accurate Measurement of Urinary Output in Critically Ill Patients Urinary Catheter Date of Insertion: 01/05/24 Urinary Catheter Time of Insertion: 15:48 Data 01/08/24 03:12 01/08/24 03:12 Micro: Microbiology 01/06/24 09:55 Gram Stain - Final Sputum - Endotracheal Tube Aspirate Sputum Culture - Final 01/06/24 11:45 Urine Culture - Final Urine Catheterized 01/06/24 15:21 Blood Culture - Preliminary Blood NEGATIVE TO DATE 01/06/24 13:27 Blood Culture - Preliminary Blood NEGATIVE TO DATE A&P Assessment and plan (1) Acute calculous cholecystitis: (2) Tachypnea: Plan Postop day #2 status post laparoscopic cholecystectomy Pain control Antibiotics Chest x-ray Regular diet Drain will be removed prior to discharge Medical management per hospitalist Attestations 2 Medical Necessity Statement*: Per primary Coding Level of Care Code Acute Code for [facility] Diagnoses Acute calculous cholecystitis K80.00 Tachypnea R06.82
[2024-01-08 15:09] LABS: Basophils % 0.2 %; Eosinophils % 0.1 %; Hematocrit 33.8 % (37-53); Lymphocytes # 0.6 10^3/uL (0.8-4.8); Lymphocytes % 6.3 %; Mean Corpuscular HGB Conc 31.4 g/dL (30-55); Mean Corpuscular Hemoglobin 28.6 pg (27-33); Mean Corpuscular Volume 91.1 fl (82-101); Mean Platelet Volume 12.6 fL (7.4-10.4); Monocytes # 0.4 10^3/uL (0.2-0.9); Monocytes % 4.4 %; Neutrophils # 8.22 10^3/uL (1.8-7.7); Neutrophils % 87.7 %; Nucleated Red Blood Cells % 0 %; Platelet Count 103 10^3/cmm (157-399); Red Blood Count 3.71 10^6/uL (3.85-5.65); Red Cell Distribution Width 15.9 % (12.1-15.1); White Blood Count 9.37 10^3/uL (3.29-11.43)
[2024-01-08 15:23] LABS: ABG PCO2 38.5 mmHg (35-45); ABG PH Result 7.47 (7.35-7.45); Alveolar-Arterial Oxygen Gradi 2.4 mmHg (5-10); Arterial Blood Gas Hematocrit 32.8 % (42-52); Base Excess ABG 4.4 mmol/L (-2.0-2.0); Blood Gas Allen Test Pos; Blood Gas Sample Type Arterial; Carboxyhemoglobin 1.2 %THgb (0.4-20.1); HCO3 ABG 28.2 mmol/L (22-26); HGB O2 Sat 95.5 % (95-100); Ionized Calcium Level - ABG 1.1 mmol/L (1.1-1.4); Methemoglobin 0.9 % (0.4-1.5); Oxygen Saturation ABG 97.5; PO2 ABG 84.5 mmHg (80.0-100.0); Potassium Level - ABG 3.2 mmol/L (3.5-5.0); Total Hemoglobin 10.7 g/dL (14-18)
[2024-01-08 15:24] LABS: Blood Gas Operator Identificat WALCI; Blood Gas Sample Site Radial, left; Oxygen Device NC
[2024-01-08 15:32] LABS: Alanine Aminotransferase 28 U/L (0-41); Albumin Level 2.8 g/dL (3.5-5.2); Alkaline Phosphatase 142 U/L (40-130); Anion Gap 17.6 (5-19); Aspartate Amino Transferase 49 U/L (0-40); Blood Urea Nitrogen 47 mg/dL (8-23); Calcium 7.9 mg/dL (8.5-10.5); Carbon Dioxide 26 mmol/L (22-29); Chloride 106 mmol/L (98-107); Creatinine Clr Calc Pharmacy 59.7789; Globulin 2.6 g/dL (1.3-4.6); Glucose 172 mg/dL (65-115); Osmolality Calculated 318 mOsm/kg (285-295); Potassium 3.6 mmol/L (3.5-5.1); Sodium 146 mmol/L (136-145); Total Protein 5.4 g/dL (6.6-8.7)
[2024-01-08 15:34] LABS: Lactate (Lactic Acid level) 1.8 mmol/L (0.5-2.2); Vancomycin Trough 14.7 ug/mL (10-15)
--- NOTE | 2024-01-08 15:57 | P.PN_ITS ---
Subjective 2 Subjective: Seen this morning. Patient resting comfortably in bed. Denies having any pain at this time. Was somewhat tachypneic earlier however at this time when being seen respiratory rate is 20-22. Says he is very tired. Earlier nurse tried to get the patient to sit up on the edge of the bed however patient was very weak to do so. He has been more awake and alert compared to yesterday. He knew where he was and he knew what was going on. Off all pressors. Currently running IV fluids. Is on 4 L nasal cannula saturating 95%. Lasix was given this morning. Urine output is starting to increase. Vitals/I&O/Wt Last Vital Signs Temp 98.3 F 01/08/24 13:00 Pulse 95 01/08/24 13:00 Resp 33 H 01/08/24 13:39 BP 149/92 01/08/24 13:00 Pulse Ox 95 01/08/24 13:39 O2 Del Method Nasal Cannula 01/08/24 13:00 O2 Flow Rate 4 01/08/24 13:00 FiO2 30 01/07/24 13:56 01/08/24 01/08/24 01/08/24 06:59 14:59 22:59 Intake Total 997.5 / 2105.042 0 / 0 Output Total 505 / 985 1959 Balance 492.5 / 1120.042 -1959 Weight last 48 hrs Weight 124.5 kg Weight 131.224 kg Weight 129.5 kg Physical Exam 2 Narrative: Lopez catheter in place draining clear yellow urine. Normal S1-S2 Sitting up in bed appearing comfortable however appears weak and lethargic. Respiratory rate 20-22. On 4 L nasal cannula saturating 95%. Vitals are stable. Juice drain present with minimal output. Lungs clear to auscultation bilaterally no wheezes no rhonchi appreciated Abdomen soft, bowel sounds absent at this time No edema bilateral lower extremities. Visible skin intact. Urinary Catheter Management: Lopez: Cath Placed During This Visit: yes Reason for Continuing Indwelling Catheter: Accurate Measurement of Urinary Output in Critically Ill Patients Urinary Catheter Date of Insertion: 01/05/24 Urinary Catheter Time of Insertion: 15:48 Data 01/08/24 14:32 01/08/24 14:32 Micro: Microbiology 01/06/24 09:55 Gram Stain - Final Sputum - Endotracheal Tube Aspirate Sputum Culture - Final 01/06/24 11:45 Urine Culture - Final Urine Catheterized 01/06/24 15:21 Blood Culture - Preliminary Blood NEGATIVE TO DATE 01/06/24 13:27 Blood Culture - Preliminary Blood NEGATIVE TO DATE A&P Assessment and plan (1) Coronary artery disease: (2) Elevated troponin: (3) Ischemic heart disease: (4) Acute cholecystitis: (5) Acute calculous cholecystitis: (6) Septic shock: (7) Ventilator dependence: (8) Bacteremia: (9) Lactic acid acidosis: (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 Patient requiring 3 vasopressors at this time lactic acid 8.3. Wean down on pressors as able ? Continue to monitor blood pressure with arterial line ? Placed on bicarb drip. Patient is status post 2 A of bicarb ? Continue vancomycin, meropenem ? Check repeat blood cultures today ? 1 out of 4 bottles positive for Staph aureus as per lab. Final sensitivities, speciation is pending ? Check BNP ? Appreciate cardiology consult. ? Continue ventilatory support at this time. Continue patient on fentanyl for pain, Versed 2 mg every 2-4 hour for sedation. Hold off on propofol secondary to low blood pressures ? Echocardiogram pending at this time ? Check CBC every 12 hours, CMP, lactic acid every 8 hours ? Repeat blood gas reviewed once patient arrived to ICU. Have discussed with nursing staff to wean down FiO2. ? Hemoglobin A1c 7.2 ? Magnesium 1.5, phosphorus 5.0. ? Creatinine 1.7 on admission and currently worsening. Urine output 50 cc so far. Patient most likely has developed ATN or is progressing towards that. Will continue to monitor kidney function ? Continue on bicarbonate drip at 100 cc/h, LR at 75 cc/h. Continue to monitor urine output with Lopez catheter ? Hold home meloxicam, tamsulosin, donepezil, finasteride, Imdur, citalopram at this time ? Keep n.p.o. at this time. Secondary to vasopressor requirements will not be initiating tube feeding ? DuoNeb every 6 hours as needed ? Check sputum Gram stain culture, urine culture Full code DVT prophylaxis: Heparin subcu twice daily, SCDs GI prophylaxis: Protonix 40 IV daily Hardware: Right arterial line present, right IJ central line present, Lopez catheter present, telemetry leads present 01/08/2024 ? Patient extubated 01/06 to nasal cannula. Currently on 4 L nasal cannula. ? Nursing staff is concerned regarding patient's intermittent tachypnea which could be secondary to pain. He was ordered Dilaudid earlier. ? Will place on BiPAP for support. I would like to avoid intubation if possible. ? Will continue to monitor ? Patient passed nursing dysphagia screen. Will place on regular diet ? Patient's urine output is starting to improve. Nephrology following. Lasix was given this morning. ? Patient has been chronically thrombocytopenic with platelets 69 today. He was not given any heparin. Peripheral smear was sent to pathology. ? Creatinine 1.5. ? Will place on heparin subcu twice daily for DVT prophylaxis. Will continue to monitor CBC every 12 hours. ?Blood culture positive for coagulase-negative staph most likely contaminant. ? Check procalcitonin in a.m. ? Echo negative for vegetations. ? Continue on vancomycin and meropenem at this time ? Urine culture, sputum Gram stain culture pending at this time ? PT OT ordered. ?General Surgery following. Appreciate recommendations. Attestations 2 Medical Necessity Statement*: Continue to manage patient., Will continue to monitor in ICU secondary to postop status, extubated yesterday. He is on 4 L nasal cannula at this time with intermittent tachypnea. Will continue to monitor in ICU for impending respiratory failure. Patient has ATN. Diagnoses Coronary artery disease I25.10 Elevated troponin R79.89 Ischemic heart disease I25.9 Acute cholecystitis K81.0 Acute calculous cholecystitis K80.00 Septic shock A41.9; R65.21 Ventilator dependence Z99.11 Bacteremia R78.81 Lactic acid acidosis E87.20 Multiple vessel coronary artery disease I25.10
[2024-01-08] MEDS: vancomycin 1,250 MG/250 ML PIGGYBACK 166.67 MG IV (16:56)
[2024-01-08] MEDS: heparin 5,000 unit/mL INJ 1 mL 5000 UNIT SUBCUT (16:59)
--- NOTE | 2024-01-08 17:20 | CTR_ITS ---
PROCEDURE INFORMATION: Exam: CT Chest Without Contrast; Diagnostic Exam date and time: 01/08/2024 5:57 PM Age: 73 years old Clinical indication: Other: Abnormal cxr; Prior surgery; Surgery date: Post-operative (0-2 days); Surgery type: Lap karl 01/06/2024. Spinal fusion; Patient HX: Increased RT lung apex density and bilateral costophrenic angle blunting on latest cxr. Peritoneal drain in place from cholecystectomy two days ago. History of mi. ; Additional info: R/O pna TECHNIQUE: Imaging protocol: Diagnostic computed tomography of the chest without contrast. Radiation optimization: All CT scans at this facility use at least one of these dose optimization techniques: automated exposure control; mA and/or kV adjustment per patient size (includes targeted exams where dose is matched to clinical indication); or iterative reconstruction. COMPARISON: CT chest abdpel w/*[id number] 01/05/2024 3:02 PM RADIATION DOSE METRICS: Total DLP (mGy-cm): 1010.01 FINDINGS: Lungs: Decreased AP diameter of the distal trachea and central bronchi consistent with tracheobronchomalacia is stable from the prior study. Pleural spaces: Small bilateral pleural effusions with adjacent compressive atelectasis and/or pneumonia. Heart: Cardiomegaly. Coronary arteries: Multivessel atherosclerotic disease which involves the coronary arteries. Lymph nodes: Unremarkable. No enlarged lymph nodes. Vasculature: Unremarkable. No aortic aneurysm. Gallbladder and biliary ducts: The gallbladder has been removed. There is stranding in the cholecystectomy operative bed obscured by artifact. Spleen: The spleen is enlarged measuring 14.1 cm. Intraperitoneal space: There is a small amount of free intraperitoneal fluid in the visualized upper abdomen. Bones/joints: There are degenerative and postoperative changes in the visualized spine. Soft tissues: Unremarkable. Other findings: Motion artifact does moderately limit the sensitivity of this examination. CT/CT chest wo con [id number] IMPRESSION: 1. Small bilateral pleural effusions with adjacent compressive atelectasis and/or pneumonia. In combination with cardiomegaly, findings raise concern for congestive heart failure. 2. The gallbladder has been removed. There is stranding in the cholecystectomy operative bed obscured by artifact.
[2024-01-08] MEDS: lactated ringers 1,000 ML 100 ML IV (19:03)
--- NOTE | 2024-01-08 19:16 | PC.NURSE ---
SHift SUmmary: Patient rested in bed throughout the day. Nurse attempted to assist patient to sit on the side of the bed to start exercise, but the patient was unable to due to weakness. Reports back pain with repositioning (previous back surgeries), but no pain at rest. 1 Moderate sized bowel movement. Total urine output was 2500mL during day shift, received 40mg of lasix. Mental status similar to yesterday, but slightly improved. Today he has been easily awoken and will engage in conversation, but he spends most of the day sleeping and remains lethargic. Patient has been tachypnic throughout the day, respiratory rate is 30-35 with shallow breaths. But oxygen saturations have been stable at 95% on 4L, and patient does not appear to be working harder to breath. Hydromorphone given in case patient is having unreported pain with respirations which are limiting chest expansion, but it had no effect on respiratory status. Bipap considered by physician, but there were concerns for worsening alkalosis and increasing respiratory rate further. At time of this note physician wants to try hi flow cannula and reassess respiratory status in 1 hour and is considering intubation if no improvement.
[2024-01-08 19:29] LABS: Basophils % 0.2 %; Eosinophils % 0.2 %; Lymphocytes # 0.7 10^3/uL (0.8-4.8); Lymphocytes % 7.9 %; Mean Corpuscular HGB Conc 31.3 g/dL (30-55); Mean Corpuscular Hemoglobin 28.5 pg (27-33); Mean Corpuscular Volume 91.2 fl (82-101); Mean Platelet Volume 12.3 fL (7.4-10.4); Monocytes # 0.5 10^3/uL (0.2-0.9); Monocytes % 6.2 %; Neutrophils # 7.29 10^3/uL (1.8-7.7); Neutrophils % 84.7 %; Nucleated Red Blood Cells % 0 %; Platelet Count 100 10^3/cmm (157-399); Red Blood Count 3.51 10^6/uL (3.85-5.65); Red Cell Distribution Width 15.9 % (12.1-15.1); White Blood Count 8.61 10^3/uL (3.29-11.43)
--- NOTE | 2024-01-08 20:15 | PC.NURSE ---
Addendum entered by Rohini Smith RN 01/08/24 21:08: Update given to Magali at [facility]. Original Note: Repositioned in bed to high fowlers position, encouraged patient to cough and deep breath, IS done x 5 to 500. Remains drowsy but awakens easily and answers questions appropriately. Extreme weakness noted to all 4 extremities. Passive ROM done with patient.
--- NOTE | 2024-01-08 21:00 | PC.NURSE ---
Patient placed on Bipap per RT.
[2024-01-09] VITALS (27 sets, daily range): BP systolic 97–149; BP diastolic 61–89; PULSE 70–88; RESP 16–43; TEMP 36.1–37; O2SAT 92–99; BMI 38.5
[2024-01-09] MEDS: pantoprazole 40 mg SDV IVP (02:38)
[2024-01-09] MEDS: lactated ringers 1,000 ML 100 ML IV (04:25)
[2024-01-09] MEDS: heparin 5,000 unit/mL INJ 1 mL 5000 UNIT SUBCUT ×2 (04:25→15:52)
[2024-01-09 06:19] LABS: Basophils % 0.1 %; Eosinophils % 0.6 %; Hematocrit 31.5 % (37-53); Lymphocytes # 0.8 10^3/uL (0.8-4.8); Lymphocytes % 11.2 %; Mean Corpuscular HGB Conc 31.1 g/dL (30-55); Mean Corpuscular Hemoglobin 28.8 pg (27-33); Mean Corpuscular Volume 92.6 fl (82-101); Mean Platelet Volume 12.4 fL (7.4-10.4); Monocytes # 0.6 10^3/uL (0.2-0.9); Monocytes % 8.1 %; Neutrophils # 5.27 10^3/uL (1.8-7.7); Neutrophils % 77.9 %; Nucleated Red Blood Cells % 0 %; Platelet Count 100 10^3/cmm (157-399); Red Cell Distribution Width 15.9 % (12.1-15.1); White Blood Count 6.77 10^3/uL (3.29-11.43)
[2024-01-09 06:42] LABS: Alanine Aminotransferase 23 U/L (0-41); Albumin Level 2.4 g/dL (3.5-5.2); Alkaline Phosphatase 122 U/L (40-130); Anion Gap 12.3 (5-19); Aspartate Amino Transferase 42 U/L (0-40); Blood Urea Nitrogen 43 mg/dL (8-23); Calcium 7.7 mg/dL (8.5-10.5); Carbon Dioxide 28 mmol/L (22-29); Chloride 105 mmol/L (98-107); Creatinine Clr Calc Pharmacy 88.5517; Glucose 148 mg/dL (65-115); Osmolality Calculated 308 mOsm/kg (285-295); Phosphorus 3.2 mg/dL (2.5-4.5); Potassium 3.3 mmol/L (3.5-5.1); Sodium 142 mmol/L (136-145); Total Bilirubin 0.9 mg/dL (0.15-1.2); Total Protein 5.4 g/dL (6.6-8.7)
[2024-01-09] MEDS: HYDROcodone-acetaminophen 7.5-325 mg Tablet 1 TAB PO ×3 (07:09→15:45)
[2024-01-09 07:58] LABS: Glucose Point of Care 149 mg/dL (70-110)
[2024-01-09] MEDS: isosorbide mononitrate ER 30 mg Tablet PO ×2 (08:43→18:28)
[2024-01-09] MEDS: citalopram 20 mg Tablet 10 MG PO (08:43)
--- NOTE | 2024-01-09 09:14 | PC.SOCIAL ---
IMM Update Pg. 2 of IMM Updated and reviewed with patient. Copy provided.
--- NOTE | 2024-01-09 10:55 | P.PN_ITS ---
Subjective 2 Subjective: Patient seen and examined. Much more awake and alert today. Denies any abdominal pain Vitals/I&O/Wt Last Vital Signs Temp 98.0 F 01/09/24 04:00 Pulse 79 01/09/24 07:53 Resp 18 01/09/24 07:53 BP 122/72 01/09/24 06:00 Pulse Ox 97 01/09/24 07:53 O2 Del Method BiPAP 01/09/24 07:53 O2 Flow Rate 4 01/08/24 20:00 FiO2 35 01/09/24 07:53 01/08/24 01/09/24 01/09/24 22:59 06:59 14:59 Intake Total 1250.000 / 1250.000 936.667 / 2186.667 800 / 800 Output Total 800 / 2760 455 / 3215 100 / 100 Balance 450.000 / -1510.000 481.667 / -1028.333 700 / 700 Weight last 48 hrs Weight 267 lb 13.786 oz Weight 283 lb 4.704 oz Weight 274 lb 7.608 oz Physical Exam 2 Narrative: General: No acute distress, awake and alert Abdomen: Soft, nondistended, minimally and appropriately tender Drain: serosanguineous Urinary Catheter Management: Lopez: Cath Placed During This Visit: yes Reason for Continuing Indwelling Catheter: Accurate Measurement of Urinary Output in Critically Ill Patients Urinary Catheter Date of Insertion: 01/05/24 Urinary Catheter Time of Insertion: 15:48 Data 01/09/24 05:27 01/09/24 05:27 Micro: Microbiology 01/06/24 09:55 Gram Stain - Final Sputum - Endotracheal Tube Aspirate Sputum Culture - Final 01/06/24 11:45 Urine Culture - Final Urine Catheterized A&P Assessment and plan (1) Acute calculous cholecystitis: (2) Tachypnea: Plan Postop day #3 status post laparoscopic cholecystectomy Pain control Antibiotics Regular diet Physical therapy Drain will be removed prior to discharge Medical management per hospitalist Attestations 2 Medical Necessity Statement*: Per primary Coding Level of Care Code Acute Code for [facility] Fwd Diagnoses Acute calculous cholecystitis K80.00 Tachypnea R06.82
[2024-01-09] MEDS: meropenem 1,000 mg SDV 1000 MG IVP ×2 (12:50→23:25)
[2024-01-09] MEDS: vancomycin 1,250 MG/250 ML PIGGYBACK 166 MG IV (15:47)
--- NOTE | 2024-01-09 16:35 | P.PN_ITS ---
Subjective 2 Subjective: He is generally very weak after extubation, but has so far weaned off BiPAP. Has been more alert and interactive, and drinking water. Vitals/I&O/Wt Last Vital Signs Temp 98.2 F 01/09/24 13:00 Pulse 77 01/09/24 13:00 Resp 43 H 01/09/24 13:00 BP 119/76 01/09/24 13:00 Pulse Ox 95 01/09/24 13:00 O2 Del Method Nasal Cannula 01/09/24 13:00 O2 Flow Rate 2 01/09/24 13:00 FiO2 35 01/09/24 07:53 01/09/24 01/09/24 01/09/24 06:59 14:59 22:59 Intake Total 936.667 / 2186.667 1158.333 / 1158.333 Output Total 455 / 3215 130 / 130 Balance 481.667 / -8583.906 5803.333 / 1028.333 Weight last 48 hrs Weight 121.5 kg Weight 128.5 kg Weight 124.5 kg Physical Exam 2 Narrative: Accompanied by his . Generally weak. Deconditioned. Const: COMMON NORMALS: patient oriented x3 and alert GENERAL APPEARANCE: c ooperative ORIENTATION/CONSCIOUSNESS: Yes awake HENMT: COMMON NORMALS: oropharynx normal Neck/C-Spine: COMMON NORMALS: no JVD Resp: COMMON NORMALS: normal respiratory effort and clear to auscultation bilaterally AUSCULTATION: clear to auscultation bilaterally Cardio: COMMON NORMALS: no JVD, regular rhythm, S1 normal heart sound present, S2 normal heart sound present and No murmurs present (Cardio) RHYTHM: regular rhythm HEART SOUNDS: S1 normal heart sound present and S2 normal heart sound present GI: COMMON NORMALS: Normal to inspection, nondistended, normoactive bowel sounds present, Soft to palpation and non-tender PALPATION: Yes Soft to palpation Extremity: COMMON NORMALS: no joint enlargement GENERAL: Yes edema (Trace) Neuro: COMMON NORMALS: patient oriented x3 and moves all extremities S ENSORIUM/ORIENTATION: Yes alert Skin: COMMON NORMALS: no rashes or lesions noted GENERAL SKIN EXAM: no rashes or lesions noted Urinary Catheter Management: Lopez: Cath Placed During This Visit: yes Reason for Continuing Indwelling Catheter: Accurate Measurement of Urinary Output in Critically Ill Patients Urinary Catheter Date of Insertion: 01/05/24 Urinary Catheter Time of Insertion: 15:48 Data 01/09/24 05:27 01/09/24 05:27 Micro: Microbiology 01/05/24 15:57 Blood Culture - Preliminary Blood Staphylococcus hominis 01/06/24 09:55 Gram Stain - Final Sputum - Endotracheal Tube Aspirate Sputum Culture - Final 01/06/24 11:45 Urine Culture - Final Urine Catheterized A&P Assessment and plan (1) Coronary artery disease: (2) Elevated troponin: (3) Ischemic heart disease: (4) Acute cholecystitis: (5) Acute calculous cholecystitis: (6) Septic shock: (7) Ventilator dependence: (8) Bacteremia: (9) Lactic acid acidosis: (10) Multiple vessel coronary artery disease: Plan #Septic shock secondary to acute acalculous cholecystitis #JUSTIN/ATN #Elective intubation for surgery #Bacteremia #Lactic acidosis, leukocytosis #Multivessel coronary artery disease not amenable to intervention, #Obstructive sleep apnea #Depression #Hypertension #Hyperlipidemia #Thrombocytopenia So far has weaned off BiPAP, maintaining oxygen saturation on 2 L nasal cannula oxygen. Very weak, deconditioned. So far maintaining blood pressure. Discussed with patient and his , discussed with nursing, corrections caseworker. Pending PT assessment today, will need rehabilitation. Transferred to medical surgical floor. Continue care. Continue vancomycin, meropenem. Monitor for risk of kidney injury, risk of seizure. Reviewed vitals, CBC, CMP, blood culture. ? 1 out of 4 bottles positive for Staph aureus as per lab. Final sensitivities, speciation is pending Reviewed nephrology note. Somewhat lower urine output today, monitor intake and output. Reassess kidney function. Continue to monitor urine output with Lopez catheter ? Hold home meloxicam, tamsulosin, donepezil, finasteride, Imdur, citalopram at this time ? DuoNeb every 6 hours as needed Full code DVT prophylaxis: Heparin subcu twice daily, SCDs GI prophylaxis: Protonix 40 IV daily Hardware: Right arterial line present, right IJ central line present, Lopez catheter present, telemetry leads present ?General Surgery following. Appreciate recommendations. Attestations 2 Medical Necessity Statement*: Continue admission for assessment management after septic shock, acalculous cholecystitis, status post extubation, general very weak, deconditioned, follow- up for possible bacteremia, reassess kidney function after kidney injury, PT assessment, post discharge planning and arrangements for rehabilitation. and High MDM includes amount and/or complexity of data reviewed/ordered [ previous or external records, resulted lab(s)/test(s), ordered lab(s)/test(s) and other healthcare professional discussion] and described risk of complication, morbidity or mortality of management as documented Diagnoses Coronary artery disease I25.10 Elevated troponin R79.89 Ischemic heart disease I25.9 Acute cholecystitis K81.0 Acute calculous cholecystitis K80.00 Septic shock A41.9; R65.21 Ventilator dependence Z99.11 Bacteremia R78.81 Lactic acid acidosis E87.20 Multiple vessel coronary artery disease I25.10
[2024-01-09 17:24] LABS: Glucose Point of Care 163 mg/dL (70-110)
--- NOTE | 2024-01-09 17:31 | P.PN_ITS ---
Subjective 2 Subjective: no new c/o on 2L NC Medications: Reviewed: Yes Vitals/I&O/Wt Last Vital Signs Temp 98.2 F 01/09/24 13:00 Pulse 77 01/09/24 13:00 Resp 43 H 01/09/24 13:00 BP 119/76 01/09/24 13:00 Pulse Ox 95 01/09/24 13:00 O2 Del Method Nasal Cannula 01/09/24 13:00 O2 Flow Rate 2 01/09/24 13:00 FiO2 35 01/09/24 07:53 01/09/24 01/09/24 01/09/24 06:59 14:59 22:59 Intake Total 936.667 / 2186.667 1158.333 / 1158.333 Output Total 455 / 3215 130 / 130 305 / 435 Balance 481.667 / -5763.659 2831.333 / 1028.333 -305 / 723.333 Weight last 48 hrs Weight 121.5 kg Weight 128.5 kg Weight 124.5 kg Physical Exam 2 Narrative: Patient extubated no distress, on 2 L O2 by nasal cannula Urinary Catheter Management: Lopez: Cath Placed During This Visit: yes Reason for Continuing Indwelling Catheter: Accurate Measurement of Urinary Output in Critically Ill Patients Urinary Catheter Date of Insertion: 01/05/24 Urinary Catheter Time of Insertion: 15:48 Data 01/09/24 05:27 01/09/24 05:27 Micro: Microbiology 01/05/24 15:57 Blood Culture - Preliminary Blood Staphylococcus hominis 01/06/24 09:55 Gram Stain - Final Sputum - Endotracheal Tube Aspirate Sputum Culture - Final A&P Assessment and plan (1) JUSTIN (acute kidney injury): 1. JUSTIN : Baseline Cr 0.8 on presentation , developed JUSTIN with Cr 3.2 -from ATN in the setting of sepsis , and contrast nephropathy -Cr improving and UOP picked up - off pressors - continue to monitor renal Fxn - PRN IV lasix 2. S/p shock in the setting of cholecystitis, status postcholecystectomy, management per general surgery 3.HTN : meds on hold , Off pressors 4. h/o LUZ Attestations 2 Medical Necessity Statement*: per [facility] Coding Level of Care Code Acute Code for [facility] Fwd Diagnoses JUSTIN (acute kidney injury) N17.9
[2024-01-09] MEDS: FUROsemide 10 mg/mL SDV 4mL 40 MG IVP (18:25)
[2024-01-09] MEDS: potassium chloride ER 20 mEq Tablet 40 MEQ PO (18:27)
[2024-01-09] MEDS: potassium chloride ER 20 mEq Tablet PO (18:27)
[2024-01-09] MEDS: chlorhexidine gluconate 0.12% Btl 473 mL 15 ML MUCOUS MEM (18:29)
--- NOTE | 2024-01-09 19:15 | PC.NURSE ---
Patient's wedding ring was removed before surgery. Due to peripheral swelling which has occured since, we are unable to place it back on the patient. Ring was given to his Shilpi Espinosa for safe keeping. Patient is often times forgetful and continues to think we lost his ring. Other times he remembers that we gave the ring to his but gets upset that we won't put it back on him his finger despite it not being physically possible. Nurse Called the patients and requested she bring the ring back in, suggested she put in on a chain so he could wear it as a necklace.
--- NOTE | 2024-01-09 19:26 | PC.NURSE ---
SHift Summary: Uneventful shift. Patient rested in bed almost the entire day. More awake and alert than yesterday, but still frequently lethargic. Oriented to person, place, and situation. Patient is cooperative and frequently requests to get up and move, but he is extremely weak, ability to assist is nearly non existent. Nursing staff assisted patient to sit on the side of the bed this morning, patient tolerated about 5 minutes sitting up. Patient provided almost no effort to sit on the side of the bed. Later physical therapy worked with the patient and with the help of 2 other nurses transferred him to a recliner. Patient provided almost no effort to get to the recliner. Due to his inability to support himeself sitting up and pain associated with positioning he was moved back to bed shortly after. Nurse has expressed concerns regarding severe deconditioning to physician. Lasix and potassium given at end of shift. total urine output: 375 1 bowel movement.
[2024-01-10] VITALS (11 sets, daily range): BP systolic 93–119; BP diastolic 58–74; PULSE 70–88; RESP 16–20; TEMP 36.4–36.8; O2SAT 90–98
[2024-01-10] MEDS: HYDROmorphone 1 mg/mL INJ 1 mL IVP ×3 (00:40→12:09)
[2024-01-10] MEDS: pantoprazole 40 mg SDV IVP (04:29)
[2024-01-10] MEDS: heparin 5,000 unit/mL INJ 1 mL 5000 UNIT SUBCUT ×2 (04:30→17:22)
[2024-01-10] MEDS: HYDROcodone-acetaminophen 7.5-325 mg Tablet 1 TAB PO (04:30)
[2024-01-10 05:20] LABS: Basophils % 0.3 %; Eosinophils # 0.2 10^3/uL (0.0-0.8); Eosinophils % 1.6 %; Hematocrit 33.2 % (37-53); Lymphocytes % 10.5 %; Mean Corpuscular HGB Conc 30.4 g/dL (30-55); Mean Corpuscular Hemoglobin 28.4 pg (27-33); Mean Corpuscular Volume 93.3 fl (82-101); Mean Platelet Volume 11.8 fL (7.4-10.4); Monocytes # 0.7 10^3/uL (0.2-0.9); Monocytes % 7.8 %; Neutrophils # 6.94 10^3/uL (1.8-7.7); Neutrophils % 74.9 %; Nucleated Red Blood Cells % 0 %; Platelet Count 97 10^3/cmm (157-399); Red Blood Count 3.56 10^6/uL (3.85-5.65); Red Cell Distribution Width 15.6 % (12.1-15.1); White Blood Count 9.26 10^3/uL (3.29-11.43)
[2024-01-10 05:38] LABS: Alanine Aminotransferase 21 U/L (0-41); Albumin Level 2.3 g/dL (3.5-5.2); Alkaline Phosphatase 125 U/L (40-130); Anion Gap 12.6 (5-19); Aspartate Amino Transferase 37 U/L (0-40); Blood Urea Nitrogen 35 mg/dL (8-23); Calcium 7.3 mg/dL (8.5-10.5); Carbon Dioxide 28 mmol/L (22-29); Chloride 103 mmol/L (98-107); Globulin 3.1 g/dL (1.3-4.6); Glucose 143 mg/dL (65-115); Osmolality Calculated 300 mOsm/kg (285-295); Potassium 3.6 mmol/L (3.5-5.1); Sodium 140 mmol/L (136-145); Total Bilirubin 0.8 mg/dL (0.15-1.2); Total Protein 5.4 g/dL (6.6-8.7)
[2024-01-10] MEDS: isosorbide mononitrate ER 30 mg Tablet PO ×2 (08:31→17:22)
[2024-01-10] MEDS: citalopram 20 mg Tablet 10 MG PO (08:32)
--- NOTE | 2024-01-10 09:59 | P.PN_ITS ---
Subjective 2 Subjective: Patient seen and examined. Tolerating diet but does not have much of an appetite. Participated with physical therapy today and yesterday but minimally due to weakness Vitals/I&O/Wt Last Vital Signs Temp 98.1 F 01/10/24 07:47 Pulse 77 01/10/24 08:07 Resp 18 01/10/24 08:07 BP 113/66 01/10/24 07:47 Pulse Ox 93 01/10/24 08:07 O2 Del Method Nasal Cannula 01/10/24 08:07 O2 Flow Rate 2 01/10/24 08:07 FiO2 2 01/09/24 19:49 01/09/24 01/10/24 01/10/24 22:59 06:59 14:59 Intake Total 250 / 1408.333 50 / 50 Output Total 1155 / 1285 250 / 1535 Balance -1155 / -126.667 0 / -126.667 50 / 50 Weight last 48 hrs Weight 282 lb 8 oz Weight 284 lb 6.341 oz Weight 267 lb 13.786 oz Weight 283 lb 4.704 oz Physical Exam 2 Narrative: General: No acute distress, awake and alert Abdomen: Soft, nondistended, minimally and appropriately tender Drain: serosanguineous Urinary Catheter Management: Lopez: Cath Placed During This Visit: yes Reason for Continuing Indwelling Catheter: Acute Urinary Retention or Obstruction Urinary Catheter Date of Insertion: 01/05/24 Urinary Catheter Time of Insertion: 15:48 Data 01/10/24 05:09 01/10/24 05:09 Micro: Microbiology 01/05/24 15:57 Blood Culture - Preliminary Blood Staphylococcus hominis A&P Assessment and plan (1) Acute calculous cholecystitis: (2) Tachypnea: Plan Postop day #4 status post laparoscopic cholecystectomy Pain control Antibiotics Regular diet Physical therapy Drain will be removed prior to discharge Surgically stable for discharge. Will need extensive physical therapy at a long-term facility Medical management per hospitalist Attestations 2 Medical Necessity Statement*: Per primary Coding Level of Care Code Acute Code for [facility] Fwd Diagnoses Acute calculous cholecystitis K80.00 Tachypnea R06.82
[2024-01-10] MEDS: meropenem 1,000 mg SDV 1000 MG IVP ×2 (10:53→18:12)
--- NOTE | 2024-01-10 13:30 | PM.PN ---
Subjective Subjective: He reports he is doing okay and everything is functioning . No abdominal pain. He is passing flatus. No difficulty breathing. He has been generally weak, awaiting to work with physical therapy. Vitals/I&O/Wt Last Vital Signs Temp 98.2 F 01/10/24 11:43 Pulse 81 01/10/24 11:43 Resp 18 01/10/24 12:09 BP 101/66 01/10/24 11:43 Pulse Ox 98 01/10/24 12:09 O2 Del Method Nasal Cannula 01/10/24 11:43 O2 Flow Rate 2 01/10/24 08:07 FiO2 2 01/09/24 19:49 01/09/24 01/10/24 01/10/24 22:59 06:59 14:59 Intake Total 250 / 1408.333 290 / 290 Output Total 1155 / 1285 250 / 1535 55 / 55 Balance -1155 / -126.667 0 / -126.667 235 / 235 Weight last 48 hrs Weight 128.14 kg Weight 129 kg Weight 121.5 kg Physical Exam Narrative: Accompanied by his . Generally weak. Deconditioned. Const: COMMON NORMALS: patient oriented x3 and alert GENERAL APPEARANCE: cooperative ORIENTATION/CONSCIOUSNESS: Yes awake HENMT: COMMON NORMALS: oropharynx normal Neck/C-Spine: COMMON NORMALS: no JVD Resp: COMMON NORMALS: normal respiratory effort and clear to auscultation bilaterally AUSCULTATION: clear to auscultation bilaterally Cardio: COMMON NORMALS: no JVD, regular rhythm, S1 normal heart sound present, S2 normal heart sound present and No murmurs present (Cardio) RHYTHM: regular rhythm HEART SOUNDS: S1 normal heart sound present and S2 normal heart sound present GI: COMMON NORMALS: Normal to inspection, nondistended, normoactive bowel sounds present, Soft to palpation and non-tender PALPATION: Yes Soft to palpation Extremity: COMMON NORMALS: no joint enlargement GENERAL: Yes edema (Trace) Neuro: COMMON NORMALS: patient oriented x3 and moves all extremities SENSORIUM/ORIENTATION: Yes alert Skin: COMMON NORMALS: no rashes or lesions noted GENERAL SKIN EXAM: no rashes or lesions noted Urinary Catheter Management: Lopez: Cath Placed During This Visit: yes Reason for Continuing Indwelling Catheter: Acute Urinary Retention or Obstruction Urinary Catheter Date of Insertion: 01/05/24 Urinary Catheter Time of Insertion: 15:48 Data 01/10/24 05:09 01/10/24 05:09 Micro: Microbiology 01/05/24 15:57 Blood Culture - Final Blood Staphylococcus hominis A&P Assessment and plan (1) Coronary artery disease: (2) Elevated troponin: (3) Ischemic heart disease: (4) Acute cholecystitis: (5) Acute calculous cholecystitis: (6) Sepsis: Qualifiers: Sepsis acute organ dysfunction status: unspecified Sepsis type: sepsis due to unspecified organism Qualified Code(s): A41.9 - Sepsis, unspecified organism (7) Septic shock: Resolved (8) Bacteremia: (9) Ventilator dependence: (10) Lactic acid acidosis: (11) Multiple vessel coronary artery disease: Plan #Septic shock secondary to acute acalculous cholecystitis #JUSTIN/ATN #Elective intubation for surgery #Bacteremia #Lactic acidosis, leukocytosis #Multivessel coronary artery disease not amenable to intervention, #Obstructive sleep apnea #Depression #Hypertension #Hyperlipidemia #Thrombocytopenia Reviewed vitals, CBC, P. Afebrile, no leukocytosis. Platelets moderately decreased down to 97. Liver parameters WNL. He denies pain or discomfort. No trouble breathing, chest pain. He is tolerating oral intake. Physical therapy assessment underway. Discussed with surgery, pending reassessment of the drain, possible removal. Continuing on meropenem and vancomycin course following cholecystectomy. He is otherwise doing well. Should be able to discontinue antibiotics after today. Monitor for risk of seizure, kidney injury, C diff with antibiotics. Discussed with clinical case manager, will need rehabilitation after discharge. He is from [facility]. His would also like to discuss with case management consideration whether he could be moved closer to where she is in [place]. Maintaining oxygen saturation on 2 L nasal cannula oxygen. Wean down as tolerating. Very weak, deconditioned. So far maintaining blood pressure. Discussed with patient and his , discussed with nursing, clinical case manager. Pending PT assessment today, will need rehabilitation. Transferred to medical surgical floor. Continue care. Continue vancomycin, meropenem. Monitor for risk of kidney injury, risk of seizure. Reviewed vitals, CBC, CMP. Reviewed blood culture, original culture positive in 1 bottle for Staph hominis, resistant to Cipro, Levaquin, oxacillin, penicillin, tetracycline, Bactrim. ? 1 out of 4 bottles positive for Staph aureus as per lab. Reviewed BUN, creatinine, potassium, anion gap. Reviewed nephrology note. Somewhat lower urine output today, monitor intake and output. Reassess kidney function. Resume tamsulosin, finasteride. Citalopram. He has been off his prostate medications. Will resume, then will try to see if can DC Lopez. ? Hold home meloxicam, donepezil, Imdur, at this time ? DuoNeb every 6 hours as needed Full code DVT prophylaxis: Heparin subcu twice daily, SCDs GI prophylaxis: Protonix 40 IV daily Hardware: Right arterial line present, right IJ central line present, Lopez catheter present, telemetry leads present ?General Surgery following. Appreciate recommendations. Attestations Medical Necessity Statement*: Continue admission for assessment resumption of home medications, trend blood soft blood pressure, at time discontinuation of Lopez catheter, pending removal of surgical drain. Postdischarge planning and arrangements. and High MDM includes amount and/or complexity of data reviewed/ordered [ resulted lab(s)/test(s), ordered lab(s)/test(s) and other healthcare professional discussion] and described risk of complication, morbidity or mortality of management as documented Diagnoses Coronary artery disease I25.10 Elevated troponin R79.89 Ischemic heart disease I25.9 Acute cholecystitis K81.0 Acute calculous cholecystitis K80.00 Sepsis A41.9 Sepsis acute organ dysfunction status: unspecified Sepsis type: sepsis due to unspecified organism Septic shock A41.9; R65.21 Bacteremia R78.81 Ventilator dependence Z99.11 Lactic acid acidosis E87.20 Multiple vessel coronary artery disease I25.10
[2024-01-10 15:36] LABS: Vancomycin Trough 11.1 ug/mL (10-15)
[2024-01-10] MEDS: vancomycin 1,250 MG/250 ML PIGGYBACK 167 MG IV (17:21)
[2024-01-10] MEDS: tamsulosin 0.4 mg Capsule PO (17:22)
[2024-01-10] MEDS: finasteride 5 mg Tablet PO (20:37)
[2024-01-11] VITALS (7 sets, daily range): BP systolic 92–133; BP diastolic 57–93; PULSE 81–97; RESP 16–18; TEMP 36.3–37; O2SAT 90–95; BMI 37.3
[2024-01-11] MEDS: HYDROcodone-acetaminophen 7.5-325 mg Tablet 1 TAB PO ×3 (01:29→17:11)
[2024-01-11] MEDS: heparin 5,000 unit/mL INJ 1 mL 5000 UNIT SUBCUT ×2 (02:45→16:23)
[2024-01-11] MEDS: LORazepam 1 mg Tablet PO (02:45)
[2024-01-11] MEDS: pantoprazole 40 mg SDV IVP (02:45)
[2024-01-11] MEDS: meropenem 1,000 mg SDV 1000 MG IVP ×3 (02:45→21:34)
[2024-01-11 06:05] LABS: Basophils # 0.1 10^3/uL (0.0-0.1); Basophils % 0.6 %; Eosinophils # 0.1 10^3/uL (0.0-0.8); Eosinophils % 0.7 %; Hematocrit 35.9 % (37-53); Lymphocytes # 1.1 10^3/uL (0.8-4.8); Lymphocytes % 7.3 %; Mean Corpuscular HGB Conc 29.8 g/dL (30-55); Mean Corpuscular Hemoglobin 28.7 pg (27-33); Mean Corpuscular Volume 96.2 fl (82-101); Mean Platelet Volume 12.4 fL (7.4-10.4); Monocytes % 6.8 %; Neutrophils # 11.24 10^3/uL (1.8-7.7); Neutrophils % 77.1 %; Nucleated Red Blood Cells % 0.3 %; Platelet Count 111 10^3/cmm (157-399); Red Blood Count 3.73 10^6/uL (3.85-5.65); Red Cell Distribution Width 15.9 % (12.1-15.1); White Blood Count 14.59 10^3/uL (3.29-11.43)
[2024-01-11 06:19] LABS: Slide Review Slide Review Perform
[2024-01-11 06:24] LABS: Blood Urea Nitrogen 31 mg/dL (8-23); Calcium 7.5 mg/dL (8.5-10.5); Carbon Dioxide 25 mmol/L (22-29); Chloride 101 mmol/L (98-107); Creatinine Clr Calc Pharmacy 112.2092; Glucose 178 mg/dL (65-115); Osmolality Calculated 297 mOsm/kg (285-295); Sodium 138 mmol/L (136-145)
[2024-01-11 06:26] LABS: Anion Gap 15.9 (5-19); Potassium 3.9 mmol/L (3.5-5.1)
--- NOTE | 2024-01-11 08:27 | PC.SOCIAL ---
IMM Update pg 2 of IMM Updated and reviewed w/ patient. Copy provided and copy dated, initialed and placed in chart.
[2024-01-11] MEDS: aspirin 81 mg EC Tablet PO (09:14)
[2024-01-11] MEDS: tamsulosin 0.4 mg Capsule PO (09:14)
[2024-01-11] MEDS: isosorbide mononitrate ER 30 mg Tablet PO ×2 (09:14→17:11)
[2024-01-11] MEDS: citalopram 20 mg Tablet 10 MG PO (09:14)
[2024-01-11 09:33] LABS: Alanine Aminotransferase 17 U/L (0-41); Albumin Level 2.3 g/dL (3.5-5.2); Alkaline Phosphatase 132 U/L (40-130); Aspartate Amino Transferase 20 U/L (0-40); Globulin 3.4 g/dL (1.3-4.6); Total Bilirubin 0.9 mg/dL (0.15-1.2); Total Protein 5.7 g/dL (6.6-8.7)
[2024-01-11 10:09] LABS: SARS Covid-2 Antigen Negative (Negative)
--- NOTE | 2024-01-11 10:50 | P.PN_ITS ---
Subjective 2 Subjective: Patient seen and examined. He reports that he is hungry and wants to get up Vitals/I&O/Wt Last Vital Signs Temp 98.6 F 01/11/24 07:36 Pulse 91 01/11/24 08:20 Resp 17 01/11/24 08:20 BP 98/63 01/11/24 07:36 Pulse Ox 93 01/11/24 08:20 O2 Del Method Nasal Cannula 01/11/24 08:20 O2 Flow Rate 2 01/11/24 08:20 FiO2 2 01/09/24 19:49 01/10/24 01/11/24 01/11/24 22:59 06:59 14:59 Intake Total 250 / 540 Output Total 450 / 505 100 / 605 Balance -200 / 35 -100 / -65 Weight last 48 hrs Weight 275 lb 1 oz Weight 281 lb 9 oz Weight 282 lb 8 oz Weight 284 lb 6.341 oz Physical Exam 2 Narrative: General: No acute distress, awake and alert Abdomen: Soft, nondistended, minimally and appropriately tender Drain: serosanguineous 55 cc Urinary Catheter Management: Lopez: Cath Placed During This Visit: yes Reason for Continuing Indwelling Catheter: Acute Urinary Retention or Obstruction Urinary Catheter Date of Insertion: 01/05/24 Urinary Catheter Time of Insertion: 15:48 Data 01/11/24 05:20 01/11/24 05:20 Micro: Microbiology 01/05/24 16:00 Blood Culture - Final Blood NO GROWTH AFTER 5 DAYS 01/05/24 15:57 Blood Culture - Final Blood Staphylococcus hominis A&P Assessment and plan (1) Acute calculous cholecystitis: (2) Tachypnea: Plan Postop day #5 status post laparoscopic cholecystectomy New leukocytosis today Pain control Antibiotics Regular diet-n.p.o. after midnight. If white count still elevated will order CT abdomen and pelvis in the morning Physical therapy Drain will be removed prior to discharge Surgically stable for discharge. Will need extensive physical therapy at a snf facility Medical management per hospitalist Attestations 2 Medical Necessity Statement*: Per primary Coding Level of Care Code Acute Code for [facility] Diagnoses Acute calculous cholecystitis K80.00 Tachypnea R06.82
[2024-01-11] MEDS: phenazopyridine 100 mg Tablet PO ×2 (12:08→17:11)
--- NOTE | 2024-01-11 13:59 | PC.NURSE ---
This nurse noticed that patients casillas had not had any output around 1200. After further assessment, it was found that patients linens were saturated with urine and urine was leaking around 16FR catheter. This nurse replaced 16FR with an 18FR. Bladder scan was obtained prior with 163mL of urine in bladder. Upon placing new casillas, 100mL was immediately obtained. Full linen change and bed bath completed at this time as well. notified.
--- NOTE | 2024-01-11 15:24 | P.PN_ITS ---
Subjective 2 Subjective: Bothered by urethral burning. Vitals/I&O/Wt Last Vital Signs Temp 97.4 F L 01/11/24 11:27 Pulse 81 01/11/24 11:27 Resp 16 01/11/24 11:27 BP 133/93 01/11/24 11:27 Pulse Ox 95 01/11/24 11:27 O2 Del Method Nasal Cannula 01/11/24 11:27 O2 Flow Rate 2 01/11/24 11:27 FiO2 2 01/09/24 19:49 01/11/24 01/11/24 01/11/24 06:59 14:59 22:59 Output Total 100 / 605 Balance -100 / -65 Weight last 48 hrs Weight 124.766 kg Weight 124.766 kg Weight 127.715 kg Weight 128.14 kg Weight 129 kg Physical Exam 2 Narrative: Accompanied by his . Generally weak. Deconditioned. Const: COMMON NORMALS: patient oriented x3 and alert GENERAL APPEARANCE: c ooperative ORIENTATION/CONSCIOUSNESS: Yes awake HENMT: COMMON NORMALS: oropharynx normal Neck/C-Spine: COMMON NORMALS: no JVD Resp: COMMON NORMALS: normal respiratory effort and clear to auscultation bilaterally AUSCULTATION: clear to auscultation bilaterally Cardio: COMMON NORMALS: no JVD, regular rhythm, S1 normal heart sound present, S2 normal heart sound present and No murmurs present (Cardio) RHYTHM: regular rhythm HEART SOUNDS: S1 normal heart sound present and S2 normal heart sound present GI: COMMON NORMALS: Normal to inspection, nondistended, normoactive bowel sounds present, Soft to palpation and non-tender PALPATION: Yes Soft to palpation Extremity: COMMON NORMALS: no joint enlargement GENERAL: Yes edema (Trace) Neuro: COMMON NORMALS: patient oriented x3 and moves all extremities S ENSORIUM/ORIENTATION: Yes alert Skin: COMMON NORMALS: no rashes or lesions noted GENERAL SKIN EXAM: no rashes or lesions noted Urinary Catheter Management: Lopez: Cath Placed During This Visit: yes Reason for Continuing Indwelling Catheter: Acute Urinary Retention or Obstruction Urinary Catheter Date of Insertion: 01/11/24 Urinary Catheter Time of Insertion: 13:00 Data 01/11/24 05:20 01/11/24 05:20 Micro: Microbiology 01/06/24 13:27 Blood Culture - Final Blood NO GROWTH AFTER 5 DAYS 01/05/24 16:00 Blood Culture - Final Blood NO GROWTH AFTER 5 DAYS 01/05/24 15:57 Blood Culture - Final Blood Staphylococcus hominis A&P Assessment and plan (1) Coronary artery disease: (2) Elevated troponin: (3) Ischemic heart disease: (4) Acute cholecystitis: (5) Acute calculous cholecystitis: (6) Sepsis: Qualifiers: Sepsis acute organ dysfunction status: unspecified Sepsis type: sepsis due to unspecified organism Qualified Code(s): A41.9 - Sepsis, unspecified organism (7) Septic shock: Resolved (8) Bacteremia: (9) Ventilator dependence: (10) Lactic acid acidosis: (11) Multiple vessel coronary artery disease: Plan #Septic shock secondary to acute acalculous cholecystitis #JUSTIN/ATN #Elective intubation for surgery #Bacteremia #Lactic acidosis, leukocytosis #Multivessel coronary artery disease not amenable to intervention, #Obstructive sleep apnea #Depression #Hypertension #Hyperlipidemia #Thrombocytopenia On review of CBC white count increased today up to 14.6. Reviewed vitals, BMP, requested LFT. Alk phos with mild elevation to 132. T. bili minutely elevated at 0.4. AST and ALT normal. Discussed with surgery, reviewed note, plans to reassess again tomorrow, continue antibiotics today. Depending condition tomorrow consideration of repeat CT imaging. Continue meropenem, vancomycin. Monitor for risk of seizure, risk of kidney injury. Keep drain in place. Monitor intake and output. Renew hydromorphone IV for severe pain, hydrocodone for moderate. Discussed with case loader operator, will need rehabilitation after discharge. Maintaining oxygen saturation on 2 L nasal cannula oxygen. Wean down as tolerating. Very weak, deconditioned. ? 1 out of 4 bottles positive for Staph hominis Reviewed BUN, creatinine, potassium, anion gap. Reviewed nephrology note. Somewhat lower urine output today, monitor intake and output. Reassess kidney function. Resume tamsulosin, finasteride. Citalopram. He has been off his prostate medications. Will resume, then will try to see if can DC Lopez. ? Hold home meloxicam, donepezil, Imdur, at this time ? DuoNeb every 6 hours as needed Full code DVT prophylaxis: Heparin subcu twice daily, SCDs GI prophylaxis: Protonix 40 IV daily Hardware: Right arterial line present, right IJ central line present, Lopez catheter present, telemetry leads present ?General Surgery following. Appreciate recommendations. Attestations 2 Medical Necessity Statement*: Continue admission for assessment following cholecystectomy, gallbladder perforation, with worsened leukocytosis. Postdischarge planning and arrangements. and High MDM includes amount and/or complexity of data reviewed/ordered [ previous or external records, resulted lab(s)/test(s), ordered lab(s)/test(s) and other healthcare professional discussion] and described risk of complication, morbidity or mortality of management as documented Diagnoses Coronary artery disease I25.10 Elevated troponin R79.89 Ischemic heart disease I25.9 Acute cholecystitis K81.0 Acute calculous cholecystitis K80.00 Sepsis A41.9 Sepsis acute organ dysfunction status: unspecified Sepsis type: sepsis due to unspecified organism Septic shock A41.9; R65.21 Bacteremia R78.81 Ventilator dependence Z99.11 Lactic acid acidosis E87.20 Multiple vessel coronary artery disease I25.10
[2024-01-11] MEDS: vancomycin 1,500 MG/300 ML PIGGYBACK 200 MG IV (16:23)
[2024-01-11] MEDS: finasteride 5 mg Tablet PO (21:34)
[2024-01-12] VITALS (7 sets, daily range): BP systolic 95–116; BP diastolic 57–74; PULSE 83–88; RESP 16–18; TEMP 36.6–36.8; O2SAT 90–94
[2024-01-12 00:19] LABS: Heparin Induced Platelet AB NEGATIVE (NEGATIVE); Patient O.D 0.049
[2024-01-12] MEDS: meropenem 1,000 mg SDV 1000 MG IVP ×3 (04:03→19:41)
[2024-01-12] MEDS: heparin 5,000 unit/mL INJ 1 mL 5000 UNIT SUBCUT ×2 (04:03→16:03)
[2024-01-12] MEDS: pantoprazole 40 mg SDV IVP (04:03)
[2024-01-12 06:51] LABS: Hematocrit 31.8 % (37-53); Mean Corpuscular HGB Conc 31.4 g/dL (30-55); Mean Corpuscular Hemoglobin 28.9 pg (27-33); Mean Corpuscular Volume 91.9 fl (82-101); Mean Platelet Volume 12.8 fL (7.4-10.4); Platelet Count 116 10^3/cmm (157-399); Red Blood Count 3.46 10^6/uL (3.85-5.65); Red Cell Distribution Width 15.9 % (12.1-15.1); White Blood Count 10.21 10^3/uL (3.29-11.43)
[2024-01-12 07:11] LABS: Alanine Aminotransferase 12 U/L (0-41); Albumin Level 2.5 g/dL (3.5-5.2); Alkaline Phosphatase 145 U/L (40-130); Anion Gap 13.6 (5-19); Aspartate Amino Transferase 17 U/L (0-40); Blood Urea Nitrogen 24 mg/dL (8-23); Calcium 7.4 mg/dL (8.5-10.5); Carbon Dioxide 28 mmol/L (22-29); Chloride 101 mmol/L (98-107); Creatinine Clr Calc Pharmacy 113.8846; Glucose 152 mg/dL (65-115); Osmolality Calculated 295 mOsm/kg (285-295); Potassium 3.6 mmol/L (3.5-5.1); Sodium 139 mmol/L (136-145); Total Bilirubin 0.8 mg/dL (0.15-1.2); Total Protein 5.5 g/dL (6.6-8.7)
[2024-01-12 07:26] LABS: Slide Review Slide Review Perform
[2024-01-12 07:28] LABS: Absolute Eosinophils 0.1 10^3/cmm (0.0-0.7); Absolute Neutrophil 8.5 10^3/cmm (1.4-6.5); Absolute Segmented Neutrophil 7.9 10/cmm (1.6-7.1); Band Neutrophils Absolute 0.6 10^3/cmm (0.0-1.2); Eosinophils 1 %; Lymphocytes 11 %; Lymphocytes Absolute 1.1 10^3/cmm (1.2-3.4); Monocytes Absolute 0.4 10^3/cmm (0.1-0.6); Platelet Estimate Decreased (Normal); Segmented Neutrophils 77 %; Total Cells Counted 100 (0-100)
--- NOTE | 2024-01-12 08:31 | CTR_ITS ---
PROCEDURE INFORMATION: Exam: CT Chest With Contrast; Diagnostic Exam date and time: 01/12/2024 2:16 PM Age: 73 years old Clinical indication: Abdominal tenderness; Other: Bandemia TECHNIQUE: Imaging protocol: Diagnostic computed tomography of the chest with contrast. Radiation optimization: All CT scans at this facility use at least one of these dose optimization techniques: automated exposure control; mA and/or kV adjustment per patient size (includes targeted exams where dose is matched to clinical indication); or iterative reconstruction. Contrast material: OMNI 350; Contrast volume: 75 ml; Contrast route: INTRAVENOUS (IV); COMPARISON: CT chest wo con [id number] 01/08/2024 5:57 PM RADIATION DOSE METRICS: Total DLP (mGy-cm): 1806.67 FINDINGS: Limitations: Study is suboptimal due to excessive motion artifact. Diagnostic sensitivity is further limited by streak artifact from the arms at the sides and from streak artifact caused by surgical hardware. Trachea: Persistent tracheomalacia. Lungs: Again noted is bilateral atelectasis with areas of probable superimposed edema and/or pneumonitis. This all appears slightly increased. Otherwise, grossly unremarkable, but quite limited by artifact. Pleural spaces: Slightly increased small bilateral pleural effusions. No pneumothorax. No obvious pleural thickening. Heart: Unchanged mild cardiomegaly. Coronary arteries: Unchanged large amount of coronary artery calcification. Lymph nodes: Unremarkable. No enlarged lymph nodes. Vasculature: Unremarkable. No aortic aneurysm. Bones/joints: Unchanged mild scoliosis. Unchanged extensive surgical fusion of the mid and lower thoracic spine with bilateral posterior hardware unchanged in appearance. Unchanged mild thoracic kyphosis. Unchanged mild spondylosis in the remainder of the spine. Unchanged mild compression deformity of the T6 vertebral body. This is known to be unchanged and chronic. Otherwise, grossly unremarkable, but limited by artifact. Soft tissues: Otherwise, unremarkable visualized body wall. Otherwise, unremarkable soft tissues. PROCEDURE INFORMATION: Exam: CT Abdomen And Pelvis With Contrast Exam date and time: 01/12/2024 2:16 PM Age: 73 years old Clinical indication: Abdominal tenderness; Other: Bandemia TECHNIQUE: Imaging protocol: Computed tomography of the abdomen and pelvis with contrast. Radiation optimization: All CT scans at this facility use at least one of these dose optimization techniques: automated exposure control; mA and/or kV adjustment per patient size (includes targeted exams where dose is matched to clinical indication); or iterative reconstruction. Contrast material: OMNI 350; Contrast volume: 75 ml; Contrast route: INTRAVENOUS (IV); COMPARISON: CT abdomen pelvis w con* [id number] 01/05/2024 3:02 PM RADIATION DOSE METRICS: Total DLP (mGy-cm): 1806.67 FINDINGS: Limitations: Study is suboptimal due to excessive motion artifact. The examination is further limited by a large amount of streak artifact caused by the patient's arms at the sides and by surgical hardware. Tubes, catheters and devices: New catheter into the left common femoral vein, and terminating in the left common iliac vein. New postsurgical drainage catheter terminating in the gallbladder fossa. Lungs: See separate report. Liver: Grossly unremarkable liver, but extremely limited. Gallbladder and biliary ducts: New cholecystectomy. Increased stranding and disorganized fluid in the gallbladder fossa is likely normal postsurgical, but some of this could be blood or indicate infection. There is no organized abscess or hematoma here. Grossly unremarkable bile ducts. Pancreas: Grossly unremarkable pancreas, but quite limited. Spleen: Grossly unremarkable spleen, but quite limited. Adrenal glands: Grossly unremarkable adrenal glands, but quite limited. Kidneys and ureters: Multiple bilateral renal lesions are unchanged, the largest is in the left kidney measuring nearly 10 cm. These are likely cysts, but this is difficult to determine with certainty. Otherwise, grossly unremarkable, but quite limited. Stomach and bowel: Unremarkable. No obstruction. No mucosal thickening. Appendix: No evidence of appendicitis. Intraperitoneal space: Slightly increased fluid and fat stranding in the right abdomen and pelvis. No obvious free air. Vasculature: Unchanged arterial calcification. Otherwise, grossly unremarkable. Lymph nodes: No obvious lymphadenopathy, but evaluation for such is limited. Urinary bladder: Urinary bladder Tiny calcification projecting over the posterior left urinary bladder wall is unchanged. It is further unchanged since October 18, 2023, so is considered benign and of no clinical significance. New transurethral Lopez catheter in the empty urinary bladder. Reproductive: Unremarkable as visualized. Bones/joints: Unchanged moderate scoliosis. Unchanged extensive surgical fusion with bilateral posterior hardware from the thoracic spine to the upper sacrum. Unchanged appearance of surgical hardware. Unchanged bilateral hip arthritis. Nothing obviously acute. Soft tissues: Slightly increased, fairly diffuse body wall edema. Otherwise, unremarkable visualized body wall. Otherwise, unremarkable soft tissues. CT/CT chest abdpel w/*[id number] IMPRESSION: 1. Slightly increased bilateral atelectasis and probable superimposed pneumonitis. 2. Slightly increased small bilateral pleural effusions. 3. Additional details as above. Unchanged. IMPRESSION: 1. New cholecystectomy. Increased stranding and disorganized fluid in the gallbladder fossa is likely normal postsurgical, but some of this could be blood or indicate infection. There is no organized abscess or hematoma here. New surgical catheter in the gallbladder fossa. 2. Slightly increased fluid and fat stranding in the right abdomen and pelvis is likely postsurgical. Some of this could be blood, but there is no organized hematoma. Some of this could indicate inflammation/infection, but there is no obvious organized abscess. 3. Additional details as above.
[2024-01-12] MEDS: aspirin 81 mg EC Tablet PO (08:59)
[2024-01-12] MEDS: tamsulosin 0.4 mg Capsule PO (08:59)
[2024-01-12] MEDS: isosorbide mononitrate ER 30 mg Tablet PO ×2 (08:59→17:35)
[2024-01-12] MEDS: citalopram 20 mg Tablet 10 MG PO (09:00)
[2024-01-12] MEDS: phenazopyridine 100 mg Tablet PO ×3 (09:03→17:34)
[2024-01-12] MEDS: chlorhexidine gluconate 0.12% Btl 473 mL 15 ML MUCOUS MEM (09:03)
--- NOTE | 2024-01-12 12:03 | PC.NURSE ---
Refusal of SCDs Pt states they cause too much pain
--- NOTE | 2024-01-12 13:40 | P.PN_ITS ---
Subjective 2 Subjective: Patient seen and examined. Not reporting any abdominal pain. His leukocytosis resolved but he developed a bandemia Vitals/I&O/Wt Last Vital Signs Temp 98.1 F 01/12/24 11:23 Pulse 87 01/12/24 11:23 Resp 16 01/12/24 11:23 BP 116/74 01/12/24 11:23 Pulse Ox 93 01/12/24 11:23 O2 Del Method Nasal Cannula 01/12/24 11:23 O2 Flow Rate 2 01/12/24 11:23 FiO2 2 01/09/24 19:49 01/11/24 01/12/24 01/12/24 22:59 06:59 14:59 Intake Total 400 / 400 Output Total 255 / 255 Balance 400 / 400 -255 / 145 Weight last 48 hrs Weight 283 lb Weight 283 lb Weight 275 lb 1 oz Weight 275 lb 1 oz Physical Exam 2 Narrative: General: No acute distress, awake and alert Abdomen: Soft, nondistended, minimally and appropriately tender Drain: serosanguineous 5 cc Urinary Catheter Management: Lopez: Cath Placed During This Visit: yes Reason for Continuing Indwelling Catheter: Acute Urinary Retention or Obstruction Urinary Catheter Date of Insertion: 01/11/24 Urinary Catheter Time of Insertion: 13:00 Data 01/12/24 05:13 01/12/24 05:13 Micro: Microbiology 01/06/24 15:21 Blood Culture - Final Blood NO GROWTH AFTER 5 DAYS 01/06/24 13:27 Blood Culture - Final Blood NO GROWTH AFTER 5 DAYS A&P Assessment and plan (1) Acute calculous cholecystitis: (2) Tachypnea: Plan Postop day #6 status post laparoscopic cholecystectomy New Bandemia today CT chest abdomen pelvis ordered Pain control Antibiotics Drain might be removed depending on results of CT Medical management per hospitalist Attestations 2 Medical Necessity Statement*: Per primary Coding Level of Care Code Acute Code for [facility] Diagnoses Acute calculous cholecystitis K80.00 Tachypnea R06.82
[2024-01-12] MEDS: iohexol 350 mg/mL 500 mL Btl (per mL) IV (14:26)
--- NOTE | 2024-01-12 14:27 | PM.PN ---
Subjective Subjective: States he is managing . Without additional complaints. Dysuria has resolved. Vitals/I&O/Wt Last Vital Signs Temp 98.1 F 01/12/24 11:23 Pulse 87 01/12/24 11:23 Resp 16 01/12/24 11:23 BP 116/74 01/12/24 11:23 Pulse Ox 93 01/12/24 11:23 O2 Del Method Nasal Cannula 01/12/24 11:23 O2 Flow Rate 2 01/12/24 11:23 FiO2 2 01/09/24 19:49 01/11/24 01/12/24 01/12/24 22:59 06:59 14:59 Intake Total 400 / 400 Output Total 255 / 255 Balance 400 / 400 -255 / 145 Weight last 48 hrs Weight 128.367 kg Weight 128.367 kg Weight 124.766 kg Weight 124.766 kg Physical Exam Narrative: Working with PT on first visit. Accompanied by his on second visit. Generally weak. Deconditioned. Const: COMMON NORMALS: alert GENERAL APPEARANCE: cooperative ORIENTATION/CONSCIOUSNESS: Yes awake HENMT: COMMON NORMALS: oropharynx normal Neck/C-Spine: COMMON NORMALS: no JVD Resp: COMMON NORMALS: normal respiratory effort and clear to auscultation bilaterally AUSCULTATION: clear to auscultation bilaterally Cardio: COMMON NORMALS: no JVD, regular rhythm, S1 normal heart sound present, S2 normal heart sound present and No murmurs present (Cardio) RHYTHM: regular rhythm HEART SOUNDS: S1 normal heart sound present and S2 normal heart sound present GI: COMMON NORMALS: Normal to inspection, nondistended, normoactive bowel sounds present, Soft to palpation and non-tender PALPATION: Yes Soft to palpation Extremity: COMMON NORMALS: no joint enlargement GENERAL: Yes edema (Trace) Neuro: COMMON NORMALS: moves all extremities SENSORIUM/ORIENTATION: Yes alert Skin: COMMON NORMALS: no rashes or lesions noted GENERAL SKIN EXAM: no rashes or lesions noted Urinary Catheter Management: Lopez: Cath Placed During This Visit: yes Reason for Continuing Indwelling Catheter: Acute Urinary Retention or Obstruction Urinary Catheter Date of Insertion: 01/11/24 Urinary Catheter Time of Insertion: 13:00 Data 01/12/24 05:13 01/12/24 05:13 Micro: Microbiology 01/06/24 15:21 Blood Culture - Final Blood NO GROWTH AFTER 5 DAYS 01/06/24 13:27 Blood Culture - Final Blood NO GROWTH AFTER 5 DAYS A&P Assessment and plan (1) Coronary artery disease: (2) Elevated troponin: (3) Ischemic heart disease: (4) Acute cholecystitis: (5) Acute calculous cholecystitis: (6) Sepsis: Qualifiers: Sepsis acute organ dysfunction status: unspecified Sepsis type: sepsis due to unspecified organism Qualified Code(s): A41.9 - Sepsis, unspecified organism (7) Septic shock: Resolved (8) Bacteremia: (9) Ventilator dependence: (10) Lactic acid acidosis: (11) Multiple vessel coronary artery disease: Plan #Septic shock secondary to acute acalculous cholecystitis #JUSTIN/ATN #Elective intubation for surgery #Bacteremia #Lactic acidosis, leukocytosis #Multivessel coronary artery disease not amenable to intervention, #Obstructive sleep apnea #Depression #Hypertension #Hyperlipidemia #Thrombocytopenia Per history obtained from his he is having on and off mild confusion. He is awake and responds, does not appear to have focal abnormality or new change in mental status, however, generally still weak. Possible ongoing mild delirium slow to resolve. Possible degree of persisting cognitive dysfunction secondary to critical illness, and this prescription with she understands that may not recover cognitive function back to the prior baseline. Reviewed vitals, CBC, CMP. Alk phos with some increased to 145. Leukocytosis has resolved but does have bands 6% as per discussion with surgery CT is ordered for additional assessment. Leaving drain in place for now. Reviewed surgery note. At current time continue meropenem, vancomycin. Monitor for risk of seizure, risk of kidney injury. Monitor intake and output. Discussed with case management manager, will need rehabilitation after discharge. As per discussion with case management manager and his , will be returning to [facility] [place]. Maintaining oxygen saturation on 2 L nasal cannula oxygen. Wean down as tolerating. Very weak, deconditioned. ? 1 out of 4 bottles positive for Staph hominis Reviewed reviewed blood culture 01/05, no growth on final culture. Resume tamsulosin, finasteride. Citalopram. Resumed prostate medications. Try to see if can DC Lopez. ? Hold home meloxicam, donepezil, Imdur, at this time ? DuoNeb every 6 hours as needed Full code DVT prophylaxis: Heparin subcu twice daily, SCDs GI prophylaxis: Protonix 40 IV daily Hardware: L fem central line present, Lopez catheter present Attestations Medical Necessity Statement*: Continue admission for assessment following cholecystectomy, additional imaging assessment due to bandemia, mild encephalopathy, status post gallbladder perforation. Postdischarge planning and arrangements. and High MDM includes amount and/or complexity of data reviewed/ordered [ previous or external records, resulted lab(s)/test(s), ordered lab(s)/test(s), independent historian and other healthcare professional discussion] and described risk of complication, morbidity or mortality of management as documented Diagnoses Coronary artery disease I25.10 Elevated troponin R79.89 Ischemic heart disease I25.9 Acute cholecystitis K81.0 Acute calculous cholecystitis K80.00 Sepsis A41.9 Sepsis acute organ dysfunction status: unspecified Sepsis type: sepsis due to unspecified organism Septic shock A41.9; R65.21 Bacteremia R78.81 Ventilator dependence Z99.11 Lactic acid acidosis E87.20 Multiple vessel coronary artery disease I25.10
[2024-01-12] MEDS: vancomycin 1,500 MG/300 ML PIGGYBACK 200 MG IV (16:03)
[2024-01-12] MEDS: finasteride 5 mg Tablet PO (20:00)
[2024-01-12] MEDS: acetaminophen 325 mg Tablet 650 MG PO (22:03)
[2024-01-12] MEDS: HYDROcodone-acetaminophen 7.5-325 mg Tablet 1 TAB PO (23:23)
[2024-01-13] VITALS (7 sets, daily range): BP systolic 106–144; BP diastolic 67–84; PULSE 73–87; RESP 16–18; TEMP 36.6–36.8; O2SAT 90–93
[2024-01-13] MEDS: HYDROcodone-acetaminophen 7.5-325 mg Tablet 1 TAB PO ×3 (03:16→17:27)
[2024-01-13] MEDS: meropenem 1,000 mg SDV 1000 MG IVP (03:31)
[2024-01-13] MEDS: pantoprazole 40 mg SDV IVP (03:31)
[2024-01-13] MEDS: heparin 5,000 unit/mL INJ 1 mL 5000 UNIT SUBCUT (03:31)
[2024-01-13 04:56] LABS: Basophils % 0.2 %; Eosinophils # 0.2 10^3/uL (0.0-0.8); Eosinophils % 1.5 %; Hematocrit 30.9 % (37-53); Lymphocytes # 0.9 10^3/uL (0.8-4.8); Lymphocytes % 9.2 %; Mean Corpuscular HGB Conc 30.7 g/dL (30-55); Mean Corpuscular Hemoglobin 28.6 pg (27-33); Mean Corpuscular Volume 93.1 fl (82-101); Monocytes # 0.6 10^3/uL (0.2-0.9); Monocytes % 5.9 %; Neutrophils # 7.66 10^3/uL (1.8-7.7); Neutrophils % 77.2 %; Nucleated Red Blood Cells # 0.1 /100WBC; Nucleated Red Blood Cells % 0.5 %; Platelet Count 138 10^3/cmm (157-399); Red Blood Count 3.32 10^6/uL (3.85-5.65); Red Cell Distribution Width 16.2 % (12.1-15.1); White Blood Count 9.93 10^3/uL (3.29-11.43)
[2024-01-13 05:15] LABS: Alanine Aminotransferase 9 U/L (0-41); Albumin Level 2.3 g/dL (3.5-5.2); Alkaline Phosphatase 131 U/L (40-130); Anion Gap 13.6 (5-19); Aspartate Amino Transferase 17 U/L (0-40); Blood Urea Nitrogen 21 mg/dL (8-23); Calcium 7.3 mg/dL (8.5-10.5); Carbon Dioxide 26 mmol/L (22-29); Chloride 101 mmol/L (98-107); Creatinine Clr Calc Pharmacy 112.0775; Globulin 3.1 g/dL (1.3-4.6); Glucose 127 mg/dL (65-115); Osmolality Calculated 289 mOsm/kg (285-295); Potassium 3.6 mmol/L (3.5-5.1); Sodium 137 mmol/L (136-145); Total Bilirubin 0.8 mg/dL (0.15-1.2); Total Protein 5.4 g/dL (6.6-8.7)
[2024-01-13 05:23] LABS: Slide Review Slide Review Perform
[2024-01-13] MEDS: aspirin 81 mg EC Tablet PO (08:39)
[2024-01-13] MEDS: citalopram 20 mg Tablet 10 MG PO (08:39)
[2024-01-13] MEDS: tamsulosin 0.4 mg Capsule PO (08:39)
[2024-01-13] MEDS: chlorhexidine gluconate 0.12% Btl 473 mL 15 ML MUCOUS MEM (08:40)
[2024-01-13] MEDS: isosorbide mononitrate ER 30 mg Tablet PO (08:40)
[2024-01-13] MEDS: phenazopyridine 100 mg Tablet PO (08:43)
--- NOTE | 2024-01-13 10:04 | PC.SOCIAL ---
IMM Update pg 2 of IMM Updated and reviewed w/ patient. Copy provided and copy dated, initialed and placed in chart.
--- NOTE | 2024-01-13 12:17 | US_ITS ---
WS: [id number] ULTRASOUND SOFT TISSUES LEFT groin HISTORY: L groin. Discharge with CVC removal COMPARISON: CT pelvis 01/12/2024 TECHNIQUE: 2-D and color Doppler imaging is submitted. There is no fluid collection in the region of the LEFT groin at the site of suspected abscess. There is very minimal skin thickening. US/US soft tissue/extremity [id number] IMPRESSION: No focal collection or abscess in the LEFT groin.
--- NOTE | 2024-01-13 12:58 | PC.NURSE ---
Report call to Nila at [facility] [place] at this time.
[2024-01-13 15:20] LABS: Vancomycin Trough 10.9 ug/mL (10-15)
[2024-01-13 21:20] LABS: UFH High Dose, 100 IU/ML 1 % release; UFH Low Dose, 0.1 IU/ML 1 % release; UFH Low Dose, 0.5 IU/ML 2 % release; UFH SRA Result NEGATIVE (NEGATIVE)
--- NOTE | 2024-01-13 22:08 | PM.DCS ---
Discharge Providers Date of Admission: 01/05/24 22:03 Date of Discharge: January 13, 2024 Attending Provider at Admission: Derrick Morley DO Attending Provider at Discharge: Robin Lucio Primary Care Provider: Adelfo Stuart DO Diagnoses at Discharge Discharge Diagnosis (1) Coronary artery disease: Status: Acute (2) Elevated troponin: Status: Acute (3) Ischemic heart disease: Status: Acute (4) Acute cholecystitis: Status: Acute (5) Acute calculous cholecystitis: Status: Acute (6) Sepsis: Status: Acute Qualifiers: Sepsis acute organ dysfunction status: unspecified Sepsis type: sepsis due to unspecified organism Qualified Code(s): A41.9 - Sepsis, unspecified organism (7) Septic shock: Status: Acute (8) Bacteremia: Status: Acute (9) Ventilator dependence: Status: Acute (10) Lactic acid acidosis: Status: Acute (11) Multiple vessel coronary artery disease: Status: Acute Reason for Visit Reason for Visit: abd pain Hospital Course Hospital Course Pleasant 73-year-old gentleman with history of CAD, stenting, DM 2, HTN, HLD, LUZ, chronic thrombocytopenia of unclear cause, 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 Was started on IV antibiotics, assessed by surgery with possible gangrenous cholecystitis. Assessed by cardiology prior to surgical intervention, underwent laparoscopic cholecystectomy. Intraoperatively gallbladder found to have perforated with leticia purulence found inside. With severe acidosis, continued requirement of pressors, required bicarb drip had to remain on mechanical ventilatory support. Gradually improved, weaned off pressors, weaned off on ventilator support. Was seen by infectious disease due to reported positive blood culture, although this eventually grew 1/4 bottles Staph hominis and found to be a contaminant. Was also seen by nephrology due to JUSTIN secondary to sepsis and contrast nephropathy. Renal function gradually improved with resolution of JUSTIN. Echocardiogram showed normal ejection fraction. Extubated on 01/06 to nasal cannula. Very weak after extubation. Required transient support with BiPAP with tachypnea. Strength with some gradual improvement, resolution of tachypnea. Otherwise with improvement remaining afebrile, with resolution of leukocytosis, although with transient recurrence, was additionally reimaged with chest CT abdomen pelvis, with some bilateral atelectasis, less likely pneumonitis, in the abdomen with postcholecystectomy findings, with some stranding disorganized fluid in the gallbladder fossa likely normal postsurgical, some possibility of bladder infection noted by radiology, no organized abscess or hematoma. Slightly increased fluid and fat stranding in the right abdomen and pelvis likely postsurgical. Some of this could be blood there is no organized hematoma. Some of this could indicate inflammation/infection but no obvious organized abscess. Findings reviewed by surgery, and overall found to be postoperative. He otherwise showed further resolution of leukocytosis, remaining afebrile. Tolerating oral intake. Juice drain removed. Urinary catheter, left groin central line discontinued. He will complete antibiotic course with Augmentin. Some bodily secretion, possibly sweat noted on removal of left femoral central line, line tip sent for culture, soft tissue ultrasound obtained without any focal collection or abscess in the left groin. Physical Exam Narrative: Generally weak. Deconditioned. More alert. Denies pain or discomfort. Looking forward to proceeding to SNF for rehabilitation. Const: COMMON NORMALS: patient oriented x3 and alert GENERAL APPEARANCE: cooperative ORIENTATION/CONSCIOUSNESS: Yes awake HENMT: COMMON NORMALS: oropharynx normal Neck/C-Spine: COMMON NORMALS: no JVD Resp: COMMON NORMALS: normal respiratory effort and clear to auscultation bilaterally AUSCULTATION: clear to auscultation bilaterally Cardio: COMMON NORMALS: no JVD, regular rhythm, S1 normal heart sound present, S2 normal heart sound present and No murmurs present (Cardio) RHYTHM: regular rhythm HEART SOUNDS: S1 normal heart sound present and S2 normal heart sound present GI: COMMON NORMALS: Normal to inspection, nondistended, normoactive bowel sounds present, Soft to palpation and non-tender PALPATION: Yes Soft to palpation Extremity: COMMON NORMALS: no joint enlargement GENERAL: Yes edema (Trace) Neuro: COMMON NORMALS: patient oriented x3 and moves all extremities SENSORIUM/ORIENTATION: Yes alert Skin: COMMON NORMALS: no rashes or lesions noted GENERAL SKIN EXAM: no rashes or lesions noted Urinary Catheter Management: Lopez: Cath Placed During This Visit: yes, but has since been removed by the nurse Reason for Continuing Indwelling Catheter: Decision to DC Catheter Urinary Catheter Date of Insertion: 01/11/24 Urinary Catheter Time of Insertion: 13:00 Date Urinary Catheter Removed: 01/13/24 Time Urinary Catheter Discontinued: 12:00 Discharge Data Studies Completed and Pending Completed Studies During Hospitalization Category Date Time Status CT chest abdomen pelvis [CT chest abdpel w/*[id number] Cat Scan 01/12/24 08:31 Completed ] Routine CT chest abdomen pelvis [CT chest abdpel w/*[id number] Cat Scan 01/05/24 14:54 Completed ] Stat CT chest wo con [id number] Routine Cat Scan 01/08/24 17:20 Completed XR chest 1V portable [id number] Routine Exams 01/06/24 11:30 Completed XR chest 1V portable [id number] Routine Exams 01/08/24 13:33 Completed XR chest 1V portable [id number] Stat Exams 01/05/24 11:58 Completed Pathology: Surgical [PTH] Routine Pth 01/06/24 09:31 Completed CV. echo complete* [id number] Routine Ultrasound 01/06/24 01:17 Completed US gall bladder [id number] Stat Ultrasound 01/05/24 16:42 Completed US soft tissue/extremity [id number] Routine Ultrasound 01/13/24 12:17 Completed Pending at discharge Category Date Time Status Catheter Tip Culture Routine Lab 01/13/24 12:13 Received Radiology Impressions Gallbladder Ultrasound 01/05/24 16:42 IMPRESSION: 1. Severe acute cholecystitis. 2. 7 mm common bile duct is within the expected size range for age. 3. Pulsatile portal venous flow may be physiologic or due to heart disease or cirrhosis. Patent portal, splenic and superior mesenteric veins are visible by CT. 4. Heterogeneous liver parenchymal echotexture. Steatosis versus cirrhosis. No definite liver surface nodularity. Chest X-Ray 01/08/24 13:33 IMPRESSION: 1. Blunting of the costophrenic angles is suggestive of small pleural effusions. 2. Increased density at the superolateral aspect of the right lung apex appears more prominent when compared to the prior study. This is nonspecific and may represent pleural thickening and/or scarring. Consider CT scan of the thorax for further evaluation if clinically warranted. Chest CT 01/08/24 17:20 IMPRESSION: 1. Small bilateral pleural effusions with adjacent compressive atelectasis and/or pneumonia. In combination with cardiomegaly, findings raise concern for congestive heart failure. 2. The gallbladder has been removed. There is stranding in the cholecystectomy operative bed obscured by artifact. Chest/Abdomen/Pelvis CT 01/12/24 08:31 IMPRESSION: 1. Slightly increased bilateral atelectasis and probable superimposed pneumonitis. 2. Slightly increased small bilateral pleural effusions. 3. Additional details as above. Unchanged. IMPRESSION: 1. New cholecystectomy. Increased stranding and disorganized fluid in the gallbladder fossa is likely normal postsurgical, but some of this could be blood or indicate infection. There is no organized abscess or hematoma here. New surgical catheter in the gallbladder fossa. 2. Slightly increased fluid and fat stranding in the right abdomen and pelvis is likely postsurgical. Some of this could be blood, but there is no organized hematoma. Some of this could indicate inflammation/infection, but there is no obvious organized abscess. 3. Additional details as above. Soft Tissue Ultrasound 01/13/24 12:17 IMPRESSION: No focal collection or abscess in the LEFT groin. Laboratory Results WBC 9.93 10^3/uL (3.29-11.43) 01/13/24 04:48 RBC 3.32 10^6/uL (3.85-5.65) L 01/13/24 04:48 Hgb 9.50 g/dL (11.27-16.99) L 01/13/24 04:48 Hct 30.9 % (37-53) L 01/13/24 04:48 MCV 93.1 fl (82-101) 01/13/24 04:48 MCH 28.6 pg (27-33) 01/13/24 04:48 MCHC 30.7 g/dL (30-55) 01/13/24 04:48 RDW 16.2 % (12.1-15.1) H 01/13/24 04:48 Plt Count 138 10^3/cmm (157-399) L 01/13/24 04:48 MPV 12.0 fL (7.4-10.4) H 01/13/24 04:48 Neut % (Auto) 77.2 % 01/13/24 04:48 Lymph % (Auto) 9.2 % 01/13/24 04:48 [place] % (Auto) 5.9 % 01/13/24 04:48 Eos % (Auto) 1.5 % 01/13/24 04:48 Baso % (Auto) 0.2 % 01/13/24 04:48 Neut # (Auto) 7.66 10^3/uL (1.8-7.7) 01/13/24 04:48 Lymph # (Auto) 0.9 10^3/uL (0.8-4.8) 01/13/24 04:48 [place] # (Auto) 0.6 10^3/uL (0.2-0.9) 01/13/24 04:48 Eos # (Auto) 0.2 10^3/uL (0.0-0.8) 01/13/24 04:48 Baso # (Auto) 0.0 10^3/uL (0.0-0.1) 01/13/24 04:48 Nucleated RBC % (auto) 0.5 % 01/13/24 04:48 Total Counted 100 (0-100) 01/12/24 05:13 Atypical Lymphs % 0.0 % (0-5) 01/12/24 05:13 Absolute Neutrophils 8.5 10^3/cmm (1.4-6.5) H 01/12/24 05:13 Segmented Neutrophils 77 % 01/12/24 05:13 Band Neutrophils 6.0 % 01/12/24 05:13 Absolute Lymphocytes 1.1 10^3/cmm (1.2-3.4) L 01/12/24 05:13 Lymphocytes (Manual) 11 % 01/12/24 05:13 Monocytes (Manual) 4.0 % 01/12/24 05:13 Absolute Monocytes 0.4 10^3/cmm (0.1-0.6) 01/12/24 05:13 Eosinophils (Manual) 1 % 01/12/24 05:13 Absolute Eosinophils 0.1 10^3/cmm (0.0-0.7) 01/12/24 05:13 Basophils (Manual) 0.0 % 01/12/24 05:13 Absolute Basophils 0.0 10^3/cmm (0.0-0.2) 01/12/24 05:13 Myelocytes 1.0 % 01/12/24 05:13 Nucleated RBCs # 0.1 /100WBC 01/13/24 04:48 Platelet Estimate Decreased (Normal) 01/12/24 05:13 Peripher Smr Path Cons Sent for review 01/07/24 03:10 Heparin Require Pat 0.049 01/07/24 14:58 PT 15.20 SECONDS (12.1-14.9) H 01/05/24 23:55 INR 1.16 (0.8-1.2) 01/05/24 23:55 Specimen Type Arterial 01/08/24 15:15 Sample Site Radial, left 01/08/24 15:15 ABG pH 7.47 (7.35-7.45) H 01/08/24 15:15 ABG pCO2 38.5 mmHg (35-45) 01/08/24 15:15 ABG pO2 84.5 mmHg (80.0-100.0) 01/08/24 15:15 ABG PO2/FiO2 Ratio 199 01/07/24 11:20 ABG HCO3 28.2 mmol/L (22-26) H 01/08/24 15:15 ABG O2 Saturation 97.5 01/08/24 15:15 ABG Base Excess 4.4 mmol/L (-2.0-2.0) H 01/08/24 15:15 Nico Test Pos 01/08/24 15:15 VBG pH 7.49 (7.32-7.42) H 01/07/24 14:58 VBG pCO2 35.8 mmHg (41-51) L 01/07/24 14:58 VBG pO2 68.3 mmHg (25-40) H 01/07/24 14:58 VBG HCO3 27.1 mmol/L (24-28) 01/07/24 14:58 VBG Base Excess 3.6 mmol/L (-3.0-3.0) H 01/07/24 14:58 VBG Hematocrit 32.2 % (42-52) L 01/07/24 14:58 A-a O2 Gradient 2.4 mmHg (5-10) L 01/08/24 15:15 Hematocrit 32.8 % (42-52) L 01/08/24 15:15 Hgb O2 Saturation 95.5 % (95-100) 01/08/24 15:15 Carboxyhemoglobin 1.2 %THgb (0.4-20.1) 01/08/24 15:15 Methemoglobin 0.9 % (0.4-1.5) 01/08/24 15:15 Total Hemoglobin 10.7 g/dL (14-18) L 01/08/24 15:15 Sodium 144.0 mmol/L (131-143) H 01/08/24 15:15 Potassium 3.2 mmol/L (3.5-5.0) L 01/08/24 15:15 Glucose 165.0 mg/dL (70-115) H 01/08/24 15:15 Ionized Calcium 1.1 mmol/L (1.1-1.4) 01/08/24 15:15 O2 Delivery Device Nc 01/08/24 15:15 O2 Liters/Min 4.0 % 01/08/24 15:15 FiO2 50.0 % 01/07/24 11:20 Tidal Volume 0.55 01/07/24 11:20 PEEP 6.0 cmH20 01/07/24 11:20 Refinery Superintendent ID [place] 01/08/24 15:15 Sodium 137 mmol/L (136-145) 01/13/24 04:48 Potassium 3.6 mmol/L (3.5-5.1) 01/13/24 04:48 Chloride 101 mmol/L (98-107) 01/13/24 04:48 Carbon Dioxide 26 mmol/L (22-29) 01/13/24 04:48 Anion Gap 13.6 (5-19) 01/13/24 04:48 BUN 21 mg/dL (8-23) 01/13/24 04:48 Creatinine 0.7 mg/dL (0.7-1.2) 01/13/24 04:48 GFR Calculation Not Reportable 01/13/24 04:48 Glucose 127 mg/dL (65-115) H 01/13/24 04:48 POC Glucose 163 mg/dL (70-110) H 01/09/24 17:16 Estimat Average Glucose 160 01/05/24 23:55 Hemoglobin A1c 7.2 % (4.0-6.0) H 01/05/24 23:55 Calculated Osmolality 289 mOsm/kg (285-295) 01/13/24 04:48 Lactic Acid 9.2 mmol/L (0.5-2.2) H* 01/06/24 04:12 Lactic Acid (Sepsis) 8.3 mmol/L (0.5-2.2) H* 01/05/24 20:27 Lactate 1.8 mmol/L (0.5-2.2) 01/08/24 14:32 Calcium 7.3 mg/dL (8.5-10.5) L 01/13/24 04:48 Phosphorus 3.2 mg/dL (2.5-4.5) 01/09/24 05:27 Magnesium 1.5 mg/dL (1.7-2.3) L 01/06/24 10:41 Total Bilirubin 0.8 mg/dL (0.15-1.2) 01/13/24 04:48 Direct Bilirubin 0.40 mg/dL (0.00-0.30) H 01/11/24 05:20 AST 17 U/L (0-40) 01/13/24 04:48 ALT 9 U/L (0-41) 01/13/24 04:48 Alkaline Phosphatase 131 U/L (40-130) H 01/13/24 04:48 Troponin T 5th Gen ng/L 51 ng/L (0-15) H 01/06/24 04:12 Troponin T Baseline 31 ng/L (0-15) H 01/05/24 12:42 Troponin T 120 Minute 36.92 ng/L (0-15) H 01/05/24 14:43 Delta Troponin T 5.92 ABS# (0-10) 01/05/24 14:43 Troponin T Hi Sens 6Hr 64.28 ng/L (0-15) H 01/05/24 20:27 Troponin T Hi Sens 6Hr Delta 33.28 ng/L (0-12) H* 01/05/24 20:27 Total Protein 5.4 g/dL (6.6-8.7) L 01/13/24 04:48 Albumin 2.3 g/dL (3.5-5.2) L 01/13/24 04:48 Globulin 3.1 g/dL (1.3-4.6) 01/13/24 04:48 Lipase 13 U/L (13-60) 01/05/24 12:30 Procalcitonin > 100.00 ng/mL (0-0.5) H 01/07/24 03:10 Urine Color Dark yellow (Yellow) A 01/05/24 15:49 Urine Appearance Clear (CLEAR) 01/05/24 15:49 Urine pH 5.5 (5-7) 01/05/24 15:49 Ur Specific [place] 1.043 (1.005-1.030) H 01/05/24 15:49 Urine Protein 2+ (Negative) A 01/05/24 15:49 Urine Glucose (UA) Negative (Normal) 01/05/24 15:49 Urine Ketones 2+ (Negative) H 01/05/24 15:49 Urine Blood 1+ (Negative) A 01/05/24 15:49 Urine Nitrate Negative (Negative) 01/05/24 15:49 Urine Bilirubin 1+ (Negative) H 01/05/24 15:49 Urine Urobilinogen 4.0 mg/dL (Negative) H 01/05/24 15:49 Ur Leukocyte Esterase Trace (Negative) A 01/05/24 15:49 Urine RBC 0-2 /hpf (0-2) 01/05/24 15:49 Urine WBC 0-5 /hpf (0-5) 01/05/24 15:49 Ur Squamous Epith Cells 0-5 /hpf (0-5) 01/05/24 15:49 Amorphous Sediment Not Reportable 01/05/24 15:49 Urine Bacteria None seen /hpf (NONE) 01/05/24 15:49 Hyaline Casts 8.26 /lpf 01/05/24 15:49 Coarse Granular Casts 0-4 /lpf H 01/05/24 15:49 Nasal MRSA (PCR) Not detected (Negative) 01/06/24 04:20 Vancomycin Trough 10.9 ug/mL (10-15) 01/13/24 14:55 Heparin-induced Ab Negative (NEGATIVE) 01/07/24 14:58 UF Heparin Low Dose 1 1 % release 01/07/24 14:58 UF Heparin Low Dose 2 2 % release 01/07/24 14:58 UF Heparin High Dose 1 % release 01/07/24 14:58 KANNAN Unfract Heparin Negative (NEGATIVE) 01/07/24 14:58 SARS-CoV-2 Ag (Rapid) Negative (Negative) 01/11/24 08:00 Vitals Last Vital Signs Temp 98.2 F 01/13/24 17:30 Pulse 87 10/25/24 17:30 Resp 17 01/13/24 17:30 BP 106/68 01/13/24 17:30 Pulse Ox 90 01/13/24 17:30 O2 Del Method Room Air 01/13/24 15:30 O2 Flow Rate 2 01/12/24 11:23 FiO2 2 01/09/24 19:49 Discharge Plan Discharge Patient Disposition: Xfer SNF Condition: Stable Prescriptions: New amoxicillin-pot clavulanate 875-125 mg tablet 1 tab PO BID Qty: 14 0RF Continued Myrbetriq 50 mg tablet extended release 24 hr 50 mg PO DAILY omeprazole 20 mg tablet,delayed release (DR/EC) 20 mg PO DAILY acetaminophen 325 mg capsule 650 mg PO QID PRN (Reason: pain or fever ) albuterol sulfate 90 mcg/actuation HFA aerosol inhaler 2 puff inhalation Q6H PRN (Reason: wheezing/ shortness of breath) aspirin [Adult Low Dose Aspirin] 81 mg tablet,delayed release (DR/EC) 81 mg PO DAILY donepezil 5 mg tablet 10 mg PO BEDTIME (DME) cam walking boot See Rx Instructions .Route .MEDSUPPLY Qty: 1 0RF Rx Instructions: As directed (DME) lace up ankle brace See Rx Instructions .Route .MEDSUPPLY Qty: 1 0RF Rx Instructions: As directed (DME) cam boot See Rx Instructions .Route .MEDSUPPLY Qty: 1 0RF Rx Instructions: As directed albuterol sulfate 0.63 mg/3 mL Solution For Nebulization 0.63 mg INHALATION Q6H PRN (Reason: Cough) polyethylene glycol 3350 17 gram Powder In Packet 17 g PO DAILY PRN (Reason: Constipation) cetirizine 5 mg Tablet 5 mg PO DAILY PRN (Reason: seasonal allergies) citalopram 10 mg tablet 10 mg PO DAILY magnesium hydroxide [Milk of Magnesia] 400 mg/5 mL Suspension 2,400 mg PO DAILY PRN (Reason: Constipation) bisacodyl 10 mg Suppository 10 mg [place] DAILY PRN (Reason: Constipation) finasteride 5 mg tablet 5 mg PO BEDTIME Clear Eyes Natural Tears 0.5-0.6 % Drops 1 drp OPHTHALMIC (EYE) TID PRN (Reason: Dry Eye(S)) tamsulosin 0.4 mg Capsule 0.4 mg PO DAILY Qty: 30 0RF calcium carbonate-vitamin D3 600 mg-10 mcg (400 unit) Tablet 1 tab PO BID Qty: 30 0RF Fleet Enema 19-7 gram/118 mL Enema 118 ml [place] DAILY PRN (Reason: Constipation) nystatin 100,000 unit/gram Powder 1 applic TOPICAL Q8H PRN (Reason: Rash) Biofreeze (menthol) 4 % Gel 1 applic TOPICAL Q6H PRN (Reason: Pain) isosorbide mononitrate 30 mg Tablet Extended Release 24 Hr 30 mg PO BID 30 Days Qty: 60 0RF Discontinued meloxicam 7.5 mg tablet 7.5 mg PO DAILY Discharge Orders: Discharge Order (Routine); Ordered 01/13/24 Ordered By: Robin Lucio Referrals: Derrick Morley DO [Physician] - 2 weeks Adelfo Stuart DO [Primary Care Provider] - 4-7 days Discharge Activity: As per PT/OT instructions Patient Instructions: Acute Wound Care (DC), Opioid Safety, Post Anesthesia Care Activity Restrictions/Additional Instructions: Follow-up with your primary doctor for reassessment after sepsis in the septic shock, cholecystitis with gallbladder perforation, severe critical illness, deconditioning. 1/4 bottles found to grow bacteria on blood culture, but identified as Staph hominis, likely skin contaminant. Seek medical attention in case of any worsening or new concerning symptoms. Continue follow-up regarding chronic conditions. Discharge Attestations Time Spent in Discharge Care*: greater than 30 min Quality Metrics Clinical Quality Measures [ No reported AMI, CVA or VTE this stay] Coding Level of Care Code 66746 Total time (in minutes) for Discharge: 60 Diagnoses Coronary artery disease I25.10 Elevated troponin R79.89 Ischemic heart disease I25.9 Acute cholecystitis K81.0 Acute calculous cholecystitis K80.00 Sepsis A41.9 Sepsis acute organ dysfunction status: unspecified Sepsis type: sepsis due to unspecified organism Septic shock A41.9; R65.21 Bacteremia R78.81 Ventilator dependence Z99.11 Lactic acid acidosis E87.20 Multiple vessel coronary artery disease I25.10
== END 2024-01-13 17:30 | disposition skilled nursing facility (03) | DRG 853 ==
LOC: ER 21:57 → ICU 22:04 → MEDSURG 01-09 21:44
PROVIDERS: Internal Medicine; Student in an Organized Health Care Education/Training Program; Admitting Provider Surgery; Emergency Provider Emergency Medicine; PCP Internal Medicine; Visit Provider Internal Medicine
PROC: 0FT44ZZ Resection of Gallbladder, Percutaneous Endoscopic Approach (ICD-10-PCS; CPT 47562; principal; 2024-01-06 07:00)
DX: A41.9 Sepsis, unspecified organism (principal); N17.0 Acute kidney failure with tubular necrosis; R65.21 Severe sepsis with septic shock; E87.20 Acidosis, unspecified; I24.89 Other forms of acute ischemic heart disease; K80.00 Calculus of gallbladder with acute cholecystitis without obstruction; K82.A2 Perforation of gallbladder in cholecystitis; J98.11 Atelectasis; E11.9 Type 2 diabetes mellitus without complications; E78.5 Hyperlipidemia, unspecified; I10 Essential (primary) hypertension; G47.33 Obstructive sleep apnea (adult) (pediatric); D69.6 Thrombocytopenia, unspecified; F32.A Depression, unspecified; T50.8X5A Adverse effect of diagnostic agents, initial encounter; N40.0 Benign prostatic hyperplasia without lower urinary tract symptoms; R41.0 Disorientation, unspecified; I25.10 Atherosclerotic heart disease of native coronary artery without angina pectoris; Z95.5 Presence of coronary angioplasty implant and graft; Z79.82 Long term (current) use of aspirin; Z79.1 Long term (current) use of non-steroidal anti-inflammatories (NSAID)
CPT/HCPCS: 36415; 36416; 36592; 36600; 51702; 51798; 71045; 71250; 71260; 74177; 76705; 76882; 80048; 80051; 80053; 80076; 80202; 80503; 81001; 82330; 82803; 82805; 82962; 83036; 83605; 83690; 83735; 84100; 84145; 84484; 85007; 85025; 85610; 86403; 87040; 87070; 87075; 87077; 87086; 87150; 87186; 87205; 87426; 88304; 93005; 93306; 94002; 94003; 94640; 94660; 94664; 94799; 96365; 96366; 96367; 96372; 96374; 96376; 97110; 97162; 97530; 99285; C1751; J0171; J1171; J1644; J1815; J1940; J2185; J2250; J2270; J2371; J2470; J2543; J2598; J2704; J3010; J3370; J3372; J3490; J7030; J7050; J7070; J7120; J7799; P9045; Q3014

== ENCOUNTER 2024-04-30 22:41 | Emergency (ER) | payer MEDICARE, MEDICAID, SELFPAY ==
[2024-04-30 22:42] VITALS: BP 150/95; PULSE 92; RESP 18; TEMP 36.6; O2SAT 96; BMI 31.8
--- NOTE | 2024-04-30 22:47 | ECG_ITS ---
[facility] Test Date: 2024-04-30 Pat Name: Tom Espinosa Department: Room: Gender: Male Director Public Service: : 1950 Requested By: Greg King Order Number: [id number] Alberto Rodrigez MD: Rylie Melchor M.D. Measurements Intervals [place] Rate: 89 P: 60 NV: 221 QRS: 3 QRSD: 90 T: 64 QT: 366 QTc: 448 Interpretive Statements SINUS RHYTHM WITH FIRST DEGREE AV BLOCK ST DEVIATION AND MODERATE T-WAVE ABNORMALITY, CONSIDER LATERAL ISCHEMIA [-0.1+ mV T-WAVE IN I/aVL/V5/V6] Compared to ECG 01/06/2024 03:58:52 First degree AV block now present Possible ischemia now present T-wave abnormality still present Electronically Signed On 05-02-2024 17:54:59 PAN WASHER by Rylie Melchor M.D. [email or web address]
[2024-04-30 22:52] VITALS: BP 150/95; PULSE 88; O2SAT 94
--- NOTE | 2024-04-30 22:52 | XRR_ITS ---
PROCEDURE INFORMATION: Exam: XR Chest Exam date and time: 04/30/2024 11:27 PM Age: 74 years old Clinical indication: Shortness of breath; Prior surgery; Surgery date: 6+ months; Surgery type: T spine fusion; Additional info: Cp/sob TECHNIQUE: Imaging protocol: Radiologic exam of the chest. Views: 1 view. COMPARISON: CT chest abdpel w/*[id number] 01/12/2024 2:16 PM FINDINGS: Lungs: Unremarkable. No consolidation. Pleural spaces: Unremarkable. No pleural effusion. No pneumothorax. Heart/Mediastinum: Unremarkable. No cardiomegaly. Bones/joints: Extensive postsurgical change spine. XR/XR chest 1V portable [id number] IMPRESSION: No acute findings.
--- NOTE | 2024-04-30 22:52 | W.ED.CHESTPA ---
HPI - Chest Pain General: Chief Complaint: Chest Pain Stated Complaint: chest pain Time Seen by Provider: 04/30/24 22:44 Source: patient Mode of arrival: EMS Limitations: no limitations History of Present Illness: Patient is a 74-year-old male with past medical history of ischemic heart disease, hyperlipidemia, hypertension, type 2 diabetes, past HI, and GERD who was brought into the emergency department by EMS due to sudden onset chest pain beginning at 2100 tonight. Patient is from prison, states he was suddenly awoken from sleep due to sharp substernal pain that radiated across his left and right chest. He states that this has been happening more frequently recently, notes that prison staff thought it best that he be evaluated in the ED. He does note a history of chronic GERD, and does state that this feels similar to those times. However he is also noting shortness of breath that occurred alongside this chest pain, notes that he is not having any pain at this time though it did last for about 2 and half hours. He states that it resolved on its own, he did not notice any specific alleviating or exacerbating factor. He does not report any past history in regards to coronary cath, stents, or CABG. In the ambulance he was given 324 aspirin, he does not take any blood thinners. He denies any peripheral edema, palpitations, syncope, lightheadedness or dizziness, abdominal pain, fevers, or any other symptoms at this time. Of note, on 01/05/2024 the patient was seen here in the ED and diagnosed with acute cholecystitis as well as sepsis and was in the hospital for a week. He had cholecystectomy performed and was discharged on antibiotics. He does not report any complications since discharge. MD complaint: chest pain Pertinent past history: prior HI Onset (ago): hour(s) Timing of current episode: now resolved Prior episodes: Yes Onset: during rest (Awoke from sleep) Pain location: substernal Pain radiation: other (Across right and left chest) Severity: mild Quality: sharp Relieving factors: nothing Exacerbating factors: nothing Associated symptoms: Reports dyspnea; Deny abdominal pain, fever(s), nausea, palpitations or vomiting Treatment prior to arrival: aspirin Risk Factors: Coronary artery disease risk factors: diabetes, hyperlipidemia and hypertension Thoracic aortic dissection risk factors: none Related Data Home Medications ?Medication ?Instructions ?Recorded ?Confirmed acetaminophen 325 mg capsule 650 mg PO QID PRN pain or fever 01/04/22 01/05/24 albuterol sulfate 90 mcg/actuation 2 puff inhalation Q6H PRN 01/04/22 01/05/24 aerosol inhaler wheezing/ shortness of breath aspirin 81 mg tablet,delayed 81 mg PO DAILY 01/04/22 01/05/24 release (Adult Low Dose Aspirin) donepezil 5 mg tablet 10 mg PO BEDTIME 01/04/22 01/05/24 mirabegron 50 mg tablet,extended 50 mg PO DAILY 01/04/22 01/05/24 release 24 hr (Myrbetriq) omeprazole 20 mg tablet,delayed 20 mg PO DAILY 01/04/22 01/05/24 release albuterol sulfate 0.63 mg/3 mL 0.63 mg inhalation Q6H PRN Cough 09/11/23 01/05/24 solution for nebulization bisacodyl 10 mg rectal suppository 10 mg DC DAILY PRN Constipation 09/11/23 01/05/24 cetirizine 5 mg tablet 5 mg PO DAILY PRN seasonal 09/11/23 01/05/24 allergies citalopram 10 mg tablet 10 mg PO DAILY 09/11/23 01/05/24 finasteride 5 mg tablet 5 mg PO BEDTIME 09/11/23 01/05/24 magnesium hydroxide 400 mg/5 mL 2,400 mg PO DAILY PRN Constipation 09/11/23 01/05/24 oral suspension (Milk of Magnesia) polyethylene glycol 3350 17 gram 17 g PO DAILY PRN Constipation 09/11/23 01/05/24 oral powder packet polyvinyl alcohol-povidone 0.5 1 drp ophthalmic (eye) TID PRN Dry 09/11/23 01/05/24 %-0.6 % eye drops (Clear Eyes Eye(S) Natural Tears) menthol 4 % topical gel (Biofreeze 1 applic topical Q6H PRN Pain 12/13/23 01/05/24 (menthol)) nystatin 100,000 unit/gram topical 1 applic topical Q8H PRN Rash 12/13/23 01/05/24 powder sodium phosphates 19 gram-7 118 ml DC DAILY PRN Constipation 12/13/23 01/05/24 gram/118 mL enema (Fleet Enema) Previous Rx's ?Medication ?Instructions ?Recorded cam walking boot #1 ea 01/04/22 lace up ankle brace #1 ea 01/04/22 calcium 600 mg (as 1 tab PO BID #30 tabs 09/12/23 carbonate)-vitamin D3 10 mcg (400 unit) tablet tamsulosin 0.4 mg capsule 0.4 mg PO DAILY #30 caps 09/12/23 cam boot #1 ea 10/04/23 amoxicillin 875 mg-potassium 1 tab PO BID #14 tabs 01/13/24 clavulanate 125 mg tablet isosorbide mononitrate 60 mg 60 mg PO DAILY #20 tabs 05/01/24 tablet,extended release 24 hr Allergies Allergy/AdvReac Type Severity Reaction Status Date / Time No Known Allergies Allergy Verified 04/30/24 22:47 Review of Systems General: Reports: 10 or more systems reviewed and unremarkable except in HPI and below Const: Denies: fever(s), chills or fatigue Eyes: Denies: change in vision ENMT: Denies: throat pain, ear or mastoid pain or nasal discharge Card: Reports: chest pain; Denies: palpitations, swelling of feet/ankles or lightheadedness Resp: Reports: dyspnea; Denies: productive cough or wheezing GI: Denies: abdominal pain, nausea, vomiting, diarrhea or constipation : Denies: flank pain, difficulty urinating, dysuria or urinary frequency Musc: Denies: neck pain, back pain or joint pain Skin/Breast: Denies: rash Neuro: Denies: headache(s), numbness in extremities or weakness in extremities PFSH ED PFSH: Medical History Ischemic heart disease Thrombocytopenia Anxiety and depression Elevated liver enzymes Obstructive sleep apnea GERD (gastroesophageal reflux disease) Dementia Hyperlipidemia Hypertension Type 2 diabetes mellitus Past heart attack BPH (benign prostatic hyperplasia) Surgical History S/P ORIF (open reduction internal fixation) fracture (09/11/23) right tibia infrapatellar intramedullary nail History of coronary angioplasty H/O total knee replacement Previous back surgery (2020) for scoliosis Social History Smoking and tobacco/nicotine status: never used tobacco/nicotine Physical Exam Const: COMMON NORMALS: no acute distress, patient oriented x3 and no limitations GENERAL APPEARANCE: cooperative, comfortable and well developed ORIENTATION/CONSCIOUSNESS: Yes awake, Yes oriented to person, Yes oriented to place and Yes oriented to time HENMT: COMMON NORMALS: normocephalic, atraumatic and hearing grossly normal bilaterally HEAD & SCALP: normocephalic and atraumatic Eye: COMMON NORMALS: Equal, round and reactive pupils present, EOMs intact bilaterally and conjunctivae normal CONJUNCTIVA: Yes conjunctivae normal PUPIL: Yes Equal, round and reactive pupils present Neck/C-Spine: COMMON NORMALS: full ROM, supple and no JVD Resp: COMMON NORMALS: normal respiratory effort, No retractions, No use of accessory muscles and clear to auscultation bilaterally AUSCULTATION: clear to auscultation bilaterally Cardio: COMMON NORMALS: no JVD, regular rate, regular rhythm, No clicks present (Cardio), No murmurs present (Cardio) and No rub (Cardio) RATE: regular rate RHYTHM: regular rhythm GI: COMMON NORMALS: Soft to palpation and non-tender INSPECTION: Yes abdominal distension and Yes central obesity AUSCULTATION: Yes normoactive bowel sounds PALPATION: Yes Soft to palpation RECTAL EXAM: Yes deferred OTHER: Laparoscopic incisions to abdominal wall Extremity: COMMON NORMALS: normal to inspection, full ROM and capillary refill normal NARRATIVE EXTREMITY EXAM: 1+ edema bilaterally Neuro: COMMON NORMALS: patient oriented x3, moves all extremities, no focal motor deficits and no sensory deficits noted SENSORIUM/ORIENTATION: Yes oriented to person, Yes oriented to place and Yes oriented to time Skin: COMMON NORMALS: no rashes or lesions noted GENERAL SKIN EXAM: no rashes or lesions noted Course Vital Signs: Vital signs: Vital Signs Temperature 97.9 F 04/30/24 22:42 Pulse Rate 88 04/30/24 22:52 Respiratory Rate 18 04/30/24 22:42 Blood Pressure 150/95 04/30/24 22:52 Pulse Oximetry 94 04/30/24 22:52 Oxygen Delivery Me thod Room Air 04/30/24 22:52 MDM - Chest Pain Medical Decision Making Patient brought in by ambulance for substernal chest pain that resolved on arrival. He had noted to me that he has had multiple episodes of this since his discharge from the hospital in December where he was septic and had his gallbladder taken out. Prior to that he had coronary cath performed in November, that showed severe diffuse multilevel CAD not qualifying for intervention, was started on 30 mg of Imdur. His vitals were unremarkable here on arrival, other than BP being slightly elevated. His CBC and CMP were baseline, his baseline troponin was 39 and reviewing prior this does not seem to be remarkable. EKG was obtained and reviewed with physician, showing normal sinus rhythm with first-degree AV block and some signs of lateral ischemia. He has a heart score of 7. I discussed with Dr. Foreman hospitalist possible admit for observation and cardiac telemetry, he recommends increasing his dose of Imdur to 60 mg ER and no admission at this time. I discussed this with patient and who was in the room, patient wants to go home and stated he did not want admitted. states that patient has a history of dementia but also agrees that she would like him to return to prison. also adds that every night before bed the patient will eat a large bag of spicy Doritos, and this seems to cause the pain every single time. Very likely this could be GERD, however he does have a concerning history of coronary artery disease and prior heart attack that we will still increase the dose of Imdur. Discussed with patient and necessity to return if he has any recurrence of the pain or shortness of breath, he and spouse endorsed and verbalized understanding. I did discuss this patient with Dr. Cosme here in the ED. Lab Data 04/30/24 22:50 04/30/24 22:50 Radiology Impressions Chest X-Ray 04/30/24 22:52 IMPRESSION: No acute findings. Laboratory Results WBC 5.28 10^3/uL (3.29-11.43) 04/30/24 22:50 RBC 4.12 10^6/uL (3.85-5.65) 04/30/24 22:50 Hgb 10.10 g/dL (11.27-16.99) L 04/30/24 22:50 Hct 34.7 % (37-53) L 04/30/24 22:50 MCV 84.2 fl (82-101) 04/30/24 22:50 MCH 24.5 pg (27-33) L 04/30/24 22:50 MCHC 29.1 g/dL (30-55) L 04/30/24 22:50 RDW 16.4 % (12.1-15.1) H 04/30/24 22:50 Plt Count 90 10^3/cmm (157-399) L 04/30/24 22:50 MPV 12.5 fL (7.4-10.4) H 04/30/24 22:50 Neut % (Auto) 72.7 % 04/30/24 22:50 Lymph % (Auto) 15.3 % 04/30/24 22:50 Greenlee % (Auto) 9.3 % 04/30/24 22:50 Eos % (Auto) 2.1 % 04/30/24 22:50 Baso % (Auto) 0.4 % 04/30/24:50 Neut # (Auto) 3.84 10^3/uL (1.8-7.7) 04/30/24 22:50 Lymph # (Auto) 0.8 10^3/uL (0.8-4.8) 04/30/24 22:50 Greenlee # (Auto) 0.5 10^3/uL (0.2-0.9) 04/30/24 22:50 Eos # (Auto) 0.1 10^3/uL (0.0-0.8) 04/30/24:50 Baso # (Auto) 0.0 10^3/uL (0.0-0.1) 04/30/24 22:50 Nucleated RBC % (auto) 0 % 04/30/24:50 Nucleated RBCs # 0.0 /100WBC 04/30/24 22:50 Sodium 139 mmol/L (136-145) 04/30/24 22:50 Potassium 4.2 mmol/L (3.5-5.1) 04/30/24 22:50 Chloride 102 mmol/L (98-107) 04/30/24 22:50 Carbon Dioxide 24 mmol/L (22-29) 04/30/24 22:50 Anion Gap 17.2 (5-19) 04/30/24 22:50 BUN 18 mg/dL (8-23) 04/30/24 22:50 Creatinine 0.9 mg/dL (0.7-1.2) 04/30/24 22:50 GFR Calculation Not Reportable 04/30/24 22:50 Glucose 161 mg/dL (65-115) H 04/30/24 22:50 Calculated Osmolality 293 mOsm/kg (285-295) 04/30/24 22:50 Calcium 9.0 mg/dL (8.5-10.5) 04/30/24 22:50 Total Bilirubin 0.3 mg/dL (0.15-1.2) 04/30/24 22:50 AST 21 U/L (0-40) 04/30/24 22:50 ALT 16 U/L (0-41) 04/30/24 22:50 Alkaline Phosphatase 128 U/L (40-130) 04/30/24 22:50 Troponin T Baseline 39 ng/L (0-15) H 04/30/24 22:50 Total Protein 7.2 g/dL (6.6-8.7) 04/30/24 22:50 Albumin 3.6 g/dL (3.5-5.2) 04/30/24 22:50 Globulin 3.6 g/dL (1.3-4.6) 04/30/24 22:50 All radiology interpretation(s) finalized by discharge EKG Data EKG 1: I personally reviewed and interpreted this EKG as follows: EKG interpretation date: 04/30/24 Prior EKG tracings: available for review Interpretation: Normal sinus rhythm. First-degree AV block. Rate 89. ST depression in lateral leads, history of ischemia. Reviewed with physician. Discharge Plan Discharge Patient Disposition: Home Clinical Impression: Chest pain Qualifiers: Chest pain type: unspecified Qualified Code(s): R07.9 - Chest pain, unspecified Condition: Stable Prescriptions: New isosorbide mononitrate 60 mg tablet extended release 24 hr 60 mg PO DAILY Qty: 20 0RF No Action Myrbetriq 50 mg tablet extended release 24 hr 50 mg PO DAILY omeprazole 20 mg tablet,delayed release (DR/EC) 20 mg PO DAILY acetaminophen 325 mg capsule 650 mg PO QID PRN (Reason: pain or fever ) albuterol sulfate 90 mcg/actuation HFA aerosol inhaler 2 puff inhalation Q6H PRN (Reason: wheezing/ shortness of breath) aspirin [Adult Low Dose Aspirin] 81 mg tablet,delayed release (DR/EC) 81 mg PO DAILY donepezil 5 mg tablet 10 mg PO BEDTIME (DME) cam walking boot See Rx Instructions .Route .MEDSUPPLY Qty: 1 0RF Rx Instructions: As directed (DME) lace up ankle brace See Rx Instructions .Route .MEDSUPPLY Qty: 1 0RF Rx Instructions: As directed (DME) cam boot See Rx Instructions .Route .MEDSUPPLY Qty: 1 0RF Rx Instructions: As directed albuterol sulfate 0.63 mg/3 mL Solution For Nebulization 0.63 mg INHALATION Q6H PRN (Reason: Cough) polyethylene glycol 3350 17 gram Powder In Packet 17 g PO DAILY PRN (Reason: Constipation) cetirizine 5 mg Tablet 5 mg PO DAILY PRN (Reason: seasonal allergies) citalopram 10 mg tablet 10 mg PO DAILY magnesium hydroxide [Milk of Magnesia] 400 mg/5 mL Suspension 2,400 mg PO DAILY PRN (Reason: Constipation) bisacodyl 10 mg Suppository 10 mg DC DAILY PRN (Reason: Constipation) finasteride 5 mg tablet 5 mg PO BEDTIME Clear Eyes Natural Tears 0.5-0.6 % Drops 1 drp OPHTHALMIC (EYE) TID PRN (Reason: Dry Eye(S)) tamsulosin 0.4 mg Capsule 0.4 mg PO DAILY Qty: 30 0RF calcium carbonate-vitamin D3 600 mg-10 mcg (400 unit) Tablet 1 tab PO BID Qty: 30 0RF amoxicillin-pot clavulanate 875-125 mg tablet 1 tab PO BID Qty: 14 0RF Fleet Enema 19-7 gram/118 mL Enema 118 ml DC DAILY PRN (Reason: Constipation) nystatin 100,000 unit/gram Powder 1 applic TOPICAL Q8H PRN (Reason: Rash) Biofreeze (menthol) 4 % Gel 1 applic TOPICAL Q6H PRN (Reason: Pain) Discharge Orders: Discharge ED (Routine); Ordered 05/01/24 Ordered By: Greg Sawyer Patient Instructions: Chest Pain (ED) Activity Restrictions/Additional Instructions: Isosorbide mononitrate 60 mg ER as prescribed. Please discuss your acid reflux and new prescription with primary care. Please return with any recurrence of chest pain or shortness of breath. Prior to lying down for bed, do not eat at least 2 hours before this. Make sure to drink plenty of water. Print Language: Hong Konger Coding Level of Care Code ED Analytical Technician for [facility]
[2024-04-30 23:00] LABS: Basophils % 0.4 %; Eosinophils # 0.1 10^3/uL (0.0-0.8); Eosinophils % 2.1 %; Hematocrit 34.7 % (37-53); Lymphocytes # 0.8 10^3/uL (0.8-4.8); Lymphocytes % 15.3 %; Mean Corpuscular HGB Conc 29.1 g/dL (30-55); Mean Corpuscular Hemoglobin 24.5 pg (27-33); Mean Corpuscular Volume 84.2 fl (82-101); Mean Platelet Volume 12.5 fL (7.4-10.4); Monocytes # 0.5 10^3/uL (0.2-0.9); Monocytes % 9.3 %; Neutrophils # 3.84 10^3/uL (1.8-7.7); Neutrophils % 72.7 %; Nucleated Red Blood Cells % 0 %; Platelet Count 90 10^3/cmm (157-399); Red Blood Count 4.12 10^6/uL (3.85-5.65); Red Cell Distribution Width 16.4 % (12.1-15.1); White Blood Count 5.28 10^3/uL (3.29-11.43)
[2024-04-30 23:21] LABS: Troponin(5th) Baseline 39 ng/L (0-15)
[2024-04-30 23:22] LABS: Alanine Aminotransferase 16 U/L (0-41); Albumin Level 3.6 g/dL (3.5-5.2); Alkaline Phosphatase 128 U/L (40-130); Aspartate Amino Transferase 21 U/L (0-40); Blood Urea Nitrogen 18 mg/dL (8-23); Carbon Dioxide 24 mmol/L (22-29); Chloride 102 mmol/L (98-107); Creatinine Clr Calc Pharmacy 90.8494; Globulin 3.6 g/dL (1.3-4.6); Glucose 161 mg/dL (65-115); Osmolality Calculated 293 mOsm/kg (285-295); Sodium 139 mmol/L (136-145); Total Bilirubin 0.3 mg/dL (0.15-1.2); Total Protein 7.2 g/dL (6.6-8.7)
[2024-04-30 23:31] LABS: Anion Gap 17.2 (5-19); Potassium 4.2 mmol/L (3.5-5.1)
[2024-05-01] VITALS (9 sets, daily range): BP systolic 105–130; BP diastolic 62–77; PULSE 85–104; RESP 16; O2SAT 92–97
[2024-05-01] MEDS: isosorbide mononitrate ER 30 mg Tablet PO (00:59)
[2024-05-01 01:37] LABS: Troponin 5 2HR 41.55 ng/L (0-15); Troponin 5 2HR Delta 2.55 ABS# (0-10)
== END 2024-05-01 08:57 | disposition home or self-care (01) ==
PROVIDERS: Emergency Provider Physician Assistant
DX: R07.9 Chest pain, unspecified (principal); Z79.82 Long term (current) use of aspirin; E11.9 Type 2 diabetes mellitus without complications; E78.5 Hyperlipidemia, unspecified; I10 Essential (primary) hypertension
CPT/HCPCS: 36415; 71045; 80053; 84484; 85025; 93005; 99285

== ENCOUNTER 2024-10-18 20:24 | Inpatient (IN) | payer MEDICARE, MEDICAID, SELFPAY ==
--- NOTE | 2024-10-18 20:29 | XRR_ITS ---
PROCEDURE INFORMATION: Exam: XR Chest Exam date and time: 10/18/2024 9:05 PM Age: 74 years old Clinical indication: Other: Weakness; Prior surgery; Surgery date: 6+ months; Surgery type: Back surgery TECHNIQUE: Imaging protocol: Radiologic exam of the chest. Views: 1 view. COMPARISON: CR XR chest 1V portable [id number] 04/30/2024 11:27 PM FINDINGS: Lungs: Low lung volumes. Mild interstitial and airspace opacities throughout the lungs bilaterally. Pleural spaces: Unremarkable. No pleural effusion. No pneumothorax. Heart/Mediastinum: Unremarkable. No cardiomegaly. Diaphragm: Asymmetric elevation of the right hemidiaphragm. Bones/joints: Partially imaged thoracolumbar fusion hardware. XR/XR chest 1V portable [id number] IMPRESSION: Mild interstitial and airspace opacities likely represent atelectasis, though mild edema and/or atypical infection not excluded.
--- NOTE | 2024-10-18 20:29 | CTR_ITS ---
PROCEDURE INFORMATION: Exam: CT Head Without Contrast Exam date and time: 10/18/2024 8:44 PM Age: 74 years old Clinical indication: Altered mental status/memory loss; Additional info: Encephalopathy, altered mental status TECHNIQUE: Imaging protocol: Computed tomography of the head without contrast. Radiation optimization: All CT scans at this facility use at least one of these dose optimization techniques: automated exposure control; mA and/or kV adjustment per patient size (includes targeted exams where dose is matched to clinical indication); or iterative reconstruction. COMPARISON: No relevant prior studies available. RADIATION DOSE METRICS: Total DLP (mGy-cm): 1308.1 FINDINGS: Brain: Periventricular and subcortical white matter hypodensities likely represent chronic small vessel ischemic changes. No acute intracranial hemorrhage. No mass effect or midline shift. 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 Cerebral ventricles: Moderate generalized cortical volume loss with prominence of the ventricles and cortical sulci. Paranasal sinuses: Bilateral maxillary sinus mucous retention cysts. Mastoid air cells: Visualized mastoid air cells are well aerated. Bones: Unremarkable. No acute fracture. Soft tissues: Unremarkable. Vasculature: Vascular calcifications along the carotid siphons. CT/CT head wo con* [id number] IMPRESSION: 1. No acute intracranial findings. 2. Chronic/age-related changes as above.
[2024-10-18 20:31] VITALS: BP 98/61; PULSE 86; RESP 18; TEMP 37.2; O2SAT 95; BMI 48.8
--- NOTE | 2024-10-18 21:05 | W.ED.AMS ---
HPI - Altered Mental Status General: Chief Complaint: Altered Mental Status Stated Complaint: ams Time Seen by Provider: 10/18/24 20:26 History of Present Illness: 74-year-old man with a history of dementia, ischemic heart disease, hyperlipidemia, hypertension, type 2 diabetes, coronary artery disease who presents to the emergency room by ambulance with concern for altered mental status. [facility] and reported that he had some slurred speech at some point. EMS reports that on arrival here as well he is completely lucid. No slurred speech. He knows his name. He knows where he is. He says he does not remember having any episode where he was altered. No focal motor deficits. No chest pain. No abdominal pain. Related Data Home Medications ?Medication ?Instructions ?Recorded ?Confirmed acetaminophen 325 mg capsule 650 mg PO QID PRN pain or fever 01/04/22 01/05/24 albuterol sulfate 90 mcg/actuation 2 puff inhalation Q6H PRN 01/04/22 01/05/24 aerosol inhaler wheezing/ shortness of breath aspirin 81 mg tablet,delayed 81 mg PO DAILY 01/04/22 01/05/24 release (Adult Low Dose Aspirin) donepezil 5 mg tablet 10 mg PO BEDTIME 01/04/22 01/05/24 mirabegron 50 mg tablet,extended 50 mg PO DAILY 01/04/22 01/05/24 release 24 hr (Myrbetriq) omeprazole 20 mg tablet,delayed 20 mg PO DAILY 01/04/22 01/05/24 release albuterol sulfate 0.63 mg/3 mL 0.63 mg inhalation Q6H PRN Cough 09/11/23 01/05/24 solution for nebulization bisacodyl 10 mg rectal suppository 10 mg NC DAILY PRN Constipation 09/11/23 01/05/24 cetirizine 5 mg tablet 5 mg PO DAILY PRN seasonal 09/11/23 01/05/24 allergies citalopram 10 mg tablet 10 mg PO DAILY 09/11/23 01/05/24 finasteride 5 mg tablet 5 mg PO BEDTIME 09/11/23 01/05/24 magnesium hydroxide 400 mg/5 mL 2,400 mg PO DAILY PRN Constipation 09/11/23 01/05/24 oral suspension (Milk of Magnesia) polyethylene glycol 3350 17 gram 17 g PO DAILY PRN Constipation 09/11/23 01/05/24 oral powder packet polyvinyl alcohol-povidone 0.5 1 drp ophthalmic (eye) TID PRN Dry 09/11/23 01/05/24 %-0.6 % eye drops (Clear Eyes Eye(S) Natural Tears) menthol 4 % topical gel (Biofreeze 1 applic topical Q6H PRN Pain 12/13/23 01/05/24 (menthol)) nystatin 100,000 unit/gram topical 1 applic topical Q8H PRN Rash 12/13/23 01/05/24 powder sodium phosphates 19 gram-7 118 ml NC DAILY PRN Constipation 12/13/23 01/05/24 gram/118 mL enema (Fleet Enema) Previous Rx's ?Medication ?Instructions ?Recorded cam walking boot #1 ea 01/04/22 lace up ankle brace #1 ea 01/04/22 calcium 600 mg (as 1 tab PO BID #30 tabs 09/12/23 carbonate)-vitamin D3 10 mcg (400 unit) tablet tamsulosin 0.4 mg capsule 0.4 mg PO DAILY #30 caps 09/12/23 cam boot #1 ea 10/04/23 amoxicillin 875 mg-potassium 1 tab PO BID #14 tabs 01/13/24 clavulanate 125 mg tablet isosorbide mononitrate 60 mg 60 mg PO DAILY #20 tabs 05/01/24 tablet,extended release 24 hr Allergies Allergy/AdvReac Type Severity Reaction Status Date / Time No Known Allergies Allergy Verified 04/30/24 22:47 Review of Systems Narrative: Constitutional symptoms: Negative except as documented in HPI. Skin symptoms: Negative except as documented in HPI. Eye symptoms: Negative except as documented in HPI. ENMT symptoms: Negative except as documented in HPI. Respiratory symptoms: Negative except as documented in HPI. Cardiovascular symptoms: Negative except as documented in HPI. Gastrointestinal symptoms: Negative except as documented in HPI. Genitourinary symptoms: Negative except as documented in HPI. Musculoskeletal symptoms: Negative except as documented in HPI. Neurologic symptoms: Negative except as documented in HPI. Psychiatric symptoms: Negative except as documented in HPI. Endocrine symptoms: Negative except as documented in HPI. PFS ED PFSH: Medical History (Updated 10/19/24 @ 00:34 by Liss Cosme MD) Ischemic heart disease Thrombocytopenia Anxiety and depression Elevated liver enzymes Obstructive sleep apnea GERD (gastroesophageal reflux disease) Dementia Hyperlipidemia Hypertension Type 2 diabetes mellitus Past heart attack BPH (benign prostatic hyperplasia) Surgical History S/P ORIF (open reduction internal fixation) fracture (09/11/23) right tibia infrapatellar intramedullary nail History of coronary angioplasty H/O total knee replacement Previous back surgery (2020) for scoliosis Social History Smoking and tobacco/nicotine status: never used tobacco/nicotine Physical Exam Narrative: General: Alert, no acute distress. Skin: Warm, dry. Head: Normocephalic, atraumatic. Neck: Supple, trachea midline. Eye: Extraocular movements are intact. Ears, nose, mouth and throat: mucosa moist. Cardiovascular: Regular, Normal peripheral perfusion. Respiratory: Lungs are clear to auscultation, respirations are non-labored, breath sounds are equal, Symmetrical chest wall expansion. Gastrointestinal: Soft, Nontender, Non distended Musculoskeletal: Normal ROM, no deformity. Neurological: Alert and oriented, No focal neurological deficit observed. Psychiatric: Cooperative, appropriate mood & affect. Course Vital Signs: Vital signs: Vital Signs Temperature 98.9 F 10/18/24 20:31 Pulse Rate 88 10/18/24 23:18 Respiratory Rate 18 10/18/24 23:18 Blood Pressure 102/55 10/19/24 00:00 Pulse Oximetry 94 10/19/24 00:00 Oxygen Delivery Me thod Room Air 10/18/24 20:31 MDM - Altered Mental Status Medical Decision Making Medical decision making: Differential diagnosis including but not limited to and based on the above HPI, review of systems and physical exam: In this patient with altered mental status: Stroke. Hypoglycemia. Metabolic encephalopathy. Infections such as pneumonia, urinary tract infection, Covid-19, Influenza. Electrolyte abnormalities such as hypernatremia. Renal failure / uremia. Hepatic encephalopathy. Hypoxemia. Hypercapnic respiratory failure. Psychosis. Drug or alcohol intoxication. Medication overdose. Orders placed to evaluate differential diagnosis based on the above differential, HPI and physical exam CT head: Senescent changes. No acute intracranial process. no intracranial hemorrhage, no evidence of infarct. no evidence of acute fracture.This was reviewed and interpreted by myself the ER physician. Chest x-ray: Atelectasis. No pneumothorax. This was reviewed and interpreted by myself the emergency room physician. I also reviewed the radiology report. Lab Review: Laboratory results were reviewed and interpreted by myself the emergency room physician. No leukocytosis but white count is shifted to 90%. Slightly anemic at 9.7. BUN and creatinine are stable at 21.1. Urinalysis is positive for infection. I reviewed the patient's medical record. 74-year-old man with a history of dementia, ischemic heart disease, hyperlipidemia, hypertension, type 2 diabetes, coronary artery disease Reexamination: Patient has had some confusion at times. No increased work of breathing. No focal motor deficits. Consultation: I spoke with Dr. Cooper who is on-call for the hospitalist service who agrees to admission. Assessment and plan: Urinary tract infection Possible sepsis Encephalopathy ?Urine was not posted until 4-hour thu at which point when it came back positive I ordered cefepime. I had started some fluids but went ahead and went to a full sepsis bolus at this point. He does not have leukocytosis but he is left shifted at 90%. His lactate was elevated at 4. His pressures been soft but he is not been tachycardic. Empirically treating as if he were septic. -2.5 L normal saline bolus. Fluid volumes based on ideal body weight. -Broad-spectrum antibiotics were administered. Cefepime for urinary tract infection -Sepsis quality measures. -Lactic acid with a reflex was ordered. -Blood cultures were ordered. -I discussed the patient with the hospitalist on-call who is admitting the patient. - Discussed findings and plan with patient. Answered any questions. - All laboratory values were reviewed and interpreted personally by myself, the ER physician - All imaging was reviewed and interpreted personally by myself, the ER physician. - Evaluation and treatment of this problem were appropriate in the emergency setting Critical Care: -I spent a total of >35 minutes of critical care time managing the patient, independent of any other practitioner. -The time involved in the performance of separately reportable procedures was not counted towards critical care time. Lab Data 10/18/24 21:08 10/18/24 21:08 Radiology Impressions Chest X-Ray 10/18/24 20:29 IMPRESSION: Mild interstitial and airspace opacities likely represent atelectasis, though mild edema and/or atypical infection not excluded. Head CT 10/18/24 20:29 IMPRESSION: 1. No acute intracranial findings. 2. Chronic/age-related changes as above. Laboratory Results WBC 8.58 10^3/uL (3.29-11.43) 10/18/24 21:08 RBC 4.00 10^6/uL (3.85-5.65) 10/18/24 21:08 Hgb 9.70 g/dL (11.27-16.99) L 10/18/24 21:08 Hct 33.0 % (37-53) L 10/18/24 21:08 MCV 82.5 fl (82-101) 10/18/24 21:08 MCH 24.3 pg (27-33) L 10/18/24 21:08 MCHC 29.4 g/dL (30-55) L 10/18/24 21:08 RDW 18.7 % (12.1-15.1) H 10/18/24 21:08 Plt Count 61 10^3/cmm (157-399) L 10/18/24 21:08 MPV 12.5 fL (7.4-10.4) H 10/18/24 21:08 Neut % (Auto) 90.9 % 10/18/24 21:08 Lymph % (Auto) 3.0 % 10/18/24 21:08 [place] % (Auto) 4.7 % 10/18/24 21:08 Eos % (Auto) 0.0 % 10/18/24 21:08 Baso % (Auto) 0.2 % 10/18/24 21:08 Neut # (Auto) 7.80 10^3/uL (1.8-7.7) H 10/18/24 21:08 Lymph # (Auto) 0.3 10^3/uL (0.8-4.8) L 10/18/24 21:08 [place] # (Auto) 0.4 10^3/uL (0.2-0.9) 10/18/24 21:08 Eos # (Auto) 0.0 10^3/uL (0.0-0.8) 10/18/24 21:08 Baso # (Auto) 0.0 10^3/uL (0.0-0.1) 10/18/24 21:08 Nucleated RBC % (auto) 0 % 10/18/24 21:08 Nucleated RBCs # 0.0 /100WBC 10/18/24 21:08 Sodium 137 mmol/L (136-145) 10/18/24 21:08 Potassium 3.7 mmol/L (3.5-5.1) 10/18/24 21:08 Chloride 101 mmol/L (98-107) 10/18/24 21:08 Carbon Dioxide 21 mmol/L (22-29) L 10/18/24 21:08 Anion Gap 18.7 (5-19) 10/18/24 21:08 BUN 20 mg/dL (8-23) 10/18/24 21:08 Creatinine 1.1 mg/dL (0.7-1.2) 10/18/24 21:08 GFR Calculation Not Reportable 10/18/24 21:08 Glucose 188 mg/dL (65-115) H 10/18/24 21:08 Calculated Osmolality 292 mOsm/kg (285-295) 10/18/24 21:08 Lactic Acid 4.2 mmol/L (0.5-2.2) H* 10/18/24 21:08 Calcium 8.4 mg/dL (8.5-10.5) L 10/18/24 21:08 Total Bilirubin 0.8 mg/dL (0.15-1.2) 10/18/24 21:08 AST 70 U/L (0-40) H 10/18/24 21:08 ALT 19 U/L (0-41) 10/18/24 21:08 Alkaline Phosphatase 106 U/L (40-130) 10/18/24 21:08 Total Protein 6.8 g/dL (6.6-8.7) 10/18/24 21:08 Albumin 3.2 g/dL (3.5-5.2) L 10/18/24 21:08 Globulin 3.6 g/dL (1.3-4.6) 10/18/24 21:08 Urine Color [place] (Yellow) A 10/18/24 22:50 Urine Appearance Cloudy (CLEAR) A 10/18/24 22:50 Urine pH 5.5 (5-7) 10/18/24 22:50 Ur Specific [place] 1.034 (1.005-1.030) H 10/18/24 22:50 Urine Protein 2+ (Negative) A 10/18/24 22:50 Urine Glucose (UA) Negative (Normal) 10/18/24 22:50 Urine Ketones Trace (Negative) 10/18/24 22:50 Urine Blood 2+ (Negative) A 10/18/24 22:50 Urine Nitrate Positive (Negative) A 10/18/24 22:50 Urine Bilirubin 1+ (Negative) H 10/18/24 22:50 Urine Urobilinogen 1.0 mg/dL (Negative) 10/18/24 22:50 Ur Leukocyte Esterase 1+ (Negative) A 10/18/24 22:50 Urine RBC 0-2 /hpf (0-2) 10/18/24 22:50 Urine WBC 51-100 /hpf (0-5) H 10/18/24 22:50 Ur Squamous Epith Cells 0-5 /hpf (0-5) 10/18/24 22:50 Amorphous Sediment Not Reportable 10/18/24 22:50 Urine Bacteria 1+ /hpf (NONE) H 10/18/24 22:50 Hyaline Casts 6.17 /lpf 10/18/24 22:50 All radiology interpretation(s) finalized by discharge Discharge Plan Discharge Patient Disposition: Admitted As Inpatient Clinical Impression: Acute UTI, Acute metabolic encephalopathy Condition: Stable Coding Level of Care Code ED Saturator for Moses Miller
[2024-10-18 21:16] LABS: Hematocrit 33.0 % (37-53); Hemoglobin 9.70 g/dL (11.27-16.99); Mean Corpuscular HGB Conc 29.4 g/dL (30-55); Mean Corpuscular Hemoglobin 24.3 pg (27-33); Mean Corpuscular Volume 82.5 fl (82-101); Nucleated Red Blood Cells % 0 %; Platelet Count 61 10^3/cmm (157-399); Red Blood Count 4.00 10^6/uL (3.85-5.65); White Blood Count 8.58 10^3/uL (3.29-11.43)
[2024-10-18 21:37] LABS: Alanine Aminotransferase 19 U/L (0-41); Albumin Level 3.2 g/dL (3.5-5.2); Alkaline Phosphatase 106 U/L (40-130); Anion Gap 18.7 (5-19); Aspartate Amino Transferase 70 U/L (0-40); Blood Urea Nitrogen 20 mg/dL (8-23); Calcium 8.4 mg/dL (8.5-10.5); Carbon Dioxide 21 mmol/L (22-29); Chloride 101 mmol/L (98-107); Creatinine Clr Calc Pharmacy 93.2310; Globulin 3.6 g/dL (1.3-4.6); Glucose 188 mg/dL (65-115); Osmolality Calculated 292 mOsm/kg (285-295); Potassium 3.7 mmol/L (3.5-5.1); Sodium 137 mmol/L (136-145); Total Protein 6.8 g/dL (6.6-8.7)
[2024-10-18 21:39] LABS: Lactic Sepsis W/Reflex 4.2 mmol/L (0.5-2.2)
[2024-10-18 23:00] LABS: Reflex Lactate Order REFLEX LACTIC ORDERD
[2024-10-18 23:18] VITALS: BP 98/55; PULSE 88; RESP 18; O2SAT 96
[2024-10-19] VITALS (11 sets, daily range): BP systolic 85–145; BP diastolic 52–99; PULSE 67–105; RESP 15–20; TEMP 36.2–37.1; O2SAT 92–96; BMI 40.2
[2024-10-19 00:16] LABS: Glucose Urine UA Negative (Normal); Nitrate Urine Positive (Negative); Specific Gravity, Urine 1.034 (1.005-1.030)
[2024-10-19] MEDS: cefepime 2,000 mg SDV 2000 MG IVP (00:31)
[2024-10-19 01:29] LABS: Lactic Acid level (Lactate) 3.9 mmol/L (0.5-2.2)
[2024-10-19] MEDS: heparin 5,000 unit/mL INJ 1 mL 5000 UNIT SUBCUT ×2 (04:14→16:16)
[2024-10-19] MEDS: morphine 4 mg/mL SDV 1 mL 2 MG IVP ×2 (04:39→20:14)
[2024-10-19 06:05] LABS: Lactic Sepsis W/Reflex 1.8 mmol/L (0.5-2.2)
--- NOTE | 2024-10-19 06:19 | PM.HP ---
Providers/Chief Complaint Admitting Physician: Delores Cooper MD--patient seen and evaluated after 12 midnight today Chief Complaint: ams History of Present Illness Tom Espinosa is a 74 year old male with medical history significant for morbid obesity dementia who presented to the emergency room from his [facility] because of confusion. Patient was evaluated in the emergency room evaluation was significant for urinary tract infection with encephalopathy. Patient does have a history of diabetes. The lactate was 4 in the emergency room a repeat was done came down to 3.9. CT of the head was negative for any acute process. White count was normal at 9 but there is a left shift. Patient received a dose of cefepime in the emergency room. Judging from the microbes with urinary tract infection I proceeded with ceftriaxone. Patient is getting 2 g IV ceftriaxone daily. Follow-up with culture and sensitivity and optimize accordingly and also follow-up with interval change for improvement regarding patient's confusion which is due to UTI. Review of Systems Narrative: Patient verbalized that he is confused unremarkable 4 system review upon 10 organ reviewed. Medications/Allergies Home Medications ?Medication ?Instructions ?Recorded ?Confirmed ?Last Taken ?Type acetaminophen 325 mg capsule 650 mg PO QID PRN pain or fever 01/04/22 01/05/24 Unknown History albuterol sulfate 90 mcg/actuation 2 puff inhalation Q6H PRN 01/04/22 01/05/24 Unknown History aerosol inhaler wheezing/ shortness of breath aspirin 81 mg tablet,delayed 81 mg PO DAILY 01/04/22 01/05/24 09/09/23 History release (Adult Low Dose Aspirin) cam walking boot #1 ea 01/04/22 01/05/24 Unknown Rx donepezil 5 mg tablet 10 mg PO BEDTIME 01/04/22 01/05/24 09/09/23 History lace up ankle brace #1 ea 01/04/22 01/05/24 Unknown Rx mirabegron 50 mg tablet,extended 50 mg PO DAILY 01/04/22 01/05/24 09/09/23 History release 24 hr (Myrbetriq) omeprazole 20 mg tablet,delayed 20 mg PO DAILY 01/04/22 01/05/24 09/09/23 History release albuterol sulfate 0.63 mg/3 mL 0.63 mg inhalation Q6H PRN Cough 09/11/23 01/05/24 Unknown History solution for nebulization bisacodyl 10 mg rectal suppository 10 mg CA DAILY PRN Constipation 09/11/23 01/05/24 Unknown History cetirizine 5 mg tablet 5 mg PO DAILY PRN seasonal 09/11/23 01/05/24 Unknown History allergies citalopram 10 mg tablet 10 mg PO DAILY 09/11/23 01/05/24 09/09/23 History finasteride 5 mg tablet 5 mg PO BEDTIME 09/11/23 01/05/24 09/09/23 History magnesium hydroxide 400 mg/5 mL 2,400 mg PO DAILY PRN Constipation 09/11/23 01/05/24 Unknown History oral suspension (Milk of Magnesia) polyethylene glycol 3350 17 gram 17 g PO DAILY PRN Constipation 09/11/23 01/05/24 Unknown History oral powder packet polyvinyl alcohol-povidone 0.5 1 drp ophthalmic (eye) TID PRN Dry 09/11/23 01/05/24 Unknown History %-0.6 % eye drops (Clear Eyes Eye(S) Natural Tears) calcium 600 mg (as 1 tab PO BID #30 tabs 09/12/23 01/05/24 Unknown Rx carbonate)-vitamin D3 10 mcg (400 unit) tablet tamsulosin 0.4 mg capsule 0.4 mg PO DAILY #30 caps 09/12/23 01/05/24 Unknown Rx cam boot #1 ea 10/04/23 01/05/24 Unknown Rx menthol 4 % topical gel (Biofreeze 1 applic topical Q6H PRN Pain 12/13/23 01/05/24 Unknown History (menthol)) nystatin 100,000 unit/gram topical 1 applic topical Q8H PRN Rash 12/13/23 01/05/24 Unknown History powder sodium phosphates 19 gram-7 118 ml CA DAILY PRN Constipation 12/13/23 01/05/24 Unknown History gram/118 mL enema (Fleet Enema) amoxicillin 875 mg-potassium 1 tab PO BID #14 tabs 01/13/24 Unknown Rx clavulanate 125 mg tablet isosorbide mononitrate 60 mg 60 mg PO DAILY #20 tabs 05/01/24 Unknown Rx tablet,extended release 24 hr Allergies Allergy/AdvReac Type Severity Reaction Status Date / Time No Known Allergies Allergy Verified 04/30/24 22:47 PFSH Acute PFSH: Medical History Ischemic heart disease Thrombocytopenia Anxiety and depression Elevated liver enzymes Obstructive sleep apnea GERD (gastroesophageal reflux disease) Dementia Hyperlipidemia Hypertension Type 2 diabetes mellitus Past heart attack BPH (benign prostatic hyperplasia) Surgical History S/P ORIF (open reduction internal fixation) fracture (09/11/23) right tibia infrapatellar intramedullary nail History of coronary angioplasty H/O total knee replacement Previous back surgery (2020) for scoliosis Social History Smoking and tobacco/nicotine status: never used tobacco/nicotine Vitals/I&O/Wt Last Vital Signs Temp 97.3 F L 10/19/24 04:00 Pulse 90 10/19/24 04:00 Resp 17 10/19/24 04:39 BP 116/71 10/19/24 04:00 Pulse Ox 95 10/19/24 04:00 O2 Del Method Room Air 10/19/24 04:00 10/18/24 10/18/24 10/19/24 14:59 22:59 06:59 Intake Total 0 / 0 2500 / 2500 Balance 0 / 0 2500 / 2500 Weight last 48 hrs Weight 136.168 kg Weight 134.535 kg Weight 163.293 kg Physical Exam Narrative: Patient is confused and verbalized that he is confused he is verbal and expresses needs. HEENT normocephalic atraumatic Neck neck is supple Cardiovascular heart rate is regular Lungs are clear bilaterally Abdomen is soft nontender nondistended unremarkable extremities are intact no edema has good pulses neurology he has no focality lab studies lab studies have been reviewed and noted. Data 10/18/24 21:08 10/18/24 21:08 Micro: Microbiology 10/18/24 21:53 Blood Culture - Preliminary Blood SPECIMEN COLLECTED 10/18/24 21:08 Blood Culture - Preliminary Blood SPECIMEN COLLECTED A&P Assessment and plan 1. Acute metabolic encephalopathy: Admits to general medical floor Patient is stable but confused due to infectious process of UTI Patient is with acute metabolic encephalopathy secondary to underlining UTI I have initiated ceftriaxone 2 g IV daily to start this morning Patient did receive from the emergency room cefepime Follow cultures blood and urine and optimize accordingly 2. Acute UTI: Patient is with acute cystitis continue to treat with antibiotics and optimize 3. Multiple vessel coronary artery disease: Patient does have history of coronary artery disease and this is stable at this time there are no chest pains shortness of breath or any cardiovascular symptomatology Continue home medication once updated 4. Lactic acid acidosis: Lactic acidosis of 4 trending down to a 3.9 Lactic acidosis a combination of 2 volume contraction and infection Plan: GI and DVT prophylaxis in place PDMP PDMP Reviewed: Last Reviewed 10/19/24 06:36 by Delores Cooper MD Attestations Medical Necessity Statement*: Patient with UTI with associated acute metabolic encephalopathy with lactic acidosis indeed this of 2 midnights stay for inpatient care to optimize care. Coding Level of Care Code 68394 Diagnoses Acute metabolic encephalopathy G93.41 Acute UTI N39.0 Multiple vessel coronary artery disease I25.10 Lactic acid acidosis E87.20 Time Spent (min) 60
--- NOTE | 2024-10-19 13:10 | PC.SOCIAL ---
IMM UPDATED IMM dated and initialed, copy given to patient and copy placed in chart.
[2024-10-20] VITALS (9 sets, daily range): BP systolic 100–131; BP diastolic 70–80; PULSE 74–90; RESP 14–18; TEMP 36.6–37; O2SAT 90–96
[2024-10-20] MEDS: cefTRIAXone 2,000 mg SDV 2000 MG IVP (00:29)
[2024-10-20] MEDS: heparin 5,000 unit/mL INJ 1 mL 5000 UNIT SUBCUT ×2 (01:43→15:43)
[2024-10-20] MEDS: morphine 4 mg/mL SDV 1 mL 2 MG IVP ×2 (01:43→09:57)
[2024-10-20 04:17] LABS: Hematocrit 35.4 % (37-53); Hemoglobin 10.60 g/dL (11.27-16.99); Mean Corpuscular HGB Conc 29.9 g/dL (30-55); Mean Corpuscular Hemoglobin 24.8 pg (27-33); Mean Corpuscular Volume 82.7 fl (82-101); Nucleated Red Blood Cells % 0 %; Platelet Count 85 10^3/cmm (157-399); Red Blood Count 4.28 10^6/uL (3.85-5.65); White Blood Count 9.00 10^3/uL (3.29-11.43)
[2024-10-20 04:38] LABS: Alanine Aminotransferase 24 U/L (0-41); Albumin Level 3.2 g/dL (3.5-5.2); Alkaline Phosphatase 111 U/L (40-130); Anion Gap 16.8 (5-19); Aspartate Amino Transferase 77 U/L (0-40); Blood Urea Nitrogen 21 mg/dL (8-23); Calcium 8.4 mg/dL (8.5-10.5); Carbon Dioxide 21 mmol/L (22-29); Chloride 106 mmol/L (98-107); Creatinine Clr Calc Pharmacy 102.8981; Globulin 3.8 g/dL (1.3-4.6); Glucose 185 mg/dL (65-115); Magnesium 2.0 mg/dL (1.7-2.3); Osmolality Calculated 298 mOsm/kg (285-295); Potassium 3.8 mmol/L (3.5-5.1); Sodium 140 mmol/L (136-145); Total Protein 7.0 g/dL (6.6-8.7)
--- NOTE | 2024-10-20 19:19 | P.PN_ITS ---
Subjective 2 Subjective: 74-year-old male morbidly obes e with history of multilevel back fusion admitted from the emergency department coming from local shelter reports that he barely can walk. He had UTI with sepsis in the emergency department and treated with Rocephin now much improved. Patient states he would like to get up and not lay in bed all day long. He would like to become ambulatory Vitals/I&O/Wt Last Vital Signs Temp 98.2 F 10/20/24 16:00 Pulse 86 10/20/24 16:08 Resp 16 10/20/24 16:00 BP 114/70 10/20/24 16:00 Pulse Ox 95 10/20/24 16:00 O2 Del Method Room Air 10/20/24 16:00 10/20/24 10/20/24 10/20/24 06:59 14:59 22:59 Intake Total 240 / 480 480 / 480 240 / 720 Balance 240 / 480 480 / 480 240 / 720 Weight last 48 hrs Weight 136.078 kg Weight 136.168 kg Weight 134.535 kg Weight 163.293 kg Physical Exam 2 Narrative: General Well-developed well-nourished morbidly obese male in no acute cardiopulmonary stress CV regular rate and rhythm Lungs clear to auscultation bilaterally Abdomen positive bowel tones soft obese nontender Back no flank pain Calves 2+ edema Data 10/20/24 04:08 10/20/24 04:08 Micro: Microbiology 10/18/24 22:50 Urine Culture - Preliminary Urine,Clean Catch Gram Negative Rods 10/18/24 21:53 Blood Culture - Preliminary Blood NEGATIVE TO DATE 10/18/24 21:08 Blood Culture - Preliminary Blood NEGATIVE TO DATE A&P Assessment and plan 1. Acute metabolic encephalopathy: Resolved but attributed to urinary tract infection urine is showing gram negative rods blood cultures thus far negative 2. Acute UTI: Continue Rocephin 2 g IV daily 3. Multiple vessel coronary artery disease: Patient does have history of coronary artery disease and this is stable at this time there are no chest pains shortness of breath or any cardiovascular symptomatology Continue home medication once updated 4. Fusion of spine of thoracolumbar region: Patient would like physical and Occupational Therapy evaluation and wants to get up and walk if at all possible 5. Morbid obesity with BMI of 40.0-44.9, adult: Patient requesting to walk I counseled him that he is morbidly obese which is a barrier and he requests weight loss diet Plan: GI and DVT prophylaxis in place PDMP PDMP Reviewed: Not Reviewed Attestations 2 Medical Necessity Statement*: Patient anuja in hospital for treatment of urinary tract infection will have PT and OT evaluation prior to returning to the correction facility potentially tomorr or Tuesday Coding Level of Care Code 61131 Diagnoses Acute metabolic encephalopathy G93.41 Acute UTI N39.0 Multiple vessel coronary artery disease I25.10 Fusion of spine of thoracolumbar region M43.25 Morbid obesity with BMI of 40.0-44.9, adult E66.01; Z68.41 Time Spent (min) 35
[2024-10-21] MEDS: cefTRIAXone 2,000 mg SDV 2000 MG IVP ×2 (00:42→23:22)
[2024-10-21 01:09] VITALS: BP 99/58; PULSE 94; RESP 14; TEMP 36.7; O2SAT 97
[2024-10-21] MEDS: heparin 5,000 unit/mL INJ 1 mL 5000 UNIT SUBCUT ×2 (03:28→15:18)
[2024-10-21 05:51] VITALS: BP 100/64; PULSE 90; RESP 17; TEMP 36.6; O2SAT 96
[2024-10-21 08:06] VITALS: BP 103/56; PULSE 86; RESP 14; TEMP 36.4; O2SAT 96
[2024-10-21 11:38] VITALS: BP 106/74; PULSE 80; RESP 16; TEMP 36.9; O2SAT 95
--- NOTE | 2024-10-21 15:14 | P.PN_ITS ---
Subjective 2 Subjective: 74-year-old male morbidly obes e with history of multilevel back fusion admitted from the emergency department coming from local [facility] reports that he barely can walk. Patient states he is transferring to the recliner chair with a walker and assistance. He states he cannot feel his right leg and his right leg is weaker than the left but he can stand. He would like to walk. 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 Vitals/I&O/Wt Last Vital Signs Temp 98.4 F 10/21/24 11:38 Pulse 80 10/21/24 11:38 Resp 16 10/21/24 11:38 BP 106/74 10/21/24 11:38 Pulse Ox 95 10/21/24 11:38 O2 Del Method Room Air 10/21/24 11:38 10/21/24 10/21/24 10/21/24 06:59 14:59 22:59 Intake Total 480 / 1200 360 / 360 Balance 480 / 1200 360 / 360 Weight last 48 hrs Weight 136.078 kg Weight 136.078 kg Physical Exam 2 Narrative: General Well-developed well-nourished morbidly obese male in no acute cardiopulmonary stress CV regular rate and rhythm Lungs clear to auscultation bilaterally Abdomen positive bowel tones soft obese nontender Back no flank pain Calves 1+ to 2+ edema Patient tells me it is October 2024 Eric is the president but he does not remember who [employer] ran against. Data 10/20/24 04:08 10/20/24 04:08 Micro: Microbiology 10/18/24 22:50 Urine Culture - Final Urine,Clean Catch Escherichia coli A&P Assessment and plan 1. Acute metabolic encephalopathy: Resolved but attributed to urinary tract infection urine is showing gram negative rods blood cultures thus far negative Urine grew E. coli sensitive to Rocephin 2. Acute UTI: Continue Rocephin 2 g IV daily 3. Multiple vessel coronary artery disease: Patient does have history of coronary artery disease and this is stable at this time there are no chest pains shortness of breath or any cardiovascular symptomatology Continue home medication once updated 4. Fusion of spine of thoracolumbar region: Patient would like physical and Occupational Therapy evaluation and wants to get up and walk if at all possible Would like to get a therapy plan formulated by our department and patient to return to intermediate facility to complete. 5. Morbid obesity with BMI of 40.0-44.9, adult: Patient requesting to walk I counseled him that he is morbidly obese which is a barrier and he requests weight loss diet. Patient counseled no sugared or sweetened drinks no juice no milk. Carbohydrate controlled diet 1800 mayi daily for weight loss Plan: GI and DVT prophylaxis in place PDMP PDMP Reviewed: Not Reviewed Attestations 2 Medical Necessity Statement*: Patient remains in hospital for 1 more night for physical therapy IV antibiotics and anticipate discharge back to the intermediate facility when approved by his insurance Coding Level of Care Code Acute Code for Chg Fwd Diagnoses Acute metabolic encephalopathy G93.41 Acute UTI N39.0 Multiple vessel coronary artery disease I25.10 Fusion of spine of thoracolumbar region M43.25 Morbid obesity with BMI of 40.0-44.9, adult E66.01; Z68.41 Time Spent (min) 25
[2024-10-21 16:17] VITALS: BP 130/84; PULSE 77; RESP 18; TEMP 36.3; O2SAT 97
[2024-10-21 20:00] VITALS: BP 115/75; PULSE 68; RESP 24; TEMP 37.2; O2SAT 96
[2024-10-22] VITALS (8 sets, daily range): BP systolic 92–114; BP diastolic 57–74; PULSE 78–87; RESP 16–24; TEMP 36.5–36.9; O2SAT 92–97
[2024-10-22] MEDS: heparin 5,000 unit/mL INJ 1 mL 5000 UNIT SUBCUT ×2 (02:42→15:38)
--- NOTE | 2024-10-22 10:46 | USCV_ITS ---
Tom Espinosa Age: 74 Gender: M : 1950 Exam Date: 10/22/2024 12:52 Ordering Phys: Mayelin Yap MD Technologist: Exam Location: [facility] – [place], [place] Indication: bilat edema PROCEDURES: The venous duplex Doppler examination of both lower extremities was performed in the standard fashion. The following venous structures were evaluated: common femoral vein, profunda vein, proximal portion of the greater saphenous vein, superficial femoral vein, and the popliteal vein. In addition, the posterior tibial and peroneal trunk were evaluated. FINDINGS: Normal 2-D Doppler and augmentation and compressibility throughout the lower extremity venous structures. Additional imaging through the proximal calf veins also reveals no thrombus. Limited evaluation of the greater saphenous vein is patent with no thrombus. CONCLUSIONS No DVT bilateral lower extremities. Dr. Josette Kelley DO (Electronically Signed) Final Date: 22 October 2024 13:47 S
--- NOTE | 2024-10-22 10:48 | XR_ITS ---
WS: [id number] XR chest 1V portable [id number] REASON FOR EXAM: pulmonary edema FINDINGS: Mild tortuosity and ectasia of the thoracic aorta. Mild cardiomegaly. Mild central pulmonary vascular congestion. Compared to the previous examination of 10/18/2024, significant resolving of the right pleural effusion. Atelectasis in the right lung base persists. The left costophrenic angle is blunted. Left costophrenic angle was normal on the previous examination. XR/XR chest 1V portable [id number] IMPRESSION: Presumed significant reduction in the right pleural effusion. New opacification of the left costophrenic angle which may indicate pleural eff usion and adjacent lung atelectasis.
--- NOTE | 2024-10-22 10:48 | USCV_ITS ---
Tom Espinosa Age: 74 Gender: M : 1950 Exam Date: 10/22/2024 12:43 Ordering Phys: Mayelin Yap MD Technologist: Exam [place] [facility] [place] Indication: chf BP: 134 / 72 HR: Rhythm: Sinus Technical Quality: Adequate MEASUREMENTS (Male / Female) Normal Values 2D ECHO LV Diastolic Diameter PLAX 6.0 cm 4.2 - 5.9 / 3.9 - 5.3 cm IVS Diastolic Thickness 1.6 cm 0.6 - 1.0 / 0.6 - 0.9 cm IVS Systolic Thickness 2.1 cm LVPW Diastolic Thickness 1.3 cm 0.6 - 1.0 / 0.6 - 0.9 cm LVPW Systolic Thickness 1.9 cm LVOT Diameter 2.0 cm LV Ejection Fraction 2D Teich 60.1 % LV Ejection Fraction MOD 4C 56.5 % LV Ejection Fraction MOD 2C 57.8 % LV Ejection Fraction 2C AL 58.1 % LA Diameter 3.9 cm RA Systolic Volume 4C AL 77.5 ml RA Systolic Volume 4C MOD 68.4 ml LA Sys Volume AL 54.6 cm cubed LA Sys Volume Index AL 19.8 cm cubed/m squared Aorta at Sinotubular Diameter 3.2 cm M-MODE LA Ao Ratio MM 0.9 AV Cusp Separation MM 1.4 cm FINDINGS Left Ventricle Normal left ventricular size and systolic function, EF 58%.no regional wall motion abnormalities. Right Ventricle Possibly of normal size ejection fraction Right Atrium Normal size Left Atrium Appears to be of normal size Mitral Valve No gross abnormalities noted Aortic Valve Thickened aortic valve with restricted mobility mild to moderate aortic valve calcification. Tricuspid Valve No gross abnormalities noted Pulmonic Valve Pulmonic valve not well visualized. Pericardium No thickening/calcification of the pericardium. Aorta Normal aortic annulus size. IVC Inferior vena cava not visualized. CONCLUSIONS Normal left ventricular size and systolic function, EF 58%. No regional wall motion abnormalities. Thickened aortic valve with restricted mobility. Mild to moderate aortic valve calcification. There is no pericardial effusion. There are no intracardiac masses. Compared to the study from 01/06/2024, there may not be a significant change in the 2D findings Dr Rylie Melchor MD [facility] (Electronically Signed) Final Date: 22 October 2024 17:12 S
[2024-10-22] MEDS: FUROsemide 10 mg/mL SDV 4mL 40 MG IVP (11:35)
[2024-10-22 11:52] LABS: Hematocrit 34.2 % (37-53); Hemoglobin 9.90 g/dL (11.27-16.99); Mean Corpuscular HGB Conc 28.9 g/dL (30-55); Mean Corpuscular Hemoglobin 24.5 pg (27-33); Mean Corpuscular Volume 84.7 fl (82-101); Nucleated Red Blood Cells % 0 %; Platelet Count 89 10^3/cmm (157-399); Red Blood Count 4.04 10^6/uL (3.85-5.65); White Blood Count 6.63 10^3/uL (3.29-11.43)
[2024-10-22 12:20] LABS: Alanine Aminotransferase 22 U/L (0-41); Albumin Level 2.8 g/dL (3.5-5.2); Alkaline Phosphatase 118 U/L (40-130); Anion Gap 13.5 (5-19); Aspartate Amino Transferase 31 U/L (0-40); Blood Urea Nitrogen 14 mg/dL (8-23); Calcium 7.9 mg/dL (8.5-10.5); Carbon Dioxide 24 mmol/L (22-29); Chloride 105 mmol/L (98-107); Creatinine Clr Calc Pharmacy 114.3468; Globulin 3.5 g/dL (1.3-4.6); Glucose 167 mg/dL (65-115); Osmolality Calculated 292 mOsm/kg (285-295); Potassium 3.5 mmol/L (3.5-5.1); Sodium 139 mmol/L (136-145); Total Protein 6.3 g/dL (6.6-8.7)
--- NOTE | 2024-10-22 13:47 | PC.SOCIAL ---
IMM Updated Provided pt a copy. Initialed, dated, & timed a copy & placed in chart.
--- NOTE | 2024-10-22 15:12 | PM.PN ---
Subjective Subjective: Chart reviewed. Patient is a 74-year-old male with a past medical history of CAD, diabetes mellitus, hypertension, dyslipidemia, obstructive sleep apnea, chronic thrombocytopenia of unclear etiology, history of CAD on medical management, brought in from long term on October 19, 2024 with altered mental status and confusion. CT of the head was negative for any acute process.He was diagnosed with acute encephalopathy related to UTI and was started on treatment with ceftriaxone which is currently being continued. Urine culture showed E. coli sensitive to the antibiotic being used at this time. At the time of my examination this morning patient was noted to have bilateral lower extremity edema, right worse than left with the right lower extremity also showing signs of cellulitis. There was erythema, tenderness, warmth involving the right foot and extending into the mid calf level. Medications: Reviewed: Yes Vitals/I&O/Wt Last Vital Signs Temp 98.1 F 10/22/24 11:36 Pulse 78 10/22/24 11:36 Resp 16 10/22/24 11:36 BP 111/74 10/22/24 11:36 Pulse Ox 92 10/22/24 11:36 O2 Del Method Room Air 10/22/24 11:36 10/22/24 10/22/24 10/22/24 06:59 14:59 22:59 Intake Total 720 / 720 Balance 720 / 720 Weight last 48 hrs Weight 133.084 kg Weight 136.078 kg Physical Exam Narrative: General: No acute distress, AO x3 HEENT: PERRLA, pupils bilaterally equal and reactive, pallors not present Chest: Normal vesicular breath sounds, no added sounds, equal good air entry bilaterally CVS: S1-S2 regular, no murmurs, no tachycardia, no gallops, no rubs Abdomen: Soft, nontender, no organomegaly, bowel sounds present Neuro: No focal deficits, no facial deformity, AO x3, power 5/5 in all limbs Extremities: Bilateral lower extremity pitting edema, right lower extremity cellulitis extending to the calf. Data 10/22/24 11:43 10/22/24 11:43 Micro: Microbiology 10/18/24 22:50 Urine Culture - Final Urine,Clean Catch Escherichia coli NAME: Tom Espinosa LOC: [facility] #: [id number] AGE/SX: 74/M ROOM: 279 RE10/19/[address]: Mayelin Yap MD : 1950 BED: 2 DIS: FAX #: STATUS: ADM IN TLOC: Spec #: [id number] Devin: 10/18/24-2249 Status: COMP Req #: [id number] Recd: 10/18/24-[address]: Liss Cosme MD Src: Urine CC SpDesc: Ordered: UC Procedure Result Verified Site Urine Culture Final 10/21/24-1053 Organism 1 Escherichia coli [place] Count >100,000 CFU/ml DAY 2 E coli M.I.C. RX --------- ------ * Amikacin <=16 S * Amoxicillin/Clavulanate <=8/4 S * Ampicillin >16 R * Ampicillin/Sulbactam 16/8 I * Aztreonam <=4 S * Cefepime <=8 S * Ceftriaxone <=1 S * Cefuroxime 8 S * Ciprofloxacin <=1 S * Gentamicin >8 R * Imipenem <=1 S * Levofloxacin <=2 S * Nitrofurantoin <=32 S * Tetracycline >8 R * Tobramycin 8 I * Trimethoprim/Sulfamethoxazole >2/38 R * Piperacillin/Tazobactam <=16 S A&P Assessment and plan 1. Acute metabolic encephalopathy: Resolved but attributed to urinary tract infection urine is showing gram negative rods blood cultures thus far negative Urine grew E. coli sensitive to Rocephin 2. Acute UTI: Continue Rocephin 2 g IV daily 3. Multiple vessel coronary artery disease: Patient does have history of coronary artery disease and this is stable at this time there are no chest pains shortness of breath or any cardiovascular symptomatology Continue home medication once updated 4. Fusion of spine of thoracolumbar region: Patient would like physical and Occupational Therapy evaluation and wants to get up and walk if at all possible Would like to get a therapy plan formulated by our department and patient to return to residential facility to complete. 5. Morbid obesity with BMI of 40.0-44.9, adult: Patient requesting to walk I counseled him that he is morbidly obese which is a barrier and he requests weight loss diet. Patient counseled no sugared or sweetened drinks no juice no milk. Carbohydrate controlled diet 1800 mayi daily for weight loss 6. Cellulitis of right le. Lower extremity edema: Plan: GI and DVT prophylaxis in place October 22, 2024 Patient admitted to the hospital on October 19, 2024 with UTI, acute encephalopathy which is now resolved. Urine culture revealing E. coli for which patient is on appropriate antibiotic with ceftriaxone. Reduce dose to ceftriaxone 1 g IV every 24 hours as that will suffice for UTI. Blood cultures are negative from the current admission. Today he has been noted to have bilateral lower extremity swelling and a right lower extremity cellulitis. Will obtain a lower extremity Doppler to assess for DVT. Chest x-ray from admission is showing bilateral scattered infiltrates which appear to be pulmonary edema per personal interpretation. Together with bilateral lower extremity cellulitis I am concerned about potential CHF. Patient does not appear to be on any diuretics at the SNF, though he does report chronic lower extremity swelling which appears to be worse today. Last echocardiogram dates back to December 2023 at which time he was found to have a systolic function with a EF of 60%, no regional wall motion abnormalities. Diastolic function was unable to be assessed at that time. There was noted to be severe aortic valve calcification with mild stenosis with an NATALIE of 1.9 cm?. Will obtain echocardiogram to assess for any interval worsening. Add BNP to a.m. labs. Start Lasix 40 mg IV, closely monitor kidney function and urine output with initiation of Lasix. Add vancomycin empirically for cellulitis given that the worsening has been noted on ceftriaxone. PDMP PDMP Reviewed: Not Reviewed Attestations Medical Necessity Statement*: Right lower extremity cellulitis, needing IV antibiotics, initiation of IV diuresis. Coding Level of Care Code Acute Code for Chg Fwd High MDM includes number and complexity of problems actively addressed during encounter, amount and/or complexity of data reviewed/ordered and described risk of complication, morbidity or mortality of management as documented Diagnoses Acute metabolic encephalopathy G93.41 Acute UTI N39.0 Multiple vessel coronary artery disease I25.10 Fusion of spine of thoracolumbar region M43.25 Morbid obesity with BMI of 40.0-44.9, adult E66.01; Z68.41 Cellulitis of right leg L03.115 Lower extremity edema R60.0
[2024-10-22 16:10] LABS: NT Pro B Type Natriuretic Pept 8998 pg/mL (0-125)
[2024-10-22] MEDS: cefTRIAXone 1,000 mg SDV 1000 MG IVP (17:28)
[2024-10-22] MEDS: morphine 4 mg/mL SDV 1 mL 2 MG IVP (19:11)
[2024-10-23] VITALS (8 sets, daily range): BP systolic 101–148; BP diastolic 62–86; PULSE 70–88; RESP 15–19; TEMP 36.4–36.8; O2SAT 93–97
[2024-10-23 03:20] LABS: Hematocrit 33.5 % (37-53); Hemoglobin 9.80 g/dL (11.27-16.99); Mean Corpuscular HGB Conc 29.3 g/dL (30-55); Mean Corpuscular Hemoglobin 24.6 pg (27-33); Mean Corpuscular Volume 84.0 fl (82-101); Nucleated Red Blood Cells % 0 %; Platelet Count 86 10^3/cmm (157-399); Red Blood Count 3.99 10^6/uL (3.85-5.65); White Blood Count 6.29 10^3/uL (3.29-11.43)
[2024-10-23 03:37] LABS: Alanine Aminotransferase 19 U/L (0-41); Albumin Level 2.8 g/dL (3.5-5.2); Alkaline Phosphatase 116 U/L (40-130); Aspartate Amino Transferase 28 U/L (0-40); Blood Urea Nitrogen 13 mg/dL (8-23); Calcium 8.1 mg/dL (8.5-10.5); Carbon Dioxide 24 mmol/L (22-29); Chloride 104 mmol/L (98-107); Creatinine Clr Calc Pharmacy 114.3468; Globulin 3.5 g/dL (1.3-4.6); Glucose 149 mg/dL (65-115); Osmolality Calculated 289 mOsm/kg (285-295); Sodium 138 mmol/L (136-145); Total Protein 6.3 g/dL (6.6-8.7)
[2024-10-23 03:39] LABS: Anion Gap 13.6 (5-19); Potassium 3.6 mmol/L (3.5-5.1)
[2024-10-23] MEDS: heparin 5,000 unit/mL INJ 1 mL 5000 UNIT SUBCUT ×2 (05:10→15:04)
[2024-10-23] MEDS: morphine 4 mg/mL SDV 1 mL 2 MG IVP ×2 (11:37→17:23)
--- NOTE | 2024-10-23 11:53 | PHA.VACGOAL ---
Vancomycin Goal - Goal Vancomycin Goal:: 10-15 mg/L Vancomycin Indication:: Other - Therapy Day of therpy:: Day []of [] . Actual body weight (kg): 293 lb 6 oz - Data Labs: WBC 6.29 10^3/uL (3.29-11.43) 10/23/24 03:03 RBC 3.99 10^6/uL (3.85-5.65) 10/23/24 03:03 Hgb 9.80 g/dL (11.27-16.99) L 10/23/24 03:03 Hct 33.5 % (37-53) L 10/23/24 03:03 MCV 84.0 fl (82-101) 10/23/24 03:03 MCH 24.6 pg (27-33) L 10/23/24 03:03 MCHC 29.3 g/dL (30-55) L 10/23/24 03:03 RDW 18.5 % (12.1-15.1) H 10/23/24 03:03 Sodium 138 mmol/L (136-145) 10/23/24 03:03 Potassium 3.6 mmol/L (3.5-5.1) 10/23/24 03:03 Chloride 104 mmol/L (98-107) 10/23/24 03:03 Carbon Dioxide 24 mmol/L (22-29) 10/23/24 03:03 Anion Gap 13.6 (5-19) 10/23/24 03:03 BUN 13 mg/dL (8-23) 10/23/24 03:03 Creatinine 0.8 mg/dL (0.7-1.2) 10/23/24 03:03 GFR Calculation Not Reportable 10/23/24 03:03 Treatment plan:: new consult Regimen:: ADDED FOR CELLULITIS TROUGH 2230
[2024-10-23] MEDS: piperacillin-tazobactam 3.375 GM in sodium chloride 0.9% (plus) 50 ML IV ×2 (14:22→20:17)
--- NOTE | 2024-10-23 15:39 | P.PN_ITS ---
Subjective 2 Subjective: Continues to complain of pain over the right lower extremity. Cellulitis does not appear to show any improvement compared to yesterday's exam. Will broaden antibiotics today. Medications: Reviewed: Yes Vitals/I&O/Wt Last Vital Signs Temp 98.2 F 10/23/24 15:13 Pulse 70 10/23/24 15:13 Resp 16 10/23/24 15:13 BP 105/62 10/23/24 15:13 Pulse Ox 93 10/23/24 15:13 O2 Del Method Room Air 10/23/24 15:13 10/23/24 10/23/24 10/23/24 06:59 14:59 22:59 Intake Total 700 / 2300 640 / 640 Balance 700 / 2300 640 / 640 Weight last 48 hrs Weight 133.073 kg Weight 133.084 kg Physical Exam 2 Narrative: General: No acute distress, AO x3 HEENT: PERRLA, pupils bilaterally equal and reactive, pallors not present Chest: Normal vesicular breath sounds, no added sounds, equal good air entry bilaterally CVS: S1-S2 regular, no murmurs, no tachycardia, no gallops, no rubs Abdomen: Soft, nontender, no organomegaly, bowel sounds present Neuro: No focal deficits, no facial deformity, AO x3, power 5/5 in all limbs Extremities: Bilateral lower extremity pitting edema, right lower extremity cellulitis extending to the calf. Data 10/23/24 03:03 10/23/24 03:03 A&P Assessment and plan 1. Acute metabolic encephalopathy: Resolved but attributed to urinary tract infection urine is showing gram negative rods blood cultures thus far negative Urine grew E. coli sensitive to Rocephin 2. Acute UTI: Continue Rocephin 2 g IV daily 3. Multiple vessel coronary artery disease: Patient does have history of coronary artery disease and this is stable at this time there are no chest pains shortness of breath or any cardiovascular symptomatology Continue home medication once updated 4. Fusion of spine of thoracolumbar region: Patient would like physical and Occupational Therapy evaluation and wants to get up and walk if at all possible Would like to get a therapy plan formulated by our department and patient to return to long-term facility to complete. 5. Morbid obesity with BMI of 40.0-44.9, adult: Patient requesting to walk I counseled him that he is morbidly obese which is a barrier and he requests weight loss diet. Patient counseled no sugared or sweetened drinks no juice no milk. Carbohydrate controlled diet 1800 mayi daily for weight loss 6. Cellulitis of right le. Lower extremity edema: Plan: GI and DVT prophylaxis in place October 22, 2024 Patient admitted to the hospital on October 19, 2024 with UTI, acute encephalopathy which is now resolved. Urine culture revealing E. coli for which patient is on appropriate antibiotic with ceftriaxone. Reduce dose to ceftriaxone 1 g IV every 24 hours as that will suffice for UTI. Blood cultures are negative from the current admission. Today he has been noted to have bilateral lower extremity swelling and a right lower extremity cellulitis. Will obtain a lower extremity Doppler to assess for DVT. Chest x-ray from admission is showing bilateral scattered infiltrates which appear to be pulmonary edema per personal interpretation. Together with bilateral lower extremity cellulitis I am concerned about potential CHF. Patient does not appear to be on any diuretics at the SNF, though he does report chronic lower extremity swelling which appears to be worse today. Last echocardiogram dates back to December 2023 at which time he was found to have a systolic function with a EF of 60%, no regional wall motion abnormalities. Diastolic function was unable to be assessed at that time. There was noted to be severe aortic valve calcification with mild stenosis with an NATALIE of 1.9 cm?. Will obtain echocardiogram to assess for any interval worsening. Add BNP to a.m. labs. Start Lasix 40 mg IV, closely monitor kidney function and urine output with initiation of Lasix. Add vancomycin empirically for cellulitis given that the worsening has been noted on ceftriaxone. October 23, 2024 Right lower extremity cellulitis has not improved so far. Continue IV vancomycin. Discontinue IV ceftriaxone and changed to IV piperacillin/tazobactam. Changes of cellulitis extending to the inferior margin of her previous right knee replacement. Will need to monitor closely for development of any septic arthritis. BNP returned elevated at 8900. Echocardiogram showing an LVEF of 58% without regional wall motion abnormalities. Thickened aortic valve was encountered with restricted mobility. Clinical impression that of acute on chronic CHF exacerbation with preserved ejection fraction. Will increase dose of Lasix to 40 mg IV every 12 hours today. Closely monitor intake output and renal function with this change. PDMP PDMP Reviewed: Not Reviewed Attestations 2 Medical Necessity Statement*: Need for IV diuresis, right lower extremity cellulitis which has not shown significant improvement yet Coding Level of Care Code Acute Code for Chg Fwd High MDM includes number and complexity of problems actively addressed during encounter, amount and/or complexity of data reviewed/ordered and described risk of complication, morbidity or mortality of management as documented Diagnoses Acute metabolic encephalopathy G93.41 Acute UTI N39.0 Multiple vessel coronary artery disease I25.10 Fusion of spine of thoracolumbar region M43.25 Morbid obesity with BMI of 40.0-44.9, adult E66.01; Z68.41 Cellulitis of right leg L03.115 Lower extremity edema R60.0
[2024-10-23] MEDS: FUROsemide 10 mg/mL SDV 4mL 40 MG IVP (17:22)
[2024-10-23] MEDS: MELATONIN 3 MG TABLET PO (20:17)
[2024-10-24] VITALS (9 sets, daily range): BP systolic 94–122; BP diastolic 58–79; PULSE 70–84; RESP 16–18; TEMP 36.4–37.1; O2SAT 90–98
[2024-10-24] MEDS: vancomycin 1,750 MG/350 ML PIGGYBACK 175 MG IV ×2 (01:48→12:34)
[2024-10-24] MEDS: morphine 4 mg/mL SDV 1 mL 2 MG IVP (01:52)
[2024-10-24 03:20] LABS: Hematocrit 31.7 % (37-53); Hemoglobin 9.40 g/dL (11.27-16.99); Mean Corpuscular HGB Conc 29.7 g/dL (30-55); Mean Corpuscular Hemoglobin 24.4 pg (27-33); Mean Corpuscular Volume 82.3 fl (82-101); Nucleated Red Blood Cells % 0.3 %; Platelet Count 124 10^3/cmm (157-399); Red Blood Count 3.85 10^6/uL (3.85-5.65); White Blood Count 6.23 10^3/uL (3.29-11.43)
[2024-10-24 03:41] LABS: Alanine Aminotransferase 17 U/L (0-41); Albumin Level 2.8 g/dL (3.5-5.2); Alkaline Phosphatase 120 U/L (40-130); Anion Gap 14.2 (5-19); Aspartate Amino Transferase 21 U/L (0-40); Blood Urea Nitrogen 12 mg/dL (8-23); Calcium 7.6 mg/dL (8.5-10.5); Carbon Dioxide 24 mmol/L (22-29); Chloride 104 mmol/L (98-107); Creatinine Clr Calc Pharmacy 114.3418; Globulin 3.4 g/dL (1.3-4.6); Glucose 151 mg/dL (65-115); Osmolality Calculated 291 mOsm/kg (285-295); Potassium 3.2 mmol/L (3.5-5.1); Sodium 139 mmol/L (136-145); Total Protein 6.2 g/dL (6.6-8.7)
[2024-10-24] MEDS: heparin 5,000 unit/mL INJ 1 mL 5000 UNIT SUBCUT ×2 (04:29→15:28)
[2024-10-24] MEDS: FUROsemide 10 mg/mL SDV 4mL 40 MG IVP ×2 (04:30→15:28)
[2024-10-24] MEDS: piperacillin-tazobactam 3.375 GM in sodium chloride 0.9% (plus) 50 ML IV ×3 (05:40→21:04)
--- NOTE | 2024-10-24 09:44 | PC.SOCIAL ---
IMM Update pg 2 of IMM Updated and reviewed w/ patient. Copy provided and copy dated, initialed and placed in chart.
[2024-10-24] MEDS: MELATONIN 3 MG TABLET PO (21:02)
--- NOTE | 2024-10-24 23:38 | P.PN_ITS ---
Subjective 2 Subjective: LE cellulitis and swelling are improving Medications: Reviewed: Yes Vitals/I&O/Wt Last Vital Signs Temp 98.2 F 10/24/24 23:37 Pulse 84 10/24/24 23:37 Resp 18 10/24/24 23:37 BP 108/64 10/24/24 23:37 Pulse Ox 98 10/24/24 23:37 O2 Del Method Room Air 10/24/24 15:19 10/24/24 10/24/24 10/25/24 14:59 22:59 06:59 Intake Total 880 / 880 170 / 1050 Balance 880 / 880 170 / 1050 Weight last 48 hrs Weight 133.81 kg Weight 133.073 kg Physical Exam 2 Narrative: General: No acute distress, AO x3 HEENT: PERRLA, pupils bilaterally equal and reactive, pallors not present Chest: Normal vesicular breath sounds, no added sounds, equal good air entry bilaterally CVS: S1-S2 regular, no murmurs, no tachycardia, no gallops, no rubs Abdomen: Soft, nontender, no organomegaly, bowel sounds present Neuro: No focal deficits, no facial deformity, AO x3, power 5/5 in all limbs Extremities: Bilateral lower extremity pitting edema, right lower extremity cellulitis extending to the calf.overall improvement on exam today Data 10/25/24 04:17 10/25/24 04:17 Micro: Microbiology 10/18/24 21:53 Blood Culture - Final Blood NO GROWTH AFTER 5 DAYS 10/18/24 21:08 Blood Culture - Final Blood NO GROWTH AFTER 5 DAYS A&P Assessment and plan 1. Acute metabolic encephalopathy: Resolved but attributed to urinary tract infection urine is showing gram negative rods blood cultures thus far negative Urine grew E. coli sensitive to Rocephin 2. Acute UTI: Continue Rocephin 2 g IV daily 3. Multiple vessel coronary artery disease: Patient does have history of coronary artery disease and this is stable at this time there are no chest pains shortness of breath or any cardiovascular symptomatology Continue home medication once updated 4. Fusion of spine of thoracolumbar region: Patient would like physical and Occupational Therapy evaluation and wants to get up and walk if at all possible Would like to get a therapy plan formulated by our department and patient to return to longterm facility to complete. 5. Morbid obesity with BMI of 40.0-44.9, adult: Patient requesting to walk I counseled him that he is morbidly obese which is a barrier and he requests weight loss diet. Patient counseled no sugared or sweetened drinks no juice no milk. Carbohydrate controlled diet 1800 mayi daily for weight loss 6. Cellulitis of right le. Lower extremity edema: Plan: GI and DVT prophylaxis in place October 22, 2024 Patient admitted to the hospital on October 19, 2024 with UTI, acute encephalopathy which is now resolved. Urine culture revealing E. coli for which patient is on appropriate antibiotic with ceftriaxone. Reduce dose to ceftriaxone 1 g IV every 24 hours as that will suffice for UTI. Blood cultures are negative from the current admission. Today he has been noted to have bilateral lower extremity swelling and a right lower extremity cellulitis. Will obtain a lower extremity Doppler to assess for DVT. Chest x-ray from admission is showing bilateral scattered infiltrates which appear to be pulmonary edema per personal interpretation. Together with bilateral lower extremity cellulitis I am concerned about potential CHF. Patient does not appear to be on any diuretics at the SNF, though he does report chronic lower extremity swelling which appears to be worse today. Last echocardiogram dates back to December 2023 at which time he was found to have a systolic function with a EF of 60%, no regional wall motion abnormalities. Diastolic function was unable to be assessed at that time. There was noted to be severe aortic valve calcification with mild stenosis with an NATALIE of 1.9 cm?. Will obtain echocardiogram to assess for any interval worsening. Add BNP to a.m. labs. Start Lasix 40 mg IV, closely monitor kidney function and urine output with initiation of Lasix. Add vancomycin empirically for cellulitis given that the worsening has been noted on ceftriaxone. October 23, 2024 Right lower extremity cellulitis has not improved so far. Continue IV vancomycin. Discontinue IV ceftriaxone and changed to IV piperacillin/tazobactam. Changes of cellulitis extending to the inferior margin of her previous right knee replacement. Will need to monitor closely for development of any septic arthritis. BNP returned elevated at 8900. Echocardiogram showing an LVEF of 58% without regional wall motion abnormalities. Thickened aortic valve was encountered with restricted mobility. Clinical impression that of acute on chronic CHF exacerbation with preserved ejection fraction. Will increase dose of Lasix to 40 mg IV every 12 hours today. Closely monitor intake output and renal function with this change. Oct 24, 2024 Improving LE edema and swelling today, Transition to oral lasix today and monitor. Will aim to narrow abx to oral, cellulitis is now much improved. PDMP PDMP Reviewed: Not Reviewed Attestations 2 Medical Necessity Statement*: iv diuresis, iv abx Coding Level of Care Code Acute Code for Chg Fwd Diagnoses Acute metabolic encephalopathy G93.41 Acute UTI N39.0 Multiple vessel coronary artery disease I25.10 Fusion of spine of thoracolumbar region M43.25 Morbid obesity with BMI of 40.0-44.9, adult E66.01; Z68.41 Cellulitis of right leg L03.115 Lower extremity edema R60.0
[2024-10-25] MEDS: vancomycin 1,750 MG/350 ML PIGGYBACK 175 MG IV (00:08)
[2024-10-25] MEDS: heparin 5,000 unit/mL INJ 1 mL 5000 UNIT SUBCUT (03:06)
[2024-10-25] MEDS: FUROsemide 10 mg/mL SDV 4mL 40 MG IVP (03:06)
[2024-10-25 03:32] VITALS: BP 103/62; PULSE 70; RESP 17; TEMP 36.8; O2SAT 98
[2024-10-25] MEDS: piperacillin-tazobactam 3.375 GM in sodium chloride 0.9% (plus) 50 ML IV (04:10)
[2024-10-25 04:58] LABS: Hematocrit 32.6 % (37-53); Hemoglobin 9.80 g/dL (11.27-16.99); Mean Corpuscular HGB Conc 30.1 g/dL (30-55); Mean Corpuscular Hemoglobin 24.9 pg (27-33); Mean Corpuscular Volume 82.7 fl (82-101); Nucleated Red Blood Cells % 0 %; Platelet Count 138 10^3/cmm (157-399); Red Blood Count 3.94 10^6/uL (3.85-5.65); White Blood Count 5.01 10^3/uL (3.29-11.43)
[2024-10-25 05:24] LABS: Alanine Aminotransferase 15 U/L (0-41); Albumin Level 2.9 g/dL (3.5-5.2); Alkaline Phosphatase 120 U/L (40-130); Anion Gap 13.2 (5-19); Aspartate Amino Transferase 18 U/L (0-40); Blood Urea Nitrogen 11 mg/dL (8-23); Calcium 7.9 mg/dL (8.5-10.5); Carbon Dioxide 25 mmol/L (22-29); Chloride 105 mmol/L (98-107); Creatinine Clr Calc Pharmacy 114.6796; Globulin 3.8 g/dL (1.3-4.6); Glucose 157 mg/dL (65-115); Osmolality Calculated 293 mOsm/kg (285-295); Potassium 3.2 mmol/L (3.5-5.1); Sodium 140 mmol/L (136-145); Total Protein 6.7 g/dL (6.6-8.7)
[2024-10-25 07:37] VITALS: BP 126/82; PULSE 67; RESP 16; TEMP 36.5; O2SAT 93
--- NOTE | 2024-10-25 09:39 | PM.DCS ---
Discharge Providers Date of Admission: 10/19/24 00:33 Date of Discharge: October 31, 2024 Attending Provider at Admission: Delores Cooper MD Attending Provider at Discharge: Mayelin Yap MD Diagnoses at Discharge Discharge Diagnosis 1. Acute metabolic encephalopathy: 2. Acute UTI: 3. Multiple vessel coronary artery disease: 4. Fusion of spine of thoracolumbar region: 5. Morbid obesity with BMI of 40.0-44.9, adult: 6. Cellulitis of right le. Lower extremity edema: Reason for Visit Reason for Visit: ams Brief History: Tom Espinosa is a 74 year old male with medical history significant for morbid obesity dementia who presented to the emergency room from his [place] [facility] because of confusion. Patient was evaluated in the emergency room evaluation was significant for urinary tract infection with encephalopathy. He was treated with iv ceftriaxone. This was broadened to iv zosyn and vancomycin as he developed RLE cellulitis and B/L LE swelling. He was treated with iv diuresis, transitioned to oral lasix at discharge. Iv abx were additionally transitioned to po abx at discharge. Patient returned to baseline mentation. he is improved at the time of discharge. Physical Exam Narrative: General: No acute distress, AO x3 HEENT: PERRLA, pupils bilaterally equal and reactive, pallors not present Chest: Normal vesicular breath sounds, no added sounds, equal good air entry bilaterally CVS: S1-S2 regular, no murmurs, no tachycardia, no gallops, no rubs Abdomen: Soft, nontender, no organomegaly, bowel sounds present Neuro: No focal deficits, no facial deformity, AO x3, power 5/5 in all limbs Discharge Data Studies Completed and Pending Completed Studies During Hospitalization Category Date Time Status CT head wo con* [id number] Stat Cat Scan 10/18/24 20:29 Completed CXRP [XR chest 1V portable [id number]] Routine Exams 10/22/24 10:48 Completed XR chest 1V portable [id number] Stat Exams 10/18/24 20:29 [place] [id number] Routine Ultrasound 10/22/24 10:46 Completed CV. echo limited [id number] Routine Ultrasound 10/22/24 10:48 Completed Radiology Impressions Head CT 10/18/24 20:29 IMPRESSION: 1. No acute intracranial findings. 2. Chronic/age-related changes as above. Chest X-Ray 10/22/24 10:48 IMPRESSION: Presumed significant reduction in the right pleural effusion. New opacification of the left costophrenic angle which may indicate pleural effusion and adjacent lung atelectasis. Laboratory Results WBC 5.01 10^3/uL (3.29-11.43) 10/25/24 04:17 RBC 3.94 10^6/uL (3.85-5.65) 10/25/24 04:17 Hgb 9.80 g/dL (11.27-16.99) L 10/25/24 04:17 Hct 32.6 % (37-53) L 10/25/24 04:17 MCV 82.7 fl (82-101) 10/25/24 04:17 MCH 24.9 pg (27-33) L 10/25/24 04:17 MCHC 30.1 g/dL (30-55) 10/25/24 04:17 RDW 18.9 % (12.1-15.1) H 10/25/24 04:17 Plt Count 138 10^3/cmm (157-399) L 10/25/24 04:17 MPV 11.9 fL (7.4-10.4) H 10/25/24 04:17 Neut % (Auto) 69.8 % 10/25/24 04:17 Lymph % (Auto) 18.0 % 10/25/24 04:17 [place] % (Auto) 7.2 % 10/25/24 04:17 Eos % (Auto) 3.4 % 10/25/24 04:17 Baso % (Auto) 0.6 % 10/25/24 04:17 Neut # (Auto) 3.50 10^3/uL (1.8-7.7) 10/25/24 04:17 Lymph # (Auto) 0.9 10^3/uL (0.8-4.8) 10/25/24 04:17 [place] # (Auto) 0.4 10^3/uL (0.2-0.9) 10/25/24 04:17 Eos # (Auto) 0.2 10^3/uL (0.0-0.8) 10/25/24 04:17 Baso # (Auto) 0.0 10^3/uL (0.0-0.1) 10/25/24 04:17 Nucleated RBC % (auto) 0 % 10/25/24 04:17 Nucleated RBCs # 0.0 /100WBC 10/25/24 04:17 Sodium 140 mmol/L (136-145) 10/25/24 04:17 Potassium 3.2 mmol/L (3.5-5.1) L 10/25/24 04:17 Chloride 105 mmol/L (98-107) 10/25/24 04:17 Carbon Dioxide 25 mmol/L (22-29) 10/25/24 04:17 Anion Gap 13.2 (5-19) 10/25/24 04:17 BUN 11 mg/dL (8-23) 10/25/24 04:17 Creatinine 0.8 mg/dL (0.7-1.2) 10/25/24 04:17 GFR Calculation Not Reportable 10/25/24 04:17 Glucose 157 mg/dL (65-115) H 10/25/24 04:17 Calculated Osmolality 293 mOsm/kg (285-295) 10/25/24 04:17 Lactic Acid 1.8 mmol/L (0.5-2.2) 10/19/24 05:15 Lactic Acid (Sepsis) 3.9 mmol/L (0.5-2.2) H 10/19/24 00:45 Calcium 7.9 mg/dL (8.5-10.5) L 10/25/24 04:17 Phosphorus 2.4 mg/dL (2.5-4.5) L 10/20/24 04:08 Magnesium 2.0 mg/dL (1.7-2.3) 10/20/24 04:08 Total Bilirubin 0.6 mg/dL (0.15-1.2) 10/25/24 04:17 AST 18 U/L (0-40) 10/25/24 04:17 ALT 15 U/L (0-41) 10/25/24 04:17 Alkaline Phosphatase 120 U/L (40-130) 10/25/24 04:17 NT-Pro-B Natriuret Pep 8998 pg/mL (0-125) H 10/22/24 11:43 Total Protein 6.7 g/dL (6.6-8.7) 10/25/24 04:17 Albumin 2.9 g/dL (3.5-5.2) L 10/25/24 04:17 Globulin 3.8 g/dL (1.3-4.6) 10/25/24 04:17 Urine Color Ceres (Yellow) A 10/18/24 22:50 Urine Appearance Cloudy (CLEAR) A 10/18/24 22:50 Urine pH 5.5 (5-7) 10/18/24 22:50 Ur Specific [place] 1.034 (1.005-1.030) H 10/18/24 22:50 Urine Protein 2+ (Negative) A 10/18/24 22:50 Urine Glucose (UA) Negative (Normal) 10/18/24 22:50 Urine Ketones Trace (Negative) 10/18/24 22:50 Urine Blood 2+ (Negative) A 10/18/24 22:50 Urine Nitrate Positive (Negative) A 10/18/24 22:50 Urine Bilirubin 1+ (Negative) H 10/18/24 22:50 Urine Urobilinogen 1.0 mg/dL (Negative) 10/18/24 22:50 Ur Leukocyte Esterase 1+ (Negative) A 10/18/24 22:50 Urine RBC 0-2 /hpf (0-2) 10/18/24 22:50 Urine WBC 51-100 /hpf (0-5) H 10/18/24 22:50 Ur Squamous Epith Cells 0-5 /hpf (0-5) 10/18/24 22:50 Amorphous Sediment Not Reportable 10/18/24 22:50 Urine Bacteria 1+ /hpf (NONE) H 10/18/24 22:50 Hyaline Casts 6.17 /lpf 10/18/24 22:50 Vancomycin Trough 23.3 ug/mL (10-15) H 10/25/24 12:37 Vitals Last Vital Signs Temp 97.8 F 10/25/24 14:18 Pulse 70 10/25/24 14:18 Resp 16 10/25/24 14:18 BP 116/69 10/25/24 14:18 Pulse Ox 94 10/25/24 14:18 O2 Del Method Room Air 10/25/24 12:00 Discharge Plan Discharge Patient Disposition: Xfer SNF Condition: Stable Prescriptions: New furosemide [Lasix] 40 mg tablet 40 mg PO DAILY Qty: 30 0RF doxycycline hyclate 100 mg capsule 100 mg PO BID 7 Days Qty: 14 0RF cefdinir 300 mg capsule 300 mg PO BID 7 Days Qty: 14 0RF Continued omeprazole 20 mg tablet,delayed release (DR/EC) 20 mg PO QPM acetaminophen 325 mg capsule 650 mg PO QID PRN (Reason: pain or fever ) albuterol sulfate 90 mcg/actuation HFA aerosol inhaler 2 puff inhalation Q6H PRN (Reason: wheezing/ shortness of breath) aspirin [Adult Low Dose Aspirin] 81 mg tablet,delayed release (DR/EC) 81 mg PO DAILY (DME) cam walking boot See Rx Instructions .Route .MEDSUPPLY Qty: 1 0RF Rx Instructions: As directed (DME) lace up ankle brace See Rx Instructions .Route .MEDSUPPLY Qty: 1 0RF Rx Instructions: As directed (DME) cam boot See Rx Instructions .Route .MEDSUPPLY Qty: 1 0RF Rx Instructions: As directed albuterol sulfate 0.63 mg/3 mL Solution For Nebulization 0.63 mg INHALATION Q6H PRN (Reason: Cough) polyethylene glycol 3350 17 gram Powder In Packet 17 g PO DAILY PRN (Reason: Constipation) magnesium hydroxide [Milk of Magnesia] 400 mg/5 mL Suspension 2,400 mg PO DAILY PRN (Reason: Constipation) bisacodyl 10 mg Suppository [address] DAILY PRN (Reason: Constipation) finasteride 5 mg tablet 5 mg PO BEDTIME Clear Eyes Natural Tears 0.5-0.6 % Drops 1 drp OPHTHALMIC (EYE) TID PRN (Reason: Dry Eye(S)) tamsulosin 0.4 mg Capsule 0.4 mg PO DAILY Qty: 30 0RF isosorbide mononitrate 60 mg tablet extended release 24 hr 60 mg PO DAILY Qty: 20 0RF Fleet Enema 19-7 gram/118 mL Enema [address] DAILY PRN (Reason: Constipation) nystatin 100,000 unit/gram Powder 1 applic TOPICAL Q8H PRN (Reason: Rash) Biofreeze (menthol) 4 % Gel 1 applic TOPICAL Q6H PRN (Reason: Pain) ondansetron HCl 4 mg tablet 4 mg PO Q6H PRN (Reason: Nausea And Vomiting) benzonatate 100 mg Capsule 100 mg PO Q8H PRN (Reason: Cough) ibuprofen 200 mg Tablet 200 mg PO QPM PRN (Reason: Moderate Pain (Scale Score 5-6)) calcium carbonate 500 mg calcium (1,250 mg) Tablet,Chewable 1,000 mg PO Q4H PRN (Reason: heartburn/indigestion) sertraline 50 mg tablet 50 mg PO BEDTIME melatonin 1 mg Tablet 1 mg PO BEDTIME Cough Drops 2.5 mg Lozenge 2.5 mg PO PRN MDD 2-3 at a time PRN (Reason: Cough) Discharge Order = DC NOW: Discharge Order (Routine); Ordered 10/25/24 Ordered By: Mayelin Yap Referrals: [facility] [Outside] Patient Instructions: Altered Mental Status (ED), Opioid Safety, Patient Portal & [facility] Instructions Discharge Attestations Time Spent in Discharge Care*: greater than 30 min Quality Metrics Clinical Quality Measures [ No reported AMI, CVA or VTE this stay] Coding Level of Care Code Acute Code for Chg Fwd Diagnoses Acute metabolic encephalopathy G93.41 Acute UTI N39.0 Multiple vessel coronary artery disease I25.10 Fusion of spine of thoracolumbar region M43.25 Morbid obesity with BMI of 40.0-44.9, adult E66.01; Z68.41 Cellulitis of right leg L03.115 Lower extremity edema R60.0
--- NOTE | 2024-10-25 10:44 | PC.NURSE ---
This nurse attempted at this time to call report [facility] states awaiting discharge information before receiving report. number given to nurse to return call to this nurse.
[2024-10-25 11:00] VITALS: PULSE 68; RESP 16; O2SAT 93
[2024-10-25 12:00] VITALS: BP 116/69; PULSE 70; RESP 16; TEMP 36.6; O2SAT 94
--- NOTE | 2024-10-25 12:00 | PC.NURSE ---
Addendum entered by Lindsay Meade LPN 10/25/24 12:12: this nurse spoke with laine from [facility] at this time and gave report, transport is called and awaiting transport to [facility]. Original Note: this nurse attempted to call report X 2 this shift. and was stated by nurse at [facility] that the nurse would have to call me back due to the nurse doing med count at this time.
[2024-10-25 14:18] VITALS: BP 116/69; PULSE 70; RESP 16; TEMP 36.6; O2SAT 94
--- NOTE | 2024-10-25 15:13 | PC.OT ---
Patient discharged prior to skilled OT treatment.
== END 2024-10-25 14:21 | disposition skilled nursing facility (03) | DRG 689 ==
LOC: ER 10-19 01:03 → MEDSURG 10-19 01:16
PROVIDERS: Admitting Provider Internal Medicine; Emergency Provider Emergency Medicine; Visit Provider Student in an Organized Health Care Education/Training Program
DX: N39.0 Urinary tract infection, site not specified (principal); G93.41 Metabolic encephalopathy; Z68.41 Body mass index [BMI] 40.0-44.9, adult; L03.115 Cellulitis of right lower limb; E87.20 Acidosis, unspecified; I25.10 Atherosclerotic heart disease of native coronary artery without angina pectoris; E66.01 Morbid (severe) obesity due to excess calories; F03.90 Unspecified dementia, unspecified severity, without behavioral disturbance, psychotic disturbance, mood disturbance, and anxiety; E11.9 Type 2 diabetes mellitus without complications; D69.6 Thrombocytopenia, unspecified; F41.9 Anxiety disorder, unspecified; F32.A Depression, unspecified; G47.33 Obstructive sleep apnea (adult) (pediatric); K21.9 Gastro-esophageal reflux disease without esophagitis; E78.5 Hyperlipidemia, unspecified; I10 Essential (primary) hypertension; N40.0 Benign prostatic hyperplasia without lower urinary tract symptoms; Z96.651 Presence of right artificial knee joint; I25.2 Old myocardial infarction; Z79.82 Long term (current) use of aspirin; Z98.61 Coronary angioplasty status; Z98.1 Arthrodesis status
CPT/HCPCS: 36415; 70450; 71045; 80053; 80202; 81001; 83605; 83735; 83880; 84100; 85025; 87040; 87077; 87086; 87186; 93308; 93970; 96372; 96374; 97110; 97161; 97166; 97530; 97535; 99285; J0692; J0696; J1644; J1938; J2270; J2543; J3372; J7030; J7040; J9999